=== PATIENT | male | born 1980 | race Caucasian/White ===

== ENCOUNTER 2020-03-28 17:39 | Inpatient (IN) | payer OTHER, SELFPAY ==
[2020-03-28] VITALS (8 sets, daily range): BP systolic 128–154; BP diastolic 77–95; PULSE 95–109; RESP 17–18; TEMP 36.4–37.3; O2SAT 96–99; BMI 37.7; BMI 38.2; BMI 38.3
--- NOTE | 2020-03-28 16:45 | RAD_ITS ---
STUDY: X-RAY - LEFT FOOT CLINICAL: Male, 40 years old. LEFT FIFTH TOE INFECTION TECHNIQUE: 3 view(s) of the foot. COMPARISON: None. FINDINGS: Normal talus, calcaneus, and tarsal bones. Normal visualized subtalar, talonavicular, calcaneocuboid, tarsal and tarsometatarsal articulations. Normal metatarsi. Normal metatarsophalangeal joint of the great toe. Normal tibial and fibular sesamoid bones. Normal interphalangeal joint of the great toe. Normal phalanges of the great toe. There is subchondral lucency in the lateral head of the fifth metatarsal which may be consistent with early changes of acute osteomyelitis.. Soft tissue swelling of the dorsal surface of the fifth toe with multiple lucencies in the subcutaneous fat which may be consistent with gangrene. RAD/Foot min 3 Views IMPRESSION: Soft tissue swelling likely gangrenous changes of the fifth toe with findings suspicious for osteomyelitis of the head of the fifth metatarsal. This may be further assessed with MRI or three-phase bone scan if indicated Electronically Signed: Rai Hassan MD at 20:13 EDT , Service support ,
--- NOTE | 2020-03-28 19:10 | ED.VIS.GEN ---
History of Present Illness Chief Complaint: Wound Check Detail of Chief Complaint: Left foot infection Informant: Patient, Family Onset: Weeks - 1 week Context: Gradual Onset Current Severity: Moderate Maximum Severity: Moderate Narrative: Patient present secondary left fifth toe infection. He is a diabetic and takes natural medicine for this. He reports getting a blister to his left fifth toe approximately week ago. They have been trying to care for this at home but wound is been worsening. He does report malodor and drainage. He denies fever or chills. He states his blood sugars have been under good control. - Past Medical History (1) Diabetes Status: Chronic Past Medical History - Allergies and Home Meds Allergies/Adverse Reactions: Allergies No Known Allergies Allergy (Verified 03/28/20 17:42) Primary Care Physician: Care Physician,No Primary [Primary Care Provider] - Lives: With Family Smoking Status: Never smoker Review of Systems General: Denies: Chills, Fever Eyes: Denies: Visual changes - bilaterally ENT: Denies: Bilateral ear pain Cardiovascular: Denies: Chest pain Respiratory: Denies: Dyspnea, Cough Gastrointestinal: Denies: Abdominal pain, Nausea, Vomiting, Diarrhea Musculoskeletal: Reports: Extremity Pain Skin: Reports: Wounds Neurological: Denies: Headache Hematologic: Denies: Easy bruising, Easy bleeding Allergy: Denies: Uticaria Physical Exam Vital Signs/Narrative: Vital Signs Temp Pulse Resp BP Pulse Ox 03/28/20 19:00 98.1 F 102 H 18 135/86 H 97 03/28/20 18:42 98.1 F 102 H 18 135/86 H 97 03/28/20 17:40 97.6 F L 109 H 18 154/95 H 98 Inital Vital Signs reviewed: Yes General: Well nourished, Well developed Head: Normocephalic ENT: Moist mucous membranes Neck: Supple Cardiovascular: Regular rate, Regular rhythm Respiratory: No distress, CTA bilaterally Abdomen: Soft, Nontender Extremities: - - Patient's left fifth toe is black in color. He has sloughed off skin with drainage. He has edema and erythema to the midfoot. Neurological: Alert, Oriented x3 Psychological: Normal affect Diagnostic/Tx/Re-eval Impressions Foot X-Ray 03/28/20 16:45 IMPRESSION: Soft tissue swelling likely gangrenous changes of the fifth toe with findings suspicious for osteomyelitis of the head of the fifth metatarsal. This may be further assessed with MRI or three-phase bone scan if indicated Electronically Signed: Rai Hassan MD at 20:13 EDT , Service support , 03/28/20 16:45 Foot min 3 Views [RAD] Stat Laboratory Results 03/28/20 03/28/20 03/28/20 19:23 19:23 19:23 WBC 13.4 H RBC 4.35 L Hgb 12.8 L Hct 38.9 L MCV 89.4 MCH 29.4 MCHC 32.9 RDW Std Deviation 42.0 RDW Coeff of Erica 12.9 Plt Count 607 H MPV 9.0 Immature Gran % (Auto) 2.500 H Neut % (Auto) 64.8 Lymph % (Auto) 19.7 Schuyler % (Auto) 10.4 H Eos % (Auto) 1.9 Baso % (Auto) 0.7 Absolute Neuts (auto) 8.7 H Absolute Lymphs (auto) 2.64 Nucleated RBC % 0 Sodium 131 L Potassium 3.9 Chloride 97 L Carbon Dioxide 30.0 Anion Gap 4 L BUN 13 Creatinine 0.79 Estim Creat Clear Calc 107.04 Est GFR (MDRD) Af Amer 139 Est GFR (MDRD) Non-Af 114 BUN/Creatinine Ratio 16.4 Glucose 170 H Lactic Acid 1.2 Calcium 8.9 - Medical Decision Making I spoke with Dr. hilliard on shortly to see the patient. She presented to the emergency room and was able to do an I&D of his foot. She did get cultures and plan will be OR. She did asked that I speak with the hospitalist to have him admit the patient secondary to his underlying diabetes. ED Disposition - Plan for ED Patient: Disposition: Home or Assisted Living Diagnosis: Diabetic foot infection Referrals: Care Physician,No Primary [Primary Care Provider] -
[2020-03-28 19:40] LABS: Absolute Lymphocyte Count 2.64 X10^3/uL (0.83-4.51); Absolute Neutrophil Count 8.7 X10^3/uL (2.0-7.7); Basophil# 0.09 X10^3/uL; Basophil% 0.7 % (0-1); Eosinophil# 0.25 X10^3/uL; Eosinophils% 1.9 % (0-5); Hematocrit 38.9 % (40-54); Hemoglobin 12.8 g/dL (13.0-16.5); Lymphocyte # 2.64 X10^3/ul (4.0); Lymphocyte % 19.7 % (19-41); Mean Corp Hgb Conc 32.9 g/dL (32-36); Mean Corpuscular Hgb 29.4 pg (27.0-32.0); Mean Corpuscular Volume 89.4 fL (80-94); Monocyte# 1.39 X10^3/uL; Monocyte% 10.4 % (0-10); NRBC Flagged by Analyzer 0 % (0-5); Neutrophil # 8.67 X10^3/uL (2.7-7.7); Neutrophil % 64.8 % (47-70); Platelet Count 607 K/mm3 (150-450); RBC Distribution Width CV 12.9 % (11.6-14.6); Red Blood Count 4.35 M/mm3 (4.6-6.2); White Blood Count 13.4 K/mm3 (4.4-11.0)
[2020-03-28 20:06] LABS: Anion Gap 4 (5-15); BUN 13 mg/dL (7-18); BUN/Creat Ratio 16.4 RATIO (10-20); Calcium,Total 8.9 mg/dL (8.5-10.1); Chloride 97 mmol/L (98-107); Creatinine, Serum 0.79 mg/dL (0.70-1.30); EST Glomerular Filtration Rate 114 mL/min (>60); Est Glom Filt Rate - Afr Amer 139 mL/min (>60); Estimated Creatinine Clearance 107.04 ml/min; Glucose 170 mg/dL (74-106); Potassium 3.9 mmol/L (3.5-5.1); Sodium Level 131 mmol/L (136-145)
[2020-03-28 20:10] LABS: Lactic Acid 1.2 mmol/L (0.4-1.9)
--- NOTE | 2020-03-28 21:10 | CON.PCM_ITS ---
Problem List (1) Cellulitis of left lower limb Status: Acute (2) Diabetic wet gangrene of the foot Status: Acute (3) Osteomyelitis of left foot Status: Acute (4) Type 2 diabetes mellitus with diabetic polyneuropathy Status: Chronic Reason for Consult Date of Consultation: 03/28/20 Reason for Consultation: Left foot infection History of Present Illness: This 40-year-old male with uncontrolled diabetes with neuropathy and other unknown medical history complains of a left foot infection which he presented to the emergency room this evening. He relates the onset was approximately 9 days ago with recent purple and black discoloration and redness extension onto the rest of the foot over the past 3 days. His sister noticed an odor. He denies trauma or foreign body injury. He is been treating himself at home with homeopathic supplements. He denies fever, chill, nausea, vomiting. He denies history of prior foot ulcer. He denies claudication or rest foot pain. He has loss of sensation and some paresthesias to the foot. Past Medical History Past Medical History (Chronic Problems): Chronic Problems Diabetes (Chronic) Type 2 diabetes mellitus with diabetic polyneuropathy (Chronic) Allergies No Known Allergies Allergy (Verified 03/28/20 17:42) Home Medications: Ambulatory Orders Medication Instructions Recorded NK 03/28/20 Surgical History: no surgical history - Parents and sisters Lives: With Family Smoking Status: Never smoker Tobacco Use: Non-smoker Alcohol: Occasional - Social Drugs: None - *Family History Maternal History Items: Cancer, Diabetes, - - History of ulcers and lower extremity amputations Review of Systems Constitutional: Reports: Fatigue. Denies: Chills, Fever Eyes: Reports: Blurred vision HEENT: Reports: Visual Changes. Denies: Hearing Changes, Sore Throat Cardiovascular: Denies: Chest Pain, Claudication, Orthopnea Respiratory: Denies: Cough, Shortness of Breath Gastrointestinal: Denies: Abdominal Pain, Diarrhea, Nausea, Vomiting Genitourinary: Denies: Frequency Musculoskeletal: Denies: Foot Pain, Joint Pain, Leg Pain Skin: Reports: Skin Changes, Wounds Neurological: Reports: Blurred vision, Numbness. Denies: Balance problems, Double vision Endocrine: Reports: Change in Body Habitus Hematologic/ Lymphatic: Denies: Easy Bruising, Easy Bleeding, Hx of blood clot Patient Problems: Active and Suspected Problems Diabetic foot infection (Acute) Cellulitis of left lower limb (Acute) Diabetic wet gangrene of the foot (Acute) Osteomyelitis of left foot (Acute) - Physical Exam Vitals/I&O's: Vital Signs Temp Pulse Resp BP Pulse Ox 97.9 F 96 17 132/83 H 99 03/28/20 20:00 03/28/20 20:00 03/28/20 20:00 03/28/20 20:00 03/28/20 20:00 Oxygen Delivery Method Room Air Weight: 102.8 kg Body Mass Index (BMI) 37.7 Intake and Output for Last 24 Hours 03/26/20 03/27/20 03/28/20 23:59 23:59 23:59 Intake Total 50 / 50 Balance 50 / 50 General: Alert, Oriented x3, Cooperative HEENT: Atraumatic Extremities: Capillary Refill Less than 3 Seconds - Right digits 1, 2, 3, 4, 5 and left digits 1, 2, 3, 4. Gangrene and absent capillary fill time to the fi fth toe, No Calf Tenderness - Negative Cas and Albert sign bilateral, Cyanosis - Fifth toe extending onto the forefoot lateral aspect, Peripheral Pulses Normal - 2 out of 4 DP pulses bilateral 1 out of 4 PT pulse bilateral, - - Compartments are soft to palpate to the hindfoot, ankle, and leg. There is fluctuance and bogginess to the fifth toe into the dorsal lateral foot extending onto the foref oot and this is a near approximation to the fifth metatarsal phalangeal joint and proximal to the site. Skin: Ulcer/ Wound - There is a plantar skin discontinuity with a granular fibrous base that does probe to the fifth metatarsal head and communicates with the gangrenous area. There is a significant odor noted with debridement. The erythema is intense and extends to the dorsal hindfoot and also into the fourth intermetatarsal space area. The fourth toe does not have any cellulitis on the site. This is consistent with wet gangrene and it corresponds with the x-ray also. The adjacent skin is atrophic but there is hair present on the toes the foot and the leg Musculoskeletal: No Tenderness to Palpation of Joints or Extremities, No Muscle Wasting, - - Subtle dorsal contraction of the fifth toe with varus rotation and prominent fifth metatarsal head Neurological: - - Lack of epicritic sensation is consistent with neuropathy Psych/Mental Status: Normal Affect, Appropriate Laboratory Results 03/28/20 19:23: WBC 13.4 H, RBC 4.35 L, Hgb 12.8 L, Hct 38.9 L, MCV 89.4, MCH 29.4, MCHC 32.9, RDW Std Deviation 42.0, RDW Coeff of Erica 12.9, Plt Count 607 H, MPV 9.0, Immature Gran % (Auto) 2.500 H, Neut % (Auto) 64.8, Lymph % (Auto) 19.7, [place] % (Auto) 10.4 H, Eos % (Auto) 1.9, Baso % (Auto) 0.7, Absolute Neuts (auto) 8.7 H, Absolute Lymphs (auto) 2.64, Nucleated RBC % 0 03/28/20 19:23: Sodium 131 L, Potassium 3.9, Chloride 97 L, Carbon Dioxide 30.0, Anion Gap 4 L, BUN 13, Creatinine 0.79, Estim Creat Clear Calc 107.04, Est GFR (MDRD) Af Amer 139, Est GFR (MDRD) Non-Af 114, BUN/Creatinine Ratio 16.4, Glucose 170 H, Calcium 8.9 03/28/20 19:23: Lactic Acid 1.2 Current Medications Vancomycin HCl 1,500 mg/ (Sodium Chloride) 530 mls @ 250 mls/hr IV X1 ONE Stop: 03/28/20 21:37 Last Admin: 03/28/20 19:38 Dose: 250 mls/hr Documented by: Assessment/Plan All Active Problems Diabetic foot infection (Acute) Cellulitis of left lower limb (Acute) Diabetic wet gangrene of the foot (Acute) Osteomyelitis of left foot (Acute) Left foot infection cellulitis with wet gangrene of the fifth toe and forefoot Left plantar foot ulcer Diabetes with neuropathy I reviewed and discussed his case. He is afebrile and his vital signs are stable. He is hypertensive. He has leukocytosis of 13.5. ESR and C-reactive protein are pending. I reviewed the foot x-rays of the left limb including AP, lateral, oblique. These were reviewed without any acute fracture or dislocation. There is soft tissue emphysema consistent with his clinical gangrenous presentation at the fifth toe and dorsal fifth metatarsal phalangeal joint level. No foreign body is identified. Blood cultures were obtained in the emergency room and the results are pending. I recommended an immediate debridement and drainage of this bedside in the emergency room and verbal consent was obtained to decompress this infection site. Betadine preparation was performed a 15 blade scalpel and forceps was used to to provide devitalized necrotic moist fibrous tissue. Seropurulent odorous drainage was expressed coming from the dorsal lateral foot and fifth digit. This devitalized tissue did extend down to the joint and bone which is necrotic. This was copiously irrigated with normal saline and packed with Betadine wicked gauze. He understands operating room debridement is recommended and his fifth toe and part of his forefoot are already nonsalvageable. I recommend removing this devitalized necrotic tissue and allowing the foot to drain out. Prior to dressing application, deep wound aerobic, anaerobic, and MRSA PCR cultures were obtained and the results are pending. He was started on vancomycin and Zosyn. This will be updated pending his culture results. He will be admitted for infection stabilization and diabetes management. It is noted he does have diabetes with complications such as wounds and infections currently. He is not aware of any past medical history but admits he did not go to the doctor. He appears to have hypertension at this time. He was admitted on the hospitalist service and management is greatly appreciated. From a podiatry standpoint, I recommend going to the operating room in a timely manner within the next day for soft tissue and bone debridement of the left foot including up to a fourth and fifth ray resection with additional incision and drainage. Likely this will need to be left open to further decompress the infection site. This may be a staged procedure. The preoperative indications, planned procedure, possible benefits, risk, complications, anticipated healing time and management were reviewed. He understands risks and complications may include but are not limited to the following: pain, swelling, scarring, nonhealing, delayed healing, continued infection, need for further surgery, blood clot, allergic reaction, transfer lesions or ulcers, chronic pain syndrome, loss of limb, function, life. No guarantees were made. This is a lot of information for this patient at this time and I would like to review this again prior to surgery. Surgery will be tomorrow pending operating room time availability. He will be made n.p.o. in preparation for this. IV fluids were started and he was also started on insulin sliding scale. Preoperative optimi zation per hospitalist service is greatly appreciated. The surgical consent and surgical limb will need to be signed. I recommend holding anticoagulation medication until after surgery. I also recommend noninvasive vascular studies given his gangrenous state. I do not recommend doing this prior to surgery if this would potentially delay going to the operating room. It is noted he does have palpable pulse including a 2 out of 4 DP pulse and he does have here to the foot ankle and leg of the infected limb. Please do not hesitate to call if you have any questions. I reviewed this case and plan with Dr. Delgado. Ashlee Angulo, CHANDU, [facility] [place] [phone] Procedure Criteria COVID Risk Discussion: This patient was informed that he is having a nonelective surgery and treatment for an acute limb threatening infection during the COVID-19 pandemic. Although all of the CDC recommended safety precautions are being taken at our hospital facility, there is still an inherent risk of COVID-19 in the community. He understands and elects to proceed forward with a hospital admission and surgery as I recommend the benefits outweigh the risks.
--- NOTE | 2020-03-28 21:10 | HP.PCM_ITS ---
Problem List (1) Diabetes Status: Chronic (2) Diabetic foot infection Status: Acute History of Present Illness Date of Admission: 03/28/20 Chief Complaint: Left foot infection The patient is a 40 year old male patient who presents the emergency room with an infection in his left foot. The patient does not regularly see a doctor but recently checked his own blood sugars at home and was found to be high. Onset of this infection in the left foot on his little toe began 1 week ago and has progressed and become more painful since that time. He denies fevers or chills, no chest pain shortness of breath, no nausea vomiting or diarrhea. Laboratory studies reveal an elevated white blood cell count of 13.4, hemoglobin 12.8, hematocrit 38.9, platelets elevated at 607, sodium 131, potassium 3.9, chloride 97, bicarb 30, BUN 13, creatinine 0.7, blood glucose 170, lactate 1.2, x-ray left foot shows soft tissue swelling with gangrene of the left fifth toe along with osteomyelitis of the head of the fifth metatarsal. The patient was seen and examined by tag machine operator Dr. Angulo who plans to take the patient to the OR for amputation of the left fifth digit in the a.m. Past Medical History Past Medical History (Chronic Problems): Chronic Problems Diabetes (Chronic) Allergies No Known Allergies Allergy (Verified 03/28/20 17:42) Home Medications: Ambulatory Orders Medication Instructions Recorded NK 03/28/20 Lives: With Family Smoking Status: Never smoker - *Family History Maternal History Items: Diabetes Review of Systems Constitutional: Denies: Chills, Fever, Weight Change HEENT: Denies: Head Aches, Sinus Congestion, Sinus Drainage Cardiovascular: Denies: Chest Pain, Palpitations Respiratory: Denies: Cough, Shortness of breath at rest, Sputum production Gastrointestinal: Denies: Abdominal Pain, Nausea, Vomiting Genitourinary: Denies: Dysuria Musculoskeletal: Reports: Foot Pain, Joint Pain Skin: Denies: Rash, Wounds Neurological: Denies: Numbness, Tingling, Focal weakness Psychiatric: Denies: Anxiety, Depression, Homicidal Ideations, Suicidal Ideations Hematologic/ Lymphatic: Denies: Easy Bruising, Easy Bleeding VTE Information - Inpt Only VTE Present on Admission: No VTE Mechan Device Prophylaxis: None VTE Pharm Prophylaxis ordered?: Yes Patient Problems: Active and Suspected Problems Diabetic foot infection (Acute) - Physical Exam Vitals/I&O's: Vital Signs Temp Pulse Resp BP Pulse Ox 97.9 F 96 17 132/83 H 99 03/28/20 20:00 03/28/20 20:00 03/28/20 20:00 03/28/20 20:00 03/28/20 20:00 Oxygen Delivery Method Room Air Weight: 226 lb 10.163 oz Body Mass Index (BMI) 37.7 Intake and Output for Last 24 Hours 03/26/20 03/27/20 03/28/20 23:59 23:59 23:59 Intake Total 50 / 50 Balance 50 / 50 General: Alert, Oriented x3, Cooperative HEENT: Atraumatic, Normocephalic Neck: Supple Lungs: Clear to auscultation, Normal air movement Cardiovascular: Regular rate, Normal S1, Normal S2, No murmurs Abdomen: Bowel Sounds Present, Soft, Non Tender Extremities: Edema - trace Skin: Ulcer/ Wound - left 5th toe erythema Musculoskeletal: No Tenderness to Palpation of Joints or Extremities Neurological: Neuro grossly intact Psych/Mental Status: Normal Affect, Appropriate Laboratory Results 03/28/20 19:23: WBC 13.4 H, RBC 4.35 L, Hgb 12.8 L, Hct 38.9 L, MCV 89.4, MCH 29.4, MCHC 32.9, RDW Std Deviation 42.0, RDW Coeff of Erica 12.9, Plt Count 607 H, MPV 9.0, Immature Gran % (Auto) 2.500 H, Neut % (Auto) 64.8, Lymph % (Auto) 19.7, Starr % (Auto) 10.4 H, Eos % (Auto) 1.9, Baso % (Auto) 0.7, Absolute Neuts (auto) 8.7 H, Absolute Lymphs (auto) 2.64, Nucleated RBC % 0 03/28/20 19:23: Sodium 131 L, Potassium 3.9, Chloride 97 L, Carbon Dioxide 30.0, Anion Gap 4 L, BUN 13, Creatinine 0.79, Estim Creat Clear Calc 107.04, Est GFR (MDRD) Af Amer 139, Est GFR (MDRD) Non-Af 114, BUN/Creatinine Ratio 16.4, Glucose 170 H, Calcium 8.9 03/28/20 19:23: Lactic Acid 1.2 Current Medications Vancomycin HCl 1,500 mg/ (Sodium Chloride) 530 mls @ 250 mls/hr IV X1 ONE Stop: 03/28/20 21:37 Last Admin: 03/28/20 19:38 Dose: 250 mls/hr Documented by: Assessment/Plan All Active Problems Diabetic foot infection (Acute) Plan 1. Diabetic foot infection/osteomyelitis/gangrene of fifth digit left foot?admit patient to medical surgical floor. Make patient n.p.o. at midnight pending surgery tomorrow, will initiate IV fluids of normal saline at 125 cc/h. We will cover the patient with every 6 hours sliding scale insulin on a low dose since the patient is na?ve to insulin. We will order CBC, BMP, A1c, FLP and urine microalbumin to be done in the morning, this should assist outpatient follow-up care as he is a new diabetic who has not been treated previously. 2. DVT prophylaxis?low molecular weight heparin At discharge patient will need follow-up care with a primary care physician to manage his diabetes going forward. Inpatient E&M: 41165 Init Hosp L3
[2020-03-28] MEDS: 0.9% Normal Saline 1,000 ML 125 ML IV (23:02)
[2020-03-28 23:04] LABS: M R Staph aureus DNA By PCR Negative (Negative); Probe Check PASS; Specimen Processing Control PASS; Staph aureus DNA By PCR NEGATIVE (Negative)
[2020-03-28 23:06] LABS: Bedside Glucose 120 mg/dL (70-110)
[2020-03-28 23:07] LABS: Erythrocyte Sedimentation Rate 79 mm/hr (0-15)
--- NOTE | 2020-03-28 23:10 | PCM.RX.CS ---
Consult Pharmacy has been consulted to manage selected antiobiotic: Vancomycin Type of Consult: New start Suspected Infection: Skin/Soft tissue Prior Doses of Antibiotics Received/Current Regimen: Medications Vancomycin HCl 1,250 mg/ (Sodium Chloride) 275 mls @ 167 mls/hr IV Q8H NELSON Discontinued Medications Vancomycin HCl 1,500 mg/ (Sodium Chloride) 530 mls @ 250 mls/hr IV X1 ONE Stop: 03/28/20 21:37 Last Admin: 03/28/20 21:59 Dose: Infused Labs: Sodium 131 mmol/L (136-145) L 03/28/20 19:23 Potassium 3.9 mmol/L (3.5-5.1) 03/28/20 19:23 Chloride 97 mmol/L (98-107) L 03/28/20 19:23 Carbon Dioxide 30.0 mmol/L (21.0-32.0) 03/28/20 19:23 Anion Gap 4 (5-15) L 03/28/20 19:23 BUN 13 mg/dL (7-18) 03/28/20 19:23 Creatinine 0.79 mg/dL (0.70-1.30) 03/28/20 19:23 Est GFR (MDRD) Af Amer 139 mL/min (>60) 03/28/20 19:23 Est GFR (MDRD) Non-Af 114 mL/min (>60) 03/28/20 19:23 BUN/Creatinine Ratio 16.4 RATIO (10-20) 03/28/20 19:23 Glucose 170 mg/dL (74-106) H 03/28/20 19:23 Weight used for dosin kg Estimated Creatinine Clearance: 107 Goal Trough: 15-20 mcg/mL Pharmacy Plan for Drug Dosing: Pharmacy Service will continue to monitor and adjust dosing as required. Follow-Up Labs: Trough Vancomycin Labs to be done on [date and time ordered]: 03/29/20 @1900
[2020-03-28 23:29] LABS: Hemoglobin A1c 8.9 % (3.8-5.6)
[2020-03-29] VITALS (9 sets, daily range): BP systolic 100–145; BP diastolic 41–88; PULSE 78–102; RESP 16–18; TEMP 36.4–37.2; O2SAT 94–98
--- NOTE | 2020-03-29 | BON_PTH ---
PATIENT: DARRYL CARLISLE LOC: [facility] U#:[id number] AGE/SX: 40/M ROOM: [place] RE03/28/[address]: Dr. Prem Jackson MD : 1980 BED: 1 DIS: 03/31/2020 SPEC #: [id number] RECD: 03/29/20 15:14 STATUS: SHAHEEN REQ #: [id number] [place]: 03/29/20 00:[address]: Ashlee Angulo DEPT: SURGICAL PATHOLOGY RECD BY: Eddy Salomon ENTERED: 03/30/20 09:46 SP TYPE: Bone OTHR DR: MD Dr. Ashlee Chambers, DPM MD Dr. Nasim Lepe MD No Primary Care Phys Tissues: A - Foot, NOS B - Bone of foot, NOS Procedures: Decalcification bone/plaque Surgery Specimen Level IV Comments: @ Ordering doctor for DEC edited from to DR.JFASCI Rodrigues by BRANNON at 03/30/20 1033 @ Ordering doctor for SUIII edited from to DR.JFASCI Rodrigues by BRANNON at 03/30/20 1033 @ Ordering doctor for SUIV edited from to DR.JFASCI Rodrigues by BRANNON at 03/30/20 1033 @ Submitting doctor edited from to DR.JFASCI Rodrigues by BRANNON at 03/30/20 1033 HEADER OPERATION: Fifth ray resection PRE-OP DIAGNOSIS: Left fifth toe infection TISSUE SUBMITTED: A - Left foot soft tissue and bone, B - Clearance fragment left foot MICROSCOPIC DIAGNOSIS A. Bone and soft tissue of left foot, amputation: Soft tissue with ulceration and acute and chronic inflammation. Bone with acute osteomyelitis. B. Left foot clearance fragment bone, excision: Reactive change. No evidence of acute osteomyelitis. AM:sandi 04/06/20 MICROSCOPIC DESCRIPTION Slides are reviewed. GROSS DESCRIPTION A - Received in fixative is one container labeled with the patient's name and designated left foot soft tissue and bone. The specimen consists of two fragments. One fragment consists of bone and soft tissue measuring 3 x 1.2 x 1.6 cm. The other fragment consists of a mummified toe containing nail, skin and soft tissue measuring 4.5 x 2.5 x 1.5 cm. Survey Interviewer longitudinal sections of the toe are submitted in one cassette after decalcification. B - Received in fixative is one container labeled with the patient's name and designated clearance fragment left foot. The specimen consists of a single irregular fragment of song bone measuring 1 x 1 x 0.2 cm. The specimen is totally submitted in one cassette after decalcification. / AM:sandi 03/30/20 TC:2 CPT: 20449 x2, 31870 x2
[2020-03-29 05:51] LABS: Bedside Glucose 211 mg/dL (70-110)
[2020-03-29] MEDS: Insulin Lispro 100 UNIT/ML INSULN.PEN SC (05:53)
[2020-03-29 06:01] LABS: Absolute Lymphocyte Count 2.02 X10^3/uL (0.83-4.51); Absolute Neutrophil Count 6.3 X10^3/uL (2.0-7.7); Basophil# 0.07 X10^3/uL; Basophil% 0.7 % (0-1); Eosinophil# 0.25 X10^3/uL; Eosinophils% 2.5 % (0-5); Hematocrit 37.1 % (40-54); Lymphocyte # 2.02 X10^3/ul (4.0); Lymphocyte % 20.3 % (19-41); Mean Corp Hgb Conc 32.3 g/dL (32-36); Mean Corpuscular Hgb 29.3 pg (27.0-32.0); Mean Corpuscular Volume 90.5 fL (80-94); Monocyte# 0.97 X10^3/uL; Monocyte% 9.8 % (0-10); NRBC Flagged by Analyzer 0 % (0-5); Neutrophil # 6.31 X10^3/uL (2.7-7.7); Neutrophil % 63.5 % (47-70); Platelet Count 554 K/mm3 (150-450); RBC Distribution Width CV 12.9 % (11.6-14.6); RBC Distribution Width SD 42.7 fl (35.1-43.9); White Blood Count 9.9 K/mm3 (4.4-11.0)
[2020-03-29 06:50] LABS: Anion Gap 6 (5-15); BUN 11 mg/dL (7-18); BUN/Creat Ratio 15.9 RATIO (10-20); Calcium,Total 8.2 mg/dL (8.5-10.1); Chloride 101 mmol/L (98-107); Creatinine, Serum 0.69 mg/dL (0.70-1.30); EST Glomerular Filtration Rate 134 mL/min (>60); Est Glom Filt Rate - Afr Amer 162 mL/min (>60); Estimated Creatinine Clearance 122.55 ml/min; Glucose 219 mg/dL (74-106); Potassium 3.9 mmol/L (3.5-5.1); Sodium Level 133 mmol/L (136-145)
--- NOTE | 2020-03-29 07:51 | PN_ITS ---
Patient Problems: Active and Suspected Problems Diabetic foot infection (Acute) Cellulitis of left lower limb (Acute) Diabetic wet gangrene of the foot (Acute) Osteomyelitis of left foot (Acute) Reason for Visit: Left foot infection Subjective: Patient is a 40-year-old gentleman who presented with fifth toe infection Objective: GENERAL: cooperative HEENT: Atraumatic; EYES; Anicteric, Normal Conjunctiva NECK; supple, normal thyroid, RESPIRATORY: Diminished to auscultation CARDIOVASCULAR: Regular S1 S2, GI: soft, normoactive bowel sounds, : No Renal angle tenderness; EXTREMITIES: Left foot in dressing MUSCULOSKELETAL: no muscle waisting NEURO: Awake; no lateralizing signs. SKIN: No Rash PSYCH; Flat affect Vitals/I&O's: Vital Signs Temp Pulse Resp BP Pulse Ox 98.6 F 91 16 114/73 96 03/29/20 03:15 03/29/20 03:15 03/29/20 03:15 03/29/20 03:15 03/29/20 03:15 Oxygen Delivery Method Room Air Weight: 104.326 kg Body Mass Index (BMI) 38.2 Intake and Output for Last 24 Hours 03/27/20 03/28/20 03/29/20 23:59 23:59 23:59 Intake Total 580 / 580 801.25 / 801.25 Balance 580 / 580 801.25 / 801.25 Laboratory Results 03/28/20 19:23: WBC 13.4 H, RBC 4.35 L, Hgb 12.8 L, Hct 38.9 L, MCV 89.4, MCH 29.4, MCHC 32.9, RDW Std Deviation 42.0, RDW Coeff of Erica 12.9, Plt Count 607 H, MPV 9.0, Immature Gran % (Auto) 2.500 H, Neut % (Auto) 64.8, Lymph % (Auto) 19.7, [place] % (Auto) 10.4 H, Eos % (Auto) 1.9, Baso % (Auto) 0.7, Absolute Neuts (auto) 8.7 H, Absolute Lymphs (auto) 2.64, Nucleated RBC % 0 03/28/20 19:23: Sodium 131 L, Potassium 3.9, Chloride 97 L, Carbon Dioxide 30.0, Anion Gap 4 L, BUN 13, Creatinine 0.79, Estim Creat Clear Calc 107.04, Est GFR (MDRD) Af Amer 139, Est GFR (MDRD) Non-Af 114, BUN/Creatinine Ratio 16.4, Glucose 170 H, Calcium 8.9 03/28/20 19:23: Lactic Acid 1.2 03/28/20 19:23: ESR 79 H 03/28/20 19:23: C-React Prot Ext Range 186.00 H 03/28/20 19:23: Hemoglobin A1c 8.9 H 03/28/20 21:20: S.aureus Protein A PCR NEGATIVE, MRSA (PCR) Negative 03/28/20 22:58: POC Glucose 120 H 03/29/20 05:36: WBC 9.9, RBC 4.10 L, Hgb 12.0 L, Hct 37.1 L, MCV 90.5, MCH 29.3, MCHC 32.3, RDW Std Deviation 42.7, RDW Coeff of Erica 12.9, Plt Count 554 H, MPV 9.0, Immature Gran % (Auto) 3.200 H, Neut % (Auto) 63.5, Lymph % (Auto) 20.3, [place] % (Auto) 9.8, Eos % (Auto) 2.5, Baso % (Auto) 0.7, Absolute Neuts (auto) 6.3, Absolute Lymphs (auto) 2.02, Nucleated RBC % 0 03/29/20 05:36: Sodium 133 L, Potassium 3.9, Chloride 101, Carbon Dioxide 26.0, Anion Gap 6, BUN 11, Creatinine 0.69 L, Estim Creat Clear Calc 122.55, Est GFR (MDRD) Af Amer 162, Est GFR (MDRD) Non-Af 134, BUN/Creatinine Ratio 15.9, Glucose 219 H, Calcium 8.2 L 03/29/20 05:45: POC Glucose 211 H Current Medications Dextrose (D50w Syringe) 0 gm IV X1 PRN; Protocol PRN Reason: Hypoglycemia Enoxaparin Sodium (Lovenox) 40 mg SC DAILY [facility] Last Admin: 03/29/20 07:39 Dose: Not Given Documented by: Glucagon () 1 mg IM .X1 PRN PRN Reason: Hypoglycemia Sodium Chloride () 250 mls @ 15 mls/hr IV .[id number] PRN PRN Reason: Saline Flush Last Infusion: 03/29/20 05:58 Dose: 0 mls/hr Documented by: Sodium Chloride () 250 mls @ 15 mls/hr IV .[id number] PRN PRN Reason: Additional IVPB Infusion Sodium Chloride () 1,000 mls @ 125 mls/hr IV .Q8H [facility] Last Infusion: 03/29/20 04:51 Dose: 125 mls/hr Documented by: Piperacillin Sod/Tazobactam (Sod 3.375 gm/ Sodium Chloride) 50 mls @ 12.5 mls/h r IV Q8 [facility] Last Admin: 03/29/20 05:53 Dose: 12.5 mls/hr Documented by: Vancomycin IV Pharmacy to Dose (1 ea/ Sodium Chloride) 500 mls @ 250 mls/hr IV PRN PRN; Protocol PRN Reason: Rx to Dose Vancomycin HCl 1,250 mg/ (Sodium Chloride) 275 mls @ 167 mls/hr IV Q8H [facility] Last Infusion: 03/29/20 04:51 Dose: Infused Documented by: Insulin Human Lispro (Humalog Kwikpen (Bkc)) 0 unit SC Q6 [facility]; Protocol Last Admin: 03/29/20 05:53 Dose: 1 u Documented by: Morphine Sulfate () 2 mg IV Q3H PRN PRN PRN Reason: Pain Score 6-10/10 Ondansetron HCl (Zofran) 4 mg IV Q8H PRN PRN PRN Reason: NAUSEA/VOMITING Sodium Chloride () 10 - 40 ml IV UD PRN PRN Reason: SALINE FLUSH Medical Necessity - Tobacco Use Smoking Status: Never smoker Tobacco Use: Non-smoker Assessment/Plan All Active Problems Diabetic foot infection (Acute) Cellulitis of left lower limb (Acute) Diabetic wet gangrene of the foot (Acute) Osteomyelitis of left foot (Acute) Patient is a 40-year-old gentleman who presented with fifth toe infection Left fifth toe infection ?Imaging studies demonstrated osteomyelitis of the head of the fifth metatarsal. Patient started on broad-spectrum antibiotic therapy with Zosyn and vancomycin with consultation placed to podiatry the patient to undergo surgical intervention on 03/29/2020 2. Diabetes mellitus type 2 ?Diagnosed almost a month ago patient has however manage his diabetes with some herbal medication. His hemoglobin A1c on admission was 8.9. Do plan to initiate metformin on discharge. Patient in the meantime was placed on Accu- Cheks before meals and at bedtime with sliding scale coverage and diabetic diet 3. Morbid obesity ?With BMI of 30.3 weight loss advised 4. DVT prophylaxis - On enoxaparin Diabetic foot infection/osteomyelitis/gangrene of fifth digit left foot Active Medications Dextrose (D50w Syringe) 0 gm IV X1 PRN; Protocol PRN Reason: Hypoglycemia Enoxaparin Sodium (Lovenox) 40 mg SC DAILY [facility] Last Admin: 03/29/20 07:39 Dose: Not Given Documented by: Glucagon () 1 mg IM .X1 PRN PRN Reason: Hypoglycemia Sodium Chloride () 250 mls @ 15 mls/hr IV .[id number] PRN PRN Reason: Saline Flush Last Infusion: 03/29/20 05:58 Dose: 0 mls/hr Documented by: Sodium Chloride () 250 mls @ 15 mls/hr IV .[id number] PRN PRN Reason: Additional IVPB Infusion Sodium Chloride () 1,000 mls @ 125 mls/hr IV .Q8H [facility] Last Infusion: 03/29/20 04:51 Dose: 125 mls/hr Documented by: Piperacillin Sod/Tazobactam (Sod 3.375 gm/ Sodium Chloride) 50 mls @ 12.5 mls/hr IV Q8 [facility] Last Admin: 03/29/20 05:53 Dose: 12.5 mls/hr Documented by: Vancomycin IV Pharmacy to Dose (1 ea/ Sodium Chloride) 500 mls @ 250 mls/hr IV PRN PRN; Protocol PRN Reason: Rx to Dose Vancomycin HCl 1,250 mg/ (Sodium Chloride) 275 mls @ 167 mls/hr IV Q8H [facility] Last Infusion: 03/29/20 04:51 Dose: Infused Documented by: Insulin Human Lispro (Humalog Kwikpen (Bkc)) 0 unit SC Q6 [facility]; Protocol Last Admin: 03/29/20 05:53 Dose: 1 u Documented by: Morphine Sulfate () 2 mg IV Q3H PRN PRN PRN Reason: Pain Score 6-10/10 Ondansetron HCl (Zofran) 4 mg IV Q8H PRN PRN PRN Reason: NAUSEA/VOMITING Sodium Chloride () 10 - 40 ml IV UD PRN PRN Reason: SALINE FLUSH Clinical Impression(s) from Imaging Studies Foot X-Ray 03/28/20 16:45 IMPRESSION: Soft tissue swelling likely gangrenous changes of the fifth toe with findings suspicious for osteomyelitis of the head of the fifth metatarsal. This may be further assessed with MRI or three-phase bone scan if indicated Electronically Signed: Rai Hassan MD at 20:13 EDT , Service support , Inpatient E&M: 79811 Subs Hosp L2
[2020-03-29] MEDS: 0.9% Normal Saline 1,000 ML 125 ML IV ×2 (08:30→15:24)
--- NOTE | 2020-03-29 08:42 | NURSING ---
Dr Angulo called with updated surgery time of 1414, verified consent order with her over phone and updated primary RN Caryn
--- NOTE | 2020-03-29 10:55 | CASEMGMT ---
Addendum entered by Lucas Busby 03/31/20 12:33: HARIKA BAIG discussed w/pt importance of getting established w/a PCP for f/u with diabetes. Pt states he plans to get an appt w/Dr Semaj Johnson, who his mom sees. He states he does have a functioning glucometer at home and occasionally checks his BS levels. HARIKA BAIG recommended he keeps record of these and take to PCP at his appts. Pt states he has been given Diabetic teaching information and is aware of what to watch for hyper/hypoglycemia and denies having any questions at this time. Original Note: HARIKA BAIG Face to Face with patient for initial transition planning/care coordination assessment. HARIKA BAIG introduced self and role at [facility]. Patient lying in bed, alert and oriented. Patient willing to participate in assessment and is able to answer all questions appropriately. Care providers, pharmacy, and demographics verified. Patient wishes to discharge home, needs to be determined by course of treatment, discussed possible HHC and/or IV ATBs. Patient states he has no further needs or concerns at this time. CM to follow for discharge planning needs that may arise. PCP: None, list provided to patient Specialists: none Preferred Pharmacy: [facility] Insurance: none Prescription Benefit: none Living Will/HPOA: none LNOK: sister, family Living Arrangements: Patient lives with family in 2 story house with bed and bath on second floor with possible first floor setup. Patient independent at home. Transportation: [employer] DME/HHC: Patient denies any DME at home. Information regarding [facility] provided. Disposition Plan: Patient to discharge home with family support and follow-up plans in place. Will monitor for need for HHC at discharge. Sintia QUESADA, RN, CM
[2020-03-29 12:20] LABS: Bedside Glucose 156 mg/dL (70-110)
--- NOTE | 2020-03-29 14:07 | RAD_ITS ---
STUDY: X-RAY - LEFT FOOT CLINICAL: Male, 40 years old. 5TH RAY RESECTION TECHNIQUE: 3 fluoroscopic guided view(s) of the foot. COMPARISON: None. FINDINGS: 3 fluoroscopic guided views of the foot were obtained demonstrating postsurgical changes status post resection of the fifth toe through the midshaft of the metatarsal. RAD/Foot 2 Views IMPRESSION: Postoperative changes status post resection of the fifth toe through the mid fifth metatarsal Electronically Signed: Rai Hassan MD at 16:06 EDT , Service support ,
[2020-03-29] MEDS: Bupivacaine Mpf 0.5% 30 ML VIAL (14:27)
--- NOTE | 2020-03-29 14:56 | PCM.OPRPT ---
Problem List (1) Cellulitis of left lower limb Status: Acute (2) Diabetic wet gangrene of the foot Status: Acute (3) Osteomyelitis of left foot Status: Acute (4) Type 2 diabetes mellitus with diabetic polyneuropathy Status: Chronic Report of Operation Date of Procedure: 03/29/20 Pre-Operative Diagnosis: Left foot infection with ulcer and gangrene Post-Operative Diagnosis: Left foot infection with ulcer and gangrene Surgery/Procedure Performed:: Open fifth ray resection left foot Description of Surgical Findings:: Hemostasis: Well-padded pneumatic left mid leg tourniquet, 17 minutes, 250 mmHg Materials: 2-0 Prolene Specimens sent to microbiology and pathology Complications: None The patient tolerated the procedure and anesthesia well. He was transferred to the PACU with vital signs stable and vascular status intact to the left lower extremity. He will be transferred back to the medical surgical floor upon continued stability. We will continue on IV antibiotics. Postoperative orders were entered electronically. Prior to leaving the operating room, x-rays including 3 views of the foot (AP, lateral, oblique) were reviewed with adequate fifth ray resection noted. There were no acute injuries, fracture, dislocation, foreign body or residual soft tissue emphysema. shipping and receiving specialist: none - Surgeon: Ashlee Angulo DPM Type of Anesthesia:: General - LMA, Local - Preoperative: One-to-one mixture of 1% lidocaine plain and 0.5% Marcaine plain administered in typical left ankle block fashion, 18 cc Specimen's removed: 1. Soft tissue and bone sent to pathology. 2. Clearance fragment fifth metatarsal bone sent to pathology. 3. Clearance fragment fifth metatarsal bone sent to microbiology for aerobic, anaerobic, acid-fast, fungal Estimated Blood Loss (mL): <100 mL Description of Procedure: Indications: The patient is a 40 year old gentleman who has necrotic ulceration sub 5th metatarsal head right foot with soft tissue emphysema consistent with gas gangrene to distal lateral forefoot. There is significant necrosis, infection, drainage and maloder. This patient has diabetes and his hemoglobin A1c was 8.9%. Clinically has neuropathy. He does have palpable dorsalis pedis pulse, her to the foot, and brisk capillary refill time to the 1, 2, 3, fourth digit on the left foot. The fifth digit is gangrenous with no refill time and is cool to touch. Preoperative x-ray demonstrates soft tissue emphysema of the fifth digit and around the fifth metatarsophalangeal joint. This was drained and debrided, and dressed with Betadine with dry dressing yesterday late evening in the emergency room and deep cultures were obtained. Multi-organism growth is noted so far. Blood cultures are pending. His leukocytosis was 13.4, sedimentation rate 79, and C-reactive protein 186. We discussed the options with the patient, and patient elected to proceed with surgical debridement and amputation of the left 5th ray and additional resection or incision and drainage if needed. This was discussed in great detail, and ultimately patient elected to proceed with this procedure. Discussed and reviewed the possible benefits vs risks. He was advised the risks include, but are not limited to pain, further infections, need for further surgery, nonhealing, delay healing, scarring, poor cosmetic result, numbness, weakness, loss of function, complex regional pain syndrome, blood clots, loss of limb, loss of life. Patient expressed understanding and agreement, and able to repeat back, all questions were answered. The consent form was reviewed and it was freely signed by the patient. No guaranties were given nor implied. Preoperative optimization is appreciated with hospitalist service. He is admitted in house and is on vancomycin and Zosyn at this time. He is also being managed by infectious disease. He understands this may be a staged procedure. This patient was informed that he is having a nonelective surgery and treatment for an acute limb threatening infection during the COVID-19 pandemic. Although all of the CDC recommended safety precautions are being taken at our hospital facility, there is still an inherent risk of COVID-19 in the community. He understands and elects to proceed forward with a hospital admission and surgery as I recommend the benefits outweigh the risks. Procedure in detail: The patient was brought into the operating room, and was place on the operating room table in the supine position. He was carefully secured to the operating room table with a safely belt around his waist. A time out was performed, the patient was properly identified and the surgical plan was confirmed. Patient was already on IV antibiotics. A well padded pneumatic tourniquet was placed around the left mid leg. The patient received a total of 18mL of 0.5% Marcaine plain and 1% lidocaine plane was given as a left ankle block after the skin was cleansed with 70% isopropyl alcohol. The left foot was scrubbed, prepped and draped in the usual aseptic fashion. The left foot was exsanguinated using gravity, and the left ankle pneumatic tourniquet was inflated to 250mmHg. There was noted to be an ulceration to sub 5th metatarsal head as noted above. The predebridement measurement was 1.3 x 0.8 x 2.5 cm. Using a 15 scalpel blade all necrotic, infected, nonviable soft tissue was debrided from the site and a partial 5th ray amputation was completed with a bone cutting forceps, the 5th toe was disarticulated at the 5th metatarsal phalangeal joint and the 5th metatarsal head was resected. The 5th metatarsal head and base of 5th toe proximal phalanx was necrotic, soft, and nonviable consistent with infection. The tissue was sent to pathology. An additional incision was made to the dorsal lateral foot to allow decompression of all purulence. There is also devitalized tissue dorsally over the distal area of the fourth ray and this was cleaned with a curette and a rongeur adequately. Deeper capsule did not seem to be affected and I did not determine an additional fourth ray resection was indicated at this time. Copious saline irrigation was performed. The shaft of the 5th metatarsal was healthy appearing, it was hard, white and did not appear to be infected. A clearance fragment was obtained from the shaft of the 5th metatarsal and was sent to microbiology and pathology for further evaluation after copious saline irrigation, new gloves, new adjacent drapes and application of clean instruments. A clean sagittal saw was used for this resection. All remaining tissues appeared to be healthy and viable, free of any infection. The site was again flushed out with copious amounts of normal saline solution. The dorsal incision site was reapproximated using 2-0 Prolene to cover the exposed fifth metatarsal resection bone. The remainder of the site had to be left open as there was not enough tissue for closure and infection decompression will continue. This post debridement measurement was 5 cm x 5 cm x 0.5 cm. The pneumatic tourniquet was deflated, and there was immediate return of good vascular flow to the left foot, with normal temperature gradient and CFT < 2 seconds to the amputation site and to all remaining toes. There was no pulsatile bleeding noted and electrocauterization and pressure was applied to maintain hemostasis. The site was packed with betadine soaked gauze. A dressing was applied which consisted of 4x4 gauze, kerlix, webril, and and clarissa dressing. Postoperative x-rays were obtained with intraoperative fluoroscopy and were reviewed as noted. After procedure: The patient tolerated the above procedure and anesthesia well with no complications. He was transported from the operating room to the recovery room in good condition. Post operative orders placed. Post operating instructions were reviewed with patient. He was advised to keep left foot elevated, keep dressing left foot clean, dry and intact, and no weightbearing left foot. Continue with IV antibiotics and we will continue to follow cultures. Infectious disease and on consultation. Patient will be followed as inpatient. Postoperative orders were entered electronically. Ashlee Angulo DPM, [facility] [place] Grafts/Implants Used: none - Complications none - Admit VTE Documentation VTE Present on Admission: No VTE Mechan Device Prophylaxis: SCD's VTE Pharm Prophylaxis ordered?: Yes
[2020-03-29] MEDS: Lactated Ringers 1,000 ML 100 ML IV (15:20)
[2020-03-29 16:46] LABS: Bedside Glucose 126 mg/dL (70-110)
[2020-03-29 19:36] LABS: Vancomycin, Trough Level 13.6 ug/mL (5.0-15.0)
--- NOTE | 2020-03-29 22:52 | PCM.RX.CS ---
Consult Pharmacy has been consulted to manage selected antiobiotic: Vancomycin Type of Consult: Follow-up Suspected Infection: Skin/Soft tissue Prior Doses of Antibiotics Received/Current Regimen: Medications Vancomycin HCl 1,500 mg/ (Sodium Chloride) 530 mls @ 250 mls/hr IV Q8H [facility] Discontinued Medications Vancomycin HCl 1,250 mg/ (Sodium Chloride) 275 mls @ 167 mls/hr IV Q8H [facility] Last Admin: 03/29/20 22:30 Dose: Infused Labs: Sodium 133 mmol/L (136-145) L 03/29/20 05:36 Potassium 3.9 mmol/L (3.5-5.1) 03/29/20 05:36 Chloride 101 mmol/L (98-107) 03/29/20 05:36 Carbon Dioxide 26.0 mmol/L (21.0-32.0) 03/29/20 05:36 Anion Gap 6 (5-15) 03/29/20 05:36 BUN 11 mg/dL (7-18) 03/29/20 05:36 Creatinine 0.69 mg/dL (0.70-1.30) L 03/29/20 05:36 Est GFR (MDRD) Af Amer 162 mL/min (>60) 03/29/20 05:36 Est GFR (MDRD) Non-Af 134 mL/min (>60) 03/29/20 05:36 BUN/Creatinine Ratio 15.9 RATIO (10-20) 03/29/20 05:36 Glucose 219 mg/dL (74-106) H 03/29/20 05:36 Vancomycin Trough 13.6 ug/mL (5.0-15.0) 03/29/20 18:58 Microbiology: Microbiology 03/28/20 21:20 Wound Abcess - Aerobic & Anaerobic Swabs Gram Stain - Final 03/28/20 21:20 Wound Abcess - Aerobic & Anaerobic Swabs Wound Culture - Preliminary Gram negative mauri Alpha hemolytic organism Weight used for dosin kg Estimated Creatinine Clearance: 122 Goal Trough: 15-20 mcg/mL Pharmacy Plan for Drug Dosing: Trough level of 13.6 was below target range of 15-20. Will increase dose to 1500mg q8h and re-draw trough prior to 4th dose of new regimen. Pharmacy Service will continue to monitor and adjust dosing as required. Follow-Up Labs: Trough Vancomycin Labs to be done on [date and time ordered]: 03/31/20 @0336
[2020-03-30 00:20] VITALS: BP 127/77; PULSE 96; RESP 16; TEMP 36.9; O2SAT 96
[2020-03-30] MEDS: Insulin Lispro 100 UNIT/ML INSULN.PEN SC ×3 (00:24→12:05)
[2020-03-30 00:51] LABS: Bedside Glucose 241 mg/dL (70-110)
[2020-03-30] MEDS: 0.9% Normal Saline 1,000 ML 125 ML IV (04:58)
[2020-03-30 06:45] LABS: Bedside Glucose 238 mg/dL (70-110)
[2020-03-30] MEDS: 0.9% Saline Lock 10 ML Syringe IV (06:45)
[2020-03-30 06:56] LABS: Absolute Lymphocyte Count 2.12 X10^3/uL (0.83-4.51); Absolute Neutrophil Count 8.4 X10^3/uL (2.0-7.7); Basophil# 0.07 X10^3/uL; Basophil% 0.6 % (0-1); Eosinophil# 0.25 X10^3/uL; Eosinophils% 2.1 % (0-5); Hematocrit 35.7 % (40-54); Hemoglobin 11.4 g/dL (13.0-16.5); Lymphocyte # 2.12 X10^3/ul (4.0); Lymphocyte % 17.6 % (19-41); Mean Corp Hgb Conc 31.9 g/dL (32-36); Mean Corpuscular Hgb 29.1 pg (27.0-32.0); Mean Corpuscular Volume 91.1 fL (80-94); Monocyte# 0.96 X10^3/uL; NRBC Flagged by Analyzer 0 % (0-5); Neutrophil # 8.42 X10^3/uL (2.7-7.7); Neutrophil % 69.7 % (47-70); Platelet Count 580 K/mm3 (150-450); RBC Distribution Width CV 12.9 % (11.6-14.6); RBC Distribution Width SD 42.6 fl (35.1-43.9); Red Blood Count 3.92 M/mm3 (4.6-6.2); White Blood Count 12.1 K/mm3 (4.4-11.0)
[2020-03-30 07:10] LABS: Anion Gap 7 (5-15); BUN 12 mg/dL (7-18); BUN/Creat Ratio 16.1 RATIO (10-20); Chloride 103 mmol/L (98-107); Creatinine, Serum 0.75 mg/dL (0.70-1.30); EST Glomerular Filtration Rate 122 mL/min (>60); Est Glom Filt Rate - Afr Amer 148 mL/min (>60); Estimated Creatinine Clearance 112.75 ml/min; Glucose 251 mg/dL (74-106); Magnesium 2.1 mg/dL (1.6-2.6); Potassium 4.3 mmol/L (3.5-5.1); Sodium Level 135 mmol/L (136-145)
--- NOTE | 2020-03-30 07:21 | PCM.PROGNOTE ---
Patient Problems: Active and Suspected Problems Diabetic foot infection (Acute) Cellulitis of left lower limb (Acute) Diabetic wet gangrene of the foot (Acute) Osteomyelitis of left foot (Acute) Subjective: This 40 year old male was seen bedside post operative day #1 left foot open fifth ray resection with incision and drainage. He denies fever, chills, nausea, vomiting, shortness of breath, chest pain, calf pain, constipation, or urinary retention. He denies pain. - Physical Exam Vitals/I&O's: Vital Signs Temp Pulse Resp BP Pulse Ox 98.4 F 96 16 127/77 H 96 03/30/20 00:20 03/30/20 00:20 03/30/20 00:20 03/30/20 00:20 03/30/20 00:20 Oxygen Delivery Method Room Air Weight: 104.3 kg Body Mass Index (BMI) 38.2 Intake and Output for Last 24 Hours 03/28/20 03/29/20 03/30/20 23:59 23:59 23:59 Intake Total 580 / 580 3417.92 / 3417.92 1713.33 / 1713.33 Output Total 2500 / 3600 1950 / 1950 Balance 580 / 580 917.92 / -182.08 -236.67 / -236.67 General: Alert, Oriented x3, Cooperative HEENT: Atraumatic Extremities: No cyanosis, Capillary Refill Less than 3 Seconds - adjacent to amputation site and to left digits 1,2,3,4, No Calf Tenderness - Negative Cas and Albert sign bilateral lower extremity, Diminished Peripheral Pulses - 2/4 dp left , 1/4 pt left Skin: Ulcer/ Wound - measures about 5x5cm with depth of 0.5 cm fibrous, granular base. no purulence or frida necrosis. The erythema intensity and location has nearly receded. There is some ecchymosis proximal to be infection surgical site that remains. There is no odor. The skin adjacent is hairless and atrophic. Musculoskeletal: No Tenderness to Palpation of Joints or Extremities, No Muscle Wasting, - - Compartments the foot remain soft. Neurological: - - Lack of epicritic sensation light touch is consistent with neuropathy status Psych/Mental Status: Normal Affect, Appropriate Microbiology Past 72 Hours 03/28/20 21:20 Wound Abcess - Aerobic & Anaerobic Swabs Gram Stain - Final 03/28/20 21:20 Wound Abcess - Aerobic & Anaerobic Swabs Wound Culture - Preliminary Gram negative mauri Alpha hemolytic organism Laboratory Results 03/29/20 11:59: POC Glucose 156 H 03/29/20 16:35: POC Glucose 126 H 03/29/20 18:58: Vancomycin Trough 13.6 03/30/20 00:22: POC Glucose 241 H 03/30/20 06:10: WBC 12.1 H, RBC 3.92 L, Hgb 11.4 L, Hct 35.7 L, MCV 91.1, MCH 29.1, MCHC 31.9 L, RDW Std Deviation 42.6, RDW Coeff of Erica 12.9, Plt Count 580 H, MPV 9.0, Immature Gran % (Auto) 2.000 H, Neut % (Auto) 69.7, Lymph % (Auto) 17.6 L, [place] % (Auto) 8.0, Eos % (Auto) 2.1, Baso % (Auto) 0.6, Absolute Neuts (auto) 8.4 H, Absolute Lymphs (auto) 2.12, Nucleated RBC % 0 03/30/20 06:10: Sodium 135 L, Potassium 4.3, Chloride 103, Carbon Dioxide 25.0, Anion Gap 7, BUN 12, Creatinine 0.75, Estim Creat Clear Calc 112.75, Est GFR (MDRD) Af Amer 148, Est GFR (MDRD) Non-Af 122, BUN/Creatinine Ratio 16.1, Glucose 251 H, Calcium 8.0 L, Magnesium 2.1 03/30/20 06:36: POC Glucose 238 H Current Medications Dextrose (D50w Syringe) 0 gm IV X1 PRN; Protocol PRN Reason: Hypoglycemia Enoxaparin Sodium (Lovenox) 40 mg SC DAILY [facility] Last Admin: 03/29/20 07:39 Dose: Not Given Documented by: Glucagon () 1 mg IM .X1 PRN PRN Reason: Hypoglycemia Sodium Chloride () 250 mls @ 15 mls/hr IV .[id number] PRN PRN Reason: Saline Flush Last Infusion: 03/30/20 03:35 Dose: 15 mls/hr Documented by: Sodium Chloride () 250 mls @ 15 mls/hr IV .[id number] PRN PRN Reason: Additional IVPB Infusion Sodium Chloride () 1,000 mls @ 125 mls/hr IV .Q8H [facility] Last Infusion: 03/30/20 06:55 Dose: 125 mls/hr Documented by: Piperacillin Sod/Tazobactam (Sod 3.375 gm/ Sodium Chloride) 50 mls @ 12.5 mls/hr IV Q8 [facility] Last Admin: 03/30/20 06:45 Dose: 12.5 mls/hr Documented by: Vancomycin IV Pharmacy to Dose (1 ea/ Sodium Chloride) 500 mls @ 250 mls/hr IV PRN PRN; Protocol PRN Reason: Rx to Dose Vancomycin HCl 1,500 mg/ (Sodium Chloride) 530 mls @ 250 mls/hr IV Q8H [facility] Last Infusion: 03/30/20 07:01 Dose: Infused Documented by: Insulin Human Lispro (Humalog Kwikpen (Bkc)) 0 unit SC Q6 [facility]; Protocol Last Admin: 03/30/20 06:37 Dose: 2 u Documented by: Morphine Sulfate () 2 mg IV Q3H PRN PRN PRN Reason: Pain Score 6-10/10 Nutritional Formula (Avlaro - [place] Flavor) 1 packet PO BIDCM [facility] Last Admin: 03/29/20 16:48 Dose: 1 packet Documented by: Ondansetron HCl (Zofran) 4 mg IV Q8H PRN PRN PRN Reason: NAUSEA/VOMITING Sodium Chloride () 10 - 40 ml IV UD PRN PRN Reason: SALINE FLUSH Last Admin: 03/30/20 06:45 Dose: 10 ml Documented by: Medical Necessity - Tobacco Use Smoking Status: Never smoker Tobacco Use: Non-smoker Assessment/Plan All Active Problems Diabetic foot infection (Acute) Cellulitis of left lower limb (Acute) Diabetic wet gangrene of the foot (Acute) Osteomyelitis of left foot (Acute) Open fifth ray resection performed on 03-29-2020 secondary to left foot infection cellulitis with wet gangrene of the fifth toe and forefoot Diabetes with neuropathy (hemoglobin A1c 8.9%) I reviewed and discussed his case. He is afebrile and his vital signs are stable. He has leukocytosis of 12.1. His postoperative x-ray demonstrates adequate resection of the fifth ray that was infected without residual soft tissue emphysema, foreign body, or acute injury. He continues on vancomycin and Zosyn. His blood cultures are negative so far. His initial wound cultures at the time of his admission are demonstrating alpha hemolytic organism and gram-negative mauri. The clearance fragment results from the fifth metatarsal bone biopsy obtained in surgery that were sent to microbiology and pathology are still pending. Clinically the signs of infection and purulence are resolving nicely. The dressing was reapplied with Betadine and saline wet-to-dry gauze and it was irrigated with normal saline this morning. I recommend continued antibiotics as a cultures develop and he continues to improve clinically. His slight elevation white blood cell count is noted and this will also be monitored. Infectious disease recommendations will be greatly appreciated. I recommend obtaining a noninvasive vascular study now that the urgent infection surgery has been completed. This order will be placed and will help guide his postoperative healing and management. To maintain a strict nonweightbearing status on the left lower extremity. A surgical shoe will be ordered. He will work with physical therapy. Medical management per primary team is greatly appreciated. We will continue to follow him close while in house. Please do not hesitate to call if you have any questions. Ashlee Angulo DPM, [facility] [phone]
--- NOTE | 2020-03-30 07:40 | PCM.PN.HOSP ---
Patient Problems: Active and Suspected Problems Diabetic foot infection (Acute) Cellulitis of left lower limb (Acute) Diabetic wet gangrene of the foot (Acute) Osteomyelitis of left foot (Acute) Reason for Visit: Follow-up left diabetic foot gangrene and hyperglycemia Subjective: Patient underwent Open fifth ray resection left foot on account of Left foot infection with ulcer and gangrene 03/29/[address] Angulo wound cultures so far positive for Gram negative mauri, Alpha hemolytic organism -patient was also started on long-acting insulin in view of rising blood glucose level in addition to Accu-Cheks before meals and at bedtime with sliding scale coverage Objective: GENERAL: cooperative HEENT: Atraumatic; EYES; Anicteric, Normal Conjunctiva NECK; supple, normal thyroid, RESPIRATORY: Diminished to auscultation CARDIOVASCULAR: Regular S1 S2, GI: soft, normoactive bowel sounds, : No Renal angle tenderness; EXTREMITIES: Left foot in dressing MUSCULOSKELETAL: no muscle waisting NEURO: Awake; no lateralizing signs. SKIN: No Rash PSYCH; Flat affect Vitals/I&O's: Vital Signs Temp Pulse Resp BP Pulse Ox 98.4 F 96 16 127/77 H 96 03/30/20 00:20 03/30/20 00:20 03/30/20 00:20 03/30/20 00:20 03/30/20 00:20 Oxygen Delivery Method Room Air Weight: 104.3 kg Body Mass Index (BMI) 38.2 Intake and Output for Last 24 Hours 03/28/20 03/29/20 03/30/20 23:59 23:59 23:59 Intake Total 580 / 580 3417.92 / 3417.92 1713.33 / 1713.33 Output Total 2500 / 3600 1950 / 1950 Balance 580 / 580 917.92 / -182.08 -236.67 / -236.67 Microbiology Past 72 Hours 03/28/20 21:20 Wound Abcess - Aerobic & Anaerobic Swabs Gram Stain - Final 03/28/20 21:20 Wound Abcess - Aerobic & Anaerobic Swabs Wound Culture - Preliminary Gram negative mauri Alpha hemolytic organism Laboratory Results 03/29/20 11:59: POC Glucose 156 H 03/29/20 16:35: POC Glucose 126 H 03/29/20 18:58: Vancomycin Trough 13.6 03/30/20 00:22: POC Glucose 241 H 03/30/20 06:10: WBC 12.1 H, RBC 3.92 L, Hgb 11.4 L, Hct 35.7 L, MCV 91.1, MCH 29.1, MCHC 31.9 L, RDW Std Deviation 42.6, RDW Coeff of Erica 12.9, Plt Count 580 H, MPV 9.0, Immature Gran % (Auto) 2.000 H, Neut % (Auto) 69.7, Lymph % (Auto) 17.6 L, [place] % (Auto) 8.0, Eos % (Auto) 2.1, Baso % (Auto) 0.6, Absolute Neuts (auto) 8.4 H, Absolute Lymphs (auto) 2.12, Nucleated RBC % 0 03/30/20 06:10: Sodium 135 L, Potassium 4.3, Chloride 103, Carbon Dioxide 25.0, Anion Gap 7, BUN 12, Creatinine 0.75, Estim Creat Clear Calc 112.75, Est GFR (MDRD) Af Amer 148, Est GFR (MDRD) Non-Af 122, BUN/Creatinine Ratio 16.1, Glucose 251 H, Calcium 8.0 L, Magnesium 2.1 03/30/20 06:36: POC Glucose 238 H Current Medications Dextrose (D50w Syringe) 0 gm IV X1 PRN; Protocol PRN Reason: Hypoglycemia Enoxaparin Sodium (Lovenox) 40 mg SC DAILY [facility] Last Admin: 03/29/20 07:39 Dose: Not Given Documented by: Glucagon () 1 mg IM .X1 PRN PRN Reason: Hypoglycemia Sodium Chloride () 250 mls @ 15 mls/hr IV .[id number] PRN PRN Reason: Saline Flush Last Infusion: 03/30/20 03:35 Dose: 15 mls/hr Documented by: Sodium Chloride () 250 mls @ 15 mls/hr IV .[id number] PRN PRN Reason: Additional IVPB Infusion Sodium Chloride () 1,000 mls @ 125 mls/hr IV .Q8H [facility] Last Infusion: 03/30/20 06:55 Dose: 125 mls/hr Documented by: Piperacillin Sod/Tazobactam (Sod 3.375 gm/ Sodium Chloride) 50 mls @ 12.5 mls/hr IV Q8 [facility] Last Admin: 03/30/20 06:45 Dose: 12.5 mls/hr Documented by: Vancomycin IV Pharmacy to Dose (1 ea/ Sodium Chloride) 500 mls @ 250 mls/hr IV PRN PRN; Protocol PRN Reason: Rx to Dose Vancomycin HCl 1,500 mg/ (Sodium Chloride) 530 mls @ 250 mls/hr IV Q8H [facility] Last Infusion: 03/30/20 07:01 Dose: Infused Documented by: Insulin Human Lispro (Humalog Kwikpen (Bkc)) 0 unit SC Q6 [facility]; Protocol Last Admin: 03/30/20 06:37 Dose: 2 u Documented by: Morphine Sulfate () 2 mg IV Q3H PRN PRN PRN Reason: Pain Score 6-10/10 Nutritional Formula ([place]varo - [place] Flavor) 1 packet PO BIDCM [facility] Last Admin: 03/29/20 16:48 Dose: 1 packet Documented by: Ondansetron HCl (Zofran) 4 mg IV Q8H PRN PRN PRN Reason: NAUSEA/VOMITING Sodium Chloride () 10 - 40 ml IV UD PRN PRN Reason: SALINE FLUSH Last Admin: 03/30/20 06:45 Dose: 10 ml Documented by: Medical Necessity - Tobacco Use Smoking Status: Never smoker Tobacco Use: Non-smoker Assessment/Plan All Active Problems Diabetic foot infection (Acute) Cellulitis of left lower limb (Acute) Diabetic wet gangrene of the foot (Acute) Osteomyelitis of left foot (Acute) Patient is a 40-year-old gentleman who presented with fifth toe infection Left fifth toe infection ?Imaging studies demonstrated osteomyelitis of the head of the fifth metatarsal. Patient started on broad-spectrum antibiotic therapy with Zosyn and vancomycin with consultation placed to podiatry the patient to undergo surgical intervention on 03/29/2020 ?03/30/2020 Patient underwent Open fifth ray resection left foot on account of Left foot infection with ulcer and gangrene 03/29/[address] Angulo wound cultures so far positive for Gram negative mauri, Alpha hemolytic organism patient was also started on long-acting insulin in view of rising blood glucose level in addition to Accu-Cheks before meals and at bedtime with sliding scale coverage. Consult was also placed to infectious disease 2. Diabetes mellitus type 2 ?Diagnosed almost a month ago patient has however manage his diabetes with some herbal medication. His hemoglobin A1c on admission was 8.9. Do plan to initiate metformin on discharge. Patient in the meantime was placed on Accu-Cheks before meals and at bedtime with sliding scale coverage and diabetic diet - 03/30/2020 started on long-acting insulin in view of rising blood glucose level in addition to Accu-Cheks before meals and at bedtime with sliding scale coverage 3. Morbid obesity ?With BMI of 30.3 weight loss advised 4. DVT prophylaxis - On enoxaparin Inpatient E&M: [id number] [facility] L[facility]
--- NOTE | 2020-03-30 07:57 | ART_ITS ---
Reason For Study: Ulcer Procedure A bilateral lower extremity continuous wave Doppler with analog waveform analysis,segmental pressures,and ankle brachial indexes without exercise. Left Segmental Pressures Left brachial= 126mmHg. Left posterior tibial artery = >254mmHg. Left dorsalis pedis artery = 182mmHg. Left digit = 85 mmHg. The left dorsalis pedis waveforms are triphasic. The left posterior tibial artery waveforms are triphasic. Right Segmental Pressures Right brachial= 126mmHg. Right posterior tibial artery = >254mmHg. Right dorsalis pedis artery = 180mmHg. Right digit = 92 mmHg. The right dorsalis pedis waveforms are triphasic. The right posterior tibial artery waveforms are triphasic. Indices The right ankle brachial index by the dorsalis pedis is 1.43. The right ankle brachial index by the posterior tibial artery is NC. The right digital-brachial index is 0.73. The left ankle brachial index by the dorsalis pedis is 1.44. The left ankle brachial index by the posterior tibial artery is NC. The left digital-brachial index is 0.67. Interpretation Summary Triphasic Doppler waveforms are noted at ankle level bilaterally. Pulse-volume recordings appear satisfactory at low-thigh, calf, ankle, and digital levels bilaterally. Resting ankle-brachial indices are supra-normal bilaterally. The right digital-brachial index is normal. The left digital- brachial index is mildly diminished. There is evidence of arterial calcification at ankle level bilaterally. Arterial flow appears to be normal at ankle level bilaterally. Arterial flow appears normal at digital level on the right. There appears to be mild impairment of arterial flow at digital level on the left. Ordering Physician: Ashlee Angulo Performed By: Sintia Landa RVT and Student
[2020-03-30 08:55] VITALS: BP 127/79; PULSE 94; RESP 18; TEMP 36.8; O2SAT 96
[2020-03-30] MEDS: Enoxaparin 40 MG/0.4 ML Syringe SC (08:55)
[2020-03-30 11:35] LABS: Bedside Glucose 237 mg/dL (70-110)
[2020-03-30 14:15] VITALS: BP 132/83; PULSE 95; RESP 16; TEMP 36.7; O2SAT 97
[2020-03-30 16:20] LABS: Bedside Glucose 143 mg/dL (70-110)
--- NOTE | 2020-03-30 16:54 | PCM.HP.ID ---
Problem List (1) Osteomyelitis of left foot Status: Acute Reason for Consult: osteo Consulted by: Dr. Jackson History of Present Illness: The patient is a 40 year old M with DM neuropathy, presented with about 9 days of progressive L foot swelling, redness, bloody drainage. No pain in foot. No known inciting event. No fever, no n/v/d. Admitted on vanc/zosyn, taken to OR 03/[address] Angulo, feeling better today. Full ROS performed and neg except as noted above. - Medical History Past Medical History (Chronic Problems): Chronic Problems Diabetes (Chronic) Type 2 diabetes mellitus with diabetic polyneuropathy (Chronic) Allergies/Adverse Reactions: Allergies No Known Allergies Allergy (Verified 03/28/20 17:42) Home Medications: Ambulatory Orders Medication Instructions Recorded NK 03/28/20 - Social History Tobacco Use: non-smoker Vital Signs Temp Pulse Resp BP Pulse Ox 98.0 F 95 16 132/83 H 97 03/30/20 14:15 03/30/20 14:15 03/30/20 14:15 03/30/20 14:15 03/30/20 14:15 Oxygen Delivery Method Room Air Weight: 104.3 kg Body Mass Index (BMI) 38.2 Microbiology Past 72 Hours 03/28/20 21:20 Gram Stain - Final Wound Abcess - Aerobic & Anaerobic Swabs Wound Culture - Preliminary Gram negative mauri Gram negative mauri#2 Alpha hemolytic organism Anaerobic Culture - Preliminary Checking for anaerobes, further studies to follow. 03/29/20 14:51 Gram Stain - Final Other - Other Wound Culture - Preliminary No growth-Final to follow Laboratory Tests Past 24 Hrs 03/29/20 03/30/20 03/30/20 18:58 06:10 06:10 WBC 12.1 H RBC 3.92 L Hgb 11.4 L Hct 35.7 L MCV 91.1 MCH 29.1 MCHC 31.9 L RDW Std Deviation 42.6 RDW Coeff of Erica 12.9 Plt Count 580 H MPV 9.0 Immature Gran % (Auto) 2.000 H Neut % (Auto) 69.7 Lymph % (Auto) 17.6 L [place] % (Auto) 8.0 Eos % (Auto) 2.1 Baso % (Auto) 0.6 Absolute Neuts (auto) 8.4 H Absolute Lymphs (auto) 2.12 Nucleated RBC % 0 Sodium 135 L Potassium 4.3 Chloride 103 Carbon Dioxide 25.0 Anion Gap 7 BUN 12 Creatinine 0.75 Estim Creat Clear Calc 112.75 Est GFR (MDRD) Af Amer 148 Est GFR (MDRD) Non-Af 122 BUN/Creatinine Ratio 16.1 Glucose 251 H Calcium 8.0 L Magnesium 2.1 Vancomycin Trough 13.6 - Other Studies Radiology: [] reviewed Other Studies: [] Route of nutrition/ use of supplements: [] Nutritional Intake: [] IV Site: [] Ibarra Catheter: [] - Physical Exam General: Alert, Oriented x3, Cooperative, No apparent distress HEENT: Atraumatic, PERRLA, EOMI Neck: Supple, No Nodes Lungs: Clear to auscultation, Normal air movement Cardiovascular: Regular rate, Regular Rhythm, No murmurs Abdomen: Soft, Non Tender, Non-Distended Extremities: No edema Skin: Ulcer/ Wound - foot wrapped IV Site: Peripheral, without redness Musculoskeletal: No Tenderness to Palpation of Joints or Extremities Neurological: Cranial nerves II-XII grossly intact - Assessment/Plan Antibiotics: [] Assessment/Plan: [] Active and Suspected Problems Diabetic foot infection (Acute) Cellulitis of left lower limb (Acute) Diabetic wet gangrene of the foot (Acute) Osteomyelitis of left foot (Acute) L foot osteo with gangrene and DM neuropathy - cxs showing GNR x2 and strep-like so far; cont vanc/zosyn. Now s/p I&D and partial 5th ray resection by Dr. Angulo on 03/29/20. Will follow, thank you.
[2020-03-30 20:22] VITALS: BP 135/81; PULSE 101; RESP 16; TEMP 36.6; O2SAT 98
[2020-03-30 22:16] LABS: Bedside Glucose 118 mg/dL (70-110)
[2020-03-31 02:27] VITALS: BP 137/79; PULSE 96; RESP 16; TEMP 36.4; O2SAT 97
[2020-03-31 04:02] LABS: Absolute Lymphocyte Count 2.73 X10^3/uL (0.83-4.51); Basophil# 0.07 X10^3/uL; Basophil% 0.6 % (0-1); Eosinophil# 0.35 X10^3/uL; Eosinophils% 3.2 % (0-5); Hemoglobin 12.2 g/dL (13.0-16.5); Lymphocyte # 2.73 X10^3/ul (4.0); Lymphocyte % 24.7 % (19-41); Mean Corp Hgb Conc 32.1 g/dL (32-36); Mean Corpuscular Hgb 29.6 pg (27.0-32.0); Mean Corpuscular Volume 92.2 fL (80-94); Mean Platelet Vol. 9.2 fl (6.2-12.0); Monocyte# 0.72 X10^3/uL; Monocyte% 6.5 % (0-10); NRBC Flagged by Analyzer 0 % (0-5); Neutrophil # 6.98 X10^3/uL (2.7-7.7); Neutrophil % 63.3 % (47-70); Platelet Count 588 K/mm3 (150-450); RBC Distribution Width CV 12.9 % (11.6-14.6); RBC Distribution Width SD 42.3 fl (35.1-43.9); Red Blood Count 4.12 M/mm3 (4.6-6.2)
[2020-03-31 04:17] LABS: Anion Gap 7 (5-15); BUN 15 mg/dL (7-18); BUN/Creat Ratio 20.6 RATIO (10-20); Calcium,Total 8.1 mg/dL (8.5-10.1); Chloride 104 mmol/L (98-107); Creatinine, Serum 0.73 mg/dL (0.70-1.30); EST Glomerular Filtration Rate 126 mL/min (>60); Est Glom Filt Rate - Afr Amer 153 mL/min (>60); Estimated Creatinine Clearance 115.84 ml/min; Glucose 145 mg/dL (74-106); Sodium Level 136 mmol/L (136-145)
[2020-03-31 04:18] LABS: Vancomycin, Trough Level 19.9 ug/mL (5.0-15.0)
--- NOTE | 2020-03-31 05:37 | PCM.RX.CS ---
Consult Pharmacy has been consulted to manage selected antiobiotic: Vancomycin Type of Consult: Follow-up Labs: Sodium 136 mmol/L (136-145) 03/31/20 03:40 Potassium 4.0 mmol/L (3.5-5.1) 03/31/20 03:40 Chloride 104 mmol/L (98-107) 03/31/20 03:40 Carbon Dioxide 25.0 mmol/L (21.0-32.0) 03/31/20 03:40 Anion Gap 7 (5-15) 03/31/20 03:40 BUN 15 mg/dL (7-18) 03/31/20 03:40 Creatinine 0.73 mg/dL (0.70-1.30) 03/31/20 03:40 Est GFR (MDRD) Af Amer 153 mL/min (>60) 03/31/20 03:40 Est GFR (MDRD) Non-Af 126 mL/min (>60) 03/31/20 03:40 BUN/Creatinine Ratio 20.6 RATIO (10-20) H 03/31/20 03:40 Glucose 145 mg/dL (74-106) H 03/31/20 03:40 Vancomycin Trough 19.9 ug/mL (5.0-15.0) H 03/31/20 03:40 Microbiology: Microbiology 03/28/20 21:20 Wound Abcess - Aerobic & Anaerobic Swabs Gram Stain - Final 03/28/20 21:20 Wound Abcess - Aerobic & Anaerobic Swabs Wound Culture - Preliminary Gram negative mauri Gram negative mauri#2 Alpha hemolytic organism 03/28/20 21:20 Wound Abcess - Aerobic & Anaerobic Swabs Anaerobic Culture - Preliminary Checking for anaerobes, further studies to follow. 03/29/20 14:51 Other - Other Gram Stain - Final 03/29/20 14:51 Other - Other Wound Culture - Preliminary No growth-Final to follow Goal Trough: 15-20 mcg/mL Pharmacy Plan for Drug Dosing: Pharmacy Service will continue to monitor and adjust dosing as required. TROUGH 19.9 NO CHANGES Follow-Up Labs: Trough Vancomycin Labs to be done on [date and time ordered]: 04/04 @ 0605
[2020-03-31 06:41] LABS: Bedside Glucose 132 mg/dL (70-110)
--- NOTE | 2020-03-31 07:29 | PCM.PN.HOSP ---
Patient Problems: Active and Suspected Problems Diabetic foot infection (Acute) Cellulitis of left lower limb (Acute) Diabetic wet gangrene of the foot (Acute) Osteomyelitis of left foot (Acute) Reason for Visit: diabetic foot ulcer Subjective: Seen had a relatively uneventful night blood glucose control improved Objective: GENERAL: cooperative HEENT: Atraumatic; EYES; Anicteric, Normal Conjunctiva NECK; supple, normal thyroid, RESPIRATORY: Diminished to auscultation CARDIOVASCULAR: Regular S1 S2, GI: soft, normoactive bowel sounds, : No Renal angle tenderness; EXTREMITIES: Left foot in dressing MUSCULOSKELETAL: no muscle waisting NEURO: Awake; no lateralizing signs. SKIN: No Rash PSYCH; Flat affect Vitals/I&O's: Vital Signs Temp Pulse Resp BP Pulse Ox 97.6 F L 96 16 137/79 H 97 03/31/20 02:27 03/31/20 02:27 03/31/20 02:27 03/31/20 02:27 03/31/20 02:27 Oxygen Delivery Method Room Air Weight: 104.3 kg Body Mass Index (BMI) 38.2 Intake and Output for Last 24 Hours 03/29/20 03/30/20 03/31/20 23:59 23:59 23:59 Intake Total 3417.92 / 3417.92 5638.50 / 5638.50 1414.5 / 1414.5 Output Total 2500 / 3600 2825 / 2825 1775 / 1775 Balance 917.92 / -182.08 2813.50 / 2813.50 -360.5 / -360.5 Microbiology Past 72 Hours 03/28/20 21:20 Wound Abcess - Aerobic & Anaerobic Swabs Gram Stain - Final 03/28/20 21:20 Wound Abcess - Aerobic & Anaerobic Swabs Wound Culture - Preliminary Gram negative mauri Gram negative mauri#2 Alpha hemolytic organism 03/28/20 21:20 Wound Abcess - Aerobic & Anaerobic Swabs Anaerobic Culture - Preliminary Checking for anaerobes, further studies to follow. 03/29/20 14:51 Other - Other Gram Stain - Final 03/29/20 14:51 Other - Other Wound Culture - Preliminary No growth-Final to follow Laboratory Results 03/30/20 11:26: POC Glucose 237 H 03/30/20 16:06: POC Glucose 143 H 03/30/20 22:10: POC Glucose 118 H 03/31/20 03:40: WBC 11.0, RBC 4.12 L, Hgb 12.2 L, Hct 38.0 L, MCV 92.2, MCH 29.6, MCHC 32.1, RDW Std Deviation 42.3, RDW Coeff of Erica 12.9, Plt Count 588 H, MPV 9.2, Immature Gran % (Auto) 1.700 H, Neut % (Auto) 63.3, Lymph % (Auto) 24.7, [place] % (Auto) 6.5, Eos % (Auto) 3.2, Baso % (Auto) 0.6, Absolute Neuts (auto) 7.0, Absolute Lymphs (auto) 2.73, Nucleated RBC % 0 03/31/20 03:40: Sodium 136, Potassium 4.0, Chloride 104, Carbon Dioxide 25.0, Anion Gap 7, BUN 15, Creatinine 0.73, Estim Creat Clear Calc 115.84, Est GFR (MDRD) Af Amer 153, Est GFR (MDRD) Non-Af 126, BUN/Creatinine Ratio 20.6 H, Glucose 145 H, Calcium 8.1 L 03/31/20 03:40: Vancomycin Trough 19.9 H 03/31/20 06:34: POC Glucose 132 H Current Medications Dextrose (D50w Syringe) 0 gm IV X1 PRN; Protocol PRN Reason: Hypoglycemia Enoxaparin Sodium (Lovenox) 40 mg SC DAILY [facility] Last Admin: 03/30/20 08:55 Dose: 40 mg Documented by: Glucagon () 1 mg IM .X1 PRN PRN Reason: Hypoglycemia Sodium Chloride () 250 mls @ 15 mls/hr IV .[id number] PRN PRN Reason: Saline Flush Last Infusion: 03/31/20 05:29 Dose: 0 mls/hr Documented by: Sodium Chloride () 250 mls @ 15 mls/hr IV .[id number] PRN PRN Reason: Additional IVPB Infusion Piperacillin Sod/Tazobactam (Sod 3.375 gm/ Sodium Chloride) 50 mls @ 12.5 mls/hr IV Q8 [facility] Last Admin: 03/31/20 06:57 Dose: 12.5 mls/hr Documented by: Vancomycin IV Pharmacy to Dose (1 ea/ Sodium Chloride) 500 mls @ 250 mls/hr IV PRN PRN; Protocol PRN Reason: Rx to Dose Vancomycin HCl 1,500 mg/ (Sodium Chloride) 530 mls @ 250 mls/hr IV Q8H [facility] Last Infusion: 03/31/20 06:58 Dose: Infused Documented by: Insulin Glargine (Lantus (Bk)) 10 units SC DAILY [facility] Last Admin: 03/30/20 10:16 Dose: 10 units Documented by: Insulin Human Lispro (Humalog Kwikpen ([facility])) 0 unit SC ACHS [facility]; Protocol Last Admin: 03/31/20 06:35 Dose: Not Given Documented by: Morphine Sulfate () 2 mg IV Q3H PRN PRN PRN Reason: Pain Score 6-10/10 Nutritional Formula (Alvaro - [place] Flavor) 1 packet PO BIDCM [facility] Last Admin: 03/30/20 16:08 Dose: 1 packet Documented by: Ondansetron HCl (Zofran) 4 mg IV Q8H PRN PRN PRN Reason: NAUSEA/VOMITING Sodium Chloride () 10 - 40 ml IV UD PRN PRN Reason: SALINE FLUSH Last Admin: 03/30/20 06:45 Dose: 10 ml Documented by: Medical Necessity - Tobacco Use Smoking Status: Never smoker Tobacco Use: Non-smoker Assessment/Plan All Active Problems Diabetic foot infection (Acute) Cellulitis of left lower limb (Acute) Diabetic wet gangrene of the foot (Acute) Osteomyelitis of left foot (Acute) Patient is a 40-year-old gentleman who presented with fifth toe infection Left fifth toe infection ?Imaging studies demonstrated osteomyelitis of the head of the fifth metatarsal. Patient started on broad-spectrum antibiotic therapy with Zosyn and vancomycin with consultation placed to podiatry the patient to undergo surgical intervention on 03/29/2020 ?03/30/2020 Patient underwent Open fifth ray resection left foot on account of Left foot infection with ulcer and gangrene 03/29/[address] Angulo wound cultures so far positive for Gram negative mauri, Alpha hemolytic organism patient was also started on long-acting insulin in view of rising blood glucose level in addition to Accu-Cheks before meals and at bedtime with sliding scale coverage. Consult was also placed to infectious disease 2. Diabetes mellitus type 2 ?Diagnosed almost a month ago patient has however manage his diabetes with some herbal medication. His hemoglobin A1c on admission was 8.9. Do plan to initiate metformin on discharge. Patient in the meantime was placed on Accu-Cheks before meals and at bedtime with sliding scale coverage and diabetic diet - 03/30/2020 started on long-acting insulin in view of rising blood glucose level in addition to Accu-Cheks before meals and at bedtime with sliding scale coverage 3. Morbid obesity ?With BMI of 30.3 weight loss advised 4. DVT prophylaxis - On enoxaparin Inpatient E&M: 76874 Subs Hosp L2
[2020-03-31] MEDS: Enoxaparin 40 MG/0.4 ML Syringe SC (09:12)
[2020-03-31 09:15] VITALS: BP 132/88; PULSE 93; RESP 16; TEMP 36.8; O2SAT 98
--- NOTE | 2020-03-31 10:09 | CASEMGMT ---
Addendum entered by Lucas Busby 03/31/20 12:20: Per Dr Angulo, pt to maintain NWB status and no therapy needed at this time. She states pt/sister have dressing supplies for wound care/dsg changes except for Betadine and she has instructed them on where to get this. Dressing change instructions are written on the discharge instructions and pt/sister have been instructed by Dr Angulo on how to do them. HARIKA BAIG to room to talk w/pt and sister @ bedside. They deny having any questions about the dressing changes or supplies and they have no further needs/concerns re: discharge planning. Pt inquiring about being able to take a shower before he goes home. HARIKA Mariscal, aware. Original Note: HARIKA BAIG NOTE: Per Dr Albert, plan is for pt to discharge home on PO atb's. HARIKA BAIG to room to discuss discharge planning with pt. Pt resting in bed, awake/alert. Pt states his family is picking up a walker today and he denies having any other DME needs. Pt states his sister is coming in this morning so she is here to observe Dr Angulo do dressing change to his foot. Pt states his sister lives with him and is willing to do any dressing changes/wound care as needed. Pt is currently NWB. Vanessa QUESADA RN, CM
--- NOTE | 2020-03-31 10:25 | PN.ID_ITS ---
Patient Problems: Active and Suspected Problems Diabetic foot infection (Acute) Cellulitis of left lower limb (Acute) Diabetic wet gangrene of the foot (Acute) Osteomyelitis of left foot (Acute) Subjective: Feeling better, no fever, no n/v/d. - Physical Exam Vitals/I&O's: Vital Signs Temp Pulse Resp BP Pulse Ox 98.2 F 93 16 132/88 H 98 03/31/20 09:15 03/31/20 09:15 03/31/20 09:15 03/31/20 09:15 03/31/20 09:15 Oxygen Delivery Method Room Air Weight: 104.3 kg Body Mass Index (BMI) 38.2 Intake and Output for Last 24 Hours 03/29/20 03/30/20 03/31/20 23:59 23:59 23:59 Intake Total 3417.92 / 3417.92 5638.50 / 5638.50 1414.5 / 1414.5 Output Total 2500 / 3600 2825 / 2825 1775 / 1775 Balance 917.92 / -182.08 2813.50 / 2813.50 -360.5 / -360.5 General: Alert, Cooperative, No apparent distress Lungs: Clear to auscultation, Normal air movement Cardiovascular: Regular rate, Regular Rhythm Abdomen: Soft, Non Tender, Non-Distended Skin: Ulcer/ Wound - Foot wrapped Microbiology Past 72 Hours 03/28/20 21:20 Wound Abcess - Aerobic & Anaerobic Swabs Gram Stain - Final 03/28/20 21:20 Wound Abcess - Aerobic & Anaerobic Swabs Wound Culture - Final Enterobacter cloacae complex Proteus mirabilis Atopobium vaginae 03/28/20 21:20 Wound Abcess - Aerobic & Anaerobic Swabs Anaerobic Culture - Preliminary Checking for anaerobes, further studies to follow. 03/29/20 14:51 Other - Other Gram Stain - Final 03/29/20 14:51 Other - Other Wound Culture - Preliminary No growth-Final to follow 03/29/20 14:51 Other - Other Anaerobic Culture - Preliminary Laboratory Results 03/30/20 11:26: POC Glucose 237 H 03/30/20 16:06: POC Glucose 143 H 03/30/20 22:10: POC Glucose 118 H 03/31/20 03:40: WBC 11.0, RBC 4.12 L, Hgb 12.2 L, Hct 38.0 L, MCV 92.2, MCH 29.6, MCHC 32.1, RDW Std Deviation 42.3, RDW Coeff of Erica 12.9, Plt Count 588 H, MPV 9.2, Immature Gran % (Auto) 1.700 H, Neut % (Auto) 63.3, Lymph % (Auto) 24.7, [place] % (Auto) 6.5, Eos % (Auto) 3.2, Baso % (Auto) 0.6, Absolute Neuts (auto) 7.0, Absolute Lymphs (auto) 2.73, Nucleated RBC % 0 03/31/20 03:40: Sodium 136, Potassium 4.0, Chloride 104, Carbon Dioxide 25.0, Anion Gap 7, BUN 15, Creatinine 0.73, Estim Creat Clear Calc 115.84, Est GFR (MDRD) Af Amer 153, Est GFR (MDRD) Non-Af 126, BUN/Creatinine Ratio 20.6 H, Glucose 145 H, Calcium 8.1 L 03/31/20 03:40: Vancomycin Trough 19.9 H 03/31/20 06:34: POC Glucose 132 H Current Medications Dextrose (D50w Syringe) 0 gm IV X1 PRN; Protocol PRN Reason: Hypoglycemia Enoxaparin Sodium (Lovenox) 40 mg SC DAILY [facility] Last Admin: 03/31/20 09:12 Dose: 40 mg Documented by: Glucagon () 1 mg IM .X1 PRN PRN Reason: Hypoglycemia Sodium Chloride () 250 mls @ 15 mls/hr IV .[id number] PRN PRN Reason: Saline Flush Last Infusion: 03/31/20 05:29 Dose: 0 mls/hr Documented by: Sodium Chloride () 250 mls @ 15 mls/hr IV .[id number] PRN PRN Reason: Additional IVPB Infusion Piperacillin Sod/Tazobactam (Sod 3.375 gm/ Sodium Chloride) 50 mls @ 12.5 mls/hr IV Q8 [facility] Last Admin: 03/31/20 06:57 Dose: 12.5 mls/hr Documented by: Insulin Glargine (Lantus (Bkc)) 10 units SC DAILY [facility] Last Admin: 03/31/20 09:12 Dose: 10 units Documented by: Insulin Human Lispro (Humalog Kwikpen (c)) 0 unit SC ACHS [facility]; Protocol Last Admin: 03/31/20 06:35 Dose: Not Given Documented by: Morphine Sulfate () 2 mg IV Q3H PRN PRN PRN Reason: Pain Score 6-10/10 Nutritional Formula (Alvaro - [place] Flavor) 1 packet PO BIDCM [facility] Last Admin: 03/31/20 09:12 Dose: 1 packet Documented by: Ondansetron HCl (Zofran) 4 mg IV Q8H PRN PRN PRN Reason: NAUSEA/VOMITING Sodium Chloride () 10 - 40 ml IV UD PRN PRN Reason: SALINE FLUSH Last Admin: 03/30/20 06:45 Dose: 10 ml Documented by: Medical Necessity - Tobacco Use Smoking Status: Never smoker Tobacco Use: Non-smoker Route of nutrition/ use of supplements: [] Nutritional Intake: [] IV Site: [] Ibarra Catheter: [] - Assessment/Plan Antibiotics: [] Assessment/Plan: [] Active and Suspected Problems Diabetic foot infection (Acute) Cellulitis of left lower limb (Acute) Diabetic wet gangrene of the foot (Acute) Osteomyelitis of left foot (Acute) L foot osteo with gangrene and DM neuropathy - cxs showing enterobacter, proteus, and atopobium so far; will stop vanc. Cont zosyn. Now s/p I&D and partial 5th ray resection by Dr. Angulo on 03/29/20. Discharge plan is for 6 weeks total abx with po levaquin and flagyl. Counseled re: potential side effects. Will need bmp, cbc, LFT, and ESR in 2 weeks. Will check EKG now for baseline qtc monitoring. Will follow, d/w lead case manager. ID followup in 2 weeks at wound center.
--- NOTE | 2020-03-31 10:25 | EKG12_ITS ---
Test Reason : PRE OP Blood Pressure : / mmHG Vent. Rate : 097 BPM Atrial Rate : 097 BPM P-R Int : 152 ms QRS Dur : 072 ms QT Int : 370 ms P-R-T Axes : 063 034 042 degrees QTc Int : 469 ms Normal sinus rhythm Normal ECG Confirmed by GILBERTO LUCERO, WELLINGTON ([id number]), editor greeting card KENY MOSCOSO ([id number]) on 04/06/2020 10:26:25 AM Referred By: WILLOW Confirmed By:WELLINGTON MACIAS MD
[2020-03-31] MEDS: Insulin Lispro 100 UNIT/ML INSULN.PEN SC (11:23)
--- NOTE | 2020-03-31 11:26 | DCINST_ITS ---
- Discharge Diagnoses Current Active Problems: Current Active and Chronic Problems Diabetic foot infection (Acute) Cellulitis of left lower limb (Acute) Diabetic wet gangrene of the foot (Acute) Osteomyelitis of left foot (Acute) Type 2 diabetes mellitus with diabetic polyneuropathy (Chronic) You will use the following diet at home:: Calorie/Carbohydrate Controlled (specify 1200, 1400, etc) - 1800 Your food should be the consistency of: Regular Allergies/Adverse Reactions: Allergies No Known Allergies Allergy (Verified 03/28/20 17:42) Medications to take at Discharge Metronidazole [Flagyl] 500 mg PO TID #120 tab 03/31/20 levoFLOXacin tablet [Levaquin tablet] 500 mg PO DAILY #40 tab 03/31/20 metFORMIN HCl [Glucophage] 1,000 mg PO BIDCM #120 tab 03/31/20 The following prescriptions were given: Metronidazole [Flagyl] 500 mg PO TID #120 tab Transmission Status: Received by [facility]/pharmacy #[id number] metFORMIN HCl [Glucophage] 1,000 mg PO BIDCM #120 tab Transmission Status: Received by [facility]/pharmacy #[id number] levoFLOXacin tablet [Levaquin tablet] 500 mg PO DAILY #40 tab Transmission Status: Received by [facility]/pharmacy #[id number] Primary Care Physician: Care Physician,No Primary [Primary Care Provider] - Test Results: Test results from this visit will be discussed in further detail at your follow- up appointment, if applicable. Please Follow Up With: Ashlee Angulo DPM When: as instructed Please Follow Up With: Nasim Albert MD When: as instructed Proposed Discharge Date: 03/31/20
[2020-03-31 11:35] LABS: Bedside Glucose 234 mg/dL (70-110)
--- NOTE | 2020-03-31 11:58 | DS.PCM_ITS ---
Discharge Date and Diagnosis - Problem List Patient Problems: Active and Suspected Problems Diabetic foot infection (Acute) Cellulitis of left lower limb (Acute) Diabetic wet gangrene of the foot (Acute) Osteomyelitis of left foot (Acute) Date of Admission: 03/28/20 Date of Discharge: 03/31/20 - Primary Discharge Diagnosis Acute Problems: Active Problems Diabetic foot infection (Acute) Cellulitis of left lower limb (Acute) Diabetic wet gangrene of the foot (Acute) Osteomyelitis of left foot (Acute) - Secondary Discharge Diagnosis Chronic Problems: Chronic Problems Diabetes (Chronic) Type 2 diabetes mellitus with diabetic polyneuropathy (Chronic) Hospital Course and Treatment Imaging Results: Clinical Impression(s) from Imaging Studies Foot X-Ray 03/28/20 16:45 IMPRESSION: Soft tissue swelling likely gangrenous changes of the fifth toe with findings suspicious for osteomyelitis of the head of the fifth metatarsal. This may be further assessed with MRI or three-phase bone scan if indicated Electronically Signed: Rai Hassan MD at 20:13 EDT , Service support , Foot X-Ray 03/29/20 14:07 IMPRESSION: Postoperative changes status post resection of the fifth toe through the mid fifth metatarsal Electronically Signed: Rai Hassan MD at 16:06 EDT , Service support , Microbiology 03/28/20 19:35 Blood Culture - Preliminary Blood Culture (Wb) - Anticubital Right No growth in 48 hours. 03/28/20 19:23 Blood Culture - Preliminary Blood Culture (Wb) - Anticubital Left No growth in 48 hours. 03/29/20 14:51 Gram Stain - Final Other - Other Wound Culture - Preliminary Gram negative mauri 03/28/20 21:20 Gram Stain - Final Wound Abcess - Aerobic & Anaerobic Swabs Wound Culture - Final Enterobacter cloacae complex Proteus mirabilis Atopobium vaginae Anaerobic Culture - Preliminary Checking for anaerobes, further studies to follow. Summary of Care Provided: Patient is a 40-year-old gentleman who presented with fifth toe infection 1. Left fifth toe infection due to polymicrobial infection with (Enterobacter cloacae complex; Proteus mirabilis; Atopobium vaginae) ?Imaging studies demonstrated osteomyelitis of the head of the fifth metatarsal. Patient started on broad-spectrum antibiotic therapy with Zosyn and vancomycin with consultation placed to podiatry the patient to undergo surgical intervention on 03/29/2020 ?03/30/2020 Patient underwent Open fifth ray resection left foot on account of Left foot infection with ulcer and gangrene 03/29/[address] Angulo wound cultures so far positive for Gram negative mauri, Alpha hemolytic organism patient was also started on long-acting insulin in view of rising blood glucose level in addition to Accu-Cheks before meals and at bedtime with sliding scale coverage. Consult was also placed to infectious disease -Patient was seen in consultation by Dr. Albert who Jude on discharge. 2. Diabetes mellitus type 2 ?Diagnosed almost a month ago patient has however manage his diabetes with some herbal medication. His hemoglobin A1c on admission was 8.9. Do plan to initiate metformin on discharge. Patient in the meantime was placed on Accu- Cheks before meals and at bedtime with sliding scale coverage and diabetic diet - 03/30/2020 started on long-acting insulin in view of rising blood glucose level in addition to Accu-Cheks before meals and at bedtime with sliding scale coverage ?03/31/2020; prescription for Metformin thousand milligrams p.o. twice daily was written on discharge 3. Morbid obesity ?With BMI of 30.3 weight loss advised 4. DVT prophylaxis - On enoxaparin Microbiology 03/28/20 19:35 Blood Culture (Wb) - Anticubital Right Blood Culture - Preliminary No growth in 48 hours. 03/28/20 19:23 Blood Culture (Wb) - Anticubital Left Blood Culture - Preliminary No growth in 48 hours. 03/29/20 14:51 Other - Other Gram Stain - Final 03/29/20 14:51 Other - Other Wound Culture - Preliminary Gram negative mauri 03/28/20 21:20 Wound Abcess - Aerobic & Anaerobic Swabs Gram Stain - Final 03/28/20 21:20 Wound Abcess - Aerobic & Anaerobic Swabs Wound Culture - Final Enterobacter cloacae complex Proteus mirabilis Atopobium vaginae 03/28/20 21:20 Wound Abcess - Aerobic & Anaerobic Swabs Anaerobic Culture - Preliminary Checking for anaerobes, further studies to follow. Patient Problems: Active and Suspected Problems Diabetic foot infection (Acute) Cellulitis of left lower limb (Acute) Diabetic wet gangrene of the foot (Acute) Osteomyelitis of left foot (Acute) - Physical Exam Vitals/I&O's: Vital Signs Temp Pulse Resp BP Pulse Ox 98.2 F 93 16 132/88 H 98 03/31/20 09:15 03/31/20 09:15 03/31/20 09:15 03/31/20 09:15 03/31/20 09:15 Oxygen Delivery Method Room Air Weight: 104.3 kg Body Mass Index (BMI) 38.2 Intake and Output for Last 24 Hours 03/29/20 03/30/20 03/31/20 23:59 23:59 23:59 Intake Total 3417.92 / 3417.92 5638.50 / 5638.50 2064.5 / 2064.5 Output Total 2500 / 3600 2825 / 2825 2800 / 2800 Balance 917.92 / -182.08 2813.50 / 2813.50 -735.5 / -735.5 General: Alert HEENT: Atraumatic Oral: Moist Mucosa Cardiovascular: Regular rate, Regular Rhythm Psych/Mental Status: Flat Affect Microbiology Past 72 Hours 03/28/20 19:35 Blood Culture (Wb) - Anticubital Right Blood Culture - Preliminary No growth in 48 hours. 03/28/20 19:23 Blood Culture (Wb) - Anticubital Left Blood Culture - Preliminary No growth in 48 hours. 03/29/20 14:51 Other - Other Gram Stain - Final 03/29/20 14:51 Other - Other Wound Culture - Preliminary Gram negative mauri 03/28/20 21:20 Wound Abcess - Aerobic & Anaerobic Swabs Gram Stain - Final 03/28/20 21:20 Wound Abcess - Aerobic & Anaerobic Swabs Wound Culture - Final Enterobacter cloacae complex Proteus mirabilis Atopobium vaginae 03/28/20 21:20 Wound Abcess - Aerobic & Anaerobic Swabs Anaerobic Culture - Preliminary Checking for anaerobes, further studies to follow. Laboratory Results 03/30/20 16:06: POC Glucose 143 H 03/30/20 22:10: POC Glucose 118 H 03/31/20 03:40: WBC 11.0, RBC 4.12 L, Hgb 12.2 L, Hct 38.0 L, MCV 92.2, MCH 29.6, MCHC 32.1, RDW Std Deviation 42.3, RDW Coeff of Erica 12.9, Plt Count 588 H, MPV 9.2, Immature Gran % (Auto) 1.700 H, Neut % (Auto) 63.3, Lymph % (Auto) 24.7, [place] % (Auto) 6.5, Eos % (Auto) 3.2, Baso % (Auto) 0.6, Absolute Neuts (auto) 7.0, Absolute Lymphs (auto) 2.73, Nucleated RBC % 0 03/31/20 03:40: Sodium 136, Potassium 4.0, Chloride 104, Carbon Dioxide 25.0, Anion Gap 7, BUN 15, Creatinine 0.73, Estim Creat Clear Calc 115.84, Est GFR (MDRD) Af Amer 153, Est GFR (MDRD) Non-Af 126, BUN/Creatinine Ratio 20.6 H, Glucose 145 H, Calcium 8.1 L 03/31/20 03:40: Vancomycin Trough 19.9 H 03/31/20 06:34: POC Glucose 132 H 03/31/20 11:22: POC Glucose 234 H Current Medications Dextrose (D50w Syringe) 0 gm IV X1 PRN; Protocol PRN Reason: Hypoglycemia Enoxaparin Sodium (Lovenox) 40 mg SC DAILY [facility] Last Admin: 03/31/20 09:12 Dose: 40 mg Documented by: Glucagon () 1 mg IM .X1 PRN PRN Reason: Hypoglycemia Sodium Chloride () 250 mls @ 15 mls/hr IV .[id number] PRN PRN Reason: Saline Flush Last Infusion: 03/31/20 10:57 Dose: 15 mls/hr Documented by: Sodium Chloride () 250 mls @ 15 mls/hr IV .[id number] PRN PRN Reason: Additional IVPB Infusion Piperacillin Sod/Tazobactam (Sod 3.375 gm/ Sodium Chloride) 50 mls @ 12.5 mls/hr IV Q8 [facility] Last Infusion: 03/31/20 10:57 Dose: Infused Documented by: Insulin Glargine (Lantus (Bkc)) 10 units SC DAILY [facility] Last Admin: 03/31/20 09:12 Dose: 10 units Documented by: Insulin Human Lispro (Humalog Kwikpen ([facility])) 0 unit SC ACHS [facility]; Protocol Last Admin: 03/31/20 11:23 Dose: 2 units Documented by: Morphine Sulfate () 2 mg IV Q3H PRN PRN PRN Reason: Pain Score 6-10/10 Nutritional Formula ([facility] - [place] [facility] Last Admin: 03/31/20 09:12 Dose: 1 packet Documented by: Ondansetron HCl (Zofran) 4 mg IV Q8H PRN PRN PRN Reason: NAUSEA/VOMITING Sodium Chloride () 10 - 40 ml IV UD PRN PRN Reason: SALINE FLUSH Last Admin: 03/30/20 06:45 Dose: 10 ml Documented by: Discharge Diet: 1800 Calorie Control Diet Discharge Activity: Return to Normal Activity Home Medications: Medications to take at Discharge Metronidazole [Flagyl] 500 mg PO TID #120 tab 03/31/20 levoFLOXacin tablet [Levaquin tablet] 500 mg PO DAILY #40 tab 03/31/20 metFORMIN HCl [Glucophage] 1,000 mg PO BIDCM #120 tab 03/31/20 Following Prescrptions Were Given to Patient: Metronidazole [Flagyl] 500 mg PO TID #120 tab Transmission Status: Received by [facility]/pharmacy #[id number] metFORMIN HCl [Glucophage] 1,000 mg PO BIDCM #120 tab Transmission Status: Received by [facility]/pharmacy #[id number] levoFLOXacin tablet [Levaquin tablet] 500 mg PO DAILY #40 tab Transmission Status: Received by [facility]/pharmacy #[id number] Primary Care Physician: Care Physician,No Primary [Primary Care Provider] - Please Follow Up With: Ashlee Angulo DPM When: as instructed Please Follow Up With: Nasim Albert MD When: as instructed Disposition: Home Minutes spent on discharge:: 35 Patient Condition:: Stable Medical Necessity - Tobacco Use Smoking Status: Never smoker Tobacco Use: Non-smoker Meaningful Use Info Meaningful Use Diagnoses (Choose all that apply): None applicable Inpatient E&M: 59188 Disch Hosp
--- NOTE | 2020-03-31 12:11 | PN_ITS ---
Patient Problems: Active and Suspected Problems Diabetic foot infection (Acute) Cellulitis of left lower limb (Acute) Diabetic wet gangrene of the foot (Acute) Osteomyelitis of left foot (Acute) Subjective: This 40 year old male was seen bedside post operative day #2 left foot open fifth ray resection with incision and drainage. He denies fever, chills, nausea, vomiting, shortness of breath, chest pain, calf pain. He is ready to go home. His sister will help with dressing changes. He has many supplies at home for dressing care because his family member had a previous amputation and wound. - Physical Exam Vitals/I&O's: Vital Signs Temp Pulse Resp BP Pulse Ox 98.2 F 93 16 132/88 H 98 03/31/20 09:15 03/31/20 09:15 03/31/20 09:15 03/31/20 09:15 03/31/20 09:15 Oxygen Delivery Method Room Air Weight: 104.3 kg Body Mass Index (BMI) 38.2 Intake and Output for Last 24 Hours 03/29/20 03/30/20 03/31/20 23:59 23:59 23:59 Intake Total 3417.92 / 3417.92 5638.50 / 5638.50 2064.5 / 2064.5 Output Total 2500 / 3600 2825 / 2825 2800 / 2800 Balance 917.92 / -182.08 2813.50 / 2813.50 -735.5 / -735.5 General: Alert, Oriented x3, Cooperative HEENT: Atraumatic Extremities: No cyanosis, Capillary Refill Less than 3 Seconds - all digits left 1,2,3,4., No Calf Tenderness, Edema - decreased left foot, Peripheral Pulses Normal Skin: Ulcer/ Wound - no purulence or odor on expression. erythema and streaking have resolved. wound bed is fibrous and granular with serosangenous drainage only. no eschar or necrosis. the resected 5th metatarsal bone is covered with sutured skin flap. adjacent skin is atrophic. no bogginess or fluctuance on palpation Musculoskeletal: No Tenderness to Palpation of Joints or Extremities, - - compartments soft left lower extremity Neurological: - - lack of epicritic sensation via light touch consistent with neuropathy Psych/Mental Status: Normal Affect, Appropriate Microbiology Past 72 Hours 03/28/20 19:35 Blood Culture (Wb) - Anticubital Right Blood Culture - Preliminary No growth in 48 hours. 03/28/20 19:23 Blood Culture (Wb) - Anticubital Left Blood Culture - Preliminary No growth in 48 hours. 03/29/20 14:51 Other - Other Gram Stain - Final 03/29/20 14:51 Other - Other Wound Culture - Preliminary Gram negative mauri 03/28/20 21:20 Wound Abcess - Aerobic & Anaerobic Swabs Gram Stain - Final 03/28/20 21:20 Wound Abcess - Aerobic & Anaerobic Swabs Wound Culture - Final Enterobacter cloacae complex Proteus mirabilis Atopobium vaginae 03/28/20 21:20 Wound Abcess - Aerobic & Anaerobic Swabs Anaerobic Culture - Preliminary Checking for anaerobes, further studies to follow. Laboratory Results 03/30/20 16:06: POC Glucose 143 H 03/30/20 22:10: POC Glucose 118 H 03/31/20 03:40: WBC 11.0, RBC 4.12 L, Hgb 12.2 L, Hct 38.0 L, MCV 92.2, MCH 29.6, MCHC 32.1, RDW Std Deviation 42.3, RDW Coeff of Erica 12.9, Plt Count 588 H, MPV 9.2, Immature Gran % (Auto) 1.700 H, Neut % (Auto) 63.3, Lymph % (Auto) 24.7, [place] % (Auto) 6.5, Eos % (Auto) 3.2, Baso % (Auto) 0.6, Absolute Neuts (auto) 7.0, Absolute Lymphs (auto) 2.73, Nucleated RBC % 0 03/31/20 03:40: Sodium 136, Potassium 4.0, Chloride 104, Carbon Dioxide 25.0, Anion Gap 7, BUN 15, Creatinine 0.73, Estim Creat Clear Calc 115.84, Est GFR (MDRD) Af Amer 153, Est GFR (MDRD) Non-Af 126, BUN/Creatinine Ratio 20.6 H, Glucose 145 H, Calcium 8.1 L 03/31/20 03:40: Vancomycin Trough 19.9 H 03/31/20 06:34: POC Glucose 132 H 03/31/20 11:22: POC Glucose 234 H Current Medications Dextrose (D50w Syringe) 0 gm IV X1 PRN; Protocol PRN Reason: Hypoglycemia Enoxaparin Sodium (Lovenox) 40 mg SC DAILY [facility] Last Admin: 03/31/20 09:12 Dose: 40 mg Documented by: Glucagon () 1 mg IM .X1 PRN PRN Reason: Hypoglycemia Sodium Chloride () 250 mls @ 15 mls/hr IV .[id number] PRN PRN Reason: Saline Flush Last Infusion: 03/31/20 10:57 Dose: 15 mls/hr Documented by: Sodium Chloride () 250 mls @ 15 mls/hr IV .[id number] PRN PRN Reason: Additional IVPB Infusion Piperacillin Sod/Tazobactam (Sod 3.375 gm/ Sodium Chloride) 50 mls @ 12.5 mls/hr IV Q8 NELSON Last Infusion: 03/31/20 10:57 Dose: Infused Documented by: Insulin Glargine (Lantus ([facility])) 10 units SC DAILY [facility] Last Admin: 03/31/20 09:12 Dose: 10 units Documented by: Insulin Human Lispro (Humalog Kwikpen ([facility])) 0 unit SC ACHS [facility]; Protocol Last Admin: 03/31/20 11:23 Dose: 2 units Documented by: Morphine Sulfate () 2 mg IV Q3H PRN PRN PRN Reason: Pain Score 6-10/10 Nutritional Formula (Alvaro - Trigg Flavor) 1 packet PO BIDCM [facility] Last Admin: 03/31/20 09:12 Dose: 1 packet Documented by: Ondansetron HCl (Zofran) 4 mg IV Q8H PRN PRN PRN Reason: NAUSEA/VOMITING Sodium Chloride () 10 - 40 ml IV UD PRN PRN Reason: SALINE FLUSH Last Admin: 03/30/20 06:45 Dose: 10 ml Documented by: Medical Necessity - Tobacco Use Smoking Status: Never smoker Tobacco Use: Non-smoker Assessment/Plan All Active Problems Diabetic foot infection (Acute) Cellulitis of left lower limb (Acute) Diabetic wet gangrene of the foot (Acute) Osteomyelitis of left foot (Acute) Open fifth ray resection performed on 03-29-2020 secondary to left foot infection cellulitis with wet gangrene of the fifth toe and forefoot Diabetes with neuropathy (hemoglobin A1c 8.9%) I reviewed and discussed his case. He is afebrile and his vital signs are stable. He has leukocytosis has resolved; wbc downtrending to 11. His initial wound cultures at the time of his admission are demonstrating alpha hemolytic organism and gram-negative mauri. The clearance fragment results from the fifth metatarsal bone biopsy obtained in surgery that were sent to pathology are still pending. Micro clearance fragment has gram negative mauri growth and final is pending. Clinically the signs of infection and purulence are resolving nicely. His dressing was changed. To change daily with betadine wet to dry gauze. His sister will help with this and this was demonstrated. To follow up at wound care center in one week with Dr. Angulo. He will also complete a six week course of oral Levaquin and flagyl. He will also follow up with infectious disease in two weeks at the wound care center. To maintain a strict nonweightbearing status on the left lower extremity with surgical shoe. Medical management per primary team is greatly appreciated. Follow up w/ PCP for improved glucose management. Ashlee Angulo DPM, [facility] [phone]
--- NOTE | 2020-03-31 12:11 | PCM.DC.POD ---
Discharge Diet: Carb Control Diet Discharge Activity: May Shower - with shower bag, - - Use assistive device to remain non weightbearing right foot. It is ok to trev weight bear for transfers with surgical shoe. Weight Bearing Status: No weight bearing Call your doctor if your incision/area has: Continuous Slow Oozing, Sudden Increased Bleeding, Increased Pain/ Swelling, Increased Redness, Foul Smelling Discharge, Swelling at the incision site Call your doctor if you observe: Fever of 101 or Higher, Calf discomfort, Uncontrolled pain Change Dressing in (Days):: 1 Cleanse incision/area with: Soap & Water, - - Apply a betadine moistened gauze to the wound, cover with dry gauze and gauze roll, and secure with clarissa wrap. Additional Instructions: If you have an urgent concern or question prior to your wound center follow up, please call the [facility] at [phone]. Allergies/Adverse Reactions: Allergies No Known Allergies Allergy (Verified 03/28/20 17:42) Medications to take at Discharge Metronidazole [Flagyl] 500 mg PO TID #120 tab 03/31/20 levoFLOXacin tablet [Levaquin tablet] 500 mg PO DAILY #40 tab 03/31/20 metFORMIN HCl [Glucophage] 1,000 mg PO BIDCM #120 tab 03/31/20 The following prescriptions were given: Metronidazole [Flagyl] 500 mg PO TID #120 tab Transmission Status: Received by [facility]/pharmacy #[id number] metFORMIN HCl [Glucophage] 1,000 mg PO BIDCM #120 tab Transmission Status: Received by [facility]/pharmacy #[id number] levoFLOXacin tablet [Levaquin tablet] 500 mg PO DAILY #40 tab Transmission Status: Received by [facility]/pharmacy #[id number] Primary Care Physician: Care Physician,No Primary [Primary Care Provider] - Test Results: Test results from this visit will be discussed in further detail at your follow-up appointment, if applicable. Please Follow Up With: Ashlee Angulo DPM When: next Sat at Wound Center. Call [phone] to schedule. Please Follow Up With: Nasim Albert MD When: as instructed Proposed Discharge Date: 03/31/20
--- NOTE | 2020-03-31 13:57 | PHA.DC.MC ---
Pharmacy Service has performed discharge medication reconciliation and counseling for this patient. 1. LEVOFLOXCAIN 500MG PO DAILY 2. METRONIDAZOLE 500MG PO TID 3. METFORMIN 1000MG PO TIDCM The patient's discharge medication list was reviewed for discrepancies and discrepancies were resolved. Home Medications Metronidazole [Flagyl] 500 mg PO TID #120 tab 03/31/20 levoFLOXacin tablet [Levaquin tablet] 500 mg PO DAILY #40 tab 03/31/20 metFORMIN HCl [Glucophage] 1,000 mg PO BIDCM #120 tab 03/31/20 The patient was counseled on the following discharge medications and changes in medications for homegoing were reviewed. The Reason for Use, instructions for use, and potential side effects were reviewed for all new medications. The patient's questions regarding all of their medications were answered. The patient was able to verbally demonstrate an understanding of their discharge medications.
== END 2020-03-31 14:30 | disposition home or self-care (01) | DRG 239 ==
LOC: ED 21:00 → MS3 21:20
PROVIDERS: Hospitalist; Podiatrist; Admitting Provider Family Medicine; Emergency Provider Emergency Medicine; Visit Provider Internal Medicine
PROC: 0Y6N0ZF Detachment at Left Foot, Partial 5th Ray, Open Approach (ICD-10-PCS; principal; 2020-03-29 14:00)
DX: E11.52 Type 2 diabetes mellitus with diabetic peripheral angiopathy with gangrene (principal); A48.0 Gas gangrene; M86.172 Other acute osteomyelitis, left ankle and foot; L03.116 Cellulitis of left lower limb; B96.4 Proteus (mirabilis) (morganii) as the cause of diseases classified elsewhere; B96.89 Other specified bacterial agents as the cause of diseases classified elsewhere; E11.69 Type 2 diabetes mellitus with other specified complication; E11.621 Type 2 diabetes mellitus with foot ulcer; L97.524 Non-pressure chronic ulcer of other part of left foot with necrosis of bone; E11.42 Type 2 diabetes mellitus with diabetic polyneuropathy; E11.65 Type 2 diabetes mellitus with hyperglycemia; I10 Essential (primary) hypertension; E66.01 Morbid (severe) obesity due to excess calories; Z68.38 Body mass index [BMI] 38.0-38.9, adult; Z79.899 Other long term (current) drug therapy
CPT/HCPCS: 36415; 73620; 73630; 76000; 80048; 80202; 82962; 83036; 83605; 83735; 85025; 85652; 86140; 87015; 87040; 87070; 87075; 87077; 87102; 87116; 87186; 87205; 87206; 87640; 88304; 88305; 88311; 93005; 93923; 97116; 97161; 97530; 97802; 97803; 99284; J7030; J7040; J7050; J7120; A4216; J2405

== ENCOUNTER 2020-04-20 14:00 | Outpatient (RCR) | payer SELFPAY ==
[2020-03-28 22:11] VITALS: BMI 38.2
[2020-04-06 11:34] VITALS: BP 130/78; PULSE 119; RESP 18; TEMP 36.5; BMI 37.4
--- NOTE | 2020-04-06 12:21 | PCM.WC.PN ---
(1) Ulcer of left foot with fat layer exposed Status: Acute Code(s): L97.522 - Non-pressure chronic ulcer of other part of left foot with fat layer exposed (2) Cellulitis of left lower limb Status: Acute Code(s): L03.116 - Cellulitis of left lower limb (3) Diabetic wet gangrene of the foot Status: Resolved Code(s): E11.52 - Type 2 diabetes mellitus with diabetic peripheral angiopathy with gangrene (4) Osteomyelitis of left foot Status: Acute Code(s): M86.9 - Osteomyelitis, unspecified (5) Type 2 diabetes mellitus with diabetic polyneuropathy Status: Chronic Code(s): E11.42 - Type 2 diabetes mellitus with diabetic polyneuropathy Type of Wound Date of Service: 04/06/20 Chief Complaint: Left foot open amputation History of Wound: 40-year-old male with significant past medical history of uncontrolled diabetes (hemoglobin A1c of 8.9%). For his left foot. He had an open fifth ray resection performed on 03-29-2020 at [facility] with Dr. Angulo for treatment of gangrene, osteomyelitis, and infection. He stabilized with IV antibiotics. He had clearance fragments obtained. He continues on antibiotics at this time. He denies current fever, chill, nausea, vomiting, loss of appetite, foot pain. He is with his sister today. Progress of Wound: Stabilizing - Physical Exam Vital Signs Temp Pulse Resp BP 97.7 F L 119 H 18 130/78 H 04/06/20 11:34 04/06/20 11:34 04/06/20 11:34 04/06/20 11:34 General: Alert, Oriented x3, Cooperative, No apparent distress HEENT: Atraumatic Extremities: No cyanosis, Capillary Refill Less than 3 Seconds, No Calf Tenderness, Diminished Peripheral Pulses, Edema Skin: Ulcer/ Wound - No purulence, erythema, streaking, odor, infection. The ulcer bed is granular with decreased fibrous tissue. The resected fifth metatarsal bone is not exposed because there is a skin flap that is sutured down the suture remains intact. Compartments of the foot remained soft and there is no frida necrosis or eschar. The adjacent skin is atrophic Wound Measurements and Assessment WC - Nurse 1 - General Ulcer Measurement Start: 04/06/20 11:34 Freq: Status: Active Protocol: Activity Type Activity Date Activity User E-Sign Co-Sign Detail Recorded Client Recorded Date Recorded By Document 04/06/20 11:34 BS [id number] 04/06/20 11:53 BS 04/06/20 11:34 Wound Center Nurse 1 [Ulcer Assessment] #1 Post Surgical Amp: L 5th toe -Combined with other wound No -Current Size (cm) - Length 4.5 -Current Size (cm) - Width 5.0 -Total Square Cm 22.50 -Date of Last Picture (Recall this 04/06/20 field) -Photo Taken Yes -Tunneling Yes -Tunneling Position (O'clock) 8 -Tunneling Distance (cm) 0.8 -Undermining/Tunneling Yes -Undermining/Tunneling Starts (O' 1 clock) -Undermining/Tunneling Ends (O'clock) 1 -Granulation Quality Hyper- granulation, [place],Red -Necrotic Tissue Type Adherent Slough -Texture (Brianne-wound Skin Appearance) Assessed, Scarring -Color (Brianne-wound Skin Appearance) Assessed, Hemosiderin Staining -Temperature (Brianne-wound Skin No Abnormality Appearance) (Pt Warm) -Tenderness on Palpation (Brianne-wound Yes Skin Appearance) -Ulcer Cleansing Soap and water -Foul Odor after Cleansing No -Anesthetic Used 4% Lidocaine Solution [Edema Assessment] -Lower Limb Edema Present Yes -Right Calf (cm) 40.0 -Point of measurement (cm from the 30.0 medial instep) -Right Ankle (cm) 26.0 -Point of Measurement (cm from the 4.0 medial instep) -Left Calf (cm) 40.0 -Point of measurement (cm from the 31.0 medial instep) -Left Ankle (cm) 26.0 -Point of Measurement (cm from the 4.0 medial instep) WC - Nurse 2 - General Ulcer CM Notes Start: 04/06/20 11:34 Freq: Status: Active Protocol: Activity Type Activity Date Activity User E-Sign Co-Sign Detail Recorded Client Recorded Date Recorded By Document 04/06/20 12:07 PL [id number] 04/06/20 12:12 PL 04/06/20 12:07 Wound Center Nurse 2 [Procedure/Treatment] #1 Post Surgical Amp: L 5th toe -Time 12:06 -Correct Patient Yes -Correct Side, Site, Position Yes -Correct Procedure Yes -Procedure Performed Yes -Type of Procedure Debridement -Clinical Debridement Subcutaneous -Post Debridement Size (cm) - Length 4.6 -Post Debridement Size (cm) - Width 5.1 -Post Debridement Size (cm) - Depth 0.6 -Total Square Cm 23.46 -Wound/Ulcer Outcome Not Healed -Ulcer Cleansing Rinsed/ Irrigated with Saline -Foul Odor after Cleansing No -Bleeding Controlled with Pressure -Type of Offloading Surgical Shoe -Treatment Response Procedure Tolerated Well [See Physician Procedure note for Specifics] Pain Scale: 0-10 Numeric [Pain] -Is Patient Pain Free? Yes Musculoskeletal: No Tenderness to Palpation of Joints or Extremities, - - Fifth ray resection left Neurological: - - Lack of epicritic sensation to light touch is still with neuropathy status Psych/Mental Status: Normal Affect, Appropriate Debridement Note Post-Debridement Measurements/Treatment WC - Nurse 2 - General Ulcer CM Notes Start: 04/06/20 11:34 Freq: Status: Active Protocol: Activity Type Activity Date Activity User E-Sign Co-Sign Detail Recorded Client Recorded Date Recorded By Document 04/06/20 12:07 PL [id number] 04/06/20 12:12 PL 04/06/20 12:07 Wound Center Nurse 2 #1 Post Surgical Amp: L 5th toe -Time 12:06 -Correct Patient Yes -Correct Side, Site, Position Yes -Correct Procedure Yes -Procedure Performed Yes -Type of Procedure Debridement -Clinical Debridement Subcutaneous -Post Debridement Size (cm) - Length 4.6 -Post Debridement Size (cm) - Width 5.1 -Post Debridement Size (cm) - Depth 0.6 -Total Square Cm 23.46 -Wound/Ulcer Outcome Not Healed -Ulcer Cleansing Rinsed/ Irrigated with Saline -Foul Odor after Cleansing No -Bleeding Controlled with Pressure -Type of Offloading Surgical Shoe -Treatment Response Procedure Tolerated Well Pain Scale: 0-10 Numeric Is Patient Pain Free? Yes Wound debrided: lateral distal foot Laterality: Left Wound Grade/Stage: surgical site (grade 2 now) Type of Debridement: Excisional debridement Anesthesia Used: 5% Lidocaine Gel Depth: in the subcutaneous layer Percentage of wound debrided: 100 Instrument Used: #15 blade Tissue Removed: fibrous, devitalized subcutaneous, biofilm, slough Severity: Fat Layer Exposed Amount of bleeding with debridement: Mild Bleeding Controlled with: Pressure Patient tolerated procedure well Assessment/Plan Assessment: Left foot wound/Ulcer with exposed subcutaneous and muscle tissue. Status post fifth ray resection left foot treatment of osteomyelitis which was successfully removed surgically. Diabetes with neuropathy, uncontrolled. Malnutrition Plan: I reviewed and discussed his case. Subcutaneous excisional debridement was performed as noted in the clinical panel. He was advised to change his dressing daily with Dakin wet-to-dry dressing. His sister is present and this was demonstrated. She will continue to perform this. A prescription was provided. He had a fifth ray resection performed on 03-29-2020 at [facility] he continues to complete his course of oral antibiotics. This regimen was selected and recommended by infectious disease. Reports that he has some loose stools and I recommended that he monitors for diarrhea in which he needs to let me know right away. He was advised to take probiotics and eat naturally cultured foods such as fermented foods and yogurt to prevent disruption of his gut bacteria. His pathology report from surgery confirmed acute osteomyelitis of the fifth metatarsal head and toe. The clearance fragment was negative for acute osteomyelitis. The clearance fragment that was sent to microbiology however did grow out Proteus mirabilis and strep mitis/oralis, and that is why he is on an oral course of antibiotics. His last set of x-rays of the hospital confirm adequate resection of the fifth metatarsal head and toe without soft tissue emphysema, other osseous destruction, or foreign body. His lab trends will be followed in the outpatient setting. He had noninvasive vascular studies performed with triphasic bilateral waveforms. It is noted that he had an ELOINA of 1.44 with noncompressible vessels. This is concerning and a vascular referral will be considered pending his ongoing healing progress. He understands he is at risk for continued limb loss. I would like to consider an advanced wound care product in combination with a wound VAC to optimize a faster healing. This will be started with an insurance prior authorization after I confirm the infection is cleared out and we feel comfortable leaving these other devices in place for whole week at a time. He understands elects to proceed forward. He was advised to proceed with an appropriate nutritious whole food diet that eliminates excessive fats or glucose. This is necessary to optimize healing and also to prevent further disease anteriorization. To follow-up with the wound healing center in 1 week or call sooner if he has any deterioration in status, infection, or any questions or concerns. I answered all of his questions today.
[2020-04-13 14:32] VITALS: BP 113/82; PULSE 125; RESP 18; TEMP 36.8; BMI 37.4
--- NOTE | 2020-04-13 14:47 | PN.ID_ITS ---
Subjective: Feeling well, minimal diarrhea, improving. No fever. No pain in foot. - Physical Exam Vitals/I&O's: Vital Signs Temp Pulse Resp BP 98.3 F 125 H 18 113/82 H 04/13/20 14:32 04/13/20 14:32 04/13/20 14:32 04/13/20 14:32 Weight: 102.058 kg Body Mass Index (BMI) 37.4 General: Alert, Cooperative, No apparent distress Lungs: Clear to auscultation, Normal air movement Cardiovascular: Regular rate, Regular Rhythm Abdomen: Soft, Non Tender, Non-Distended Skin: Ulcer/ Wound - L foot wound no redness, no purulence Medical Necessity - Tobacco Use Smoking Status: Never smoker Route of nutrition/ use of supplements: [] Nutritional Intake: [] IV Site: [] Ibarra Catheter: [] - Assessment/Plan Antibiotics: [] Assessment/Plan: [] L foot osteo with gangrene and DM neuropathy - cxs showing enterobacter, proteus, and atopobium. Now s/p I&D and partial 5th ray resection by Dr. Angulo on 03/29/20. Discharged from [facility] on 6 weeks total abx with po levaquin and flagyl. Doing well since discharge, will order bmp, cbc, LFT, and ESR for now. Will follow as needed
[2020-04-13 16:00] LABS: Hemoglobin 15.2 g/dL (13.0-16.5); Mean Corpuscular Hgb 28.9 pg (27.0-32.0); Mean Corpuscular Volume 87.5 fL (80-94); Mean Platelet Vol. 10.8 fl (6.2-12.0); Platelet Count 456 K/mm3 (150-450); RBC Distribution Width CV 13.4 % (11.6-14.6); RBC Distribution Width SD 43.4 fl (35.1-43.9); Red Blood Count 5.26 M/mm3 (4.6-6.2); White Blood Count 10.7 K/mm3 (4.4-11.0)
[2020-04-13 16:39] LABS: AST(SGOT) 22 U/L (15-37); Alanine Aminotransfer ALT/SGPT 28 U/L (16-61); Albumin, Serum 3.2 g/dL (3.2-5.0); Alkaline Phosphatase 53 U/L (45-117); Anion Gap 7 (5-15); BUN 20 mg/dL (7-18); BUN/Creat Ratio 18.9 RATIO (10-20); Bilirubin, Direct 0.14 mg/dL (0.00-0.30); Calcium,Total 9.4 mg/dL (8.5-10.1); Chloride 105 mmol/L (98-107); Creatinine, Serum 1.06 mg/dL (0.70-1.30); EST Glomerular Filtration Rate 82 mL/min (>60); Est Glom Filt Rate - Afr Amer 99 mL/min (>60); Estimated Creatinine Clearance 79.78 ml/min; Globulin 4.3 g/dL (2.2-4.2); Glucose 251 mg/dL (74-106); Potassium 4.2 mmol/L (3.5-5.1); Protein, Total 7.5 g/dL (6.4-8.2); Sodium Level 136 mmol/L (136-145)
[2020-04-13 16:58] LABS: Erythrocyte Sedimentation Rate 42 mm/hr (0-15)
--- NOTE | 2020-04-13 17:33 | PN.PCM_ITS ---
(1) Ulcer of left foot with fat layer exposed Status: Acute Code(s): L97.522 - Non-pressure chronic ulcer of other part of left foot with fat layer exposed (2) Cellulitis of left lower limb Status: Resolved Code(s): L03.116 - Cellulitis of left lower limb (3) Diabetic wet gangrene of the foot Status: Resolved Code(s): E11.52 - Type 2 diabetes mellitus with diabetic peripheral angiopathy with gangrene (4) Osteomyelitis of left foot Status: Acute Code(s): M86.9 - Osteomyelitis, unspecified (5) Type 2 diabetes mellitus with diabetic polyneuropathy Status: Chronic Code(s): E11.42 - Type 2 diabetes mellitus with diabetic polyneuropathy Type of Wound Date of Service: 04/13/20 Chief Complaint: Left foot open amputation History of Wound: 40-year-old male with significant past medical history of uncontrolled diabetes (hemoglobin A1c of 8.9%) was seen today for his left foot ulcer. He had an open fifth ray resection performed on 03-29-2020 at [facility] with Dr. Angulo for treatment of gangrene, osteomyelitis, and infection. He stabilized with IV antibiotics. He had clearance fragments obtained. He continues on antibiotics at this time. He denies current fever, chill, nausea, vomiting, loss of appetite, foot pain. He is with his sister today. He was also seen by infectious disease today. He does not have current health insurance and is unable to proceed forward with any advanced wound care products or wound VAC therapy unless there is a financial assistance program available. Progress of Wound: Stabilizing - Physical Exam Vital Signs Temp Pulse Resp BP 98.3 F 125 H 18 113/82 H 04/13/20 14:32 04/13/20 14:32 04/13/20 14:32 04/13/20 14:32 General: Alert, Oriented x3, Cooperative, No apparent distress HEENT: Atraumatic Extremities: No cyanosis, Capillary Refill Less than 3 Seconds, No Calf Tenderness, Diminished Peripheral Pulses, Edema - Decreased Skin: Ulcer/ Wound - Resolved purulence, erythema, odor, infection. No necrosis or maceration. The ulcer bed has progressive healthy granulation tissue and there is no visualized bone. There is a flap of skin that was sutured over the resected fifth metatarsal and this remains intact. Decreased drainage noted Wound Measurements and Assessment WC - Nurse 1 - General Ulcer Measurement Start: 04/06/20 11:34 Freq: Status: Active Protocol: Activity Type Activity Date Activity User E-Sign Co-Sign Detail Recorded Client Recorded Date Recorded By Document 04/13/20 14:32 IRMA [id number] 04/13/20 14:34 04/13/20 14:32 Wound Center Nurse 1 [Ulcer Assessment] #1 Post Surgical Amp: L 5th toe -Combined with other wound No -Current Size (cm) - Length 4.4 -Current Size (cm) - Width 4.8 -Current Size (cm) - Depth 0.5 -Total Square Cm 21.12 -Photo Taken No -Epithelialization Small 1-33% -Tunneling No -Undermining/Tunneling No -Circular Undermining No -Exudate Amt Large -Exudate Type Serosanguineous -Wound Margin Flat & Intact -Granulation Amt Large (67-100%) -Granulation Quality Red -Slough/Fibrin Yes -Necrosis Amt Small (1-33%) -Necrotic Tissue Type Adherent Slough -Structure Exposed N/A -Texture (Brianne-wound Skin Appearance) Assessed, Localized Edema -Moisture (Brianne-wound Skin Appearance Assessed,Dry/ ) Scaly -Color (Brianne-wound Skin Appearance) Assessed -Temperature (Brianne-wound Skin No Abnormality Appearance) (Pt Warm) -Tenderness on Palpation (Brianne-wound No Skin Appearance) -Ulcer Cleansing Rinsed/ Irrigated with Saline -Foul Odor after Cleansing No [Edema Assessment] -Lower Limb Edema Present Yes -Left Calf (cm) 40.0 -Left Ankle (cm) 23.3 - Nurse 2 - General Ulcer CM Notes Start: 04/06/20 11:34 Freq: Status: Active Protocol: Activity Type Activity Date Activity User E-Sign Co-Sign Detail Recorded Client Recorded Date Recorded By Document 04/13/20 14:36 IRMA [id number] 04/13/20 14:41 04/13/20 14:36 Wound Center Nurse 2 [Procedure/Treatment] #1 Post Surgical Amp: L 5th toe -Time 14:39 -Correct Patient Yes -Correct Side, Site, Position Yes -Correct Procedure Yes -Procedure Performed Yes -Type of Procedure Debridement -Clinical Debridement Subcutaneous -Post Debridement Size (cm) - Length 4.5 -Post Debridement Size (cm) - Width 4.8 -Post Debridement Size (cm) - Depth 0.5 -Total Square Cm 21.60 -Wound/Ulcer Outcome Not Healed -Ulcer Cleansing Rinsed/ Irrigated with Saline -Foul Odor after Cleansing No -Bioengineered Tissue No -Bleeding Controlled with Pressure -Offloading Yes -Type of Offloading Knee Walker -Treatment Response Procedure Tolerated Well [See Physician Procedure note for Specifics] Pain Scale: 0-10 Numeric [Pain] -Is Patient Pain Free? Yes Musculoskeletal: No Tenderness to Palpation of Joints or Extremities, Muscle Wasting, - - Fifth ray resection Neurological: - - Lack of epicritic sensation Psych/Mental Status: Normal Affect, Appropriate Debridement Note Post-Debridement Measurements/Treatment WC - Nurse 2 - General Ulcer CM Notes Start: 04/06/20 11:34 Freq: Status: Active Protocol: Activity Type Activity Date Activity User E-Sign Co-Sign Detail Recorded Client Recorded Date Recorded By Document 04/06/20 12:07 PL [id number] 04/06/20 12:12 PL Document 04/13/20 14:36 [id number] 04/13/20 14:41 04/06/20 04/13/20 12:07 14:36 Wound Center Nurse 2 #1 Post Surgical Amp: L 5th toe -Time 12:06 14:39 -Correct Patient Yes Yes -Correct Side, Site, Position Yes Yes -Correct Procedure Yes Yes -Procedure Performed Yes Yes -Type of Procedure Debridement Debridement -Clinical Debridement Subcutaneous Subcutaneous -Post Debridement Size (cm) - Length 4.6 4.5 -Post Debridement Size (cm) - Width 5.1 4.8 -Post Debridement Size (cm) - Depth 0.6 0.5 -Total Square Cm 23.46 21.60 -Wound/Ulcer Outcome Not Healed Not Healed -Ulcer Cleansing Rinsed/ Rinsed/ Irrigated with Irrigated with Saline Saline -Foul Odor after Cleansing No No -Bioengineered Tissue No -Bleeding Controlled with Pressure Pressure -Offloading Yes -Type of Offloading Surgical Shoe Knee Walker -Treatment Response Procedure Procedure Tolerated Well Tolerated Well Pain Scale: 0-10 Numeric Is Patient Pain Free? Yes Yes Wound debrided: distal lateral foot Laterality: Left Wound Grade/Stage: grade 1 Type of Debridement: Excisional debridement Anesthesia Used: 5% Lidocaine Gel Depth: in the subcutaneous layer Percentage of wound debrided: 100 Instrument Used: #15 blade Tissue Removed: fibrous, devitalized subcutaneous, biofilm, slough Severity: Fat Layer Exposed Amount of bleeding with debridement: Mild Bleeding Controlled with: Pressure Patient tolerated procedure well Assessment/Plan Assessment: Left foot wound/Ulcer with exposed subcutaneous and muscle tissue. Status post fifth ray resection left foot treatment of osteomyelitis which was successfully removed surgically. Diabetes with neuropathy, uncontrolled. Malnutrition Plan: I reviewed and discussed his case. Subcutaneous excisional debridement was performed as noted in the clinical panel. He was advised to change his dressing daily with Dakin wet-to-dry dressing. His sister is present and this was demonstrated. She will continue to perform this. He had a fifth ray resection performed on 03-29-2020 at [facility] he continues to complete his course of oral antibiotics. This regimen was selected and recommended by infectious disease. His loose stools have resolved. He was advised to take probiotics and eat naturally cultured foods such as fermented foods and yogurt to prevent disruption of his gut bacteria. His pathology r eport from surgery confirmed acute osteomyelitis of the fifth metatarsal head and toe. The clearance fragment was negative for acute osteomyelitis. The clearance fragment that was sent to microbiology however did grow out Proteus mirabilis and strep mitis/oralis, and that is why he is on an oral course of antibiotics. He is on Levaquin and Flagyl for 6 weeks. His last set of x-rays of the hospital confirm adequate resection of the fifth metatarsal head and toe without soft tissue emphysema, other osseous destruction, or foreign body. His lab trends will be followed in the outpatient setting. He had noninvasive vascular studies performed with triphasic bilateral waveforms. It is noted that he had an ELOINA of 1.44 with noncompressible vessels. This is concerning and a vascular referral will be considered pending his ongoing healing progress. He understands he is at risk for continued limb loss. I would like to consider an advanced wound care product in combination with a wound VAC to optimize a faster healing. He does not have insurance and I will confirm if there is any manager financial reporting programs available. Otherwise he will not be able to proceed. He understands elects to proceed forward. He was advised to proceed with an appropriate nutritious whole food diet that eliminates excessive fats or glucose. This is necessary to optimize healing and also to prevent further disease anteriorization. To follow-up with the wound healing center in 1 week or call sooner if he has any deterioration in status, infection, or any questions or concerns. I answered all of his questions today.
[2020-04-20 14:20] VITALS: BP 122/86; PULSE 116; RESP 18; TEMP 36.6; BMI 37.4
--- NOTE | 2020-04-20 15:22 | PCM.WC.PN ---
(1) Ulcer of left foot with fat layer exposed Status: Acute Current Visit: Yes Code(s): L97.522 - Non-pressure chronic ulcer of other part of left foot with fat layer exposed (2) Cellulitis of left lower limb Status: Resolved Current Visit: Yes Code(s): L03.116 - Cellulitis of left lower limb (3) Diabetic wet gangrene of the foot Status: Resolved Current Visit: Yes Code(s): E11.52 - Type 2 diabetes mellitus with diabetic peripheral angiopathy with gangrene (4) Osteomyelitis of left foot Status: Acute Current Visit: Yes Code(s): M86.9 - Osteomyelitis, unspecified (5) Type 2 diabetes mellitus with diabetic polyneuropathy Status: Chronic Current Visit: Yes Code(s): E11.42 - Type 2 diabetes mellitus with diabetic polyneuropathy Type of Wound Date of Service: 04/20/20 Chief Complaint: Left foot open amputation History of Wound: 40-year-old male with significant past medical history of uncontrolled diabetes (hemoglobin A1c of 8.9%) was seen today for his left foot ulcer. He had an open fifth ray resection performed on 03-29-2020 at [facility] with Dr. Angulo for treatment of gangrene, osteomyelitis, and infection. He stabilized with IV antibiotics. He had clearance fragments obtained. He continues on antibiotics at this time. He denies current fever, chill, nausea, vomiting, loss of appetite, foot pain. He is with his sister today. He was also seen by infectious disease today. He does not have current health insurance and is unable to proceed forward with any advanced wound care products or wound VAC therapy unless there is a financial assistance program available. Progress of Wound: Improving - Physical Exam Vital Signs Temp Pulse Resp BP 98 F 116 H 18 122/86 H 04/20/20 14:20 04/20/20 14:20 04/20/20 14:20 04/20/20 14:20 General: Alert, Oriented x3, Cooperative, No apparent distress HEENT: Atraumatic Extremities: No cyanosis, Capillary Refill Less than 3 Seconds, No Calf Tenderness, Edema - Decreased, Peripheral Pulses Normal, - - Fifth ray resection left stable and no longer any bone exposed Skin: Ulcer/ Wound - No purulence, erythema, string, odor, infection. The ulcer bed is very healthy beefy red and granular. There is no longer any undermining or tunneling or eschar. He does have hair on his foot and his skin is slightly atrophic Wound Measurements and Assessment - Nurse 1 - General Ulcer Measurement Start: 04/06/20 11:34 Freq: Status: Active Protocol: Activity Type Activity Date Activity User E-Sign Co-Sign Detail Recorded Client Recorded Date Recorded By Document 04/20/20 14:20 RB [id number] 04/20/20 14:23 RB 04/20/20 14:20 Wound Center Nurse 1 [Ulcer Assessment] #1 Post Surgical Amp: L 5th toe -Combined with other wound No -Current Size (cm) - Length 2.5 -Current Size (cm) - Width 1.3 -Current Size (cm) - Depth 0.1 -Total Square Cm 3.25 -Tunneling No -Undermining/Tunneling No -Circular Undermining No -Exudate Amt Medium -Exudate Type Serosanguineous -Wound Margin Flat & Intact -Granulation Amt Medium (34-66%) -Granulation Quality [place] -Slough/Fibrin Yes -Necrosis Amt Small (1-33%) -Necrotic Tissue Type Adherent Slough -Structure Exposed N/A -Texture (Brianne-wound Skin Appearance) Assessed -Moisture (Brianne-wound Skin Appearance Assessed ) -Color (Brianne-wound Skin Appearance) Assessed -Temperature (Brianne-wound Skin No Abnormality Appearance) (Pt Warm) -Tenderness on Palpation (Brianne-wound No Skin Appearance) -Ulcer Cleansing Wound Cleanser -Foul Odor after Cleansing No -Anesthetic Used 4% Lidocaine Solution - Nurse 2 - General Ulcer CM Notes Start: 04/06/20 11:34 Freq: Status: Active Protocol: Activity Type Activity Date Activity User E-Sign Co-Sign Detail Recorded Client Recorded Date Recorded By Document 04/20/20 14:57 IRMA [id number] 04/20/20 15:00 IRMA 04/20/20 14:57 Wound Center Nurse 2 [Procedure/Treatment] -Time 14:57 -Correct Patient Yes -Correct Side, Site, Position Yes -Correct Procedure Yes -Procedure Performed Yes -Type of Procedure Debridement -Clinical Debridement Subcutaneous -Post Debridement Size (cm) - Length 2.8 -Post Debridement Size (cm) - Width 4.0 -Post Debridement Size (cm) - Depth 0.2 -Total Square (cm) 11.20 -Wound/Ulcer Outcome Not Healed -Ulcer Cleansing Rinsed/ Irrigated with Saline -Foul Odor after Cleansing No -Bioengineered Tissue No -Bleeding Controlled with Pressure -Offloading Yes -Type of Offloading Surgical Shoe -Treatment Response Procedure Tolerated Well [See Physician Procedure note for Specifics] Pain Scale: 0-10 Numeric [Pain] -Is Patient Pain Free? Yes Musculoskeletal: No Tenderness to Palpation of Joints or Extremities, Muscle Wasting Neurological: - - Lack of normal epicritic sensation light touch is consistent with neuropathy status Psych/Mental Status: Normal Affect, Appropriate Debridement Note Post-Debridement Measurements/Treatment WC - Nurse 2 - General Ulcer CM Notes Start: 04/06/20 11:34 Freq: Status: Active Protocol: Activity Type Activity Date Activity User E-Sign Co-Sign Detail Recorded Client Recorded Date Recorded By Document 04/06/20 12:07 PL [id number] 04/06/20 12:12 PL Document 04/13/20 14:36 [id number] 04/13/20 14:41 Document 04/20/20 14:57 [id number] 04/20/20 15:00 04/06/20 04/13/20 04/20/20 12:07 14:36 14:57 Wound Center Nurse 2 #1 Post Surgical Amp: L 5th toe -Time 12:06 14:39 14:57 -Correct Patient Yes Yes Yes -Correct Side, Site, Position Yes Yes Yes -Correct Procedure Yes Yes Yes -Procedure Performed Yes Yes Yes -Type of Procedure Debridement Debridement Debridement -Clinical Debridement Subcutaneous Subcutaneous Subcutaneous -Post Debridement Size (cm) - Length 4.6 4.5 2.8 -Post Debridement Size (cm) - Width 5.1 4.8 4.0 -Post Debridement Size (cm) - Depth 0.6 0.5 0.2 -Total Square (cm) 23.46 21.60 11.20 -Wound/Ulcer Outcome Not Healed Not Healed Not Healed -Ulcer Cleansing Rinsed/ Rinsed/ Rinsed/ Irrigated with Irrigated with Irrigated with Saline Saline Saline -Foul Odor after Cleansing No No No -Bioengineered Tissue No No -Bleeding Controlled with Pressure Pressure Pressure -Offloading Yes Yes -Type of Offloading Surgical Shoe Knee Walker Surgical Shoe -Treatment Response Procedure Procedure Procedure Tolerated Well Tolerated Well Tolerated Well Pain Scale: 0-10 Numeric Is Patient Pain Free? Yes Yes Yes Wound debrided: lateral forefoot Laterality: Left Type of Debridement: Excisional debridement Anesthesia Used: 5% Lidocaine Gel Depth: in the subcutaneous layer Percentage of wound debrided: 100 Instrument Used: #15 blade Tissue Removed: fibrous, devitalized subcutaneous , biofilm, slough Severity: Fat Layer Exposed Amount of bleeding with debridement: Mild Bleeding Controlled with: Pressure Patient tolerated procedure well Assessment/Plan Active Problems Osteomyelitis of left foot (Acute) Type 2 diabetes mellitus with diabetic polyneuropathy (Chronic) Ulcer of left foot with fat layer exposed (Acute) Assessment: Left foot wound/Ulcer with exposed subcutaneous and muscle tissue. Status post fifth ray resection left foot treatment of osteomyelitis which was successfully removed surgically. Diabetes with neuropathy, uncontrolled. Malnutrition Plan: I reviewed and discussed his case. Subcutaneous excisional debridement was performed as noted in the clinical panel. He was advised to change his dressing daily with a silver product such as Aquacel Ag. It is okay to discontinue Dakin's. His sister is present and this was demonstrated. She will continue to perform this. He had a fifth ray resection performed on 03-29-2020 at [facility] he continues to complete his course of oral antibiotics. This regimen was selected and recommended by infectious disease. His loose stools have resolved. He was advised to take probiotics and eat naturally cultured foods such as fermented foods and yogurt to prevent disruption of his gut bacteria. His pathology report from surgery confirmed acute osteomyelitis of the fifth metatarsal head and toe. The clearance fragment was negative for acute osteomyelitis. The clearance fragment that was sent to microbiology however did grow out Proteus mirabilis and strep mitis/oralis, and that is why he is on an oral course of antibiotics. He is on Levaquin and Flagyl for 6 weeks. His last set of x-rays of the hospital confirm adequate resection of the fifth metatarsal head and toe without soft tissue emphysema, other osseous destruction, or foreign body. His lab trends will be followed in the outpatient setting. He had noninvasive vascular studies performed with triphasic bilateral waveforms. It is noted that he had an ELOINA of 1.44 with noncompressible vessels. This is concerning and a vascular referral will be considered pending his ongoing healing progress. He understands he is at risk for continued limb loss. I would like to consider an advanced wound care product in combination with a wound VAC to optimize a faster healing. He does not have insurance and I will confirm if there is any financial foundations representative programs available. Otherwise he will not be able to proceed. He understands elects to proceed forward. It was confirmed today that he is unable to proceed forward and he is not interested in asking his hoahaoism for additional funding at this time. Therefore, continue traditional wound care versus even considering a split-thickness skin graft with the harvest off of the leg can be considered. He will think about this option. He was advised to proceed with an appropriate nutritious whole food diet that eliminates excessive fats or glucose. This is necessary to optimize healing and also to prevent further disease anteriorization. To follow-up with the wound healing center in 1 week at the foot and ankle center or call sooner if he has any deterioration in status, infection, or any questions or concerns. He does not plan to proceed forward with any of the additional advanced opportunities at the wound healing center and will therefore follow-up at the foot and ankle center. I answered all of his questions today.
== END 2020-04-29 23:59 ==
LOC: WC 14:00
PROVIDERS: Referring Provider Podiatrist; Visit Provider Podiatrist
DX: E11.621 Type 2 diabetes mellitus with foot ulcer (principal); L97.522 Non-pressure chronic ulcer of other part of left foot with fat layer exposed; E11.69 Type 2 diabetes mellitus with other specified complication; M86.172 Other acute osteomyelitis, left ankle and foot; L03.116 Cellulitis of left lower limb; B96.4 Proteus (mirabilis) (morganii) as the cause of diseases classified elsewhere; B95.5 Unspecified streptococcus as the cause of diseases classified elsewhere; E11.42 Type 2 diabetes mellitus with diabetic polyneuropathy; E11.65 Type 2 diabetes mellitus with hyperglycemia; R19.7 Diarrhea, unspecified
CPT/HCPCS: 11042; 11045; 36415; 80048; 80076; 85027; 85652; 99212; G0463

== ENCOUNTER 2020-08-30 12:36 | Outpatient (RCR) | payer SELFPAY ==
[2020-08-10 10:35] VITALS: BMI 36.6
== END 2020-08-30 23:59 | disposition home or self-care (01) ==
LOC: DC 12:36
PROVIDERS: PCP Family Medicine; Visit Provider Family Medicine
DX: Z71.3 Dietary counseling and surveillance (principal); E11.42 Type 2 diabetes mellitus with diabetic polyneuropathy; E66.9 Obesity, unspecified; Z68.36 Body mass index [BMI] 36.0-36.9, adult
CPT/HCPCS: 97802

== ENCOUNTER → 2021-05-17 11:23 | Outpatient (CLI) | payer SELFPAY ==
[2021-05-17 12:50] LABS: ALB/GLOB Ratio 0.9 RATIO (0.9-2.4); AST(SGOT) 16 U/L (15-37); Alanine Aminotransfer ALT/SGPT 31 U/L (16-61); Albumin, Serum 3.7 g/dL (3.2-5.0); Alkaline Phosphatase 70 U/L (45-117); Anion Gap 5 (5-15); BUN 17 mg/dL (7-18); BUN/Creat Ratio 16.7 RATIO (10-20); Calcium,Total 9.3 mg/dL (8.5-10.1); Chloride 103 mmol/L (98-107); Cholesterol 171 mg/dL (200); Creatinine, Serum 1.02 mg/dL (0.70-1.30); EST Glomerular Filtration Rate 85 mL/min (>60); Est Glom Filt Rate - Afr Amer 103 mL/min (>60); Globulin 3.9 g/dL (2.2-4.2); Glucose 190 mg/dL (74-106); High Density Lipoprotein 45 mg/dL; Potassium 4.3 mmol/L (3.5-5.1); Protein, Total 7.6 g/dL (6.4-8.2); Sodium Level 137 mmol/L (136-145); Triglycerides 119 mg/dL; Very Low Density Lipoprotein 24 mg/dL (5-40)
== END ==
PROVIDERS: PCP Family Medicine; Visit Provider Family Medicine
DX: E11.9 Type 2 diabetes mellitus without complications (principal)
CPT/HCPCS: 36415; 80053; 80061

== ENCOUNTER → 2022-05-22 | Outpatient (CLI) | payer SELFPAY | END | disposition home or self-care (01) | LOC: LABSPEC 05-23 06:35 → LAB.FUTURE 05-23 06:36 → LABSPEC 05-23 06:36 | PROVIDERS: PCP Family Medicine; Visit Provider Podiatrist | DX: L03.031 Cellulitis of right toe (principal) | CPT/HCPCS: 87070; 87077; 87186; 87205 ==

== ENCOUNTER → 2022-05-29 | Outpatient (CLI) | payer OTHER, SELFPAY ==
[2022-05-29 15:30] LABS: Absolute Neutrophil Count 5.4 X10^3/uL (2.0-7.7); Basophil# 0.06 X10^3/uL; Basophil% 0.7 % (0-1); Eosinophil# 0.21 X10^3/uL; Eosinophils% 2.4 % (0-5); Hematocrit 40.8 % (40-54); Hemoglobin 13.6 g/dL (13.0-16.5); Lymphocyte % 28.5 % (19-41); Mean Corp Hgb Conc 33.3 g/dL (32-36); Mean Corpuscular Hgb 29.5 pg (27.0-32.0); Mean Corpuscular Volume 88.5 fL (80-94); Mean Platelet Vol. 11.3 fl (6.2-12.0); Monocyte# 0.61 X10^3/uL; NRBC Flagged by Analyzer 0 % (0-5); Neutrophil # 5.35 X10^3/uL (2.7-7.7); Neutrophil % 61.1 % (47-70); Platelet Count 385 K/mm3 (150-450); RBC Distribution Width CV 12.8 % (11.6-14.6); RBC Distribution Width SD 41.5 fl (35.1-43.9); Red Blood Count 4.61 M/mm3 (4.6-6.2); White Blood Count 8.8 K/mm3 (4.4-11.0)
[2022-05-29 15:50] LABS: ALB/GLOB Ratio 0.6 RATIO (0.9-2.4); AST(SGOT) 18 U/L (15-37); Alanine Aminotransfer ALT/SGPT 33 U/L (16-61); Alkaline Phosphatase 67 U/L (45-117); Anion Gap 7 (5-15); BUN 21 mg/dL (7-18); BUN/Creat Ratio 16.3 RATIO (10-20); Calcium,Total 8.7 mg/dL (8.5-10.1); Chloride 106 mmol/L (98-107); Creatinine, Serum 1.29 mg/dL (0.70-1.30); EST Glomerular Filtration Rate 65 mL/min (>60); Est Glom Filt Rate - Afr Amer 78 mL/min (>60); Globulin 4.7 g/dL (2.2-4.2); Glucose 232 mg/dL (74-106); Potassium 4.3 mmol/L (3.5-5.1); Protein, Total 7.7 g/dL (6.4-8.2); Sodium Level 138 mmol/L (136-145)
[2022-05-29 16:52] LABS: Erythrocyte Sedimentation Rate 51 mm/hr (0-20)
== END | disposition home or self-care (01) ==
PROVIDERS: PCP Family Medicine; Referring Provider Podiatrist; Visit Provider Podiatrist
DX: L03.031 Cellulitis of right toe (principal)
CPT/HCPCS: 36415; 80053; 85025; 85652; 86140

== ENCOUNTER 2023-02-14 12:50 | Inpatient (IN) | payer SELFPAY ==
[2023-02-14] VITALS (9 sets, daily range): BP systolic 103–171; BP diastolic 66–92; PULSE 89–110; RESP 18; TEMP 36.7–37.2; O2SAT 95–99; BMI 41.9; BMI 41.8
--- NOTE | 2023-02-14 12:12 | HP.PCM_ITS ---
HPI - General General Date of Admission: 02/14/23 HPI Narrative DARRYL CARLISLE, is a 43 M who presents with an acute right foot diabetic foot wound. Patient notes increased drainage from right foot over the past week. Patient noted fever chills nausea on Saturday of this week. Patient denies any constitutional's at current. Patient has history of left foot infection with requirement of partial fifth ray resection. Patient uncertain of current blood glucose control. Patient has not eaten yet today. Patient denies any cardiac history or any other issues at this time. Patient is a type II diabetic and does not follow his blood sugar closely. Patient does not currently take any medications. Patient has not been following up with primary care physician. Patient presented to our office today with worsening right foot infection and had a history of a left foot infection requiring fifth toe amputation. Patient was sent to the hospital for admission and surgical debridement today. [facility] Medical History (Updated 02/14/23 @ 12:[address] Channing Hogue DPM) Diabetes Home Medications NK 08/10/20 [History Last Taken Unknown] Allergy/AdvReac Type Severity Reaction Status Date / Time No Known Allergies Allergy Verified 02/14/23 11:55 Family History Mother Diabetes Father CVA (cerebral vascular accident) Surgical History Amputation toe Social History Smoking Status: Never smoker alcohol intake: never substance use type: does not use what type of physical activity do you participate in: none ROS Constitutional Constitutional: Reports chills and fatigue; Denies anorexia or change in weight Eyes Eyes: Denies blurry vision, change in vision or irritation ENT HEENT: Denies abnormal hearing, dysphagia or nasal congestion Cardiovascular Cardiovascular: Reports edema; Denies chest pain or claudication Respiratory/Chest Respiratory/Chest: Denies cough, hemoptysis or wheezing Gastrointestinal Gastrointestinal: Denies abdominal pain, constipation or nausea Genitourinary Genitourinary: Denies dysuria, hematuria or urinary hesitancy Musculoskeletal Musculoskeletal: Denies back pain, extremity pain or limited range of motion Integumentary Integumentary: Reports wounds; Denies pruritus or rash Neurologic Neurologic: Reports abnormal gait; Denies abnormal speech or lack of coordination Physical Exam Narrative Vascular: DP PT pulses palpable 2 out of 4 to bilateral feet. Capillary fill time brisk to lesser digits. Increased edema to right lateral forefoot with in creased warmth. Neurologic: Light touch protective sensation absent to bilateral feet. Dermatologic: Full-thickness wound noted to the plantar fifth metatarsal head on the right foot. This probes down to level of bone. Underlying fluctuance crepitus periwound erythema edema malodor noted. Musculoskeletal: No gross deformity, absent left fifth toe. Const alert and oriented x3 Assessment & Plan Assessment/Plan (1) Gas gangrene: PLAN: Exam performed. Patient seen in the office radiographs taken demonstrate gas infection right foot. This correlates with wound. Plan for emergent surgical debridement via partial fifth ray amputation due to acute gas infection. This will be of the right foot. Planning for surgical debridement today 02/14/2023. IV vancomycin and Zosyn ordered. CBC, CMP, ESR, CRP, EKG, chest x-ray ordered. Hospitalist and infectious disease consulted. Patient will be nonweightbearing to right lower extremity. (2) Type 2 diabetes mellitus with diabetic polyneuropathy: (3) Diabetic foot infection: (4) Diabetic wet gangrene of the foot: (5) Osteomyelitis of foot, right, acute:
--- NOTE | 2023-02-14 12:30 | RAD_ITS ---
INDICATION: DIABETIC WOUND EXAMINATION/TECHNIQUE: X-RAY - RIGHT XR Foot 2 Views 7 VIEWS COMPARISON: FINDINGS: Status post amputation distal two thirds of fifth metatarsal and associated phalanges. RAD/Foot 2 Views IMPRESSION: Amputation juncture proximal middle thirds of fifth metatarsal. Electronically Signed: Roland Hayes MD, DAYDAY at 16:52 EDT ,
[2023-02-14] MEDS: 0.9% Normal Saline 1,000 ML 30 ML IV (12:59)
[2023-02-14 13:01] LABS: Bedside Glucose 347 mg/dL (74-106)
--- NOTE | 2023-02-14 13:10 | AMP_PTH ---
PATIENT: DARRYL CARLISLE LOC: MS3 U#:[id number] AGE/SX: 43/M ROOM: [facility] RE02/14/[address]: Dr. Channing Hogue DPM : 1980 BED: 1 DIS: 02/18/2023 SPEC #: [id number] RECD: 02/14/23 15:57 STATUS: SHAHEEN RE #: [id number] [place]: 02/14/23 13:[address]: Channing Hogue DEPT: SURGICAL PATHOLOGY RECD BY: Jae Abernathy ENTERED: 02/15/23 07:16 SP TYPE: Amputation OTHR DR: MD Dr. Semaj Bonilla Dr., DO Dr. Efewongbe Oleghe, MD Dr. Loren Kirchner, MD Dr. Nicholas F Kotsonis, MD Dr. Robert Leininger, MD Barbara Tickton, LEWIS-C Roland Alejandro, LEWIS-C RIGO Christine PA Tissues: A - Toe, NOS B - Bone of foot, NOS Procedures: Decalcification bone/plaque Surgery Specimen Level IV HEADER OPERATION: Foot partial fifth ray amputation PRE-OP DIAGNOSIS: Gas gangrene right foot; osteomyelitis right foot; diabetic neuropathy TISSUE SUBMITTED: A ? Right foot fifth metatarsal head clean margin, B ? Right fifth toe bone and tissue for pathology MICROSCOPIC DIAGNOSIS A. Right fifth metatarsal, amputation: Bone with reparative and reactive change. B. Right fifth toe bone and tissue, excision: Acute osteomyelitis. Soft tissue with acute inflammation consistent with microabscess formation. AM:sandi 02/20/2023 MICROSCOPIC DESCRIPTION Slides are reviewed. GROSS DESCRIPTION A - Received in fixative is one container labeled with the patient's name and designated right foot fifth metatarsal head clean margin. The specimen consists of two irregular fragments of light to dark song bone ranging in size from 2.2 to 2.6 cm. Medical Appliance Maker sections from both fragments are submitted in one cassette after decalcification. B - Received in fixative is one container labeled with the patient's name and designated right fifth toe bone and tissue. The specimen consists of an amputated toe with attached skin, bone, soft tissue and nail measuring 3.5 cm in length and 2.0 cm in diameter. The nail is deformed. No mass lesions are identified. A longitudinal section of the toe is submitted in one cassette after decalcification. / AM:sandi 02/15/2023 TC:2 CPT: 06505 x2, 25126 x2
[2023-02-14 13:30] LABS: Absolute Lymphocyte Count 1.31 X10^3/uL (0.83-4.51); Absolute Neutrophil Count 12.2 X10^3/uL (2.0-7.7); Basophil# 0.04 X10^3/uL; Basophil% 0.3 % (0-1); Eosinophil# 0.08 X10^3/uL; Eosinophils% 0.5 % (0-5); Erythrocyte Sedimentation Rate 51 mm/hr (0-20); Hematocrit 36.7 % (40-54); Hemoglobin 12.3 g/dL (13.0-16.5); Lymphocyte # 1.31 X10^3/ul (0.83-4.51); Lymphocyte % 8.9 % (19-41); Mean Corp Hgb Conc 33.5 g/dL (32-36); Mean Corpuscular Hgb 28.9 pg (27.0-32.0); Mean Corpuscular Volume 86.4 fL (80-94); Mean Platelet Vol. 10.6 fl (6.2-12.0); Monocyte# 0.98 X10^3/uL; Monocyte% 6.7 % (0-10); NRBC Flagged by Analyzer 0 % (0-5); Neutrophil # 12.23 X10^3/uL (2.7-7.7); Platelet Count 358 K/mm3 (150-450); RBC Distribution Width CV 12.5 % (11.6-14.6); RBC Distribution Width SD 39.6 fl (35.1-43.9); Red Blood Count 4.25 M/mm3 (4.6-6.2); White Blood Count 14.7 K/mm3 (4.4-11.0)
[2023-02-14 13:50] LABS: ALB/GLOB Ratio 0.5 RATIO (0.9-2.4); AST(SGOT) 13 U/L (15-37); Alanine Aminotransfer ALT/SGPT 19 U/L (16-61); Albumin, Serum 2.5 g/dL (3.2-5.0); Alkaline Phosphatase 106 U/L (45-117); Anion Gap 7 (5-15); BUN 32 mg/dL (7-18); BUN/Creat Ratio 18.3 RATIO (10-20); Calcium,Total 8.9 mg/dL (8.5-10.1); Chloride 101 mmol/L (98-107); Creatinine, Serum 1.75 mg/dL (0.70-1.30); EST Glomerular Filtration Rate 45 mL/min (>60); Est Glom Filt Rate - Afr Amer 55 mL/min (>60); Estimated Creatinine Clearance 48.61 ml/min; Globulin 5.2 g/dL (2.2-4.2); Glucose 361 mg/dL (74-106); Potassium 4.1 mmol/L (3.5-5.1); Protein, Total 7.7 g/dL (6.4-8.2); Sodium Level 131 mmol/L (136-145)
[2023-02-14] MEDS: Bupivacaine Mpf 0.5% 30 ML VIAL (14:00)
--- NOTE | 2023-02-14 14:11 | OP.PCM_ITS ---
Problems Associated Problem List Diagnoses (1) Osteomyelitis of foot, right, acute: (2) Type 2 diabetes mellitus with diabetic polyneuropathy: (3) Gas gangrene: Report of Operation Date of Procedure: 02/14/23 Pre-Operative Diagnosis: 1) Gas Gangrene, right 5th ray 2) diabetic foot infection, right foot 3) osteomyelitis, right foot Post-Operative Diagnosis: same Surgery/Procedure Performed:: Open partial 5th ray resection, right foot Description of Surgical Findings:: Patient abscess gas infection on the right forefoot confirmed clinically and through radiographic imaging. Upon debridement there is noted to be healthy clean wound base. Surgeon: Channing Hogue vp cardiovascular service line: None (1) DWAINE QuiñonesII) Type of Anesthesia: Local MAC Special Medications: 20 cc 0.5% Marcaine plain Specimen's removed: Right fifth toe for bone and tissue pathology Right fifth toe for bone culture Right fifth toe for tissue culture Right fifth metatarsal head and shaft for clean margin for pathology Post lavage swab cultures Drains: None Estimated Blood Loss (mL): 50 cc Description of Procedure: Patient brought back the operating placed comfortably in supine position on the operating room table. Patient induced under MAC anesthesia. Well-padded padded ankle tourniquet applied to right lower extremity this was not used throughout the case. Preoperatively 10 cc of half percent Marcaine plain were performed using a reverse Brunson block technique. Was performed aseptically. The lower extremity was prepped scrubbed prepped and draped using typical aseptic fashion. Once cleared by anesthesia. The full-thickness necrotic wound to the plantar lateral fifth metatarsal head was excised down to the level of bone and the fifth digit was disarticulated at the level of the metatarsal phalangeal joint. This was passed to the back table and into bone and tissue for pathology as well as bone culture as well as the wound and tissue that was excised was sent for right foot fifth toe tissue culture. At this time the fifth metatarsal head was exposed and and two thirds wound was resected using a sagittal saw. This was sent and passed to the back table for clean margin. The residual wound base was debrided using combination of 15 blade and pickups as well as bone rongeurs of all nonviable tissue until healthy bleeding granular edges were noted. Once this was noted and there is no residual none necrotic purulent or nonviable tissue the wound was flushed with copious amounts of normal sterile saline using low-pressure pulse lavage. Post lavage swab cultures were taken of the wound at this time. Wound deemed to be healthy and devoid of any residual acute signs of infection or nonviable tissue with adequate bleeding. This was dressed with Betadine soaked gauze for a Betadine wet-to-dry 4 x 4's ABD pads to Kerlix and a 4 inch Damon bandage. Patient was transferred to PACU vital signs stable vascular status intact all digits for further monitoring prior to transfer to the floor. Patient tolerated procedure and anesthesia well apparent satisfactory condition. Patient will receive IV vancomycin and Zosyn on the floor. ID and hospitalist on consult. We will follow patient closely.
[2023-02-14 14:52] LABS: Hemoglobin A1c 11.2 % (3.8-5.6)
--- NOTE | 2023-02-14 15:23 | PCM.PN.HOSP ---
Subjective Subjective 43-year-old male presents with a diabetic foot wound status post ray resection on the right doing well denies any significant pain. States that he has been a diabetic for the last couple years but has been doing a natural remedy which she says initially was working. A1c today is 11.2 Objective Data Objective Data Vital Signs: Vital Signs Temp Pulse Resp BP Pulse Ox O2 Del Method O2 Flow Rate 98.1 F 95 18 118/74 97 Room Air 4.5 02/14/23 14:30 02/14/23 14:30 02/14/23 14:30 02/14/23 14:30 02/14/23 14:30 02/14/23 14:30 02/14/23 14:20 Oxygen Flow Rate (L/min) 4.5 Oxygen Delivery Method Room Air Weight: 260 lb Body Mass Index (BMI) 41.9 Intake & Output: Intake and Output for Last 24 Hours 02/13/23 02/14/23 02/15/23 03:59 03:59 03:59 Intake Total 50 / 50 Balance 50 / 50 Lab / Micro Data Result Diagrams: 02/14/23 13:04 02/14/23 13:04 Labs: Laboratory Results - last 24 hr 02/14/23 12:42: POC Glucose 347 H 02/14/23 13:04: Hemoglobin A1c 11.2 H 02/14/23 13:04: WBC 14.7 H, RBC 4.25 L, Hgb 12.3 L, Hct 36.7 L, MCV 86.4, MCH 28.9, MCHC 33.5, RDW Std Deviation 39.6, RDW Coeff of Erica 12.5, Plt Count 358, MPV 10.6, Immature Gran % (Auto) 0.600, Neut % (Auto) 83.0 H, Lymph % (Auto) 8.9 L, [place] % (Auto) 6.7, Eos % (Auto) 0.5, Baso % (Auto) 0.3, Absolute Neuts (auto) 12.2 H, Absolute Lymphs (auto) 1.31, Nucleated RBC % 0, ESR 51 H 02/14/23 13:04: Sodium 131 L, Potassium 4.1, Chloride 101, Carbon Dioxide 23.0, Anion Gap 7, BUN 32 H, Creatinine 1.75 H, Estim Creat Clear Calc 48.61, Est GFR (MDRD) Af Amer 55 L, Est GFR (MDRD) Non-Af 45 L, BUN/Creatinine Ratio 18.3, Glucose 361 H, Calcium 8.9, Total Bilirubin 0.60, AST 13 L, ALT 19, Alkaline Phosphatase 106, C-React Prot Ext Range 277.00 H, Total Protein 7.7, Albumin 2.5 L, Globulin 5.2 H, Albumin/Globulin Ratio 0.5 L Physical Exam Narrative General: Alert, Oriented x3, Cooperative, No apparent distress HEENT: Atraumatic, PERRLA, EOMI, Normocephalic Oral: Moist Mucosa Neck: Supple, No JVD Lungs: Clear to auscultation, Normal air movement, No rhonchi, No wheeze, No rales Cardiovascular: Regular rate, Regular Rhythm, Normal S1, Normal S2, No murmurs Abdomen: Soft, Non Tender, Non-Distended, No Hepato-splenomegaly Extremities: No edema, Capillary Refill Less than 3 Seconds Skin: No rashes, No breakdown Musculoskeletal: Right lower extremity bandaged dressing intact Neurological: Cranial nerves II-XII grossly intact, Motor Exam 5/5 strength throughout, Sensory exam intact to light touch and pain Psych/Mental Status: Normal Affect, Appropriate Assessment & Plan Assessment/Plan (1) Osteomyelitis of foot, right, acute: (2) Type 2 diabetes mellitus with diabetic polyneuropathy: (3) Gas gangrene: (4) 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 Osteomyelitis of the right foot with gas gangrene secondary to type 2 diabetes uncontrolled status post partial ray amputation of his fifth toe on the right foot/SLIME ? Pain management per primary ? Continue with broad-spectrum antibiotics while cultures are pending ? Awaiting evaluation by ID ? Discussed with him that he will need to start on insulin as well as an other oral medication on discharge ? We will place him on a carb controlled diet ? We will continue with sliding scale insulin Accu-Cheks ACHS we will make adjustments as necessary ? Continue with long-acting insulin ? We will give him a liter of fluid and recheck his creatinine in the morning prior to this his renal function was normal ? Had an excessive discussion on lifestyle management modification given his diabetes with an A1c of 11.2 ? He had a left toe amputated 3 years ago for similar issue DVT: Per primary 50 minutes was spent on direct patient care as well as chart review and collaboration with colleagues Charges/Coding Visit Charges Inpatient E&M: 24189 Subs Hosp L3
[2023-02-14] MEDS: 0.9% Normal Saline 1,000 ML 100 ML IV (15:27)
--- NOTE | 2023-02-14 15:27 | PCM.RX.CS ---
Consult Pharmacy has been consulted to manage selected antiobiotic: Vancomycin Type of Consult: New start Suspected Infection: Skin/Soft tissue Prior Doses of Antibiotics Received/Current Regimen: 02/14/23 @ 1325 Vancomycin 2 gram loading dose. Labs: Sodium 131 mmol/L (136-145) L 02/14/23 13:04 Potassium 4.1 mmol/L (3.5-5.1) 02/14/23 13:04 Chloride 101 mmol/L (98-107) 02/14/23 13:04 Carbon Dioxide 23.0 mmol/L (21.0-32.0) 02/14/23 13:04 Anion Gap 7 (5-15) 02/14/23 13:04 BUN 32 mg/dL (7-18) H 02/14/23 13:04 Creatinine 1.75 mg/dL (0.70-1.30) H 02/14/23 13:04 Est GFR (MDRD) Af Amer 55 mL/min (>60) L 02/14/23 13:04 Est GFR (MDRD) Non-Af 45 mL/min (>60) L 02/14/23 13:04 BUN/Creatinine Ratio 18.3 RATIO (10-20) 02/14/23 13:04 Glucose 361 mg/dL (74-106) H 02/14/23 13:04 Weight used for dosin.9 kg Estimated Creatinine Clearance: 48.6 Goal Trough: 15-20 mcg/mL Pharmacy Plan for Drug Dosing: Vancomycin 1000mg every 12 hours start at 0130 Pharmacy Service will continue to monitor and adjust dosing as required. Follow-Up Labs: Trough Vancomycin Labs to be done on [date and time ordered]: 02/16/23 @ 0100
[2023-02-14] MEDS: Juven (unflavored) Packet 1 PACKET PO (15:57)
[2023-02-14] MEDS: Insulin Lispro 100 UNIT/ML INSULN.PEN SC ×2 (15:57→21:27)
[2023-02-14 16:20] LABS: Bedside Glucose 315 mg/dL (74-106)
[2023-02-14] MEDS: Insulin Glargine-YFGN 100 UNIT/ML Pen 10 UNIT SC (21:30)
[2023-02-14 21:56] LABS: Bedside Glucose 346 mg/dL (74-106)
[2023-02-15 00:15] VITALS: BP 117/74; PULSE 91; RESP 16; TEMP 36.8; O2SAT 98
[2023-02-15] MEDS: Vancomycin IV 1,000 MG/200 ML BAG 200 MG IV ×2 (01:55→13:22)
[2023-02-15 05:17] VITALS: BP 139/81; PULSE 91; RESP 18; TEMP 36.8; O2SAT 93
[2023-02-15 05:18] VITALS: BP 139/87; PULSE 91; RESP 18; TEMP 36.8; O2SAT 93
[2023-02-15] MEDS: Insulin Lispro 100 UNIT/ML INSULN.PEN SC ×6 (06:38→21:21)
[2023-02-15 07:10] LABS: Bedside Glucose 296 mg/dL (74-106)
[2023-02-15] MEDS: DAKIN'S SOL HALF STRENGTH (=0.25%) 1 APPLIC TOPICAL (08:15)
[2023-02-15] MEDS: Juven (unflavored) Packet 1 PACKET PO ×2 (08:20→16:52)
[2023-02-15 08:23] VITALS: BP 136/82; PULSE 94; RESP 18; TEMP 36.6; O2SAT 97
--- NOTE | 2023-02-15 08:39 | PCM.PN.HOSP ---
Subjective Subjective Doing well, no issues overnight Objective Data Objective Data Vital Signs: Vital Signs Temp Pulse Resp BP Pulse Ox O2 Del Method O2 Flow Rate 97.9 F 94 18 136/82 H 97 Room Air 4.5 02/15/23 08:23 02/15/23 08:23 02/15/23 08:23 02/15/23 08:23 02/15/23 08:23 02/15/23 08:23 02/14/23 14:20 Oxygen Flow Rate (L/min) 4.5 Oxygen Delivery Method Room Air Weight: 260 lb Body Mass Index (BMI) 41.8 Intake & Output: Intake and Output for Last 24 Hours 02/14/23 02/15/23 02/16/23 03:59 03:59 03:59 Intake Total 2140.17 / 2140.17 173.33 / 173.33 Output Total 1200 / 1200 300 / 300 Balance 940.17 / 940.17 -126.67 / -126.67 Lab / Micro Data Result Diagrams: 02/14/23 13:04 02/14/23 13:04 Labs: Laboratory Results - last 24 hr 02/14/23 12:42: POC Glucose 347 H 02/14/23 13:04: Hemoglobin A1c 11.2 H 02/14/23 13:04: WBC 14.7 H, RBC 4.25 L, Hgb 12.3 L, Hct 36.7 L, MCV 86.4, MCH 28.9, MCHC 33.5, RDW Std Deviation 39.6, RDW Coeff of Erica 12.5, Plt Count 358, MPV 10.6, Immature Gran % (Auto) 0.600, Neut % (Auto) 83.0 H, Lymph % (Auto) 8.9 L, [place] % (Auto) 6.7, Eos % (Auto) 0.5, Baso % (Auto) 0.3, Absolute Neuts (auto) 12.2 H, Absolute Lymphs (auto) 1.31, Nucleated RBC % 0, ESR 51 H 02/14/23 13:04: Sodium 131 L, Potassium 4.1, Chloride 101, Carbon Dioxide 23.0, Anion Gap 7, BUN 32 H, Creatinine 1.75 H, Estim Creat Clear Calc 48.61, Est GFR (MDRD) Af Amer 55 L, Est GFR (MDRD) Non-Af 45 L, BUN/Creatinine Ratio 18.3, Glucose 361 H, Calcium 8.9, Total Bilirubin 0.60, AST 13 L, ALT 19, Alkaline Phosphatase 106, C-React Prot Ext Range 277.00 H, Total Protein 7.7, Albumin 2.5 L, Globulin 5.2 H, Albumin/Globulin Ratio 0.5 L 02/14/23 15:50: POC Glucose 315 H 02/14/23 21:26: POC Glucose 346 H 02/15/23 06:37: POC Glucose 296 H Radiography Diagnostic Testing: Radiology Impression Foot X-Ray 02/14/23 12:30 IMPRESSION: Amputation juncture proximal middle thirds of fifth metatarsal. Electronically Signed: Roland Hayes MD, DAYDAY at 16:52 EDT , Physical Exam Narrative General: Alert, Oriented x3, Cooperative, No apparent distress HEENT: Atraumatic, PERRLA, EOMI, Normocephalic Oral: Moist Mucosa Neck: Supple, No JVD Lungs: Clear to auscultation, Normal air movement, No rhonchi, No wheeze, No rales Cardiovascular: Regular rate, Regular Rhythm, Normal S1, Normal S2, No murmurs Abdomen: Soft, Non Tender, Non-Distended, No Hepato-splenomegaly Extremities: No edema, Capillary Refill Less than 3 Seconds Skin: No rashes, No breakdown Musculoskeletal: Right lower extremity bandaged dressing intact Neurological: Cranial nerves II-XII grossly intact, Motor Exam 5/5 strength throughout, Sensory exam intact to light touch and pain Psych/Mental Status: Normal Affect, Appropriate Assessment & Plan Assessment/Plan (1) Osteomyelitis of foot, right, acute: (2) Type 2 diabetes mellitus with diabetic polyneuropathy: (3) Gas gangrene: (4) 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 Osteomyelitis of the right foot with gas gangrene secondary to type 2 diabetes uncontrolled status post partial ray amputation of his fifth toe on the right foot/SLIME ? Pain management per primary ? Continue with broad-spectrum antibiotics while cultures are pending ? Awaiting evaluation by ID ? Discussed with him that he will need to start on insulin as well as an other oral medication on discharge ? We will place him on a carb controlled diet ? We will continue with sliding scale insulin Accu-Cheks ACHS we will make adjustments as necessary ? Continue with long-acting insulin ? We will give him a liter of fluid and recheck his creatinine in the morning prior to this his renal function was normal ? Had an excessive discussion on lifestyle management modification given his diabetes with an A1c of 11.2 ? He had a left toe amputated 3 years ago for similar issue DVT: Per primary Charges/Coding Visit Charges Inpatient E&M: 95857 Subs Hosp L2
--- NOTE | 2023-02-15 08:43 | WOUNDNOTE ---
wound photo: right foot
--- NOTE | 2023-02-15 08:44 | WOUNDNOTE ---
wound photo: right foot
--- NOTE | 2023-02-15 08:45 | WOUNDNOTE ---
wound photo: left lower leg
[2023-02-15 09:45] LABS: Absolute Lymphocyte Count 1.65 X10^3/uL (0.83-4.51); Absolute Neutrophil Count 8.3 X10^3/uL (2.0-7.7); Basophil# 0.03 X10^3/uL; Basophil% 0.3 % (0-1); Eosinophil# 0.16 X10^3/uL; Eosinophils% 1.5 % (0-5); Hematocrit 33.9 % (40-54); Hemoglobin 11.2 g/dL (13.0-16.5); Lymphocyte # 1.65 X10^3/ul (0.83-4.51); Lymphocyte % 15.1 % (19-41); Mean Corpuscular Hgb 28.7 pg (27.0-32.0); Mean Corpuscular Volume 86.9 fL (80-94); Monocyte# 0.74 X10^3/uL; Monocyte% 6.8 % (0-10); NRBC Flagged by Analyzer 0 % (0-5); Neutrophil # 8.26 X10^3/uL (2.7-7.7); Neutrophil % 75.7 % (47-70); Platelet Count 350 K/mm3 (150-450); RBC Distribution Width CV 12.8 % (11.6-14.6); RBC Distribution Width SD 40.6 fl (35.1-43.9); White Blood Count 10.9 K/mm3 (4.4-11.0)
[2023-02-15 10:15] LABS: Anion Gap 6 (5-15); BUN 39 mg/dL (7-18); BUN/Creat Ratio 23.2 RATIO (10-20); Calcium,Total 8.6 mg/dL (8.5-10.1); Chloride 103 mmol/L (98-107); Creatinine, Serum 1.68 mg/dL (0.70-1.30); EST Glomerular Filtration Rate 47 mL/min (>60); Est Glom Filt Rate - Afr Amer 57 mL/min (>60); Estimated Creatinine Clearance 50.63 ml/min; Glucose 334 mg/dL (74-106); Potassium 4.2 mmol/L (3.5-5.1); Sodium Level 134 mmol/L (136-145)
--- NOTE | 2023-02-15 10:15 | CASEMGMT ---
Addendum entered by Lucas Busby 02/15/23 11:02: [employer] was listed in [employer] for insurance. Pt states he no longer has [employer]. He states he has [employer]. Call to Olga in registration to inform her of above and copy of [employer] card and tubed to registration at this time. Original Note: RN?CM?COMBINER?CM?to room to meet with patient for initial transition planning/care coordination?assessment.?RN?CM?introduced self and role at [facility] Pt voices understanding and consents to?assessment?at this time.? Pt resting in bed in no distress at this time.? Pt is A/O at this time and answers all questions appropriately.?? Care providers, pharmacy, and demographics verified/updated at this time. PCP: Dr Semaj Johnson. Pt states has not been in to see him for about a year. He plans to f/u with him @ discharge. Specialists: none Preferred Pharmacy: [facility] Insurance: [employer]. Pt states he is self-pay and then turns events into his insurance company for some reimbursement. Prescription Benefit:?Pt states he is not sure if [employer] reimburses anything for Rx's. Pt states he is currently not on any medications, as he was doing a natural remedy. Living Will/HPOA:?Pt does not currently have LW/HCPOA LNOK: Parents and siblings. One sister's name is Maggie Living Arrangements: Patient lives with his parents and 2 sisters in 2 plain dealing house w/2 steps to enter. [facility]. Patient independent at home and works full-time. Transportation:?Pt states drives self his vehicle [facility] currently [facility]. Pt is currently [facility] to [facility]. He states a friend can come get his vehicle if he is unable to drive it home and a friend can take him home @ d/c. DME: ? Pt has a functioning glucometer w/supplies. He states does not check his BS's frequently, stating usually only about once a month. Discussed importance of checking/monitoring his BS's more frequently, Pt voices understanding. Pt has a walker available. Pt states no need for further DME at this time.? HHC/SNF: No hx of either. PLAN:??TBD by course of treatment. ID c/s pending. Follow for possible IV atb's @ d/c. Sister is teachable and able to do dressing changes and IV atb admin, if needed. Will need DM and insulin teaching. Vanessa BSN?RN?CM
[2023-02-15 11:41] LABS: Bedside Glucose 409 mg/dL (74-106)
--- NOTE | 2023-02-15 12:05 | CON.PCM.ID_ITS ---
Assessment & Plan Assessment/Plan (1) Osteomyelitis of foot, right, acute: PLAN: Now s/p OR 02/14/[address] Hogue for partial 5th ray resection. Surg cx pending. Cont empiric vanc/zosyn. Will follow, thank you (2) Type 2 diabetes mellitus with diabetic polyneuropathy: HPI Consult Data Date of Consult: 02/15/23 HPI Narrative Reason for Consultation: osteo/gangrene HPI Narrative: DARRYL CARLISLE, is a 43 M with DM neuropathy, had wound on R 5th toe for 3-4 weeks after boot rubbed. No fever or chills. Over past few days, R foot with rapidly progressive pain, swelling, redness, drainage. Some chills. No recent abx. Came to ED, taken to OR for partial 5th ray resection. No pain this AM. On vanc/zosyn, no n/v/d. Full ROS performed and neg except as noted above. PFSH Home Medications NK 08/10/20 [History Last Taken Unknown] Allergy/AdvReac Type Severity Reaction Status Date / Time No Known Allergies Allergy Verified 02/14/23 12:30 Family History Mother Diabetes Father CVA (cerebral vascular accident) Surgical History (Updated 02/14/23 @ 15:[address] Alex Matos MD) Amputation toe History of partial ray amputation of fifth toe of right foot Social History Smoking Status: Never smoker alcohol intake: never substance use type: does not use what type of physical activity do you participate in: none Physical Exam Const alert, oriented x3 and no apparent distress General Appearance: cooperative HEENT normocephalic and head/scalp atraumatic Eyes PERRL and EOMs intact bilaterally Neck supple and No nodes Resp normal air movement and clear to auscultation bilaterally Cardio regular rate and regular rhythm GI soft to palpation, non-tender and non-distended Extremity General Extremity: Negative for edema Skin Skin Narrative: R foot wrapped. Reviewed photos. Shallow wounds on L turner Neuro CN's II-XII intact bilaterally Lab / Micro Data Attestation: I reviewed the patient's lab results. Result Diagrams: 02/15/23 09:40 02/15/23 09:40 Labs: Laboratory Results - last 24 hr 02/14/23 12:42: POC Glucose 347 H 02/14/23 13:04: Hemoglobin A1c 11.2 H 02/14/23 13:04: WBC 14.7 H, RBC 4.25 L, Hgb 12.3 L, Hct 36.7 L, MCV 86.4, MCH 28.9, MCHC 33.5, RDW Std Deviation 39.6, RDW Coeff of Erica 12.5, Plt Count 358, MPV 10.6, Immature Gran % (Auto) 0.600, Neut % (Auto) 83.0 H, Lymph % (Auto) 8.9 L, [place] % (Auto) 6.7, Eos % (Auto) 0.5, Baso % (Auto) 0.3, Absolute Neuts (auto) 12.2 H, Absolute Lymphs (auto) 1.31, Nucleated RBC % 0, ESR 51 H 02/14/23 13:04: Sodium 131 L, Potassium 4.1, Chloride 101, Carbon Dioxide 23.0, Anion Gap 7, BUN 32 H, Creatinine 1.75 H, Estim Creat Clear Calc 48.61, Est GFR (MDRD) Af Amer 55 L, Est GFR (MDRD) Non-Af 45 L, BUN/Creatinine Ratio 18.3, Glucose 361 H, Calcium 8.9, Total Bilirubin 0.60, AST 13 L, ALT 19, Alkaline Phosphatase 106, C-React Prot Ext Range 277.00 H, Total Protein 7.7, Albumin 2.5 L, Globulin 5.2 H, Albumin/Globulin Ratio 0.5 L 02/14/23 15:50: POC Glucose 315 H 02/14/23 21:26: POC Glucose 346 H 02/15/23 06:37: POC Glucose 296 H 02/15/23 09:40: WBC 10.9, RBC 3.90 L, Hgb 11.2 L, Hct 33.9 L, MCV 86.9, MCH 28.7, MCHC 33.0, RDW Std Deviation 40.6, RDW Coeff of Erica 12.8, Plt Count 350, MPV 10.0, Immature Gran % (Auto) 0.600, Neut % (Auto) 75.7 H, Lymph % (Auto) 15.1 L, [place] % (Auto) 6.8, Eos % (Auto) 1.5, Baso % (Auto) 0.3, Absolute Neuts (auto) 8.3 H, Absolute Lymphs (auto) 1.65, Nucleated RBC % 0 02/15/23 09:40: Sodium 134 L, Potassium 4.2, Chloride 103, Carbon Dioxide 25.0, Anion Gap 6, BUN 39 H, Creatinine 1.68 H, Estim Creat Clear Calc 50.63, Est GFR (MDRD) Af Amer 57 L, Est GFR (MDRD) Non-Af 47 L, BUN/Creatinine Ratio 23.2 H, Glucose 334 H, Calcium 8.6 02/15/23 11:14: POC Glucose 409 H Micro: Microbiology 02/14/23 15:03 Bone - 5th Toe Gram Stain - Final 02/14/23 15:03 Bone - 5th Toe Wound Culture - Preliminary Streptococcus group C 02/14/23 15:03 Incision/Surgical Site Gram Stain - Final 02/14/23 15:03 Tissue - 5th Toe Gram Stain - Final Radiology Impression Foot X-Ray 02/14/23 12:30 IMPRESSION: Amputation juncture proximal middle thirds of fifth metatarsal. Electronically Signed: Roland Hayes MD, DAYDAY at 16:52 EDT ,
--- NOTE | 2023-02-15 12:24 | PN_ITS ---
Subjective Subjective 43-year-old male 1 day postop patient denies constitutionals or pain. patient denies chest pain or shortness of breath. Patient voiding urine/passing gas. No new complaints. Objective Data Objective Data Vital Signs: Vital Signs Temp Pulse Resp BP Pulse Ox O2 Del Method O2 Flow Rate 97.9 F 94 18 136/82 H 97 Room Air 4.5 02/15/23 08:23 02/15/23 08:23 02/15/23 08:23 02/15/23 08:23 02/15/23 08:23 02/15/23 08:23 02/14/23 14:20 Oxygen Flow Rate (L/min) 4.5 Oxygen Delivery Method Room Air Weight: 117.934 kg Body Mass Index (BMI) 41.8 Intake & Output: Intake and Output for Last 24 Hours 02/13/23 02/14/23 02/15/23 23:59 23:59 23:59 Intake Total 1290.17 / 1290.17 1493.33 / 1493.33 Output Total 300 / 300 1550 / 1550 Balance 990.17 / 990.17 -56.67 / -56.67 Lab / Micro Data Result Diagrams: 02/15/23 09:40 02/15/23 09:40 Labs: Laboratory Results - last 24 hr 02/14/23 12:42: POC Glucose 347 H 02/14/23 13:04: Hemoglobin A1c 11.2 H 02/14/23 13:04: WBC 14.7 H, RBC 4.25 L, Hgb 12.3 L, Hct 36.7 L, MCV 86.4, MCH 28.9, MCHC 33.5, RDW Std Deviation 39.6, RDW Coeff of Erica 12.5, Plt Count 358, MPV 10.6, Immature Gran % (Auto) 0.600, Neut % (Auto) 83.0 H, Lymph % (Auto) 8.9 L, [place] % (Auto) 6.7, Eos % (Auto) 0.5, Baso % (Auto) 0.3, Absolute Neuts (auto) 12.2 H, Absolute Lymphs (auto) 1.31, Nucleated RBC % 0, ESR 51 H 02/14/23 13:04: Sodium 131 L, Potassium 4.1, Chloride 101, Carbon Dioxide 23.0, Anion Gap 7, BUN 32 H, Creatinine 1.75 H, Estim Creat Clear Calc 48.61, Est GFR (MDRD) Af Amer 55 L, Est GFR (MDRD) Non-Af 45 L, BUN/Creatinine Ratio 18.3, Glucose 361 H, Calcium 8.9, Total Bilirubin 0.60, AST 13 L, ALT 19, Alkaline Phosphatase 106, C-React Prot Ext Range 277.00 H, Total Protein 7.7, Albumin 2.5 L, Globulin 5.2 H, Albumin/Globulin Ratio 0.5 L 02/14/23 15:50: POC Glucose 315 H 02/14/23 21:26: POC Glucose 346 H 02/15/23 06:37: POC Glucose 296 H 02/15/23 09:40: WBC 10.9, RBC 3.90 L, Hgb 11.2 L, Hct 33.9 L, MCV 86.9, MCH 28.7, MCHC 33.0, RDW Std Deviation 40.6, RDW Coeff of Erica 12.8, Plt Count 350, MPV 10.0, Immature Gran % (Auto) 0.600, Neut % (Auto) 75.7 H, Lymph % (Auto) 15.1 L, [place] % (Auto) 6.8, Eos % (Auto) 1.5, Baso % (Auto) 0.3, Absolute Neuts (auto) 8.3 H, Absolute Lymphs (auto) 1.65, Nucleated RBC % 0 02/15/23 09:40: Sodium 134 L, Potassium 4.2, Chloride 103, Carbon Dioxide 25.0, Anion Gap 6, BUN 39 H, Creatinine 1.68 H, Estim Creat Clear Calc 50.63, Est GFR (MDRD) Af Amer 57 L, Est GFR (MDRD) Non-Af 47 L, BUN/Creatinine Ratio 23.2 H, Glucose 334 H, Calcium 8.6 02/15/23 11:14: POC Glucose 409 H Micro: Microbiology 02/14/23 15:03 Bone - 5th Toe Gram Stain - Final 02/14/23 15:03 Bone - 5th Toe Wound Culture - Preliminary Streptococcus group C 02/14/23 15:03 Incision/Surgical Site Gram Stain - Final 02/14/23 15:03 Tissue - 5th Toe Gram Stain - Final Radiography Diagnostic Testing: Radiology Impression Foot X-Ray 02/14/23 12:30 IMPRESSION: Amputation juncture proximal middle thirds of fifth metatarsal. Electronically Signed: Roland Hayes MD, DAYDAY at 16:52 EDT , Physical Exam Narrative Vascular: DP PT pulses palpable 2 out of 4 to bilateral feet. Capillary fill time brisk to lesser digits. Increased edema to right lateral forefoot with increased warmth. Neurologic: Light touch protective sensation absent to bilateral feet. Dermatologic: Full thickness wound with exposed 4th ray to base and surrounding granular base. No residual acute signs of infection. Musculoskeletal: No gross deformity, absent left fifth toe. and right fifth ray, partial. Const alert and oriented x3 Assessment & Plan Assessment/Plan (1) Osteomyelitis of foot, right, acute: PLAN: Exam performed vital signs stable, leukocytosis resolved. wound appears stable, will await final cultures and ID recommendations. Patient to remain NWB on right. Patient on IV vanc/zosyn ID on board; managing abx hospitalist on board; managing dm II will plan for daily dressing changes with dakin's, DSD and clarissa bandage for compression will follow daily (2) Type 2 diabetes mellitus with diabetic polyneuropathy: (3) Gas gangrene:
--- NOTE | 2023-02-15 13:05 | CASEMGMT ---
HARIKA CM into pt room, discussed with pt HHC if he does not need IV atb, pt states he prefers not to have it. Pt states his sister will perform wound care and he obtains his supplies from [facility]. Provided him with a local list of [facility] agencies should he change his mind. Pt states he feels he will do ok with the insulin but the teaching has not started yet. Pt is agreeable to [facility]. Made pt aware after it is confirmed that he will dc on po atb, Pt Link order will be entered. Pt denies further needs.
[2023-02-15] MEDS: 0.9% Normal Saline 1,000 ML 125 ML IV ×2 (13:22→21:24)
[2023-02-15 13:46] VITALS: BP 158/87; PULSE 97; RESP 17; TEMP 36.8; O2SAT 99
--- NOTE | 2023-02-15 14:23 | CASEMGMT ---
This social sciences lecturer (sw) and [facility] Misa Thompson met with patient at bedside to discuss prescription medication and ability to pay. Patient has [employer] insurance which may not provide prescription assistance. Patient states that he does have concerns regarding ability to cover prescription medication costs. Resources provided that would be able to assist patient with paying for any prescriptions he may have once discharged.
[2023-02-15] MEDS: Acetaminophen 500 MG Tablet PO (16:57)
[2023-02-15 17:00] LABS: Bedside Glucose 321 mg/dL (74-106)
[2023-02-15 20:15] VITALS: BP 160/91; PULSE 92; RESP 16; TEMP 36.8; O2SAT 96
[2023-02-15] MEDS: Insulin Glargine-YFGN 100 UNIT/ML Pen 20 UNIT SC (21:21)
[2023-02-15 22:00] LABS: Bedside Glucose 276 mg/dL (74-106)
[2023-02-16] VITALS (8 sets, daily range): BP systolic 122–184; BP diastolic 75–106; PULSE 88–95; RESP 16–18; TEMP 36.4–37.2; O2SAT 96–99
[2023-02-16 01:49] LABS: Vancomycin, Trough Level 18.4 ug/mL (5.0-15.0)
--- NOTE | 2023-02-16 01:58 | PCM.RX.CS ---
Consult Pharmacy has been consulted to manage selected antiobiotic: Vancomycin Type of Consult: Follow-up Labs: Sodium 134 mmol/L (136-145) L 02/15/23 09:40 Potassium 4.2 mmol/L (3.5-5.1) 02/15/23 09:40 Chloride 103 mmol/L (98-107) 02/15/23 09:40 Carbon Dioxide 25.0 mmol/L (21.0-32.0) 02/15/23 09:40 Anion Gap 6 (5-15) 02/15/23 09:40 BUN 39 mg/dL (7-18) H 02/15/23 09:40 Creatinine 1.68 mg/dL (0.70-1.30) H 02/15/23 09:40 Est GFR (MDRD) Af Amer 57 mL/min (>60) L 02/15/23 09:40 Est GFR (MDRD) Non-Af 47 mL/min (>60) L 02/15/23 09:40 BUN/Creatinine Ratio 23.2 RATIO (10-20) H 02/15/23 09:40 Glucose 334 mg/dL (74-106) H 02/15/23 09:40 Vancomycin Trough 18.4 ug/mL (5.0-15.0) H 02/16/23 01:05 Microbiology: Microbiology 02/14/23 15:03 Tissue - 5th Toe Gram Stain - Final 02/14/23 15:03 Tissue - 5th Toe Wound Culture - Preliminary Streptococcus group C Streptococcus agalactiae (B) 02/14/23 15:03 Bone - 5th Toe Gram Stain - Final 02/14/23 15:03 Bone - 5th Toe Wound Culture - Preliminary Streptococcus group C 02/14/23 15:03 Incision/Surgical Site Gram Stain - Final Goal Trough: 15-20 mcg/mL Pharmacy Plan for Drug Dosing: Pharmacy Service will continue to monitor and adjust dosing as required. TROUGH 18.4 @ 11.5 HRS. NO CHANGES, FOLLOW UP TROUGH IN 2 DAYS Follow-Up Labs: Trough Vancomycin Labs to be done on [date and time ordered]: 02/18 @ 0100
[2023-02-16] MEDS: Vancomycin IV 1,000 MG/200 ML BAG 200 MG IV ×2 (02:06→13:04)
[2023-02-16 05:31] LABS: Absolute Lymphocyte Count 2.38 X10^3/uL (0.83-4.51); Absolute Neutrophil Count 4.4 X10^3/uL (2.0-7.7); Basophil# 0.05 X10^3/uL; Basophil% 0.6 % (0-1); Eosinophil# 0.31 X10^3/uL; Hematocrit 32.1 % (40-54); Hemoglobin 10.5 g/dL (13.0-16.5); Lymphocyte # 2.38 X10^3/ul (0.83-4.51); Lymphocyte % 30.6 % (19-41); Mean Corp Hgb Conc 32.7 g/dL (32-36); Mean Corpuscular Hgb 28.7 pg (27.0-32.0); Mean Corpuscular Volume 87.7 fL (80-94); Mean Platelet Vol. 10.4 fl (6.2-12.0); Monocyte% 7.7 % (0-10); NRBC Flagged by Analyzer 0 % (0-5); Neutrophil # 4.37 X10^3/uL (2.7-7.7); Neutrophil % 56.3 % (47-70); Platelet Count 365 K/mm3 (150-450); RBC Distribution Width CV 12.8 % (11.6-14.6); RBC Distribution Width SD 41.6 fl (35.1-43.9); Red Blood Count 3.66 M/mm3 (4.6-6.2); White Blood Count 7.8 K/mm3 (4.4-11.0)
[2023-02-16 06:39] LABS: Anion Gap 6 (5-15); BUN 32 mg/dL (7-18); BUN/Creat Ratio 23.2 RATIO (10-20); Calcium,Total 8.2 mg/dL (8.5-10.1); Chloride 110 mmol/L (98-107); Creatinine, Serum 1.38 mg/dL (0.70-1.30); EST Glomerular Filtration Rate 60 mL/min (>60); Est Glom Filt Rate - Afr Amer 72 mL/min (>60); Estimated Creatinine Clearance 61.64 ml/min; Glucose 247 mg/dL (74-106); Potassium 3.9 mmol/L (3.5-5.1); Sodium Level 138 mmol/L (136-145)
[2023-02-16] MEDS: Insulin Lispro 100 UNIT/ML INSULN.PEN SC ×4 (07:46→21:24)
[2023-02-16] MEDS: Insulin Lispro 100 UNIT/ML INSULN.PEN 10 UNIT SC ×3 (07:47→16:19)
[2023-02-16] MEDS: Juven (unflavored) Packet 1 PACKET PO ×2 (07:47→16:19)
[2023-02-16 08:16] LABS: Bedside Glucose 220 mg/dL (74-106)
--- NOTE | 2023-02-16 08:17 | PCM.PN.HOSP ---
Subjective Subjective Doing well, no issues overnight Objective Data Objective Data Vital Signs: Vital Signs Temp Pulse Resp BP Pulse Ox O2 Del Method O2 Flow Rate 98.9 F 88 16 146/83 H 99 Room Air 4.5 02/16/23 02:10 02/16/23 02:10 02/16/23 02:10 02/16/23 02:10 02/16/23 02:10 02/16/23 02:10 02/14/23 14:20 Oxygen Flow Rate (L/min) 4.5 Oxygen Delivery Method Room Air Weight: 260 lb Body Mass Index (BMI) 41.8 Intake & Output: Intake and Output for Last 24 Hours 02/15/23 02/16/23 02/17/23 03:59 03:59 03:59 Intake Total 2140.17 / 2140.17 2580.83 / 2580.83 1000 / 1000 Output Total 1200 / 1200 1350 / 1350 1000 / 1000 Balance 940.17 / 940.17 1230.83 / 1230.83 0 / 0 Lab / Micro Data Result Diagrams: 02/16/23 04:25 02/16/23 04:25 Labs: Laboratory Results - last 24 hr 02/15/23 09:40: WBC 10.9, RBC 3.90 L, Hgb 11.2 L, Hct 33.9 L, MCV 86.9, MCH 28.7, MCHC 33.0, RDW Std Deviation 40.6, RDW Coeff of Erica 12.8, Plt Count 350, MPV 10.0, Immature Gran % (Auto) 0.600, Neut % (Auto) 75.7 H, Lymph % (Auto) 15.1 L, [place] % (Auto) 6.8, Eos % (Auto) 1.5, Baso % (Auto) 0.3, Absolute Neuts (auto) 8.3 H, Absolute Lymphs (auto) 1.65, Nucleated RBC % 0 02/15/23 09:40: Sodium 134 L, Potassium 4.2, Chloride 103, Carbon Dioxide 25.0, Anion Gap 6, BUN 39 H, Creatinine 1.68 H, Estim Creat Clear Calc 50.63, Est GFR (MDRD) Af Amer 57 L, Est GFR (MDRD) Non-Af 47 L, BUN/Creatinine Ratio 23.2 H, Glucose 334 H, Calcium 8.6 02/15/23 11:14: POC Glucose 409 H 02/15/23 16:40: POC Glucose 321 H 02/15/23 21:20: POC Glucose 276 H 02/16/23 01:05: Vancomycin Trough 18.4 H 02/16/23 04:25: WBC 7.8, RBC 3.66 L, Hgb 10.5 L, Hct 32.1 L, MCV 87.7, MCH 28.7, MCHC 32.7, RDW Std Deviation 41.6, RDW Coeff of Erica 12.8, Plt Count 365, MPV 10.4, Immature Gran % (Auto) 0.800, Neut % (Auto) 56.3, Lymph % (Auto) 30.6, [place] % (Auto) 7.7, Eos % (Auto) 4.0, Baso % (Auto) 0.6, Absolute Neuts (auto) 4.4, Absolute Lymphs (auto) 2.38, Nucleated RBC % 0 02/16/23 04:25: Sodium 138, Potassium 3.9, Chloride 110 H, Carbon Dioxide 22.0, Anion Gap 6, BUN 32 H, Creatinine 1.38 H, Estim Creat Clear Calc 61.64, Est GFR (MDRD) Af Amer 72, Est GFR (MDRD) Non-Af 60, BUN/Creatinine Ratio 23.2 H, Glucose 247 H, Calcium 8.2 L 02/16/23 07:44: POC Glucose 220 H Micro: Microbiology 02/14/23 15:03 Tissue - 5th Toe Gram Stain - Final 02/14/23 15:03 Tissue - 5th Toe Wound Culture - Preliminary Streptococcus group C Streptococcus agalactiae (B) 02/14/23 15:03 Bone - 5th Toe Gram Stain - Final 02/14/23 15:03 Bone - 5th Toe Wound Culture - Preliminary Streptococcus group C 02/14/23 15:03 Incision/Surgical Site Gram Stain - Final Physical Exam Narrative General: Alert, Oriented x3, Cooperative, No apparent distress HEENT: Atraumatic, PERRLA, EOMI, Normocephalic Oral: Moist Mucosa Neck: Supple, No JVD Lungs: Clear to auscultation, Normal air movement, No rhonchi, No wheeze, No rales Cardiovascular: Regular rate, Regular Rhythm, Normal S1, Normal S2, No murmurs Abdomen: Soft, Non Tender, Non-Distended, No Hepato-splenomegaly Extremities: No edema, Capillary Refill Less than 3 Seconds Skin: No rashes, No breakdown Musculoskeletal: Right lower extremity bandaged dressing intact Neurological: Cranial nerves II-XII grossly intact, Motor Exam 5/5 strength throughout, Sensory exam intact to light touch and pain Psych/Mental Status: Normal Affect, Appropriate Assessment & Plan Assessment/Plan (1) Osteomyelitis of foot, right, acute: (2) Type 2 diabetes mellitus with diabetic polyneuropathy: (3) Gas gangrene: (4) 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 Osteomyelitis of the right foot with gas gangrene secondary to type 2 diabetes uncontrolled status post partial ray amputation of his fifth toe on the right foot/SLIME ? Pain management per primary ? Continue with broad-spectrum antibiotics while cultures are pending ? Appreciate ID assistance ? Discussed with him that he will need to start on insulin as well as an other oral medication on discharge ? We will place him on a carb controlled diet ? We will continue with sliding scale insulin Accu-Cheks ACHS we will make adjustments as necessary ? Continue with long-acting insulin ? We will give him a liter of fluid and recheck his creatinine in the morning prior to this his renal function was normal ? Had an excessive discussion on lifestyle management modification given his diabetes with an A1c of 11.2 ? He had a left toe amputated 3 years ago for similar issue DVT: Per primary Charges/Coding Visit Charges Inpatient E&M: 08723 Subs Hosp L2
[2023-02-16] MEDS: DAKIN'S SOL HALF STRENGTH (=0.25%) 1 APPLIC TOPICAL (10:00)
--- NOTE | 2023-02-16 10:01 | PCM.PROGNOTE ---
Subjective Subjective 43-year-old male 2 day postop patient denies constitutionals or pain. patient denies chest pain or shortness of breath. Patient voiding urine/passing gas. No new complaints. Objective Data Objective Data Vital Signs: Vital Signs Temp Pulse Resp BP Pulse Ox O2 Del Method O2 Flow Rate 97.6 F L 92 18 164/93 H 98 Room Air 4.5 02/16/23 08:00 02/16/23 08:00 02/16/23 08:00 02/16/23 08:00 02/16/23 08:00 02/16/23 08:00 02/14/23 14:20 Oxygen Flow Rate (L/min) 4.5 Oxygen Delivery Method Room Air Weight: 117.934 kg Body Mass Index (BMI) 41.8 Intake & Output: Intake and Output for Last 24 Hours 02/14/23 02/15/23 02/16/23 23:59 23:59 23:59 Intake Total 1290.17 / 1290.17 3180.83 / 3180.83 1250 / 1250 Output Total 300 / 300 1950 / 2250 1300 / 1300 Balance 990.17 / 990.17 1230.83 / 930.83 -50 / -50 Lab / Micro Data Result Diagrams: 02/16/23 04:25 02/16/23 04:25 Labs: Laboratory Results - last 24 hr 02/15/23 09:40: Sodium 134 L, Potassium 4.2, Chloride 103, Carbon Dioxide 25.0, Anion Gap 6, BUN 39 H, Creatinine 1.68 H, Estim Creat Clear Calc 50.63, Est GFR (MDRD) Af Amer 57 L, Est GFR (MDRD) Non-Af 47 L, BUN/Creatinine Ratio 23.2 H, Glucose 334 H, Calcium 8.6 02/15/23 11:14: POC Glucose 409 H 02/15/23 16:40: POC Glucose 321 H 02/15/23 21:20: POC Glucose 276 H 02/16/23 01:05: Vancomycin Trough 18.4 H 02/16/23 04:25: WBC 7.8, RBC 3.66 L, Hgb 10.5 L, Hct 32.1 L, MCV 87.7, MCH 28.7, MCHC 32.7, RDW Std Deviation 41.6, RDW Coeff of Erica 12.8, Plt Count 365, MPV 10.4, Immature Gran % (Auto) 0.800, Neut % (Auto) 56.3, Lymph % (Auto) 30.6, [place] % (Auto) 7.7, Eos % (Auto) 4.0, Baso % (Auto) 0.6, Absolute Neuts (auto) 4.4, Absolute Lymphs (auto) 2.38, Nucleated RBC % 0 02/16/23 04:25: Sodium 138, Potassium 3.9, Chloride 110 H, Carbon Dioxide 22.0, Anion Gap 6, BUN 32 H, Creatinine 1.38 H, Estim Creat Clear Calc 61.64, Est GFR (MDRD) Af Amer 72, Est GFR (MDRD) Non-Af 60, BUN/Creatinine Ratio 23.2 H, Glucose 247 H, Calcium 8.2 L 02/16/23 07:44: POC Glucose 220 H Micro: Microbiology 02/14/23 15:03 Incision/Surgical Site Gram Stain - Final 02/14/23 15:03 Incision/Surgical Site Wound Culture - Preliminary Streptococcus group B 02/14/23 15:03 Tissue - 5th Toe Gram Stain - Final 02/14/23 15:03 Tissue - 5th Toe Wound Culture - Preliminary Streptococcus group C Streptococcus agalactiae (B) 02/14/23 15:03 Bone - 5th Toe Gram Stain - Final 02/14/23 15:03 Bone - 5th Toe Wound Culture - Preliminary Streptococcus group C Physical Exam Narrative Vascular: DP PT pulses palpable 2 out of 4 to bilateral feet. Capillary fill time brisk to lesser digits. Increased edema to right lateral forefoot with increased warmth. Neurologic: Light touch protective sensation absent to bilateral feet. Dermatologic: Full thickness wound with exposed 4th ray to base and surrounding granular base. No residual acute signs of infection. some new dorsal skin necrosis forming. Musculoskeletal: No gross deformity, absent left fifth toe and right fifth ray, partial. Const alert and oriented x3 Assessment & Plan Assessment/Plan (1) Osteomyelitis of foot, right, acute: PLAN: Exam performed vital signs stable, leukocytosis resolved. some new dorsal skin necrosis noted, demarcating, will order new arterial studies wound appears stable, will await final cultures and ID recommendations. Cultures growing group B streptococcus currently, will consider d/c vanc to limit renal injury tomorrow Patient to remain NWB on right. Patient on IV vanc/zosyn ID on board; managing abx hospitalist on board; managing dm II will plan for daily dressing changes with dakin's, DSD and clarissa bandage for compression will follow daily (2) Type 2 diabetes mellitus with diabetic polyneuropathy: (3) Gas gangrene:
[2023-02-16] MEDS: Insulin Glargine-YFGN 100 UNIT/ML Pen 15 UNIT SC ×2 (10:03→21:24)
[2023-02-16] MEDS: Acetaminophen 500 MG Tablet PO (10:06)
[2023-02-16 11:55] LABS: Bedside Glucose 303 mg/dL (74-106)
[2023-02-16 16:51] LABS: Bedside Glucose 321 mg/dL (74-106)
[2023-02-16 22:20] LABS: Bedside Glucose 253 mg/dL (74-106)
[2023-02-17] MEDS: Vancomycin IV 1,000 MG/200 ML BAG 200 MG IV (01:40)
[2023-02-17 02:45] VITALS: BP 154/96; PULSE 90; RESP 16; TEMP 36.6; O2SAT 100
[2023-02-17 06:17] LABS: Absolute Lymphocyte Count 2.24 X10^3/uL (0.83-4.51); Absolute Neutrophil Count 5.4 X10^3/uL (2.0-7.7); Basophil# 0.06 X10^3/uL; Basophil% 0.7 % (0-1); Eosinophil# 0.38 X10^3/uL; Eosinophils% 4.3 % (0-5); Hematocrit 31.5 % (40-54); Hemoglobin 10.7 g/dL (13.0-16.5); Lymphocyte # 2.24 X10^3/ul (0.83-4.51); Lymphocyte % 25.3 % (19-41); Mean Corpuscular Hgb 29.3 pg (27.0-32.0); Mean Corpuscular Volume 86.3 fL (80-94); Mean Platelet Vol. 9.7 fl (6.2-12.0); Monocyte# 0.69 X10^3/uL; Monocyte% 7.8 % (0-10); NRBC Flagged by Analyzer 0 % (0-5); Neutrophil # 5.41 X10^3/uL (2.7-7.7); Neutrophil % 61.1 % (47-70); Platelet Count 382 K/mm3 (150-450); RBC Distribution Width CV 12.8 % (11.6-14.6); RBC Distribution Width SD 40.6 fl (35.1-43.9); Red Blood Count 3.65 M/mm3 (4.6-6.2); White Blood Count 8.9 K/mm3 (4.4-11.0)
[2023-02-17 06:47] LABS: Anion Gap 6 (5-15); BUN 25 mg/dL (7-18); BUN/Creat Ratio 19.2 RATIO (10-20); Calcium,Total 8.6 mg/dL (8.5-10.1); Chloride 108 mmol/L (98-107); EST Glomerular Filtration Rate 64 mL/min (>60); Est Glom Filt Rate - Afr Amer 77 mL/min (>60); Estimated Creatinine Clearance 65.44 ml/min; Glucose 189 mg/dL (74-106); Sodium Level 138 mmol/L (136-145)
[2023-02-17] MEDS: Acetaminophen 500 MG Tablet PO ×2 (06:58→22:09)
[2023-02-17] MEDS: Juven (unflavored) Packet 1 PACKET PO ×2 (06:59→17:58)
[2023-02-17 07:43] VITALS: BP 160/89; PULSE 96; RESP 16; TEMP 36.7; O2SAT 98
[2023-02-17 08:15] LABS: Bedside Glucose 208 mg/dL (74-106)
[2023-02-17] MEDS: Insulin Lispro 100 UNIT/ML INSULN.PEN 10 UNIT SC (08:22)
[2023-02-17] MEDS: Insulin Lispro 100 UNIT/ML INSULN.PEN SC ×3 (08:23→17:59)
--- NOTE | 2023-02-17 09:18 | ART_ITS ---
Reason For Study: Ulcer Procedure A bilateral lower extremity continuous wave Doppler with analog waveform analysis,segmental pressures,and ankle brachial indexes without exercise. Left Segmental Pressures Left brachial= 162mmHg. Left posterior tibial artery = 208mmHg. Left dorsalis pedis artery = >254mmHg. Left digit = 142 mmHg. The left dorsalis pedis waveforms are triphasic. The left posterior tibial artery waveforms are triphasic. Right Segmental Pressures Right brachial= 163mmHg. Right posterior tibial artery = 201mmHg. Right dorsalis pedis artery = >254mmHg. Right digit = 106 mmHg. The right dorsalis pedis waveforms are triphasic. The right posterior tibial artery waveforms are triphasic. Indices The right ankle brachial index by the dorsalis pedis is NC. The right ankle brachial index by the posterior tibial artery is 1.23. The right digital-brachial index is 0.65. The left ankle brachial index by the dorsalis pedis is NC. The left ankle brachial index by the posterior tibial artery is 1.28. The left digital-brachial index is 0.87. VL/Lower Ext Art Exam w/o Exercis Interpretation Summary Right ELOINA 1.23, normal. Doppler/PVR waveforms of the right leg normal at rest. TBI and digit waveforms diminished, pedal/digit disease. Left ELOINA 1.28, normal. TBI and Doppler/PVR waveforms of the left leg normal at rest. Ordering Physician: Channing Hogue Referring Physician: Usman Johnson M.D. Performed By: Sintia Landa RVT
[2023-02-17] MEDS: DAKIN'S SOL HALF STRENGTH (=0.25%) 1 APPLIC TOPICAL (09:38)
[2023-02-17] MEDS: Insulin Glargine-YFGN 100 UNIT/ML Pen 15 UNIT SC ×2 (09:40→22:03)
--- NOTE | 2023-02-17 09:41 | PCM.PROGNOTE ---
Subjective Subjective Patient day 3 postop right partial fifth ray resection. Denies constitutional symptoms. Denies pain. No changes overnight. Patient voiding urine positive bowel movement. Objective Data Objective Data Vital Signs: Vital Signs Temp Pulse Resp BP Pulse Ox O2 Del Method O2 Flow Rate 98.1 F 96 16 160/89 H 98 Room Air 4.5 02/17/23 07:43 02/17/23 07:43 02/17/23 07:43 02/17/23 07:43 02/17/23 07:43 02/17/23 07:43 02/14/23 14:20 Oxygen Flow Rate (L/min) 4.5 Oxygen Delivery Method Room Air Weight: 117.934 kg Body Mass Index (BMI) 41.8 Intake & Output: Intake and Output for Last 24 Hours 02/15/23 02/16/23 02/17/23 23:59 23:59 23:59 Intake Total 3180.83 / 3180.83 3400 / 3800 850 / 850 Output Total 1950 / 2250 3350 / 3650 675 / 675 Balance 1230.83 / 930.83 50 / 150 175 / 175 Lab / Micro Data Result Diagrams: 02/17/23 05:25 02/17/23 05:25 Labs: Laboratory Results - last 24 hr 02/16/23 11:33: POC Glucose 303 H 02/16/23 16:17: POC Glucose 321 H 02/16/23 21:23: POC Glucose 253 H 02/17/23 05:25: WBC 8.9, RBC 3.65 L, Hgb 10.7 L, Hct 31.5 L, MCV 86.3, MCH 29.3, MCHC 34.0, RDW Std Deviation 40.6, RDW Coeff of Erica 12.8, Plt Count 382, MPV 9.7, Immature Gran % (Auto) 0.800, Neut % (Auto) 61.1, Lymph % (Auto) 25.3, [place] % (Auto) 7.8, Eos % (Auto) 4.3, Baso % (Auto) 0.7, Absolute Neuts (auto) 5.4, Absolute Lymphs (auto) 2.24, Nucleated RBC % 0 02/17/23 05:25: Sodium 138, Potassium 4.0, Chloride 108 H, Carbon Dioxide 24.0, Anion Gap 6, BUN 25 H, Creatinine 1.30, Estim Creat Clear Calc 65.44, Est GFR (MDRD) Af Amer 77, Est GFR (MDRD) Non-Af 64, BUN/Creatinine Ratio 19.2, Glucose 189 H, Calcium 8.6 02/17/23 07:40: POC Glucose 208 H Micro: Microbiology 02/14/23 15:03 Tissue - 5th Toe Gram Stain - Final 02/14/23 15:03 Tissue - 5th Toe Wound Culture - Final Streptococcus group C Streptococcus agalactiae (B) Staphylococcus simulans 02/14/23 15:03 Incision/Surgical Site Gram Stain - Final 02/14/23 15:03 Incision/Surgical Site Wound Culture - Final Streptococcus agalactiae (B) 02/14/23 15:03 Bone - 5th Toe Gram Stain - Final 02/14/23 15:03 Bone - 5th Toe Wound Culture - Final Streptococcus group C Physical Exam Narrative Vascular: DP PT pulses palpable 2 out of 4 to bilateral feet. Capillary fill time brisk to lesser digits. Increased edema to right lateral forefoot with increased warmth. Neurologic: Light touch protective sensation absent to bilateral feet. Dermatologic: Full thickness wound with exposed 4th ray to base and surrounding granular base. No residual acute signs of infection. some new dorsal skin necrosis, this appears to be demarcating and stable. Musculoskeletal: No gross deformity, absent left fifth toe and right fifth ray, partial. Const alert and oriented x3 Assessment & Plan Assessment/Plan (1) Osteomyelitis of foot, right, acute: PLAN: Exam performed vital signs stable, leukocytosis resolved. some new dorsal skin necrosis noted, demarcating, will order new arterial studies wound appears stable, will await final cultures and ID recommendations. Tissue cultures growing strep agalactiae, group C strep, staph stimulants. Bone cultures growing strep agalactiae. Patient to remain NWB on right. Patient on IV vanc/zosyn ID on board; awaiting final antibiotic recommendations. hospitalist on board; managing dm II will plan for daily dressing changes with dakin's, DSD and clarissa bandage for compression will follow daily (2) Type 2 diabetes mellitus with diabetic polyneuropathy: (3) Gas gangrene:
--- NOTE | 2023-02-17 11:19 | PN.HOSP_ITS ---
Reason for Visit Reason for Visit: Diagnoses Gas gangrene (02/14/23) Type 2 diabetes mellitus with diabetic polyneuropathy (02/14/23) Type 2 diabetes mellitus with diabetic peripheral angiopathy with gangrene (02/14/23) Type 2 diabetes mellitus with other skin complications (02/14/23) Local infection of the skin and subcutaneous tissue, unspecified (02/14/23) Other acute osteomyelitis, right ankle and foot (02/14/23) Acquired absence of other right toe(s) (02/14/23) Subjective Subjective Patient was seen and examined today, he is on no home medications and he is not sure how he will pay for his medications when he is discharged from the [facility], I made the decision to have nursing teach the patient how to give himself insulin from a vial, we will use saline as a substitute while he is in the hospital, I have elected to change up the patient's insulin to Humulin and subcu with breakfast and dinner along with 15 units of Humalog with breakfast and dinner. At the time of discharge, he will be given his insulin pens dispensed here in the hospital, when he finishes those, he will transition over to giving himself insulin by vial. I talked briefly with podiatry about his care today, it appears that the patient is growing a strep organism from his bone culture, podiatry explained that we are still waiting for pathology read out on the margin of the bone for ID to make a decision about his antibiotic coverage when he is discharged home. Objective Data Objective Data Vital Signs: Vital Signs Temp Pulse Resp BP Pulse Ox O2 Del Method O2 Flow Rate 98.1 F 96 16 160/89 H 98 Room Air 4.5 02/17/23 07:43 02/17/23 07:43 02/17/23 07:43 02/17/23 07:43 02/17/23 07:43 02/17/23 07:43 02/14/23 14:20 Oxygen Flow Rate (L/min) 4.5 Oxygen Delivery Method Room Air Weight: 117.934 kg Body Mass Index (BMI) 41.8 Intake & Output: Intake and Output for Last 24 Hours 02/15/23 02/16/23 02/17/23 23:59 23:59 23:59 Intake Total 3180.83 / 3180.83 3400 / 3800 850 / 850 Output Total 1950 / 2250 3350 / 3650 675 / 675 Balance 1230.83 / 930.83 50 / 150 175 / 175 Lab / Micro Data Result Diagrams: 02/17/23 05:25 02/17/23 05:25 Labs: Laboratory Results - last 24 hr 02/16/23 11:33: POC Glucose 303 H 02/16/23 16:17: POC Glucose 321 H 02/16/23 21:23: POC Glucose 253 H 02/17/23 05:25: WBC 8.9, RBC 3.65 L, Hgb 10.7 L, Hct 31.5 L, MCV 86.3, MCH 29.3, MCHC 34.0, RDW Std Deviation 40.6, RDW Coeff of Erica 12.8, Plt Count 382, MPV 9.7, Immature Gran % (Auto) 0.800, Neut % (Auto) 61.1, Lymph % (Auto) 25.3, Maury % (Auto) 7.8, Eos % (Auto) 4.3, Baso % (Auto) 0.7, Absolute Neuts (auto) 5.4, Absolute Lymphs (auto) 2.24, Nucleated RBC % 0 02/17/23 05:25: Sodium 138, Potassium 4.0, Chloride 108 H, Carbon Dioxide 24.0, Anion Gap 6, BUN 25 H, Creatinine 1.30, Estim Creat Clear Calc 65.44, Est GFR (MDRD) Af Amer 77, Est GFR (MDRD) Non-Af 64, BUN/Creatinine Ratio 19.2, Glucose 189 H, Calcium 8.6 02/17/23 07:40: POC Glucose 208 H Micro: Microbiology 02/14/23 15:03 Incision/Surgical Site Gram Stain - Final 02/14/23 15:03 Incision/Surgical Site Wound Culture - Final Streptococcus agalactiae (B) 02/14/23 15:03 Incision/Surgical Site Anaerobic Culture - Preliminary 02/14/23 15:03 Tissue - 5th Toe Gram Stain - Final 02/14/23 15:03 Tissue - 5th Toe Wound Culture - Final Streptococcus group C Streptococcus agalactiae (B) Staphylococcus simulans 02/14/23 15:03 Tissue - 5th Toe Anaerobic Culture - Preliminary 02/14/23 15:03 Bone - 5th Toe Gram Stain - Final 02/14/23 15:03 Bone - 5th Toe Wound Culture - Final Streptococcus group C 02/14/23 15:03 Bone - 5th Toe Anaerobic Culture - Preliminary Physical Exam Const alert, oriented x3, no apparent distress and healthy appearing Constitutional Narrative: Patient is morbidly obese General Appearance: cooperative, well kempt and well developed Orientation / Consciousness: awake, oriented to person, oriented to place and oriented to time HEENT normocephalic, head/scalp atraumatic and moist oral mucous membranes Eyes PERRL, EOMs intact bilaterally and conjunctivae normal Neck supple, no JVD, thyroid normal and no carotid bruits General: trachea midline Resp normal respiratory effort, no retractions, no use of accessory muscles and clear to auscultation bilaterally Auscultation: Negative for rales, rhonchi or wheezes Cardio regular rate, regular rhythm, S1 normal heart sound, S2 normal heart sound, no murmurs, no rub and no gallops GI normal to inspection, nondistended, normoactive bowel sounds, soft to palpation, non-tender and non-distended Extremity Extremity Narrative: Patient's right foot is wrapped with surgical dressing, this was not removed for examination Neuro oriented x3, CN's II-XII intact bilaterally, moves all extremities, no focal motor deficits and no sensory deficits noted Sensorium / Orientation: awake, alert, oriented to person, oriented to place and oriented to time Speech: speech normal Psych affect normal Assessment & Plan Assessment/Plan (1) Osteomyelitis of foot, right, acute: PLAN: Plan 1. Osteomyelitis of the right fifth ray from Streptococcus agalactiae-I have decided to drop the patient's vancomycin off at this time, his other culture on 02/14/2023 grew out strep group C, strep agalactiae, and staph simulans-all of these are sensitive to penicillin. Patient remains on Zosyn at this time #2 type 2 diabetes-initial diagnosis-again I will have nursing trained the patient on the administration of insulin with a syringe and vial so that when he goes home he will be able to afford this insulin because it is less expensive. #3 morbid obesity-complicates care, medical course, recovery, and prognosis Total clinical time spent by myself addressing the patient's medical issues, reviewing all of his data, and collaborating with patient's care team: 35 minutes Charges/Coding Visit Charges Inpatient E&M: 11391 Subs Hosp L2
[2023-02-17 11:51] LABS: Bedside Glucose 270 mg/dL (74-106)
[2023-02-17] MEDS: metFORMIN HCl 500 MG Tablet PO ×2 (12:34→18:02)
[2023-02-17 15:27] VITALS: BP 167/92; PULSE 90; RESP 18; TEMP 36.6; O2SAT 97
[2023-02-17 15:59] VITALS: BP 156/88; PULSE 84
[2023-02-17 16:21] LABS: Bedside Glucose 258 mg/dL (74-106)
[2023-02-17] MEDS: Insulin Lispro 100 UNIT/ML INSULN.PEN 15 UNIT SC (17:58)
[2023-02-17 19:45] VITALS: BP 157/87; PULSE 100; RESP 16; TEMP 36.6; O2SAT 95
[2023-02-17 22:30] LABS: Bedside Glucose 138 mg/dL (74-106)
[2023-02-18 03:00] VITALS: BP 145/85; PULSE 90; RESP 16; TEMP 36.3; O2SAT 97
[2023-02-18] MEDS: DAKIN'S SOL HALF STRENGTH (=0.25%) 1 APPLIC TOPICAL (07:51)
--- NOTE | 2023-02-18 08:15 | WOUNDNOTE ---
wound photo: right foot
--- NOTE | 2023-02-18 08:15 | WOUNDNOTE ---
wound photo: right foot
--- NOTE | 2023-02-18 08:16 | WOUNDNOTE ---
wound photo: left lower leg
[2023-02-18 08:56] VITALS: BP 151/92; PULSE 97; RESP 18; TEMP 36.6; O2SAT 96
[2023-02-18 09:31] LABS: Bedside Glucose 124 mg/dL (74-106)
[2023-02-18] MEDS: Juven (unflavored) Packet 1 PACKET PO (09:51)
[2023-02-18] MEDS: Insulin Lispro 100 UNIT/ML INSULN.PEN 15 UNIT SC (09:57)
[2023-02-18] MEDS: metFORMIN HCl 500 MG Tablet PO (09:57)
[2023-02-18] MEDS: Insulin Glargine-YFGN 100 UNIT/ML Pen 15 UNIT SC (10:00)
[2023-02-18] MEDS: Insulin Lispro 100 UNIT/ML INSULN.PEN SC (11:40)
[2023-02-18 12:05] LABS: Bedside Glucose 226 mg/dL (74-106)
--- NOTE | 2023-02-18 12:24 | PCM.PROGNOTE ---
Objective Data Objective Data Vital Signs: Vital Signs Temp Pulse Resp BP Pulse Ox O2 Del Method O2 Flow Rate 97.8 F 97 18 151/92 H 96 Room Air 4.5 02/18/23 08:56 02/18/23 08:56 02/18/23 08:56 02/18/23 08:56 02/18/23 08:56 02/18/23 08:56 02/14/23 14:20 Oxygen Flow Rate (L/min) 4.5 Oxygen Delivery Method Room Air Weight: 117.934 kg Body Mass Index (BMI) 41.8 Intake & Output: Intake and Output for Last 24 Hours 02/16/23 02/17/23 02/18/23 23:59 23:59 23:59 Intake Total 3400 / 3800 2100 / 2100 110 / 110 Output Total 3350 / 3650 1615 / 2090 475 / 475 Balance 50 / 150 485 / 10 -365 / -365 Lab / Micro Data Result Diagrams: 02/17/23 05:25 02/17/23 05:25 Labs: Laboratory Results - last 24 hr 02/17/23 15:55: POC Glucose 258 H 02/17/23 21:59: POC Glucose 138 H 02/18/23 00:50: C-React Prot Ext Range 68.90 H 02/18/23 08:54: POC Glucose 124 H 02/18/23 11:38: POC Glucose 226 H Micro: Microbiology 02/14/23 15:03 Incision/Surgical Site Gram Stain - Final 02/14/23 15:03 Incision/Surgical Site Wound Culture - Final Streptococcus agalactiae (B) 02/14/23 15:03 Incision/Surgical Site Anaerobic Culture - Preliminary 02/14/23 15:03 Tissue - 5th Toe Gram Stain - Final 02/14/23 15:03 Tissue - 5th Toe Wound Culture - Final Streptococcus group C Streptococcus agalactiae (B) Staphylococcus simulans 02/14/23 15:03 Tissue - 5th Toe Anaerobic Culture - Preliminary 02/14/23 15:03 Bone - 5th Toe Gram Stain - Final 02/14/23 15:03 Bone - 5th Toe Wound Culture - Final Streptococcus group C 02/14/23 15:03 Bone - 5th Toe Anaerobic Culture - Preliminary Physical Exam Narrative Vascular: DP PT pulses palpable 2 out of 4 to bilateral feet. Capillary fill time brisk to lesser digits. Increased edema to right lateral forefoot with increased warmth. Neurologic: Light touch protective sensation absent to bilateral feet. Dermatologic: Full thickness wound with exposed 4th ray to base and surrounding granular base. No residual acute signs of infection. some new dorsal skin necrosis, this appears to be demarcating and stable. Musculoskeletal: No gross deformity, absent left fifth toe and right fifth ray, partial. Const alert and oriented x3 Assessment & Plan Assessment/Plan (1) Osteomyelitis of foot, right, acute: PLAN: Exam performed vital signs stable, leukocytosis resolved. CRP improved. some new dorsal skin necrosis noted. - dry and stable wound appears stable, will await final cultures and ID recommendations. Arterial studies show non-compressible, TBI 0.61. arterial status appears intact. Tissue cultures growing strep agalactiae, group C strep, staph stimulans. Bone cultures growing strep agalactiae. Patient to remain NWB on right. Patient on IV zosyn ID on board; awaiting final antibiotic recommendations. hospitalist on board; managing dm II will plan for daily dressing changes with dakin's, DSD and clarissa bandage for compression will follow daily (2) Type 2 diabetes mellitus with diabetic polyneuropathy: (3) Gas gangrene:
--- NOTE | 2023-02-18 13:41 | PCM.PN.ID ---
Physical Exam Narrative Feeling better, no pain in foot, no fever, no n/v/d Const alert and no apparent distress General Appearance: cooperative Resp normal air movement and clear to auscultation bilaterally Cardio regular rate and regular rhythm GI soft to palpation, non-tender and non-distended Extremity General Extremity: edema Skin Skin Narrative: reviewed photo ID ID: Route of nutrition/ use of supplements: [] Nutritional Intake: [] IV Site: [] Ibarra Catheter: [] Assessment & Plan Assessment/Plan (1) Osteomyelitis of foot, right, acute: PLAN: Now s/p OR 02/14/[address] Hogue for partial 5th ray resection. Surg cx with strep x2 and MS-CoNS. Clearance cx with strep. Ok for home with 6 weeks po keflex, ID followup in 2-3 weeks. Will follow, d/w case assistant (2) Type 2 diabetes mellitus with diabetic polyneuropathy:
--- NOTE | 2023-02-18 13:45 | CASEMGMT ---
Addendum entered by Trisha Chavez 02/18/23 15:54: 1530-Spoke with hospitalist, pt to be sent home with insulin pens from the hospital to use up first. Pt to obtain insulin from [facility] as it is over the counter and for cost. HARIKA BAIG into pt room to make aware of this. He is aware that his antibiotic was sent to [facility] also. Pt denies further needs. Addendum entered by Trisha Chavez 02/18/23 14:00: HARIKA BAIG into pt room, pt lying in bed. Pt states he feels comfortable giving insulin to himself as he has been receiving education. Pt sister is still going to do the wound care as prior. Pt aware he will be dc'd on po atb. Pt would like his rx sent to [facility] in [place]. Pt denies need for HHC at this time. Pt denies further needs. Original Note: HARIKA BAIG spoke with ID, pt to dc on oral antibiotics.
--- NOTE | 2023-02-18 14:03 | PCM.DC ---
Discharge Instructions Diet Discharge Diet: 1800 Calorie Control Diet Activity Discharge Activity: Return to Normal Activity Dressing / Incision Call your doctor if your incision/area has: Sudden Increased Bleeding, Increased Pain/ Swelling, Increased Redness and Foul Smelling Discharge Change Dressing in: 1 day (Change bandage daily, wash area with soap and water, apply Dakin solution and apply clean dressing) Follow Up Care Test Results: Test results from this visit will be discussed in further detail at your follow-up appointment, if applicable. Discharge Plan Admission Admit Date/Time: 02/14/23 12:50 Primary Reason for Your Visit: Gas gangrene right fifth ray Attending Provider: Channing Hogue Primary Care Provider: Semaj Johnson Consulting Providers: Mary Anne Small ; Adeola Mccoy ; Semaj Johnson ; Solomon Carrington ; Yolanda Oliver ; Gemini Salinas NP ; Roland Alejandro NP ; Guillermina Nunes ; Guillermina Pérez ; Nasim Albert ; Roland Bailey Instructions Additional Instructions / Restrictions: Clean right foot wound daily with soap and water washing, dress with dakin's soaked gauze, 4x4s, kerlix and clarissa wrap - daily. Maintain non-weightbearing on right follow up with Dr. Hogue in 1 week Obtain ReliOn insulin N and R-use in place of Humulin N and and Humulin R-you will need to order picker/assembler to 10 mL vials, 1 of each type insulin, do not mix N and R insulin in 1 syringe. You will need to order picker/assembler alcohol prep pads also. Discharge Orders/Prescriptions Prescriptions: New cephalexin 500 mg capsule 500 mg PO Q8H Qty: 114 0RF metformin 500 mg Tablet 500 mg PO BIDCM Qty: 60 0RF insulin lispro [Humalog KwikPen Insulin] 100 unit/mL Insulin Pen 15 unit subcut BIDCM Qty: 1 0RF insulin glargine-yfgn 100 unit/mL (3 mL) Insulin Pen 15 unit subcut BID Qty: 1 0RF Humulin N NPH U-100 Insulin 100 unit/mL suspension 15 unit subcut BID Qty: 10 0RF Rx Instructions: take with breakfast and dinner daily Humulin R Regular U-100 Insuln 100 unit/mL solution 15 unit subcut BID Qty: 10 0RF Rx Instructions: take with breakfast and dinner (DME) insulin syringe-needle U-100 [Insulin Syringe] 1 mL 29 gauge x 1/2 syringe See Rx Instructions .Route Qty: 100 0RF Rx Instructions: As directed Referrals / Follow Up: Semaj Johnson, [Primary Care Provider] - Within 2 Weeks Channing Hogue DPM [Med Staff - Active Staff] - In 1 Week Disposition Disposition (needs filled in before D/C Order can be placed): Home, Self Care
[2023-02-18 14:23] LABS: Vancomycin, Trough Level 14.6 ug/mL (5.0-15.0)
[2023-02-18 18:00] LABS: Bedside Glucose 196 mg/dL (74-106)
--- NOTE | 2023-02-19 07:16 | PCM.PN.HOSP ---
Reason for Visit Reason for Visit: Diagnoses Gas gangrene (02/14/23) Type 2 diabetes mellitus with diabetic polyneuropathy (02/14/23) Type 2 diabetes mellitus with diabetic peripheral angiopathy with gangrene (02/14/23) Type 2 diabetes mellitus with other skin complications (02/14/23) Local infection of the skin and subcutaneous tissue, unspecified (02/14/23) Other acute osteomyelitis, right ankle and foot (02/14/23) Acquired absence of other right toe(s) (02/14/23) Subjective Subjective The date of entry is 02/18/2023: Patient was seen and examined today, he states he feels comfortable giving himself insulin from a vial, infectious diseases saw the patient today and phoned in a prescription for ongoing antibiotics. I talked briefly with podiatry and informed them that I would fill out discharge paperwork on the patient today. Objective Data Objective Data Vital Signs: Vital Signs Temp Pulse Resp BP Pulse Ox O2 Del Method O2 Flow Rate 97.8 F 97 18 151/92 H 96 Room Air 4.5 02/18/23 08:56 02/18/23 08:56 02/18/23 08:56 02/18/23 08:56 02/18/23 08:56 02/18/23 08:56 02/14/23 14:20 Oxygen Flow Rate (L/min) 4.5 Oxygen Delivery Method Room Air Weight: 117.934 kg Body Mass Index (BMI) 41.8 Intake & Output: Intake and Output for Last 24 Hours 02/17/23 02/18/23 02/19/23 23:59 23:59 23:59 Intake Total 2099 / 2100 707.75 / 707.75 Output Total 1615 / 2090 1125 / 1125 Balance 485 / 10 -417.25 / -417.25 Lab / Micro Data Result Diagrams: 02/17/23 05:25 02/17/23 05:25 Labs: Laboratory Results - last 24 hr 02/18/23 00:50: Vancomycin Trough 14.6 02/18/23 08:54: POC Glucose 124 H 02/18/23 11:38: POC Glucose 226 H 02/18/23 16:30: POC Glucose 196 H Micro: Microbiology 02/14/23 15:03 Incision/Surgical Site Gram Stain - Final 02/14/23 15:03 Incision/Surgical Site Wound Culture - Final Streptococcus agalactiae (B) 02/14/23 15:03 Incision/Surgical Site Anaerobic Culture - Preliminary 02/14/23 15:03 Tissue - 5th Toe Gram Stain - Final 02/14/23 15:03 Tissue - 5th Toe Wound Culture - Final Streptococcus group C Streptococcus agalactiae (B) Staphylococcus simulans 02/14/23 15:03 Tissue - 5th Toe Anaerobic Culture - Preliminary 02/14/23 15:03 Bone - 5th Toe Gram Stain - Final 02/14/23 15:03 Bone - 5th Toe Wound Culture - Final Streptococcus group C 02/14/23 15:03 Bone - 5th Toe Anaerobic Culture - Preliminary Radiography Diagnostic Testing: Radiology Impression Extremity Arterial Study 02/17/23 09:18 Interpretation Summary Right ELOINA 1.23, normal. Doppler/PVR waveforms of the right leg normal at rest. TBI and digit waveforms diminished, pedal/digit disease. Left ELOINA 1.28, normal. TBI and Doppler/PVR waveforms of the left leg normal at rest. Ordering Physician: Channing Hogue Referring Physician: Usman Johnson M.D. Performed By: Sintia Landa RVT Physical Exam Narrative alert, oriented x3, no apparent distress and healthy appearing Constitutional Narrative: Patient is morbidly obese General Appearance: cooperative, well kempt and well developed Orientation / Consciousness: awake, oriented to person, oriented to place and oriented to time HEENT normocephalic, head/scalp atraumatic and moist oral mucous membranes Eyes PERRL, EOMs intact bilaterally and conjunctivae normal Neck supple, no JVD, thyroid normal and no carotid bruits General: trachea midline Resp normal respiratory effort, no retractions, no use of accessory muscles and clear to auscultation bilaterally Auscultation: Negative for rales, rhonchi or wheezes Cardio regular rate, regular rhythm, S1 normal heart sound, S2 normal heart sound, no murmurs, no rub and no gallops GI normal to inspection, nondistended, normoactive bowel sounds, soft to palpation, non-tender and non-distended Extremity Extremity Narrative: Patient's right foot is wrapped with surgical dressing, this was not removed for examination Neuro oriented x3, CN's II-XII intact bilaterally, moves all extremities, no focal motor deficits and no sensory deficits noted Sensorium / Orientation: awake, alert, oriented to person, oriented to place and oriented to time Speech: speech normal Psych affect normal Assessment & Plan Assessment/Plan (1) 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 Osteomyelitis of the right fifth ray from Streptococcus agalactiae-patient appears medically stable for discharge at this time #2 type 2 diabetes-initial diagnosis-patient was instructed to obtain ReliOn N and R insulin at [facility] to use after he finishes his pens which she will go home with. #3 morbid obesity-complicates care, medical course, recovery, and prognosis Total clinical time spent by myself addressing the patient's medical issues, reviewing all of his data, and collaborating with patient's care team: 35 minutes Charges/Coding Visit Charges Inpatient E&M: 37935 Subs Hosp L2
--- NOTE | 2023-02-19 09:08 | PCM.DC.SUM ---
Providers Date of Admission: 02/14/23 Primary Care Physician: Dr. Semaj Johnson, Consultations 02/14/23 12:07 Consult: Hospitalist Routine Consulting Provider: [facility] Reason for Consult: medical management EMERGENT Consult: No MD Notified: Yes Date Notified: 02/14/23 Time Notified: 15:00 Method of Notification: phone 02/14/23 12:08 Consult: Infectious Disease Routine Consulting Provider: Nasim Albert Reason for Consult: right foot gas infection EMERGENT Consult: No Notified: Yes Date Notified: 02/14/23 Time Notified: 20:43 Method of Notification: Answering Service 02/14/23 12:29 Consult: Podiatry Routine Consulting Provider: Channing Hogue Reason for Consult: surgery EMERGENT Consult: No Notified: Yes Date Notified: 02/14/23 Time Notified: 12:29 Method of Notification: i am him 02/14/23 14:09 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 CRP improved. some new dorsal skin necrosis noted. - dry and stable wound appears stable, will await final cultures and ID recommendations. Arterial studies show non-compressible, TBI 0.61. arterial status appears intact. Tissue cultures growing strep agalactiae, group C strep, staph stimulans. Bone cultures growing strep agalactiae. Patient to remain NWB on right. Patient on IV zosyn ID on board; awaiting final antibiotic recommendations. hospitalist on board; managing dm II will plan for daily dressing changes with dakin's, DSD and clarissa bandage for compression will follow daily Medications at Discharge Home Medications cephalexin 500 mg capsule 500 mg PO Q8H #114 caps 02/18/23 insulin NPH isoph U-100 human 100 unit/mL subcutaneous suspension (Humulin N NPH U-100 Insulin (isophane susp)) 15 unit (0.15 mL) subcut BID #10 mL 02/18/23 insulin glargine-yfgn 100 unit/mL (3 mL) subcutaneous pen 15 unit (0.15 mL) subcut BID #1 mL 02/18/23 insulin lispro 100 unit/mL subcutaneous pen (Humalog KwikPen (U-100) Insulin) 15 unit (0.15 mL) subcut BIDCM #1 mL 02/18/23 insulin regular human 100 unit/mL injection solution (Humulin R Regular U-100 Insulin) 15 unit (0.15 mL) subcut BID #10 mL 02/18/23 insulin syringe-needle U-100 1 mL 29 gauge x 1/2 (Insulin Syringe) #100 ea 02/18/23 metformin 500 mg tablet 500 mg PO BIDCM #60 tabs 02/18/23 Hospital Course Summary of Care Provided Hospital Course: patient developed right foot dm infection with gas gangrene to right 5th toe due to uncontrolled DM II his right partial 5th ray was resected surgically cultures grew group C strep, strep agalactiae and staph simulans patient ultimately was discharged with DM management per IM, keflex per ID patient will perform daily dressing changes with dakin's, DSD patient will maintain non weightbearing on right patient will follow up in 1 week Physical Exam Narrative Vascular: DP PT pulses palpable 2 out of 4 to bilateral feet. Capillary fill time brisk to lesser digits. Increased edema to right lateral forefoot with increased warmth. Neurologic: Light touch protective sensation absent to bilateral feet. Dermatologic: Full thickness wound with exposed 4th ray to base and surrounding granular base. No residual acute signs of infection. some new dorsal skin necrosis, this appears to be demarcating and stable. Musculoskeletal: No gross deformity, absent left fifth toe and right fifth ray, partial. Const alert and oriented x3 Weight / BMI Weight Weight: 117.934 kg Body Mass Index (BMI) 41.8 ABG / Lab / Microbiology Data Result Diagrams: 02/17/23 05:25 02/17/23 05:25 Laboratory: Laboratory Results - last 24 hr 02/18/23 00:50: Vancomycin Trough 14.6 02/18/23 08:54: POC Glucose 124 H 02/18/23 11:38: POC Glucose 226 H 02/18/23 16:30: POC Glucose 196 H Microbiology: Microbiology 02/14/23 15:03 Incision/Surgical Site Gram Stain - Final 02/14/23 15:03 Incision/Surgical Site Wound Culture - Final Streptococcus agalactiae (B) 02/14/23 15:03 Incision/Surgical Site Anaerobic Culture - Preliminary 02/14/23 15:03 Tissue - 5th Toe Gram Stain - Final 02/14/23 15:03 Tissue - 5th Toe Wound Culture - Final Streptococcus group C Streptococcus agalactiae (B) Staphylococcus simulans 02/14/23 15:03 Tissue - 5th Toe Anaerobic Culture - Preliminary 02/14/23 15:03 Bone - 5th Toe Gram Stain - Final 02/14/23 15:03 Bone - 5th Toe Wound Culture - Final Streptococcus group C 02/14/23 15:03 Bone - 5th Toe Anaerobic Culture - Preliminary Radiography Diagnostic Testing: Radiology Impression Extremity Arterial Study 02/17/23 09:18 Interpretation Summary Right ELOINA 1.23, normal. Doppler/PVR waveforms of the right leg normal at rest. TBI and digit waveforms diminished, pedal/digit disease. Left ELOINA 1.28, normal. TBI and Doppler/PVR waveforms of the left leg normal at rest. Ordering Physician: Channing Hogue Referring Physician: Usman Johnson M.D. Performed By: Sintia Landa RVT D/C Instructions Discharge Diet: 1800 Calorie Control Diet Call your doctor if your incision/area has: Sudden Increased Bleeding, Increased Pain/ Swelling, Increased Redness and Foul Smelling Discharge Meaningful Use Info Meaningful Use Diagnoses (Choose all that apply): None applicable Discharge Plan Admission Admit Date/Time: 02/14/23 12:50 Primary Reason for Your Visit: Gas gangrene right fifth ray Attending Provider: Channing Hogue Primary Care Provider: Semaj Johnson Consulting Providers: Mary Anne Small ; Adeola Mccoy ; Semaj Johnson ; Solomon Carrington ; Yolanda Oliver ; Gemini Salinas NP ; Roland Alejandro TECHNOLOGY PROGRAM MANAGER ; Guillermina Nunes ; Guillermina Pérez ; Nasim Albert ; Roland Bailey Instructions Additional Instructions / Restrictions: Clean right foot wound daily with soap and water washing, dress with dakin's soaked gauze, 4x4s, kerlix and clarissa wrap - daily. Maintain non-weightbearing on right follow up with Dr. Hogue in 1 week Obtain ReliOn insulin N and R-use in place of Humulin N and and Humulin R-you will need to fruit picker to 10 mL vials, 1 of each type insulin, do not mix N and R insulin in 1 syringe. You will need to fruit picker alcohol prep pads also. Discharge Orders/Prescriptions Prescriptions: New cephalexin 500 mg capsule 500 mg PO Q8H Qty: 114 0RF metformin 500 mg Tablet 500 mg PO BIDCM Qty: 60 0RF insulin lispro [Humalog KwikPen Insulin] 100 unit/mL Insulin Pen 15 unit subcut BIDCM Qty: 1 0RF insulin glargine-yfgn 100 unit/mL (3 mL) Insulin Pen 15 unit subcut BID Qty: 1 0RF Humulin N NPH U-100 Insulin 100 unit/mL suspension 15 unit subcut BID Qty: 10 0RF Rx Instructions: take with breakfast and dinner daily Humulin R Regular U-100 Insuln 100 unit/mL solution 15 unit subcut BID Qty: 10 0RF Rx Instructions: take with breakfast and dinner (DME) insulin syringe-needle U-100 [Insulin Syringe] 1 mL 29 gauge x 1/2 syringe See Rx Instructions .Route Qty: 100 0RF Rx Instructions: As directed Referrals / Follow Up: Semaj Johnson DO [Primary Care Provider] - Within 2 Weeks Channing Hogue DPM [Med Staff - Active Staff] - In 1 Week Disposition Disposition (needs filled in before D/C Order can be placed): Home, Self Care
== END 2023-02-18 17:23 | disposition home or self-care (01) | DRG 239 ==
LOC: SDC 12:50 → AC 13:00 → MS3 14:23
PROVIDERS: Family Medicine; Internal Medicine Infectious Disease; Admitting Provider Podiatrist; PCP Family Medicine; Referring Provider Podiatrist; Visit Provider Podiatrist
PROC: 0Y6M0ZF Detachment at Right Foot, Partial 5th Ray, Open Approach (ICD-10-PCS; principal; 2023-02-14 12:55)
DX: E11.52 Type 2 diabetes mellitus with diabetic peripheral angiopathy with gangrene (principal); A48.0 Gas gangrene; M86.171 Other acute osteomyelitis, right ankle and foot; Z68.41 Body mass index [BMI] 40.0-44.9, adult; S91.301A Unspecified open wound, right foot, initial encounter; E11.42 Type 2 diabetes mellitus with diabetic polyneuropathy; B95.1 Streptococcus, group B, as the cause of diseases classified elsewhere; E11.69 Type 2 diabetes mellitus with other specified complication; E66.01 Morbid (severe) obesity due to excess calories; Z89.422 Acquired absence of other left toe(s); X58.XXXA Exposure to other specified factors, initial encounter
CPT/HCPCS: 36415; 73620; 76000; 80048; 80053; 80202; 82962; 83036; 85025; 85652; 86140; 87015; 87070; 87075; 87077; 87102; 87116; 87176; 87186; 87205; 87206; 88304; 88305; 88311; 93923; 97161; 97802; J7030; J7040; J7050; J2405

== ENCOUNTER → 2023-04-30 | Outpatient (CLI) | payer SELFPAY | END | disposition home or self-care (01) | PROVIDERS: PCP Family Medicine; Visit Provider Podiatrist | DX: L97.512 Non-pressure chronic ulcer of other part of right foot with fat layer exposed (principal) | CPT/HCPCS: 87070; 87077; 87186; 87205 ==

== ENCOUNTER 2023-06-04 09:35 | Inpatient (IN) | payer SELFPAY ==
[2023-06-04] VITALS (9 sets, daily range): BP systolic 114–178; BP diastolic 66–88; PULSE 85–110; RESP 18–25; TEMP 36.6–37.7; O2SAT 94–99; BMI 43.7
--- NOTE | 2023-06-04 10:12 | RAD_ITS ---
INDICATION: infection EXAMINATION/TECHNIQUE: X-RAY - RIGHT XR Foot Min 3 Views 3 VIEWS COMPARISON: [Prior examinations are not available for comparison. FINDINGS: SOFT TISSUES: Soft tissue swelling of the lateral aspect of the proximal foot. No radiopaque foreign body. BONES/JOINTS: Status post amputation of the fifth toe on the distal aspect of the fifth metatarsal. Lucency and erosive changes of the proximal aspect of the fifth metatarsal. Destructive process and soft tissue swelling of the head of the fourth metacarpal head and the proximal aspect of the proximal phalanx. Diffuse sclerosis of the fourth metatarsal early changes of the third and fourth metatarsals cannot be excluded. No evidence of acute fracture. Hammertoes deformity. Plantar and posterior calcaneal spurs. RAD/Foot min 3 Views IMPRESSION: 1. Destructive process consistent with osteomyelitis of the fifth metatarsal remnant, fourth metatarsal and proximal phalanx of the fourth toe. 2. Early sclerosis of the second and third metatarsals cannot be excluded. Electronically Signed: Daniel Peguero MD at 11:20 EDT ,
--- NOTE | 2023-06-04 10:16 | EDS_ITS ---
HPI History of Present Illness Chief Complaint: Wound Informant: patient and spouse/S.O. Narrative Narrative: Patient reports sent in from podiatry Dr. Hogue for admission. History of diabetes on insulin and this past May had partial amputation toe and distal ray fifth side. Feeling fine up to a week ago increasing swelling increasing drainage since yesterday. Diabetic neuropathy. No fevers or chills. Was seen in the office states had debridement, he was sent here for admission for plan OR tomorrow. States sugars typically controlled however elevated today. Prior similar symptoms: Yes PFSH PFS Medical History (Updated 06/04/23 @ 15:[address] Raul Ware DO) Diabetes Gas gangrene Osteomyelitis of foot, right, acute Home Medications insulin glargine-yfgn 100 unit/mL (3 mL) subcutaneous pen 15 unit (0.15 mL) subcut BID DIABETES #1 mL 02/18/23 [Rx Last Taken 06/03/23] insulin lispro 100 unit/mL subcutaneous pen (Humalog KwikPen (U-100) Insulin) 15 unit (0.15 mL) subcut BIDCM DIABETES #1 mL 02/18/23 [Rx Last Taken 06/03/23] insulin syringe-needle U-100 1 mL 29 gauge x 1/2 (Insulin Syringe) #100 ea 02/18/23 [Rx Last Taken Unknown] Allergy/AdvReac Type Severity Reaction Status Date / Time No Known Allergies Allergy Verified 06/04/23 09:36 Family History Mother Diabetes Father CVA (cerebral vascular accident) Surgical History Amputation toe History of partial ray amputation of fifth toe of right foot Social History Smoking Status: Never smoker alcohol intake: never substance use type: does not use what type of physical activity do you participate in: none ROS ROS ED Constitutional Constitutional ED: Denies chills, fever(s) or sweats Eyes Eyes: Denies change in vision ENT ENT ED: Denies dysphagia or sore throat Cardiovascular Cardiovascular: Denies chest pain, leg edema, palpitations or racing heartbeat Respiratory/Chest Respiratory/Chest: Denies cough, dyspnea or dyspnea on exertion Gastrointestinal Gastrointestinal: Denies abdominal pain, diarrhea, nausea or vomiting Genitourinary Genitourinary ED: Denies dysuria, hematuria or urinary frequency Musculoskeletal Musculoskeletal: Denies back pain, extremity pain or neck pain Integumentary Reports wounds; Denies rash Neurologic Neurologic: Denies headache(s), paresthesias or weakness EXAM Physical Exam Const Vital Signs: 06/04/23 09:36 06/04/23 10:41 06/04/23 11:18 Temperature 97.8 F 99.1 F 99.1 F Temperature Source Temporal Oral Oral Pulse Rate 110 H 110 H Respiratory Rate 18 22 H Blood Pressure 161/88 H 172/68 H Blood Pressure Mean 112 102 Pulse Ox 99 99 Oxygen Delivery Method Room Air Room Air 06/04/23 12:07 06/04/23 12:08 Temperature 99.8 F H Temperature Source Oral Pulse Rate 107 H Respiratory Rate 25 H Blood Pressure 162/82 H Blood Pressure Mean 108 Pulse Ox 98 97 Oxygen Delivery Method Room Air Positive well nourished and well developed General Appearance ED: well developed and NAD HEENT Reports moist mucous membranes normocephalic and atraumatic Eyes PERRL, EOMs intact bilaterally and conjunctivae normal General Eye ED: Yes normal appearance of both eyes Neck no lymphadenopathy and supple General: Negative for tenderness Chest Wall Chest: Negative for tenderness Resp normal respiratory effort and normal air movement Effort and Inspection: symmetric chest movement; Negative for respiratory distress Cardio regular rate, regular rhythm and no murmurs Peripheral Pulses: pulses 2+ throughout GI normal to inspection, nondistended, normoactive bowel sounds and non-tender Palpation: Negative for guarding or rebound tenderness present Back/Spine no CVA tenderness and no thoracic nor lumbar tenderness Extremity normal to inspection General Extremety ED: Negative for edema or tenderness General Extremity: Negative for edema Neuro oriented x3 and no sensory deficits noted Sensorium / Orientation: awake and alert Skin Skin Narrative: Right foot: Dressing taken down, Betadine around the dressing, upon removal, this wound distal lateral foot, there is erythema to dorsal foot wrapping around lateral side. No streaking up the leg. MDM MDM MDM Narrative Medical decision making narrative: Interventions / MDM: Differential diagnosis: Diabetic foot wound, osteomyelitis Diagnosis considered but do not suspect: N/A My EKG interpretation: N/A Imaging independently reviewed and interpreted by myself: Three-view right foot: Bony deterioration distal fifth ray along with metatarsals 3 through 5. External documents reviewed: N/A Test considered but not ordered:N/A ED course: Patient here for worsening diabetic wound. Sepsis labs were ordered. Wound culture. X-ray. Cover with Zosyn and vancomycin. Blood pressure remained stable, white count returned at 6 significant elevated ESR and CRP. Creatinine 2.88. Glucose 451 with a normal gap. Lactic acid 1.3. X-ray concerning for osteomyelitis. I did speak with assistant pastry chef, Dr. Hogue who plans on operating tomorrow. I spoke with hospitalist Dr. Raymond for admission. Patient was given 10 units of insulin. Re-evaluation: stable Disposition discussed with patient/family/significant other: Case discussed with consulting clinician: Podiatry, hospitalist This note was generated with [employer] dictation software. It may contain incorrect words, spelling, and punctuation that were not noted in checking the note before signing. Lab Data Attestation: I reviewed the patient's lab results. Labs: Laboratory Results - last 24 hr 06/04/23 10:40 WBC 16.8 H RBC 3.08 L Hgb 8.7 L Hct 25.8 L MCV 83.8 MCH 28.2 MCHC 33.7 RDW Std Deviation 45.2 H RDW Coeff of Erica 14.8 H Plt Count 646 H MPV 9.8 Immature Gran % (Auto) 2.700 H Neut % (Auto) 80.9 H Lymph % (Auto) 8.7 L [place] % (Auto) 7.1 Eos % (Auto) 0.2 Baso % (Auto) 0.4 Absolute Neuts (auto) 13.6 H Absolute Lymphs (auto) 1.45 Nucleated RBC % 0 ESR 36 H PT 16.8 H INR 1.4 APTT 49.3 H Sodium 125 L Potassium 4.4 Chloride 93 L Carbon Dioxide 22.0 Anion Gap 10 BUN 55 H Creatinine 2.88 H Estim Creat Clear Calc 30.60 Est GFR (MDRD) Af Amer 31 L Est GFR (MDRD) Non-Af 25 L BUN/Creatinine Ratio 19.1 Glucose 451 H* Lactic Acid 1.3 Calcium 9.2 Total Bilirubin 1.10 H AST 40 H ALT 52 Alkaline Phosphatase 211 H C-React Prot Ext Range 338.00 H Total Protein 7.6 Albumin 1.6 L Globulin 6.0 H Albumin/Globulin Ratio 0.3 L Blood Type A POSITIVE Antibody Screen NEGATIVE Radiography Diagnostic Testing: Clinical Impression(s) from Imaging Studies Foot X-Ray 06/04/23 10:12 IMPRESSION: 1. Destructive process consistent with osteomyelitis of the fifth metatarsal remnant, fourth metatarsal and proximal phalanx of the fourth toe. 2. Early sclerosis of the second and third metatarsals cannot be excluded. Electronically Signed: Daniel Peguero MD at 11:20 EDT , Discharge Plan Dx/Rx/DC Orders Clinical Impression: Diabetic foot ulcer, Hyperglycemia, Foot osteomyelitis, right, SLIME (acute kidney injury) Disposition Disposition: Acute Care Hospital [facility] Discharge Date/Time: 06/04/23 12:45
[2023-06-04] MEDS: 0.9% Normal Saline 1,000 ML 150 ML IV (10:42)
[2023-06-04 10:58] LABS: Erythrocyte Sedimentation Rate 36 mm/hr (0-20)
[2023-06-04 11:00] LABS: Absolute Lymphocyte Count 1.45 X10^3/uL (0.83-4.51); Absolute Neutrophil Count 13.6 X10^3/uL (2.0-7.7); Basophil# 0.06 X10^3/uL; Basophil% 0.4 % (0-1); Eosinophil# 0.03 X10^3/uL; Eosinophils% 0.2 % (0-5); Hematocrit 25.8 % (40-54); Hemoglobin 8.7 g/dL (13.0-16.5); Lymphocyte # 1.45 X10^3/ul (0.83-4.51); Lymphocyte % 8.7 % (19-41); Mean Corp Hgb Conc 33.7 g/dL (32-36); Mean Corpuscular Hgb 28.2 pg (27.0-32.0); Mean Corpuscular Volume 83.8 fL (80-94); Mean Platelet Vol. 9.8 fl (6.2-12.0); Monocyte# 1.19 X10^3/uL; Monocyte% 7.1 % (0-10); NRBC Flagged by Analyzer 0 % (0-5); Neutrophil # 13.57 X10^3/uL (2.7-7.7); Neutrophil % 80.9 % (47-70); Platelet Count 646 K/mm3 (150-450); RBC Distribution Width CV 14.8 % (11.6-14.6); RBC Distribution Width SD 45.2 fl (35.1-43.9); Red Blood Count 3.08 M/mm3 (4.6-6.2); White Blood Count 16.8 K/mm3 (4.4-11.0)
[2023-06-04 11:05] LABS: International Normalized Ratio 1.4; Prothrombin Time (Protime)PT. 16.8 SECONDS (11.7-14.9)
[2023-06-04 11:06] LABS: Partial Thromboplast Time 49.3 Seconds (24.1-36.2)
[2023-06-04 11:26] LABS: Lactic Acid 1.3 mmol/L (0.4-1.9)
[2023-06-04 11:27] LABS: ALB/GLOB Ratio 0.3 RATIO (0.9-2.4); AST(SGOT) 40 U/L (15-37); Alanine Aminotransfer ALT/SGPT 52 U/L (16-61); Albumin, Serum 1.6 g/dL (3.2-5.0); Alkaline Phosphatase 211 U/L (45-117); Anion Gap 10 (5-15); BUN 55 mg/dL (7-18); BUN/Creat Ratio 19.1 RATIO (10-20); Calcium,Total 9.2 mg/dL (8.5-10.1); Chloride 93 mmol/L (98-107); Creatinine, Serum 2.88 mg/dL (0.70-1.30); EST Glomerular Filtration Rate 25 mL/min (>60); Est Glom Filt Rate - Afr Amer 31 mL/min (>60); Glucose 451 mg/dL (74-106); Potassium 4.4 mmol/L (3.5-5.1); Protein, Total 7.6 g/dL (6.4-8.2); Sodium Level 125 mmol/L (136-145)
--- NOTE | 2023-06-04 12:02 | PCM.HP.STD ---
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 Patient seen at bedside in the ED, family members present. Patient sitting comfortably in bed, conversing normally, in no acute distress. States that he has very little pain in his right foot at this time. Denies any fevers or chills. Does state that he generally does not feel very well. Has not been eating or drinking much over the last few days. Has not been able to do much for himself around the house for a few days. He denies any nausea or vomiting. Denies any diarrhea. No other acute concerns currently. Patient notably follows with Dr. Hogue with podiatry. Has history of partial ray amputation of fifth toe of right foot back in January of this year. Was sent to the ED from Dr. Hogue's office today due to concern for recurrent osteomyelitis. Vitals in the ED were notable for tachycardia to heart rate around 110, mild tachypnea with respirations in the low 20s, low-grade fever to high of 99.8 F, hypertension to 150s to 160s systolic. Labs notable for WBC count of 16, hemoglobin 8.7, creatinine 2.88, BUN 55. X-ray of right foot showed a discharge process consistent with osteomyelitis of the fifth metatarsal remnant, fourth metatarsal and proximal phalanx of the fourth toe, with concern for early sclerosis of the second and third metatarsals. FOR[facility]LY [facility] Medical History (Updated 06/04/23 @ 12:[address] Raul Ware DO) Diabetes Gas gangrene Osteomyelitis of foot, right, acute Home Medications insulin glargine-yfgn 100 unit/mL (3 mL) subcutaneous pen 15 unit (0.15 mL) subcut BID DIABETES #1 mL 02/18/23 [Rx Last Taken 06/03/23] insulin lispro 100 unit/mL subcutaneous pen (Humalog KwikPen (U-100) Insulin) 15 unit (0.15 mL) subcut BIDCM DIABETES #1 mL 02/18/23 [Rx Last Taken 06/03/23] insulin syringe-needle U-100 1 mL 29 gauge x 1/2 (Insulin Syringe) #100 ea 02/18/23 [Rx Last Taken Unknown] Allergy/AdvReac Type Severity Reaction Status Date / Time No Known Allergies Allergy Verified 06/04/23 09:36 Family History Mother Diabetes Father CVA (cerebral vascular accident) Surgical History Amputation toe History of partial ray amputation of fifth toe of right foot Social History Smoking Status: Never smoker alcohol intake: never substance use type: does not use what type of physical activity do you participate in: none ROS Constitutional Constitutional: Reports fatigue; Denies chills or fever(s) Eyes Eyes: Denies change in vision Cardiovascular Cardiovascular: Denies chest pain or edema Respiratory/Chest Respiratory/Chest: Denies cough Gastrointestinal Gastrointestinal: Denies abdominal pain, diarrhea, nausea or vomiting Genitourinary Genitourinary: Denies dysuria Vital Signs Vital Signs Vital Signs: 06/04/23 09:36 06/04/23 10:41 06/04/23 11:18 Temperature 97.8 F 99.1 F 99.1 F Temperature Source Temporal Oral Oral Pulse Rate 110 H 110 H Respiratory Rate 18 22 H Blood Pressure 161/88 H 172/68 H Blood Pressure Mean 112 102 Pulse Ox 99 99 Oxygen Delivery Method Room Air Room Air Weight Weight: 126.7 kg Body Mass Index (BMI) 43.7 Physical Exam Const alert and oriented x3 Constitutional Narrative: Pleasant male, morbidly obese, sitting comfortably in bed, conversing normally, no acute distress. General Appearance: cooperative and comfortable HEENT normocephalic, head/scalp atraumatic, hearing grossly normal bilaterally, nasal mucous membranes and turbinates normal and moist oral mucous membranes Eyes PERRL, EOMs intact bilaterally and conjunctivae normal Neck full ROM, no lymphadenopathy and supple Lymph Lymphatic: no lymphadenopathy noted Chest inspection of chest normal Resp normal respiratory effort, normal air movement, no use of accessory muscles and clear to auscultation bilaterally Cardio regular rate, regular rhythm, no murmurs and peripheral pulses 2+ throughout GI normal to inspection, nondistended, normoactive bowel sounds, soft to palpation, non-tender and non-distended Back/Spine normal ROM Extremity no pedal edema Extremity Narrative: Right foot with wound noted. Skin no rashes or lesions noted Psych mental status grossly normal Results Lab / Micro Data 06/04/23 10:40 06/04/23 10:40 Labs: Laboratory Results - last 24 hr 06/04/23 10:40: WBC 16.8 H, RBC 3.08 L, Hgb 8.7 L, Hct 25.8 L, MCV 83.8, MCH 28.2, MCHC 33.7, RDW Std Deviation 45.2 H, RDW Coeff of Erica 14.8 H, Plt Count 646 H, MPV 9.8, Immature Gran % (Auto) 2.700 H, Neut % (Auto) 80.9 H, Lymph % (Auto) 8.7 L, [place] % (Auto) 7.1, Eos % (Auto) 0.2, Baso % (Auto) 0.4, Absolute Neuts (auto) 13.6 H, Absolute Lymphs (auto) 1.45, Nucleated RBC % 0, ESR 36 H, PT 16.8 H, INR 1.4, APTT 49.3 H, Sodium 125 L, Potassium 4.4, Chloride 93 L, Carbon Dioxide 22.0, Anion Gap 10, BUN 55 H, Creatinine 2.88 H, Estim Creat Clear Calc 30.60, Est GFR (MDRD) Af Amer 31 L, Est GFR (MDRD) Non-Af 25 L, BUN/Creatinine Ratio 19.1, Glucose 451 H*, Lactic Acid 1.3, Calcium 9.2, Total Bilirubin 1.10 H, AST 40 H, ALT 52, Alkaline Phosphatase 211 H, C-React Prot Ext Range 338.00 H, Total Protein 7.6, Albumin 1.6 L, Globulin 6.0 H, Albumin/Globulin Ratio 0.3 L Radiology Impression Foot X-Ray 06/04/23 10:12 IMPRESSION: 1. Destructive process consistent with osteomyelitis of the fifth metatarsal remnant, fourth metatarsal and proximal phalanx of the fourth toe. 2. Early sclerosis of the second and third metatarsals cannot be excluded. 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 1. Sepsis without shock, diabetic foot wound with osteomyelitis X-ray right foot on admit showed osteomyelitis of the fifth metatarsal remnant with possible involvement of other metatarsals as noted in HPI above. CRP 338. Tachycardic, mildly tachypneic, low-grade fever, WBC count of 16 on admission. Previously had partial amputation of toe and distal ray of fifth metatarsal on right foot with Dr. Hogue in 01/2023. ?Admit with inpatient status to [facility]. Podiatry consulted. Planning for OR tomorrow. N.p.o. at midnight. Preoperative assessment as noted below. Continue vancomycin, Zosyn and clindamycin, follow-up wound cultures postoperatively. Check coags tomorrow morning. Given 1 L normal saline in the ED, continue maintenance IV fluids for now. Tylenol as needed for pain control. 2. Preoperative assessment ?Planned procedure with podiatry is debridement of likely osteomyelitis diabetic foot wound plus or minus partial foot amputation. NSQIP calculator shows that patient has a below average of serious complications or any complications. No medications to hold prior to procedure. Check coags tomorrow morning. No concern for cardiac disease, no need for EKG or TTE prior to procedure. No previous complications with anesthesia. Patient is morbidly obese, Mallampati II on my quick view, may be somewhat challenging intubation. Can achieve greater than 4 METS. Patient is medically optimized for procedure. 3. Acute on chronic normocytic anemia Hemoglobin 8.7 on admit, MCV 83. Appears at baseline hemoglobin was around 10-12 back in January of this year. No acute signs of blood loss. Suspect this is likely due to anemia of chronic disease, with possible component of iron deficiency. Very low concern for hemolysis. ?Repeat hemoglobin tomorrow morning. Iron studies ordered. Patient with no acute symptoms of anemia. Monitor closely. 4. SLIME on suspected CKD Creatinine 2.88 on admit, BUN 55. Patient's baseline creatinine appears to be around 1.3-1.4 on labs from January of this year. Suspect he has some degree of CKD in setting of poorly controlled insulin-dependent diabetes as noted below. Suspect SLIME is prerenal in setting of sepsis as above and fluid losses from hyperglycemia as noted below. ? IV fluid resuscitation as noted above for sepsis. Monitor BMP tomorrow morning. We will hold on further work-up for now, can consider if SLIME does not significantly improve with IV fluids. 5. Elevated blood pressure readings ? BPs have been in the 150s to 170s systolic since arrival. Has no previous history of hypertension per patient. On my exam, did not appear to be in acute pain or distress. Suspect patient may have underlying essential hypertension. We will treat with IV labetalol for systolic BP greater than 180 for now, can consider adding oral antihypertensive agent on discharge as needed. 6. Insulin-dependent type 2 diabetes with hyperglycemia Reported home regimen of Lantus 15 units twice daily and Humalog 15 units twice daily. Unclear if patient has been taking this as prescribed. Previous A1c of 11.2% in January 2023. Hyperglycemia with glucose of 451 in the ED, suspect this is due to acute infection plus or minus poor adherence to home insulin regimen. Given 10 units of Humalog in the ED, with recheck pending. ? We will start Lantus 15 units twice daily, along with Humalog 10 units 3 times daily AC with high dosing sliding scale for now. Monitor sugars closely, adjust regimen as needed. Repeat A1c pending. 7. Morbid obesity ? BMI 43. Encourage lifestyle modifications. DVT prophylaxis: Heparin subcu CODE STATUS: Full code, verified Expected disposition: TBD Total clinical time spent by myself addressing the patient's medical issues, reviewing all the data, and collaborating with patient's care team: 55 minutes. Charges/Coding Visit Charges Inpatient E&M: 85015 Init Hosp L2
[2023-06-04] MEDS: Insulin Lispro 100 UNIT/ML INSULN.PEN 10 UNIT SC ×2 (12:08→18:15)
--- NOTE | 2023-06-04 13:00 | WOUNDNOTE ---
wound photo: right foot
--- NOTE | 2023-06-04 13:00 | WOUNDNOTE ---
wound photo: right foot
--- NOTE | 2023-06-04 13:00 | WOUNDNOTE ---
wound photo: right foot
--- NOTE | 2023-06-04 13:00 | WOUNDNOTE ---
wound photo: right foot
--- NOTE | 2023-06-04 14:13 | MRI_ITS ---
EXAM: MR RIGHT LOWER EXTREMITY WITHOUT INTRAVENOUS CONTRAST, FOOT CLINICAL INDICATION: right foot infection non healing wound prior fifth digit amputation. TECHNIQUE: Multiplanar and multisequence MR images of the right foot without intravenous contrast. COMPARISON: X-ray from 06/04/2023. FINDINGS: EXTENSOR: Flexor and extensor tendons are intact. BONES/JOINTS: Quality: Extremely limited due to motion on multiple pulse sequences. Evaluation for osteomyelitis is limited without contrast. Prior amputation of the fifth digit. Marrow edema in the cuboid bone, fourth metatarsal and fourth proximal phalanx. There is destruction of the fourth metatarsal head and cortical destruction of the base of the fourth proximal phalanx. Marrow signal is otherwise unremarkable. Normal alignment. No fracture. No joint effusion. OTHER SOFT TISSUES: Marked dorsal soft tissue edema. No demonstrated collection. MRI/Lower Ext/No Jt/w/o IMPRESSION: 1. Findings consistent with osteomyelitis of the fourth metatarsal and fourth proximal phalanx. 2. Marrow edema in the cuboid bone is likely reactive. Osteomyelitis is less likely but cannot be excluded without contrast. Electronically Signed: Liliane Whitaker MD at 18:45 EDT Reading Location ID and State: [id number] / Tel , Service support ,
--- NOTE | 2023-06-04 15:49 | PCM.RX.CS ---
Consult Antibiotic Management Pharmacy has been consulted to manage selected antiobiotic: Vancomycin Type of Intervention Type of Consult: New start Suspected Infection Suspected Infection: Osteomyelitis Prior Doses of Antibiotics Prior Doses of Antibiotics Received/Current Regimen: Patient received vancomycin 2000 mg IV x 1 on 06/04/23 @ 1118, patient received zosyn 4.5 grams this morning and is currently on zosyn 3.375 grams Q8H as well as clindamycin 600 mg Q8H Labs Labs: Sodium 125 mmol/L (136-145) L 06/04/23 10:40 Potassium 4.4 mmol/L (3.5-5.1) 06/04/23 10:40 Chloride 93 mmol/L (98-107) L 06/04/23 10:40 Carbon Dioxide 22.0 mmol/L (21.0-32.0) 06/04/23 10:40 Anion Gap 10 (5-15) 06/04/23 10:40 BUN 55 mg/dL (7-18) H 06/04/23 10:40 Creatinine 2.88 mg/dL (0.70-1.30) H 06/04/23 10:40 Est GFR (MDRD) Af Amer 31 mL/min (>60) L 06/04/23 10:40 Est GFR (MDRD) Non-Af 25 mL/min (>60) L 06/04/23 10:40 BUN/Creatinine Ratio 19.1 RATIO (10-20) 06/04/23 10:40 Glucose 451 mg/dL (74-106) H* 06/04/23 10:40 Dosing Weight Weight used for dosin.7 kg Estimated Creatinine Clearance Estimated Creatinine Clearance: 42 (adjbw) Goal Trough Goal Trough: 15-20 mcg/mL Pharmacy Plan for Drug Dosing Pharmacy Plan for Drug Dosing: Vancomycin 2000 mg IV x 1 given 06/04/23 @ 1118, followed by 1000 mg IV Q12H based on weight and renal function with a trough prior to the 4th dose. Pharmacy Service will continue to monitor and adjust dosing as required. Follow-Up Labs Follow-Up Labs: Trough: Vancomycin Date/Time Labs Ordered Labs to be done on [date and time ordered]: 06/05/23 @ 2237
[2023-06-04] MEDS: 0.9% Saline Lock 10 ML Syringe IV (16:00)
[2023-06-04 17:01] LABS: Ferritin 2254 ng/mL (26-388); Iron 31 ug/dL (65-175); Iron Binding Capacity,Total 101 ug/dL (250-450); PERCENT IRON SATURATION 30.7 % (15.0-55.0)
[2023-06-04 17:16] LABS: Hemoglobin A1c 9.4 % (3.8-5.6)
[2023-06-04] MEDS: Clindamycin 600 MG/50 ML BAG 100 MG IV ×2 (18:14→23:49)
[2023-06-04] MEDS: Insulin Lispro 100 UNIT/ML INSULN.PEN SC ×2 (18:15→21:24)
[2023-06-04] MEDS: Juven (unflavored) Packet 1 PACKET PO (18:21)
[2023-06-04 18:39] LABS: Bedside Glucose 420 mg/dL (74-106)
[2023-06-04] MEDS: 0.9% Normal Saline 1,000 ML 100 ML IV (21:11)
[2023-06-04] MEDS: Heparin Injection (Vial) 5,000 UNIT/ML VIAL 5000 UNIT SC (21:21)
[2023-06-04] MEDS: Insulin Glargine-YFGN 100 UNIT/ML Pen 15 UNIT SC (21:27)
[2023-06-04 21:42] LABS: Bedside Glucose 393 mg/dL (74-106)
[2023-06-04] MEDS: Vancomycin IV 1,000 MG/200 ML BAG 200 MG IV (22:32)
[2023-06-05] VITALS (10 sets, daily range): BP systolic 112–129; BP diastolic 66–79; PULSE 77–95; RESP 16–18; TEMP 36.4–37.3; O2SAT 92–98; BMI 43.7
[2023-06-05] MEDS: Insulin Lispro 100 UNIT/ML INSULN.PEN SC ×5 (02:38→22:44)
[2023-06-05 03:00] LABS: Bedside Glucose 405 mg/dL (74-106)
--- NOTE | 2023-06-05 05:00 | EKG12_ITS ---
Test Reason : a.m. ekg Blood Pressure : / mmHG Vent. Rate : 097 BPM Atrial Rate : 097 BPM P-R Int : 166 ms QRS Dur : 080 ms QT Int : 360 ms P-R-T Axes : 062 032 049 degrees QTc Int : 457 ms Normal sinus rhythm Normal ECG When compared with ECG of 31-MAR-2020 11:41, No significant change was found Confirmed by RINA LUCERO, KIM ([id number]), editorial project manager PATRIZIA RG ([id number]) on 07/09/2023 1:23:32 PM Referred By: Roberto Confirmed By:KIM FLYNN MD
[2023-06-05] MEDS: Clindamycin 600 MG/50 ML BAG 100 MG IV ×3 (05:55→22:33)
[2023-06-05] MEDS: 0.9% Normal Saline 1,000 ML 100 ML IV (05:58)
[2023-06-05 06:21] LABS: Hematocrit 23.1 % (40-54); Hemoglobin 7.4 g/dL (13.0-16.5); Mean Corpuscular Volume 84.3 fL (80-94); Mean Platelet Vol. 9.8 fl (6.2-12.0); Platelet Count 620 K/mm3 (150-450); RBC Distribution Width CV 15.2 % (11.6-14.6); RBC Distribution Width SD 46.2 fl (35.1-43.9); Red Blood Count 2.74 M/mm3 (4.6-6.2); White Blood Count 13.9 K/mm3 (4.4-11.0)
[2023-06-05 06:28] LABS: International Normalized Ratio 1.2; Prothrombin Time (Protime)PT. 15.6 SECONDS (11.7-14.9)
[2023-06-05 06:30] LABS: Partial Thromboplast Time 48.9 Seconds (24.1-36.2)
[2023-06-05 06:47] LABS: Anion Gap 8 (5-15); BUN 61 mg/dL (7-18); BUN/Creat Ratio 24.2 RATIO (10-20); Calcium,Total 8.4 mg/dL (8.5-10.1); Chloride 104 mmol/L (98-107); Creatinine, Serum 2.52 mg/dL (0.70-1.30); EST Glomerular Filtration Rate 30 mL/min (>60); Est Glom Filt Rate - Afr Amer 36 mL/min (>60); Estimated Creatinine Clearance 34.97 ml/min; Glucose 384 mg/dL (74-106); Potassium 4.2 mmol/L (3.5-5.1); Sodium Level 132 mmol/L (136-145)
--- NOTE | 2023-06-05 07:08 | PCM.CONS.GEN ---
Assessment & Plan Assessment/Plan (1) Other acute osteomyelitis, right ankle and foot: PLAN: Exam performed Vital signs stable leukocytosis 13.8 today (down from 16 on admission) MRI demonstrates osteomyelitis to 4th/5th metatarsal with dorsal forefoot abscess - marrow edema noted to cuboid, 3rd and 2nd metatarsal plan for Open vs Closed midfoot amputation today at 2:30pm - patient NPO longterm I would recommend ID consultation and likely PICC line with possible SNF placement for prolonged non-weightbearing and IV abx management Patient receiving IV vanc/zosyn/clindamycin - updated wound cultures pending, blood culture + MRSA will follow closely (2) Non-pressure chronic ulcer of other part of right foot with necrosis of bone: HPI Consult Data Date of Consult: 06/05/23 HPI Narrative HPI Narrative: DARRYL CARLISLE, is a 43 M who presents with a right DM foot infection in setting of poorly controlled DM II with neuropathy +/- possible charcot changes. Patient seen bedside, resting comfortably, no distress. Denies pain or constitutional symptoms today, understanding of surgery later today; otherwise, no acute changes overnight. [facility]LY [facility] Medical History (Updated 06/05/23 @ 07:[address] Channing Hogue, [facility]) Diabetes Gas gangrene Osteomyelitis of foot, right, acute Type 2 diabetes mellitus with diabetic polyneuropathy Home Medications insulin glargine-yfgn 100 unit/mL (3 mL) subcutaneous pen 15 unit (0.15 mL) subcut BID DIABETES #1 mL 02/18/23 [Rx Last Taken 06/03/23] insulin lispro 100 unit/mL subcutaneous pen (Humalog KwikPen (U-100) Insulin) 15 unit (0.15 mL) subcut BIDCM DIABETES #1 mL 02/18/23 [Rx Last Taken 06/03/23] insulin syringe-needle U-100 1 mL 29 gauge x 1/2 (Insulin Syringe) #100 ea 02/18/23 [Rx Last Taken Unknown] Allergy/AdvReac Type Severity Reaction Status Date / Time No Known Allergies Allergy Verified 06/04/23 09:36 Family History Mother Diabetes Father CVA (cerebral vascular accident) Surgical History Amputation toe History of partial ray amputation of fifth toe of right foot Social History Smoking Status: Never smoker alcohol intake: never substance use type: does not use what type of physical activity do you participate in: none ROS Constitutional Constitutional: Reports malaise; Denies daytime sleepiness or difficulty sleeping Eyes Eyes: Denies blind spots, bloody eye or discharge from eye(s) ENT HEENT: Denies change in voice, dental pain or foreign body in nose Cardiovascular Cardiovascular: Reports leg edema and leg ulcers; Denies abdominal pain Respiratory/Chest Respiratory/Chest: Denies change in phlegm color, chest congestion or dyspnea on exertion Gastrointestinal Gastrointestinal: Denies change in bowel habits, dry heaves or dyspepsia Genitourinary Genitourinary: Denies burning urination, change in libido or dysuria Physical Exam Narrative Vascular: Dorsalis pedis and posterior tibial pulses palpable 2/4 bilaterally. Diffuse right lower extremity edema 2/2 to acute infection. Neurologic: absent light touch and protective sensation to bilateral feet. Dermatologic: Full thickness wound down to level of bone x2 to right lateral foot. Diffuse periwound edema, malodor, purulence, fluctuance, erythema and warmth, but this is limited to the foot. Musculoskeletal: Partial fifth ray amputation noted to bilateral feet, no sign of DVT today. Const alert and oriented x3 Lab / Micro Data 06/05/23 05:45 06/05/23 05:45 Labs: Laboratory Results - last 24 hr 06/04/23 10:40: WBC 16.8 H, RBC 3.08 L, Hgb 8.7 L, Hct 25.8 L, MCV 83.8, MCH 28.2, MCHC 33.7, RDW Std Deviation 45.2 H, RDW Coeff of Erica 14.8 H, Plt Count 646 H, MPV 9.8, Immature Gran % (Auto) 2.700 H, Neut % (Auto) 80.9 H, Lymph % (Auto) 8.7 L, [place] % (Auto) 7.1, Eos % (Auto) 0.2, Baso % (Auto) 0.4, Absolute Neuts (auto) 13.6 H, Absolute Lymphs (auto) 1.45, Nucleated RBC % 0, ESR 36 H, PT 16.8 H, INR 1.4, APTT 49.3 H, Sodium 125 L, Potassium 4.4, Chloride 93 L, Carbon Dioxide 22.0, Anion Gap 10, BUN 55 H, Creatinine 2.88 H, Estim Creat Clear Calc 30.60, Est GFR (MDRD) Af Amer 31 L, Est GFR (MDRD) Non-Af 25 L, BUN/Creatinine Ratio 19.1, Glucose 451 H*, Hemoglobin A1c 9.4 H, Lactic Acid 1.3, Calcium 9.2, Iron 31 L, TIBC 101 L, Iron Saturation 30.7, Ferritin 2254 H, Total Bilirubin 1.10 H, AST 40 H, ALT 52, Alkaline Phosphatase 211 H, C-React Prot Ext Range 338.00 H, Total Protein 7.6, Albumin 1.6 L, Globulin 6.0 H, Albumin/Globulin Ratio 0.3 L, Blood Type A POSITIVE, Antibody Screen NEGATIVE 06/04/23 18:13: POC Glucose 420 H 06/04/23 21:24: POC Glucose 393 H 06/05/23 02:30: POC Glucose 405 H 06/05/23 05:45: WBC 13.9 H, RBC 2.74 L, Hgb 7.4 L, Hct 23.1 L, MCV 84.3, MCH 27.0, MCHC 32.0 D, RDW Std Deviation 46.2 H, RDW Coeff of Erica 15.2 H, Plt Count 620 H, MPV 9.8, PT 15.6 H, INR 1.2, APTT 48.9 H, Sodium 132 L, Potassium 4.2, Chloride 104, Carbon Dioxide 20.0 L, Anion Gap 8, BUN 61 H, Creatinine 2.52 H, Estim Creat Clear Calc 34.97, Est GFR (MDRD) Af Amer 36 L, Est GFR (MDRD) Non-Af 30 L, BUN/Creatinine Ratio 24.2 H, Glucose 384 H, Calcium 8.4 L Micro: Microbiology 06/04/23 10:40 Blood Culture (Wb) - Venous Bacteria Detection (PCR) - Preliminary Staphylococcus aureus 06/04/23 10:40 Blood Culture (Wb) - Venous Blood Culture - Preliminary 06/04/23 10:40 Blood Culture (Wb) - Venous Blood Culture - Preliminary Radiology Impression Foot X-Ray 06/04/23 10:12 IMPRESSION: 1. Destructive process consistent with osteomyelitis of the fifth metatarsal remnant, fourth metatarsal and proximal phalanx of the fourth toe. 2. Early sclerosis of the second and third metatarsals cannot be excluded. Electronically Signed: Daniel Peguero MD at 11:20 EDT , Lower Extremity MRI 06/04/23 14:13 IMPRESSION: 1. Findings consistent with osteomyelitis of the fourth metatarsal and fourth proximal phalanx. 2. Marrow edema in the cuboid bone is likely reactive. Osteomyelitis is less likely but cannot be excluded without contrast. Electronically Signed: Liliane Whitaker MD at 18:45 EDT Reading Location ID and State: [id number] / Tel , Service support ,
[2023-06-05] MEDS: Vancomycin IV 1,000 MG/200 ML BAG 200 MG IV (10:37)
[2023-06-05] MEDS: Insulin Glargine-YFGN 100 UNIT/ML Pen 15 UNIT SC ×2 (10:57→22:49)
[2023-06-05 11:18] LABS: Bedside Glucose 384 mg/dL (74-106)
[2023-06-05] MEDS: Insulin Lispro 100 UNIT/ML INSULN.PEN 10 UNIT SC ×2 (11:38→17:23)
[2023-06-05 11:58] LABS: Bedside Glucose 300 mg/dL (74-106)
--- NOTE | 2023-06-05 12:24 | PN.HOSP_ITS ---
Reason for Visit Reason for Visit: Diagnoses Non-pressure chronic ulcer of other part of right foot with necrosis of bone (0 06/04/23) Other acute osteomyelitis, right ankle and foot (06/04/23) Osteomyelitis, unspecified (06/04/23) Subjective Subjective No acute events overnight. Patient seen at bedside this morning. Laying comfortably in bed, conversing normally, no acute distress. States he was able to get some sleep overnight. Denies any pain in his right foot at this time. Denies any fevers or chills. Denies any other pain or discomfort. No other acute concerns. Objective Data Objective Data Vital Signs: Vital Signs Temp Pulse Resp BP Pulse Ox O2 Del Method 99.2 F H 93 18 129/79 H 96 Room Air 06/05/23 02:00 06/05/23 08:15 06/05/23 02:00 06/05/23 02:00 06/05/23 02:00 06/05/23 08:15 Oxygen Delivery Method Room Air Weight: 126.7 kg Body Mass Index (BMI) 43.7 Intake & Output: Intake and Output for Last 24 Hours 06/03/23 06/04/23 06/05/23 23:59 23:59 23:59 Intake Total 3029.00 / 3029.00 831.25 / 831.25 Output Total 600 / 600 500 / 500 Balance 2429.00 / 2429.00 331.25 / 331.25 Lab / Micro Data 06/05/23 05:45 06/05/23 05:45 Labs: Laboratory Results - last 24 hr 06/04/23 10:40: Hemoglobin A1c 9.4 H, Iron 31 L, TIBC 101 L, Iron Saturation 30.7, Ferritin 2254 H 06/04/23 18:13: POC Glucose 420 H 06/04/23 21:24: POC Glucose 393 H 06/05/23 02:30: POC Glucose 405 H 06/05/23 05:45: WBC 13.9 H, RBC 2.74 L, Hgb 7.4 L, Hct 23.1 L, MCV 84.3, MCH 27.0, MCHC 32.0 D, RDW Std Deviation 46.2 H, RDW Coeff of Erica 15.2 H, Plt Count 620 H, MPV 9.8, PT 15.6 H, INR 1.2, APTT 48.9 H, Sodium 132 L, Potassium 4.2, Chloride 104, Carbon Dioxide 20.0 L, Anion Gap 8, BUN 61 H, Creatinine 2.52 H, Estim Creat Clear Calc 34.97, Est GFR (MDRD) Af Amer 36 L, Est GFR (MDRD) Non-Af 30 L, BUN/Creatinine Ratio 24.2 H, Glucose 384 H, Calcium 8.4 L 06/05/23 06:00: POC Glucose 384 H 06/05/23 11:37: POC Glucose 300 H Micro: Microbiology 06/04/23 10:53 Wound - Right Foot Gram Stain - Final 06/04/23 10:53 Wound - Right Foot Wound Culture - Preliminary Staphylococcus species Beta streptococcus 06/04/23 10:40 Blood Culture (Wb) - Venous Bacteria Detection (PCR) - Final Meth. resistant Staph. aureus 06/04/23 10:40 Blood Culture (Wb) - Venous Blood Culture - Preliminary 06/04/23 10:40 Blood Culture (Wb) - Venous Blood Culture - Preliminary Radiography Diagnostic Testing: Radiology Impression Lower Extremity MRI 06/04/23 14:13 IMPRESSION: 1. Findings consistent with osteomyelitis of the fourth metatarsal and fourth proximal phalanx. 2. Marrow edema in the cuboid bone is likely reactive. Osteomyelitis is less likely but cannot be excluded without contrast. Electronically Signed: Liliane Whitaker MD at 18:45 EDT Reading Location ID and State: [id number] / Tel , Service support , Physical Exam Const alert and oriented x3 Constitutional Narrative: Pleasant male, morbidly obese, laying comfortably in bed, conversing normally, no acute distress. General Appearance: cooperative and comfortable HEENT normocephalic, head/scalp atraumatic, hearing grossly normal bilaterally, nasal mucous membranes and turbinates normal and moist oral mucous membranes Eyes PERRL, EOMs intact bilaterally and conjunctivae normal Neck full ROM, no lymphadenopathy and supple Lymph Lymphatic: no lymphadenopathy noted Chest inspection of chest normal Resp normal respiratory effort, normal air movement, no use of accessory muscles and clear to auscultation bilaterally Cardio regular rate, regular rhythm, no murmurs and peripheral pulses 2+ throughout GI normal to inspection, nondistended, normoactive bowel sounds, soft to palpation, non-tender and non-distended Back/Spine normal ROM Extremity no pedal edema Extremity Narrative: Right foot with Damon wrap in place. 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 1. Sepsis without shock, diabetic foot wound with osteomyelitis X-ray right foot on admit showed osteomyelitis of the fifth metatarsal remnant with possible involvement of other metatarsals as noted in HPI above. CRP 338. Tachycardic, mildly tachypneic, low-grade fever, WBC count of 16 on admission. Previously had partial amputation of toe and distal ray of fifth metatarsal on right foot with Dr. Hgoue in 01/2023. ?Podiatry following. Planning for OR today for open versus closed midfoot amputation. Per podiatry recommendations, will plan for ID consultation with likely PICC line placement for prolonged IV antibiotic management. Suspect patient will also need SNF placement on discharge for prolonged nonweightbearing status. Continue vancomycin, Zosyn and clindamycin for now, follow-up wound cultures postoperatively. Tylenol as needed for pain control. 2. Acute on chronic normocytic anemia Secondary to anemia of chronic disease. Hemoglobin 8.7 on admit, MCV 83. Appears at baseline hemoglobin was around 10-12 back in January of this year. No acute signs of blood loss. Repeat hemoglobin 7.4 on 06/05 after IV fluid resuscitation. Iron studies show ferritin 2254, normal iron saturation consistent with anemia of chronic disease. ?We will monitor CBC daily. Suspect patient may require RBC transfusion dolly orrow after blood loss during procedure today. Patient has not received blood transfusion but did give us consent for blood if needed. Monitor closely. 3. SLIME on suspected CKD Creatinine 2.88 on admit, BUN 55. Patient's baseline creatinine appears to be around 1.3-1.4 on labs from January of this year. Suspect he has some degree of CKD in setting of poorly controlled insulin-dependent diabetes as noted below. Suspect SLIME is prerenal in setting of sepsis as above and fluid losses from hyperglycemia as noted below, along with some degree of ATN now as well. Creatinine only mildly improved to 2.5 on 06/05. ? Monitor BMP daily. Monitor urine output. Low concern for postobstructive etiology but can consider imaging if patient does not show improvement. Avoid nephrotoxins. 4. Elevated blood pressure readings ? BPs have been in the 150s to 170s systolic since arrival. Has no previous hi story of hypertension per patient. On my exam, did not appear to be in acute pain or distress. Suspect patient may have underlying essential hypertension. We will treat with IV labetalol for systolic BP greater than 180 for now, can consider adding oral antihypertensive agent on discharge as needed. 5. Insulin-dependent type 2 diabetes with hyperglycemia Reported home regimen of Lantus 15 units twice daily and Humalog 15 units twice daily. Unclear if patient has been taking this as prescribed. Previous A1c of 11.2% in January 2023. Hyperglycemia with glucose of 451 in the ED, suspect this is due to acute infection plus or minus poor adherence to home insulin regimen. Given 10 units of Humalog in the ED with recheck still in the 300s. A1c on admission 9.2%. ?Continue home Lantus 15 units twice daily, along with Humalog 10 units 3 times daily AC with high dosing sliding scale for now. Monitor sugars closely, adjust regimen as needed. Can consider endocrinology consult if blood sugars remain significantly uncontrolled. 6. Morbid obesity ? BMI 43. Encourage lifestyle modifications. DVT prophylaxis: Heparin subcu CODE STATUS: Full code, verified Expected disposition: TBD Total clinical time spent by myself addressing the patient's medical issues, reviewing all the data, and collaborating with patient's care team: 35 minutes. Charges/Coding Visit Charges Inpatient E&M: 58918 Subs Hosp L2
--- NOTE | 2023-06-05 13:31 | ECHOCS_ITS ---
Reason For Study: Murmur Procedure This was a 2D Doppler, Color Flow transthoracic echocardiogram. The study was technically difficult. Contrast injection was performed. Exam performed portable in patient room. Left Ventricle Normal left ventricle. The estimated ejection fraction is 55-60 %. Right Ventricle Normal right ventricle. Normal systolic function. Atria The left atrium is mildly enlarged. Normal right atrium. Mitral Valve The mitral valve is structurally normal. No prolapse or stenosis seen. Trivial mitral valve insufficiency. Tricuspid Valve Normal tricuspid valve. Mild tricuspid valve insufficiency. Aortic Valve Normal aortic valve. Pulmonic Valve The pulmonic valve is not well visualized. Great Vessels Normal aortic root. Pericardium/Pleural No pericardial effusion. Medication Diluted definity 1.5ml given slow IV push to enhance endocardial definition. MMode/2D Measurements & Calculations LVIDd: 5.3 cm IVSd: 0.81 cm Ao root diam: 3.1 cm LVIDs: 4.3 cm LVPWd: 0.99 cm LA dimension: 4.5 cm FS: 19.4 % LAV(MOD-bp): 56.7 ml LVAd ap4: 41.9 cm2 SV(MOD-sp4): 76.3 ml LAV(MOD-bp) Indexed: 26.5 ml/m2 LVLd ap4: 9.4 cm LAV(MOD-sp2): 70.4 ml EDV(MOD-sp4): 151.5 ml LAV(MOD-sp4): 45.8 ml EDV(sp4-el): 158.7 ml LVAs ap4: 26.6 cm2 LVLs ap4: 8.1 cm ESV(MOD-sp4): 75.1 ml ESV(sp4-el): 74.5 ml EF(MOD-sp4): 50.4 % EF(sp4-el): 53.1 % SV(sp4-el): 84.2 ml LA A4 area: 17.2 cm2 RA A4 area: 18.0 cm2 Time Measurements MV dec time: 0.15 sec Doppler Measurements & Calculations MV E max felipe: 96.9 cm/sec Lat Peak E' Felipe: 16.0 cm/sec Med Peak E' Felipe: 13.4 cm/sec MV A max felipe: 69.2 cm/sec E/E' lat: 6.0 E/E' med: 7.3 MV E/A: 1.4 MV V2 max: 107.1 cm/sec MV P1/2t max felipe: 109.4 cm/sec Ao V2 max: 122.3 cm/sec MV max P.6 mmHg MV P1/2t: 54.4 msec Ao max P.0 mmHg MV V2 mean: 61.9 cm/sec Ao V2 mean: 84.6 cm/sec MV mean P.8 mmHg MV dec slope: 588.9 cm/sec2 Ao mean P.3 mmHg MV V2 VTI: 25.1 cm MVA(P1/2t): 4.0 cm2 Ao V2 VTI: 23.3 cm AV (velocity ratio): 0.79 LV V1 max: 101.2 cm/sec PA V2 max: 99.0 cm/sec LV V1 max P.1 mmHg LV V1 mean P.3 mmHg LV V1 mean: 73.1 cm/sec LV V1 VTI: 18.4 cm ECHO/Echo Complete W/ Contrast Interpretation Summary The estimated ejection fraction is 55-60 %. Normal LV systolic function Mild TR Contrast echo used Definity No prior study to compare. Ordering Physician: Nasim Albert Performed By: Darren Barbosa RCS
[2023-06-05 14:29] LABS: Bedside Glucose 267 mg/dL (74-106)
[2023-06-05] MEDS: Bupivacaine Mpf 0.5% 30 ML VIAL (14:30)
--- NOTE | 2023-06-05 14:30 | BON_PTH ---
PATIENT: DARRYL CARLISLE LOC: MS3 U#:[id number] AGE/SX: 43/M ROOM: [facility] [place] RE06/04/[address]: Dr. Estefani Alicea DO : 1980 BED: 1 DIS: 06/10/2023 SPEC #: [id number] RECD: 06/05/23 16:28 STATUS: SHAHEEN REQ #: [id number] [place]: 06/05/23 14:[address]: Channing Hogue DEPT: SURGICAL PATHOLOGY RECD BY: Jyoti Ferrari ENTERED: 06/06/23 10:10 SP TYPE: Bone OTHR DR: Dr. Gee Raymond, DO Dr. Semaj Johnson, DO Dr. Channing Hogue, DPM Dr. Nasim Albert MD Tissues: Foot, NOS Procedures: Decalcification bone/plaque Surgery Specimen Level IV Comments: @ Ordering doctor for DEC edited from to @ by BRANNON at 06/14/23 1014 @ Ordering doctor for SUIV edited from to @ by BRANNON at 06/14/23 1014 @ Submitting doctor edited from to @ by BRANNON at 06/14/23 1014 HEADER OPERATION: Amputation right midfoot PRE-OP DIAGNOSIS: Osteomyelitis, diabetic foot wound right foot TISSUE SUBMITTED: Right foot bone and tissue MICROSCOPIC DIAGNOSIS Right foot bone and tissue, amputation right mid foot: Ulceration, acute inflammation and abscess formation. Bone with marked acute osteomyelitis. OFELIA:sandi 06/12/2023 MICROSCOPIC DESCRIPTION Slides are reviewed. GROSS DESCRIPTION Received in fixative is one container labeled with the patient's name and designated right foot bone and tissue. The specimen consists of a portion of foot containing great toe and two adjacent toes measuring 10.0 x 8.0 x 4.5 cm. The nail appears atrophic. The soft tissue at the resection margin shows grayish necrotic surfaces. Also present in the container are multiple fragments of skin with underlying tissue measuring in aggregate 12.0 x 13.0 x 4.0 cm. Also present in the container are pieces of bone containing metatarsal measuring in aggregate 11.0 x 8.0 x 4.0 cm. Log Marker sections are submitted in nine cassettes as follows: 1 & 2 - skin with underlying tissue, 3-9 - bone after decalcification. / OFELIA:sandi 06/06/2023 TC:2 CPT: 30106, 52785
[2023-06-05] MEDS: Mupirocin Ointment 22gm Tube 1 APPLIC (14:58)
[2023-06-05] MEDS: 0.9% Normal Saline 1,000 ML 15 ML IV (15:15)
--- NOTE | 2023-06-05 16:16 | OP.PCM_ITS ---
Problems Associated Problem List Diagnoses (1) Non-pressure chronic ulcer of other part of right foot with necrosis of bone: (2) Other acute osteomyelitis, right ankle and foot: (3) Type 2 diabetes mellitus with diabetic polyneuropathy: (4) Foot osteomyelitis, right: Report of Operation Date of Procedure: 06/05/23 Pre-Operative Diagnosis: 1) Diabetic Neuropathy 2) Chronic Right Foot Wound down to Bone 3) Osteomyelitis, Right foot 4) Abscess/gas gangrene right foot Post-Operative Diagnosis: same Surgery/Procedure Performed:: 1) Partial foot disarticulation at chopart's joint - right side 2) adjacent tissue care closure using flap coverage of amputation site - right foot Description of Surgical Findings:: There is diffuse purulence extending along the dorsal and plantar foot into the medial ankle as well as anterior ankle from the dorsal surface of the foot. There is just diffuse soft tissue necrosis extending from the dorsal foot to the medial and anterior ankle. Purulence extended down through the soft tissue structures into the midfoot bones. Medially infection extended along the posterior tibial tendon into the distal one third of the leg. Type of Anesthesia: General Special Medications: 10cc 0.5% marcaine plain Specimen's removed: Right Forefoot bone and tissue culture Right forefoot bone and tissue pathology post lavage swab culture Drains: none Estimated Blood Loss (mL): 40cc Description of Procedure: Patient was brought back to the operating room placed comfortably in supine position on operating room table. Patient induced under general anesthesia. Well-padded right thigh tourniquet was applied. Preoperatively ankle block ring technique was performed using 10 cc half percent Marcaine plain. Right lower extremity scrubbed prepped draped using typical aseptic fashion. Procedure 1 - foot disarticulation at the level of Chopart's joint, right foot: Initially plan was for midfoot disarticulation at the level of the Lisfranc joint. Upon dorsal and plantar flap creation using standard fishmouth technique there is noted to be diffuse soft tissue necrosis and purulent drainage extending along the dorsal foot into the anterior and medial ankle as well as along the plantar foot along the flexor tendons into the medial ankle. Upon further debridement extended down to the level of the midfoot bones involving the medial intermediate and lateral cuneiform as well as the cuboid and navicular. Decision was made for disarticulation to allow for infection clearance. This was performed using 10 blade and pickups. The forefoot was then passed to the back table and sectioned for bone and tissue culture as well as bone and tissue pathology. Additional infection was noted except be expanding along the posterior tibialis tendon on the medial ankle. This tendon sheath was opened up using dissecting scissors with protection of the posterior tibial artery using blunt retraction. Additional purulent drainage was drained from the site. The ankle joint anterior capsule was opened with blunt dissection using pickups and dissecting scissors and purulent drainage was removed from the anterior ankle. At this time there is noted that the tourniquet was let down to visualize any bleeding healthy tissue versus infected necrotic tissue. There is noted to be a viable plantar flap with no residual necrosis or purulent drainage. Any bleeders were cauterized at this time using electrocautery. Tourniquet was then reinflated and site was flushed with copious amounts of normal sterile saline using low-pressure pulse lavage. Post lavage swab cultures were taken tourniquet was then let down again any bleeders were identified and cauterized. All remaining tissue appeared healthy and viable. Decision for partial complex wound closure was made. Total tourniquet time was noted to be 51 minutes. Procedure 2 ?adjacent tissue transfer or rearrangement to allow for flap coverage of partial foot amputation site, right foot: Adequate hemostasis noted. Viable plantar flap noted. Partial/complicated wound closure was performed using a stapler and vessel loop closure. The plantar flap was undermined proximally medially and laterally to allow for adequate transposition over the residual exposed talus and calcaneal bone. There is noted to be freely mobile flap that was trended as opposed from plantar to dorsal. This flap was then mobilized over the greater than 10 cm defect. Total wound size was approximately 14 x 7 cm. This flap closure was partially closed using vessel loop closure using red Vesseloops and rhina. This vessel loop closure was performed by first creating a knot and stabilizing the knot with a staple along the medial aspect of the incision. The vessel loop was then crisscrossed across the wound site and stabilized with additional rhina. A second knot was created and this was stabilized with additional rhina to allow for adequate retention of the tensionless closure. This was performed at that there is gentle tension across the dorsal and plantar flaps. This allowed for a tension-free closure to allow for additional infection or purulent drainage from the incisional site without preventing a retraction of the plantar and dorsal flaps. Additional interpositional simple interrupted stitches were performed x3 to the dorsal lateral flap allowing for adequate apposition of that dorsal and plantar flap. Medially less left partially open with nothing but the vessel loop closure traversing the site allowing for prevention of flap retraction. Wound incisional site was then packed with iodoform gauze half- inch. Incision was dressed with Betadine Adaptic 4 x 4's ABD pads Kerlix and a well padded Fox compression dressing 4 layer. Patient was then transferred to PACU vital signs stable vascular status intact to left lower extremity and right lower extremity. Patient tolerated procedure and anesthesia well apparent satisfactory condition. Patient will be transported back for to back to floor. Patient receiving IV vancomycin clindamycin and Zosyn. Will await final cultures and observe the site and perform any additional debridement that may be required. If there is discharge in all wound deep compensation will consider progression to below-knee amputation per vascular evaluation. At this time I am confident that we cleared a large amount of the infection but do recommend the patient receive the PICC line to allow for adequate IV antibiosis long-term. Complications Diffuse purulent drainage extending into the anterior medial ankle as well as the plantar medial ankle. This required additional bone resection down to the level of the Chopart joint. Admit VTE Documentation VTE Present on Admission: Yes VTE Pharm Prophylaxis ordered?: Yes
[2023-06-05 16:37] LABS: Bedside Glucose 239 mg/dL (74-106)
[2023-06-05 16:57] LABS: Hematocrit 21.1 % (40-54)
[2023-06-05] MEDS: Juven (unflavored) Packet 1 PACKET PO (17:23)
--- NOTE | 2023-06-05 18:19 | RAD_ITS ---
STUDY: X-RAY - RIGHT FOOT CLINICAL: Male, 43 years old. right foot, POST OP AMPUTATION TECHNIQUE: 3 view(s) of the foot. COMPARISON: None. FINDINGS: The patient is status post amputation of the foot from the level of the anterior calcaneus. The visualized talus is normal. The distal tibia and fibula are normal. There is extensive soft tissue swelling with punctate air along the soft tissues at the amputation site consistent with nonspecific postoperative change change. There are numerous skin rhina along the amputation site. Diffuse soft tissue swelling to the distal calf seen. RAD/Foot min 3 Views IMPRESSION: Status post amputation as described with unremarkable bony structures. Clinical correlation recommended and if indicated, follow up recommended. Electronically Signed: Shelby Florez MD at 19:07 EDT ,
--- NOTE | 2023-06-05 19:47 | PCM.PN.ID ---
ID ID: Route of nutrition/ use of supplements: [] Nutritional Intake: [] IV Site: [] Ibarra Catheter: [] Assessment & Plan Assessment/Plan (1) Foot osteomyelitis, right: PLAN: Pt gone to OR, continue broad spectrum abx, will do full consult in AM. (2) Type 2 diabetes mellitus with diabetic polyneuropathy:
[2023-06-05] MEDS: Heparin Injection (Vial) 5,000 UNIT/ML VIAL 5000 UNIT SC (22:41)
[2023-06-05] MEDS: 0.9% Saline Lock 10 ML Syringe IV (22:50)
[2023-06-05 23:03] LABS: Vancomycin, Trough Level 30.1 ug/mL (5.0-15.0)
[2023-06-05 23:14] LABS: Bedside Glucose 295 mg/dL (74-106)
--- NOTE | 2023-06-06 00:14 | PCM.RX.CS ---
Consult Antibiotic Management Pharmacy has been consulted to manage selected antiobiotic: Vancomycin Type of Intervention Type of Consult: Follow-up Labs Labs: Sodium 132 mmol/L (136-145) L 06/05/23 05:45 Potassium 4.2 mmol/L (3.5-5.1) 06/05/23 05:45 Chloride 104 mmol/L (98-107) 06/05/23 05:45 Carbon Dioxide 20.0 mmol/L (21.0-32.0) L 06/05/23 05:45 Anion Gap 8 (5-15) 06/05/23 05:45 BUN 61 mg/dL (7-18) H 06/05/23 05:45 Creatinine 2.52 mg/dL (0.70-1.30) H 06/05/23 05:45 Est GFR (MDRD) Af Amer 36 mL/min (>60) L 06/05/23 05:45 Est GFR (MDRD) Non-Af 30 mL/min (>60) L 06/05/23 05:45 BUN/Creatinine Ratio 24.2 RATIO (10-20) H 06/05/23 05:45 Glucose 384 mg/dL (74-106) H 06/05/23 05:45 Vancomycin Trough 30.1 ug/mL (5.0-15.0) H 06/05/23 22:28 Microbiology Microbiology: Microbiology 06/04/23 10:53 Wound - Right Foot Gram Stain - Final 06/04/23 10:53 Wound - Right Foot Wound Culture - Preliminary Staphylococcus species Beta streptococcus 06/04/23 10:40 Blood Culture (Wb) - Venous Bacteria Detection (PCR) - Final Meth. resistant Staph. aureus 06/04/23 10:40 Blood Culture (Wb) - Venous Blood Culture - Preliminary 06/04/23 10:40 Blood Culture (Wb) - Venous Blood Culture - Preliminary Pharmacy Plan for Drug Dosing Pharmacy Plan for Drug Dosing: Pharmacy Service will continue to monitor and adjust dosing as required. TROUGH 30.1 AT 12 HOURS. HOLD CURRENT DOSE AND DRAW RANDOM LEVEL IN 12 HOURS Follow-Up Labs Follow-Up Labs: Trough: Vancomycin Date/Time Labs Ordered Labs to be done on [date and time ordered]: 06/06 @ 1030 RANDOM
[2023-06-06 01:32] VITALS: BP 120/70; PULSE 95; RESP 16; TEMP 37.4; O2SAT 96
[2023-06-06] MEDS: Insulin Lispro 100 UNIT/ML INSULN.PEN SC ×5 (02:43→21:45)
[2023-06-06 05:10] VITALS: BP 126/76; PULSE 96; RESP 18; TEMP 37.1; O2SAT 96
[2023-06-06] MEDS: Clindamycin 600 MG/50 ML BAG 100 MG IV (05:18)
[2023-06-06 06:19] LABS: Bedside Glucose 233 mg/dL (74-106)
[2023-06-06 08:15] VITALS: BP 129/78; PULSE 87; RESP 18; TEMP 36.9; O2SAT 97
[2023-06-06] MEDS: Heparin Injection (Vial) 5,000 UNIT/ML VIAL 5000 UNIT SC ×2 (08:20→21:48)
[2023-06-06] MEDS: Juven (unflavored) Packet 1 PACKET PO ×2 (08:20→16:56)
--- NOTE | 2023-06-06 08:32 | NURSING ---
PT just ordered breakfast. Wants to wait for his insulin until his breakfast comes.
[2023-06-06] MEDS: Insulin Glargine-YFGN 100 UNIT/ML Pen 15 UNIT SC ×2 (09:21→21:47)
[2023-06-06] MEDS: Insulin Lispro 100 UNIT/ML INSULN.PEN 10 UNIT SC ×3 (09:22→17:01)
--- NOTE | 2023-06-06 09:26 | NURSING ---
Echo in room at this time.
--- NOTE | 2023-06-06 10:44 | PCM.CONS.GEN ---
Assessment & Plan Assessment/Plan (1) MRSA bacteremia: PLAN: MRSA bacteremia due to R foot osteo - now s/p OR 06/05/[address] Hogue. On empiric vanc/zosyn. Wound cx at start of April also with enterobacter, so will change abx to vanc/cefepime/flagyl. Will check echo and repeat bcx. No sign metastatic infection on exam. Will follow, thank you (2) Foot osteomyelitis, right: (3) Type 2 diabetes mellitus with diabetic polyneuropathy: HPI Consult Data Date of Consult: 06/06/23 HPI Narrative Reason for Consultation: bacteremia HPI Narrative: DARRYL CARLISLE, is a 43 M with DM neuropathy, prior osteo, presented 06/04 with 2-3 days of worsening R foot redness, mild pain, some weakness, some chills. Came to ED, admitted on vanc/zosyn, taken to OR 06/05/[address] Hogue. Feeling ok this AM, no fever overnight, no n/v/d. full ROS performed and neg except as noted above. [facility] Medical History Diabetes Gas gangrene Osteomyelitis of foot, right, acute Type 2 diabetes mellitus with diabetic polyneuropathy Home Medications insulin glargine-yfgn 100 unit/mL (3 mL) subcutaneous pen 15 unit (0.15 mL) subcut BID DIABETES #1 mL 02/18/23 [Rx Last Taken 06/03/23] insulin lispro 100 unit/mL subcutaneous pen (Humalog KwikPen (U-100) Insulin) 15 unit (0.15 mL) subcut BIDCM DIABETES #1 mL 02/18/23 [Rx Last Taken 06/03/23] insulin syringe-needle U-100 1 mL 29 gauge x 1/2 (Insulin Syringe) #100 ea 02/18/23 [Rx Last Taken Unknown] Allergy/AdvReac Type Severity Reaction Status Date / Time No Known Allergies Allergy Verified 06/04/23 09:36 Family History Mother Diabetes Father CVA (cerebral vascular accident) Surgical History Amputation toe History of partial ray amputation of fifth toe of right foot Social History Smoking Status: Never smoker alcohol intake: never substance use type: does not use what type of physical activity do you participate in: none Physical Exam Const alert, oriented x3 and no apparent distress General Appearance: cooperative HEENT normocephalic and head/scalp atraumatic Neck supple and No nodes Resp normal air movement and clear to auscultation bilaterally Cardio regular rate and regular rhythm Heart Sounds: Negative for murmur GI soft to palpation, non-tender and non-distended Extremity General Extremity: edema Skin Skin Narrative: reviewed photos of foot. No splinter hemorrhages. No joint/spine pain on palpation Neuro CN's II-XII intact bilaterally Lab / Micro Data Attestation: I reviewed the patient's lab results. 06/05/23 16:41 06/05/23 05:45 Labs: Laboratory Results - last 24 hr 06/05/23 06:00: POC Glucose 384 H 06/05/23 11:37: POC Glucose 300 H 06/05/23 14:08: POC Glucose 267 H 06/05/23 16:19: POC Glucose 239 H 06/05/23 16:41: Hgb 7.0 L, Hct 21.1 L 06/05/23 22:28: Vancomycin Trough 30.1 H 06/05/23 22:43: POC Glucose 295 H 06/05/23 : Acid Fast Stain Cancelled 06/05/23 : Acid Fast Stain Cancelled 06/05/23 : Acid Fast Stain Cancelled 06/05/23 : Acid Fast Stain Cancelled, Miscellaneous Cytology Cancelled 06/05/23 : Miscellaneous Cytology Cancelled 06/05/23 : Miscellaneous Cytology Cancelled 06/05/23 : Miscellaneous Cytology Cancelled 06/06/23 05:16: POC Glucose 233 H Micro: Microbiology 06/05/23 16:19 Tissue - Right Foot Wound Culture - Preliminary Staphylococcus aureus 06/05/23 16:19 Amputation - Other Wound Culture - Preliminary Staphylococcus aureus 06/05/23 16:19 Tissue - Left Foot Wound Culture - Preliminary Staphylococcus aureus 06/04/23 10:53 Wound - Right Foot Gram Stain - Final 06/04/23 10:53 Wound - Right Foot Wound Culture - Preliminary Staphylococcus aureus Streptococcus group C 06/04/23 10:40 Blood Culture (Wb) - Venous Bacteria Detection (PCR) - Final Meth. resistant Staph. aureus 06/04/23 10:40 Blood Culture (Wb) - Venous Blood Culture - Preliminary Radiology Impression Foot X-Ray 06/05/23 18:19 IMPRESSION: Status post amputation as described with unremarkable bony structures. Clinical correlation recommended and if indicated, follow up recommended. Electronically Signed: Shelby Florez MD at 19:07 EDT ,
[2023-06-06 10:52] LABS: Vancomycin, Random Level 21.6 ug/mL (0.0-15.0)
--- NOTE | 2023-06-06 10:58 | CASEMGMT ---
HARIKA BAIG Assessment: Face to Face with pt for initial transition planning/care coordination assessment. HARIKA BAIG introduced self and role at [facility], pt voices understanding and consents to assessment. Pt is A/O x4 and answers all questions appropriately at this time. Pt lying in bed in no distress with two visitors at bedside. Pt agreeable to assessment with visitors present. Care providers, pharmacy, and demographics verified/updated. Admitting Dx: osteomyelitis R foot PCP:Alex Specialists:linda Hogue [facility] Insurance: [employer] Prescription Benefit: no LNOK: Maggie Urena, Living Arrangements: Pt lives with mother, father and two sisters in a two story home. Pt states he only uses the main floor. Pt is I in ADL's. He states his sisters prepare meals, get groceries and do laundry. Pt denies concerns at home. Transportation: Pt drives self and denies concerns with transportation. Pt states he will have friends transport him to medical appts until he can drive again. DME/HHC/SNF: Pt has a BGM with sufficient supply of strips and lancets as well as insulin. Pt has a FWW, knee scooter, crutches and w/c. Pt states no concerns with going home at time of dc if he is on oral antibiotics. Pt states his sister provides wound care and can continue. He would not want HHC if he goes home. Pt states he was spoken to yesterday about possible IV atb. If he should need this, pt would like to go to a SNF prior to returning home for the administration of the IV atb. Pt states he has not rx coverage. Discussed if he would be able to afford a SNF with his insurance benefit, pt states he would be able to come up with the money to do so. Provided other options such as HHC as well. Pt states no further concerns/needs. CM to follow. Advised pt to ask CM if any further question/concerns/needs arise, voices understanding. Pt Goal: Home if on oral atb with sister continuing dressing changes; SNF if need IV atb Plan: Home if on oral atb with sister continuing dressing changes; SNF if need IV atb
[2023-06-06] MEDS: 0.9% Saline Lock 10 ML Syringe IV (11:44)
[2023-06-06 12:15] LABS: Bedside Glucose 261 mg/dL (74-106)
--- NOTE | 2023-06-06 12:29 | PCM.PROGNOTE ---
Subjective Subjective Day 1 postop right Chopart amputation Denies constitutional symptoms Denies pain No acute changes overnight Objective Data Objective Data Vital Signs: Vital Signs Temp Pulse Resp BP Pulse Ox O2 Del Method O2 Flow Rate 98.5 F 87 18 129/78 H 97 Room Air 2 06/06/23 08:15 06/06/23 08:15 06/06/23 08:15 06/06/23 08:15 06/06/23 08:15 06/06/23 08:15 06/05/23 16:56 Oxygen Flow Rate (L/min) 2 Oxygen Delivery Method Room Air Weight: 126.7 kg Body Mass Index (BMI) 43.7 Intake & Output: Intake and Output for Last 24 Hours 06/04/23 06/05/23 06/06/23 23:59 23:59 23:59 Intake Total 3029.00 / 3029.00 2681.25 / 2681.25 848.25 / 848.25 Output Total 600 / 600 1100 / 1100 350 / 350 Balance 2429.00 / 2429.00 1581.25 / 1581.25 498.25 / 498.25 Lab / Micro Data 06/05/23 16:41 06/05/23 05:45 Labs: Laboratory Results - last 24 hr 06/05/23 14:08: POC Glucose 267 H 06/05/23 16:19: POC Glucose 239 H 06/05/23 16:41: Hgb 7.0 L, Hct 21.1 L 06/05/23 22:28: Vancomycin Trough 30.1 H 06/05/23 22:43: POC Glucose 295 H 06/05/23 : Acid Fast Stain Cancelled 06/05/23 : Acid Fast Stain Cancelled 06/05/23 : Acid Fast Stain Cancelled 06/05/23 : Acid Fast Stain Cancelled, Miscellaneous Cytology Cancelled 06/05/23 : Miscellaneous Cytology Cancelled 06/05/23 : Miscellaneous Cytology Cancelled 06/05/23 : Miscellaneous Cytology Cancelled 06/06/23 05:16: POC Glucose 233 H 06/06/23 10:00: Random Vancomycin 21.6 H 06/06/23 11:36: POC Glucose 261 H Micro: Microbiology 06/05/23 16:19 Bone - Right Foot Wound Culture - Preliminary Gram positive organism 06/05/23 16:19 Amputation - Other Wound Culture - Preliminary Staphylococcus aureus 06/05/23 16:19 Tissue - Left Foot Wound Culture - Preliminary Staphylococcus aureus 06/05/23 16:19 Tissue - Right Foot Wound Culture - Preliminary Staphylococcus aureus 06/04/23 10:53 Wound - Right Foot Gram Stain - Final 06/04/23 10:53 Wound - Right Foot Wound Culture - Preliminary Staphylococcus aureus Streptococcus group C 06/04/23 10:40 Blood Culture (Wb) - Venous Bacteria Detection (PCR) - Final Meth. resistant Staph. aureus 06/04/23 10:40 Blood Culture (Wb) - Venous Blood Culture - Preliminary 06/04/23 10:40 Blood Culture (Wb) - Venous Blood Culture - Preliminary Radiography Diagnostic Testing: Radiology Impression Echocardiogram 06/05/23 13:31 Interpretation Summary The estimated ejection fraction is 55-60 %. Normal LV systolic function Mild TR Contrast echo used Definity No prior study to compare. Ordering Physician: Nasim Albert Performed By: Darren Barbosa RCS Foot X-Ray 06/05/23 18:19 IMPRESSION: Status post amputation as described with unremarkable bony structures. Clinical correlation recommended and if indicated, follow up recommended. Electronically Signed: Shelby Florez MD at 19:07 EDT , Physical Exam Narrative Neurovascular status unchanged. Edema improved today. Partially closed right (medial side open, exposed talus) Chopart amputation site noted with vessel loop closure and intermittent simple interrupted sutures. At current infection appears significantly improved. No residual purulence draining from wound site. Minimal periwound erythema. Improved edema and warmth. No sign of DVT. Const alert and oriented x3 Assessment & Plan Assessment/Plan (1) Non-pressure chronic ulcer of other part of right foot with necrosis of bone: (2) Other acute osteomyelitis, right ankle and foot: PLAN: Exam performed Vital signs stable leukocytosis 13.8 (9/6) (down from 16 on admission) - pending CBC/CRP today Infection was more severe than anticipated intraoperatively. Additional bone resection down to level of Chopart joint was performed. Today on examination there is significant improvement with regards to redness swelling and purulent drainage. There is noted to be a moderate amount of sanguinous drainage from the surgical site. Site was cleansed and redressed with iodoform packing, Adaptic, DSD, Fox compression dressing Intraoperative cultures demonstrate positive gram-positive organisms to soft tissue, positive Staph aureus to bone. Awaiting final cultures. ID on board. Patient receiving Vanco Zosyn and clindamycin. Recommend PICC line. Recommend SNF placement. Recommend diabetes education. Patient nonweightbearing on right. We will continue to follow daily for dressing changes. *If there is any additional wound degeneration, recurrence of purulent drainage we will consider repeat debridement of wound site. (3) Type 2 diabetes mellitus with diabetic polyneuropathy: (4) Foot osteomyelitis, right:
--- NOTE | 2023-06-06 12:34 | PCM.RX.CS ---
Consult Antibiotic Management Pharmacy has been consulted to manage selected antiobiotic: Vancomycin Type of Intervention Type of Consult: Follow-up Suspected Infection Suspected Infection: Bacteremia Prior Doses of Antibiotics Prior Doses of Antibiotics Received/Current Regimen: Vancomycin 2000 mg IV x 1 given 06/04/23 @ 1118 Vancomycin 1000 mg IV given 06/04/23 @ 2232, 06/05/23 @ 1037 Patient is also on cefepime 2 grams Q24H and metronidazole 500 mg PO TID Labs Labs: Sodium 132 mmol/L (136-145) L 06/05/23 05:45 Potassium 4.2 mmol/L (3.5-5.1) 06/05/23 05:45 Chloride 104 mmol/L (98-107) 06/05/23 05:45 Carbon Dioxide 20.0 mmol/L (21.0-32.0) L 06/05/23 05:45 Anion Gap 8 (5-15) 06/05/23 05:45 BUN 61 mg/dL (7-18) H 06/05/23 05:45 Creatinine 2.52 mg/dL (0.70-1.30) H 06/05/23 05:45 Est GFR (MDRD) Af Amer 36 mL/min (>60) L 06/05/23 05:45 Est GFR (MDRD) Non-Af 30 mL/min (>60) L 06/05/23 05:45 BUN/Creatinine Ratio 24.2 RATIO (10-20) H 06/05/23 05:45 Glucose 384 mg/dL (74-106) H 06/05/23 05:45 Vancomycin Trough 30.1 ug/mL (5.0-15.0) H 06/05/23 22:28 Random Vancomycin 21.6 ug/mL (0.0-15.0) H 06/06/23 10:00 Microbiology Microbiology: Microbiology 06/05/23 16:19 Bone - Right Foot Wound Culture - Preliminary Gram positive organism 06/05/23 16:19 Amputation - Other Wound Culture - Preliminary Staphylococcus aureus 06/05/23 16:19 Tissue - Left Foot Wound Culture - Preliminary Staphylococcus aureus 06/05/23 16:19 Tissue - Right Foot Wound Culture - Preliminary Staphylococcus aureus 06/04/23 10:53 Wound - Right Foot Gram Stain - Final 06/04/23 10:53 Wound - Right Foot Wound Culture - Preliminary Staphylococcus aureus Streptococcus group C 06/04/23 10:40 Blood Culture (Wb) - Venous Bacteria Detection (PCR) - Final Meth. resistant Staph. aureus 06/04/23 10:40 Blood Culture (Wb) - Venous Blood Culture - Preliminary 06/04/23 10:40 Blood Culture (Wb) - Venous Blood Culture - Preliminary Dosing Weight Weight used for dosin.7 kg Estimated Creatinine Clearance Estimated Creatinine Clearance: ~48 Goal Trough Goal Trough: 15-20 mcg/mL Pharmacy Plan for Drug Dosing Pharmacy Plan for Drug Dosing: Repeat trough was 21.6, patient with MRSA bacteremia, will resume vancomycin tonight with new dose of 1500 mg Q24H based on calculator. Trough prior to 3rd dose. Pharmacy Service will continue to monitor and adjust dosing as required. Follow-Up Labs Follow-Up Labs: Trough: Vancomycin Date/Time Labs Ordered Labs to be done on [date and time ordered]: 06/08/23 @ 3371
[2023-06-06 12:50] LABS: Hematocrit 21.7 % (40-54); Hemoglobin 6.8 g/dL (13.0-16.5); Mean Corp Hgb Conc 31.3 g/dL (32-36); Mean Corpuscular Hgb 26.8 pg (27.0-32.0); Mean Corpuscular Volume 85.4 fL (80-94); Mean Platelet Vol. 9.3 fl (6.2-12.0); POSITIVE COUNT YES; POSITIVE MORPHOLOGY YES; Platelet Count 659 K/mm3 (150-450); RBC Distribution Width CV 15.5 % (11.6-14.6); RBC Distribution Width SD 47.8 fl (35.1-43.9); Red Blood Count 2.54 M/mm3 (4.6-6.2); White Blood Count 14.8 K/mm3 (4.4-11.0)
[2023-06-06 12:51] LABS: Differential Indicated MANUAL DIFF
--- NOTE | 2023-06-06 13:08 | WOUNDNOTE ---
wound photo: right foot
--- NOTE | 2023-06-06 13:08 | WOUNDNOTE ---
wound photo: right foot
[2023-06-06 14:23] LABS: Lymphocyte 25 % (19-41); Metamyelocyte 2 % (0-1); Monocyte 1 % (0-10); Myelocyte 3 % (0-0); Neutrophil-Band 1 % (0-5); Neutrophil-Segmented 68 % (47-70); Platelet Estimate ADEQUATE (ADEQ); Red Cell Morphology NORM C+C NORMAL (NORM C&C); Total Cells Counted 100 (MANUAL DIFF)
[2023-06-06 14:24] LABS: Absolute Neutrophil Count 10.2 X10^3/uL (2.0-7.7)
[2023-06-06] MEDS: metroNIDAZOLE 500 MG Tablet PO ×2 (14:53→21:45)
[2023-06-06 14:55] VITALS: BP 127/74; PULSE 88; RESP 18; TEMP 37.2; O2SAT 98
--- NOTE | 2023-06-06 15:03 | CHAPLAIN ---
Type of Pastoral Visit _x__ Initial Visit ___ Follow-up Visit ___ On-call Visit ___ General Patient Visit ___ Spiritual Assessment ___ Family Conference ___ Bereavement ___ Rapid Response ___ Code Blue ___ Other (describe below) Pastoral Care Referral From _x__ Patient ___ Family ___ Nurse ___ Physician ___ Apiarist ___ Foil Wrapper ___ Other (describe below) Sacrament/Intervention _x__ Active listening ___ Anointing ___ Faith ___ Bereavement ___ Communion _x__ Lizabeth exploration ___ _x__ Life review _x__ Prayer ___ Reconciliation ___ Sacrament of Sick _x__ Supportive presence ___ Wedding ___ Other (describe below) Pastoral Comments patient is welcoming of spiritual care and is open about his lizabeth journey and perspective on his life and illness; pt admits to some disappointment that more was needed for amputation than planned but that I am trying to stay positive and that in some way this can be a blessing to others; pt gives life review and of his change from [employer] to [employer]; pt states that he has great peace now in his life; pt also has family support; 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
--- NOTE | 2023-06-06 17:00 | PN.HOSP_ITS ---
Reason for Visit Reason for Visit: Diagnoses Methicillin resistant Staphylococcus aureus infection as the cause of diseases classified elsewhere (06/04/23) Type 2 diabetes mellitus with diabetic polyneuropathy (06/04/23) Non-pressure chronic ulcer of other part of right foot with necrosis of bone (06/04/23) Other acute osteomyelitis, right ankle and foot (06/04/23) Osteomyelitis, unspecified (06/04/23) Bacteremia (06/04/23) Subjective Subjective No acute events overnight. Patient seen at bedside this morning. Laying comfortably in bed, conversing normally, no acute distress. Right foot appropriately bandaged after operation yesterday. Patient states that he has only mild right leg pain this morning. He denies any fevers or chills. Denies any chest pain or shortness of breath. Has not eaten much yet this morning and does not feel hungry at this point. No other acute concerns. Objective Data Objective Data Vital Signs: Vital Signs Temp Pulse Resp BP Pulse Ox O2 Del Method O2 Flow Rate 99.0 F 88 18 127/74 H 98 Room Air 2 06/06/23 14:55 06/06/23 14:55 06/06/23 14:55 06/06/23 14:55 06/06/23 14:55 06/06/23 14:55 06/05/23 16:56 Oxygen Flow Rate (L/min) 2 Oxygen Delivery Method Room Air Weight: 126.7 kg Body Mass Index (BMI) 43.7 Intake & Output: Intake and Output for Last 24 Hours 06/04/23 06/05/23 06/06/23 23:59 23:59 23:59 Intake Total 3029.00 / 3029.00 2681.25 / 2681.25 948.25 / 948.25 Output Total 600 / 600 1100 / 1100 350 / 350 Balance 2429.00 / 2429.00 1581.25 / 1581.25 598.25 / 598.25 Lab / Micro Data 06/06/23 12:40 06/05/23 05:45 Labs: Laboratory Results - last 24 hr 06/05/23 22:28: Vancomycin Trough 30.1 H 06/05/23 22:43: POC Glucose 295 H 06/05/23 : Acid Fast Stain Cancelled 06/05/23 : Acid Fast Stain Cancelled 06/05/23 : Acid Fast Stain Cancelled 06/05/23 : Acid Fast Stain Cancelled, Miscellaneous Cytology Cancelled 06/05/23 : Miscellaneous Cytology Cancelled 06/05/23 : Miscellaneous Cytology Cancelled 06/05/23 : Miscellaneous Cytology Cancelled 06/06/23 05:16: POC Glucose 233 H 06/06/23 10:00: Random Vancomycin 21.6 H 06/06/23 11:36: POC Glucose 261 H 06/06/23 12:40: WBC 14.8 H, RBC 2.54 L, Hgb 6.8 L, Hct 21.7 L, MCV 85.4, MCH 26.8 L, MCHC 31.3 L, RDW Std Deviation 47.8 H, RDW Coeff of Erica 15.5 H, Plt Count 659 H, MPV 9.3, Neut % (Auto) Not Reportable, Absolute Neuts (auto) 10.2 H , Absolute Lymphs (auto) 3.70, Total Counted 100, Neutrophils % (Manual) 68, Ba nd Neutrophils % 1, Lymphocytes % (Manual) 25, Monocytes % (Manual) 1, Metamyelocytes % 2 H, Myelocytes % 3 H, Diff Path Review May foll, Platelet Estimate ADEQUATE, RBC Morphology NORM C+C, C-React Prot Ext Range 163.00 H Micro: Microbiology 06/05/23 16:19 Bone - Right Foot Gram Stain - Final 06/05/23 16:19 Bone - Right Foot Wound Culture - Preliminary Gram positive organism 06/05/23 16:19 Tissue - Right Foot Gram Stain - Final 06/05/23 16:19 Tissue - Right Foot Wound Culture - Preliminary Staphylococcus aureus 06/05/23 16:19 Amputation - Other Gram Stain - Final 06/05/23 16:19 Amputation - Other Wound Culture - Preliminary Staphylococcus aureus 06/05/23 16:19 Tissue - Left Foot Gram Stain - Final 06/05/23 16:19 Tissue - Left Foot Wound Culture - Preliminary Staphylococcus aureus 06/04/23 10:53 Wound - Right Foot Gram Stain - Final 06/04/23 10:53 Wound - Right Foot Wound Culture - Preliminary Staphylococcus aureus Streptococcus group C 06/04/23 10:40 Blood Culture (Wb) - Venous Bacteria Detection (PCR) - Final Meth. resistant Staph. aureus 06/04/23 10:40 Blood Culture (Wb) - Venous Blood Culture - Preliminary 06/04/23 10:40 Blood Culture (Wb) - Venous Blood Culture - Preliminary Radiography Diagnostic Testing: Radiology Impression Echocardiogram 06/05/23 13:31 Interpretation Summary The estimated ejection fraction is 55-60 %. Normal LV systolic function Mild TR Contrast echo used Definity No prior study to compare. Ordering Physician: Nasim Albert Performed By: Darren Barbosa RCS Foot X-Ray 06/05/23 18:19 IMPRESSION: Status post amputation as described with unremarkable bony structures. Clinical correlation recommended and if indicated, follow up recommended. Electronically Signed: Shelby Florez MD at 19:07 EDT , Physical Exam Const alert and oriented x3 Constitutional Narrative: Pleasant male, morbidly obese, laying comfortably in bed, conversing normally, no acute distress. Does appear fatigued. General Appearance: cooperative and comfortable HEENT normocephalic, head/scalp atraumatic, hearing grossly normal bilaterally, nasal mucous membranes and turbinates normal and moist oral mucous membranes Eyes PERRL, EOMs intact bilaterally and conjunctivae normal Neck full ROM, no lymphadenopathy and supple Lymph Lymphatic: no lymphadenopathy noted Chest inspection of chest normal Resp normal respiratory effort, normal air movement, no use of accessory muscles and clear to auscultation bilaterally Cardio regular rate, regular rhythm, no murmurs and peripheral pulses 2+ throughout GI normal to inspection, nondistended, normoactive bowel sounds, soft to palpation, non-tender and non-distended Back/Spine normal ROM Extremity no pedal edema Extremity Narrative: Right lower leg with wrap in place. 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 1. Diabetic foot wound with osteomyelitis; sepsis without shock, improving X-ray right foot on admit showed osteomyelitis of the fifth metatarsal remnant with possible involvement of other metatarsals as noted in HPI above. CRP 338. Tachycardic, mildly tachypneic, low-grade fever, WBC count of 16 on admission. Previously had partial amputation of toe and distal ray of fifth metatarsal on right foot with Dr. Hogue in 01/2023. 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 Notably with MRSA bacteremia as below; wound cultures pending. Notably had wound cultures at start of April also with Enterobacter. ? Podiatry and ID following, appreciate recs. Vancomycin, cefepime and Flagyl for antibiotic coverage. Follow-up wound cultures. Will likely need PICC line placement for prolonged IV antibiotic management prior to discharge. Suspect patient also needs SNF placement on discharge for prolonged nonweightbearing status. Tylenol as needed for pain control. 2. MRSA bacteremia ? Secondary to right foot osteomyelitis. ID following as above. Treating with vancomycin, cefepime and Flagyl as noted above. TTE and repeat blood cultures ordered. 3. Acute on chronic normocytic anemia Secondary to anemia of chronic disease. Hemoglobin 8.7 on admit, MCV 83. Appears at baseline hemoglobin was around 10-12 back in January of this year. No acute signs of blood loss. Repeat hemoglobin 7.4 on 06/05 after IV fluid resuscitation. Iron studies show ferritin 2254, normal iron saturation consistent with anemia of chronic disease. Postoperative hemoglobin of 6.8 on 06/06. ? We will recheck CBC tomorrow morning. If hemoglobin still less than 7, will plan for transfusion. Will need to obtain consent. 4. SLIME on suspected CKD Creatinine 2.88 on admit, BUN 55. Patient's baseline creatinine appears to be around 1.3-1.4 on labs from January of this year. Suspect he has some degree of CKD in setting of poorly controlled insulin-dependent diabetes as noted below. Suspect SLIME is prerenal in setting of sepsis as above and fluid losses from hyperglycemia as noted below, along with some degree of ATN now as well. Creatinine only mildly improved to 2.5 on 06/05. ? Monitor BMP daily. Monitor urine output. Low concern for postobstructive etiology but can consider imaging if patient does not show improvement. Avoid nephrotoxins. 4. Elevated blood pressure readings ? BPs have been in the 150s to 170s systolic since arrival. Has no previous history of hypertension per patient. On my exam, did not appear to be in acute pain or distress. Suspect patient may have underlying essential hypertension. We will treat with IV labetalol for systolic BP greater than 180 for now, can consider adding oral antihypertensive agent on discharge as needed. 5. Insulin-dependent type 2 diabetes with hyperglycemia Reported home regimen of Lantus 15 units twice daily and Humalog 15 units twice daily. Unclear if patient has been taking this as prescribed. Previous A1c of 11.2% in January 2023. Hyperglycemia with glucose of 451 in the ED, suspect this is due to acute infection plus or minus poor adherence to home insulin regimen. Given 10 units of Humalog in the ED with recheck still in the 300s. A1c on admission 9.2%. ?Continue home Lantus 15 units twice daily, along with Humalog 10 units 3 times daily AC with high dosing sliding scale for now. Monitor sugars closely, adjust regimen as needed. Can consider endocrinology consult if blood sugars remain significantly uncontrolled. 6. Morbid obesity ? BMI 43. Encourage lifestyle modifications. DVT prophylaxis: Heparin subcu CODE STATUS: Full code, verified Expected disposition: TBD Total clinical time spent by myself addressing the patient's medical issues, reviewing all the data, and collaborating with patient's care team: 35 minutes. Charges/Coding Visit Charges Inpatient E&M: 94994 Subs Hosp L2
[2023-06-06 17:01] LABS: Bedside Glucose 258 mg/dL (74-106)
[2023-06-06 17:21] LABS: Bedside Glucose 154 mg/dL (74-106)
[2023-06-06 21:00] VITALS: BP 128/68; PULSE 89; RESP 18; TEMP 37.2; O2SAT 94
[2023-06-06 22:37] LABS: Bedside Glucose 158 mg/dL (74-106)
[2023-06-07 03:00] VITALS: BP 132/67; PULSE 88; RESP 18; TEMP 36.7; O2SAT 93
[2023-06-07 04:08] LABS: Bedside Glucose 146 mg/dL (74-106)
[2023-06-07] MEDS: metroNIDAZOLE 500 MG Tablet PO ×3 (06:43→21:20)
[2023-06-07] MEDS: Insulin Glargine-YFGN 100 UNIT/ML Pen 15 UNIT SC ×2 (08:45→21:21)
[2023-06-07] MEDS: Insulin Lispro 100 UNIT/ML INSULN.PEN 10 UNIT SC ×3 (08:48→17:09)
[2023-06-07] MEDS: Heparin Injection (Vial) 5,000 UNIT/ML VIAL 5000 UNIT SC ×2 (08:50→21:21)
[2023-06-07] MEDS: Juven (unflavored) Packet 1 PACKET PO ×2 (08:54→17:07)
[2023-06-07 09:00] VITALS: BP 143/80; PULSE 87; RESP 18; TEMP 36.8; O2SAT 97
--- NOTE | 2023-06-07 10:10 | CASEMGMT ---
Addendum entered by Kathryn Thompson 06/07/23 10:34: A list of SNF providers including quality and resource use data and consistent with the patient?s preferred geographic region, medical needs, and insurance network were provided from the [employer] Guide for consideration during decision making. ARMIN Shirley Original Note: Social Work SW met with pt to discuss discharge plan. Per physician, pt will likely need IV ATB upon discharge. SW spoke with pt regarding discharge options including SNF, home health RN with home IV ATB and daily visits to [facility] to receive IV infusions. Cost of each option discussed as pt does not have traditional insurance. Pt to contact his insurance provider regarding possible coverage, speak with family and consider discharge options. TIKA/SAFIA to follow up with pt to finalize d/c plan. ARMIN Shirley
--- NOTE | 2023-06-07 10:59 | PN.HOSP_ITS ---
Reason for Visit Reason for Visit: Diagnoses Methicillin resistant Staphylococcus aureus infection as the cause of diseases classified elsewhere (06/04/23) Type 2 diabetes mellitus with diabetic polyneuropathy (06/04/23) Non-pressure chronic ulcer of other part of right foot with necrosis of bone (06/04/23) Other acute osteomyelitis, right ankle and foot (06/04/23) Osteomyelitis, unspecified (06/04/23) Bacteremia (06/04/23) Subjective Subjective No acute events overnight. Patient seen at bedside this morning. Laying comfortably in bed, conversing normally, no acute distress. Appears more awake and alert today than yesterday. States he has minimal pain at right foot amputation site. Has had improved eating and drinking over the last 24 hours. Denies any fevers or chills. Denies any abdominal pain, chest pain or shortness of breath. No other acute concerns morning. Objective Data Objective Data Vital Signs: Vital Signs Temp Pulse Resp BP Pulse Ox O2 Del Method O2 Flow Rate 98.2 F 87 18 143/80 H 97 Room Air 2 06/07/23 09:00 06/07/23 09:00 06/07/23 09:00 06/07/23 09:00 06/07/23 09:00 06/07/23 09:00 06/05/23 16:56 Oxygen Flow Rate (L/min) 2 Oxygen Delivery Method Room Air Weight: 126.7 kg Body Mass Index (BMI) 43.7 Intake & Output: Intake and Output for Last 24 Hours 06/05/23 06/06/23 06/07/23 23:59 23:59 23:59 Intake Total 2681.25 / 2681.25 1878.25 / 1878.25 241 / 241 Output Total 1100 / 1100 1050 / 1050 Balance 1581.25 / 1581.25 828.25 / 828.25 241 / 241 Lab / Micro Data 06/06/23 12:40 06/05/23 05:45 Labs: Laboratory Results - last 24 hr 06/06/23 02:40: POC Glucose 258 H 06/06/23 11:36: POC Glucose 261 H 06/06/23 12:40: WBC 14.8 H, RBC 2.54 L, Hgb 6.8 L, Hct 21.7 L, MCV 85.4, MCH 26.8 L, MCHC 31.3 L, RDW Std Deviation 47.8 H, RDW Coeff of Erica 15.5 H, Plt Count 659 H, MPV 9.3, Neut % (Auto) Not Reportable, Absolute Neuts (auto) 10.2 H , Absolute Lymphs (auto) 3.70, Total Counted 100, Neutrophils % (Manual) 68, Band Neutrophils % 1, Lymphocytes % (Manual) 25, Monocytes % (Manual) 1, Metamyelocytes % 2 H, Myelocytes % 3 H, Diff Path Review May foll, Platelet Estimate ADEQUATE, RBC Morphology NORM C+C, C-React Prot Ext Range 163.00 H 06/06/23 16:53: POC Glucose 154 H 06/06/23 21:41: POC Glucose 158 H 06/07/23 03:11: POC Glucose 146 H Micro: Microbiology 06/05/23 16:19 Bone - Right Foot Gram Stain - Final 06/05/23 16:19 Bone - Right Foot Wound Culture - Preliminary Staphylococcus aureus Streptococcus group C 06/05/23 16:19 Bone - Right Foot Anaerobic Culture - Preliminary Checking for anaerobes, further studies to follow. 06/05/23 16:19 Tissue - Left Foot Gram Stain - Final 06/05/23 16:19 Tissue - Left Foot Wound Culture - Final Meth. resistant Staph. aureus 06/05/23 16:19 Tissue - Left Foot Anaerobic Culture - Preliminary Checking for anaerobes, further studies to follow. 06/05/23 16:19 Tissue - Right Foot Gram Stain - Final 06/05/23 16:19 Tissue - Right Foot Wound Culture - Final Meth. resistant Staph. aureus 06/05/23 16:19 Tissue - Right Foot Anaerobic Culture - Preliminary Checking for anaerobes, further studies to follow. 06/05/23 16:19 Amputation - Other Gram Stain - Final 06/05/23 16:19 Amputation - Other Wound Culture - Final Meth. resistant Staph. aureus 06/05/23 16:19 Amputation - Other Anaerobic Culture - Preliminary Checking for anaerobes, further studies to follow. 06/04/23 10:40 Blood Culture (Wb) - Venous Blood Culture - Final Meth. resistant Staph. aureus 06/04/23 10:40 Blood Culture (Wb) - Venous Bacteria Detection (PCR) - Final Meth. resistant Staph. aureus 06/04/23 10:40 Blood Culture (Wb) - Venous Blood Culture - Final Meth. resistant Staph. aureus 06/04/23 10:53 Wound - Right Foot Gram Stain - Final 06/04/23 10:53 Wound - Right Foot Wound Culture - Final Meth. resistant Staph. aureus Streptococcus group C 06/05/23 16:31 Blood Culture (Wb) - Anticubital Left Blood Culture - Preliminary Radiography Diagnostic Testing: Radiology Impression Echocardiogram 06/05/23 13:31 Interpretation Summary The estimated ejection fraction is 55-60 %. Normal LV systolic function Mild TR Contrast echo used Definity No prior study to compare. Ordering Physician: Nasim Albert Performed By: Darren Barbosa RCS Physical Exam Const alert and oriented x3 Constitutional Narrative: Pleasant male, morbidly obese, laying comfortably in bed, conversing normally, no acute distress. Appears more awake and alert today. General Appearance: cooperative and comfortable HEENT normocephalic, head/scalp atraumatic, hearing grossly normal bilaterally, nasal mucous membranes and turbinates normal and moist oral mucous membranes Eyes PERRL, EOMs intact bilaterally and conjunctivae normal Neck full ROM, no lymphadenopathy and supple Lymph Lymphatic: no lymphadenopathy noted Chest inspection of chest normal Resp normal respiratory effort, normal air movement, no use of accessory muscles and clear to auscultation bilaterally Cardio regular rate, regular rhythm, no murmurs and peripheral pulses 2+ throughout GI normal to inspection, nondistended, normoactive bowel sounds, soft to palpation, non-tender and non-distended Back/Spine normal ROM Extremity no pedal edema Extremity Narrative: Right lower leg with wrap in place. 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 1. Diabetic foot wound with osteomyelitis; sepsis without shock, improving X-ray right foot on admit showed osteomyelitis of the fifth metatarsal remnant with possible involvement of other metatarsals as noted in HPI above. CRP 338. Tachycardic, mildly tachypneic, low-grade fever, WBC count of 16 on admission. Previously had partial amputation of toe and distal ray of fifth metatarsal on right foot with Dr. Hogue in 01/2023. 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 Notably with MRSA bactere meme as below; wound cultures pending. Notably had wound cultures at start of April also with Enterobacter. ? Podiatry and ID following. Vancomycin, cefepime and Flagyl for antibiotic coverage. Follow-up wound cultures. Will likely need PICC line placement for prolonged IV antibiotic management prior to discharge. Suspect patient also needs SNF placement on discharge for prolonged nonweightbearing status. Tylenol as needed for pain control. 2. MRSA bacteremia ? Secondary to right foot osteomyelitis. ID following as above. Treating with vancomycin, cefepime and Flagyl as noted above. TTE 06/06 with no valve abnormalities or intracardiac vegetations noted. Will defer to ID on need for possible JEREMIAH. Repeat blood cultures ordered. 3. Acute on chronic normocytic anemia Secondary to anemia of chronic disease. Hemoglobin 8.7 on admit, MCV 83. Appears at baseline hemoglobin was around 10-12 back in January of this year. No acute signs of blood loss. Repeat hemoglobin 7.4 on 06/05 after IV fluid resuscitation. Iron studies show ferritin 2254, normal iron saturation consistent with anemia of chronic disease. Postoperative hemoglobin of 6.8 on 06/06. ? Repeat CBC this morning pending. If hemoglobin still less than 7, will plan for transfusion. Will need to obtain consent. 4. SLIME on suspected CKD Creatinine 2.88 on admit, BUN 55. Patient's baseline creatinine appears to be a round 1.3-1.4 on labs from January of this year. Suspect he has some degree of CKD in setting of poorly controlled insulin-dependent diabetes as noted below. Suspect SLIME is prerenal in setting of sepsis as above and fluid losses from hyperglycemia as noted below, along with some degree of ATN now as well. Creatinine only mildly improved to 2.5 on 06/05. ? Monitor BMP daily. Monitor urine output. Low concern for postobstructive etiology but can consider imaging if patient does not show improvement. Avoid nephrotoxins. 4. Elevated blood pressure readings ? BPs have been in the 150s to 170s systolic since arrival. Has no previous history of hypertension per patient. On my exam, did not appear to be in acute pain or distress. Suspect patient may have underlying essential hypertension. We will treat with IV labetalol for systolic BP greater than 180 for now, can consider adding oral antihypertensive agent on discharge as needed. 5. Insulin-dependent type 2 diabetes with hyperglycemia Reported home regimen of Lantus 15 units twice daily and Humalog 15 units twice daily. Unclear if patient has been taking this as prescribed. Previous A1c of 11.2% in January 2023. Hyperglycemia with glucose of 451 in the ED, suspect this is due to acute infection plus or minus poor adherence to home insulin regimen. Given 10 units of Humalog in the ED with recheck still in the 300s. A1c on adm ission 9.2%. ?Continue home Lantus 15 units twice daily, along with Humalog 10 units 3 times daily AC with high dosing sliding scale for now. Monitor sugars closely, adjust regimen as needed. Can consider endocrinology consult if blood sugars remain significantly uncontrolled. 6. Morbid obesity ? BMI 43. Encourage lifestyle modifications. DVT prophylaxis: Heparin subcu CODE STATUS: Full code, verified Expected disposition: SNF, D Total clinical time spent by myself addressing the patient's medical issues, reviewing all the data, and collaborating with patient's care team: 35 minutes. Charges/Coding Visit Charges Inpatient E&M: 10302 Subs Hosp L2
--- NOTE | 2023-06-07 11:33 | CASEMGMT ---
Discharge Planning A list of home health providers including quality and resource use data and consistent with the patient?s preferred geographic region, medical needs, and insurance network was created in [employer] Guide. This list was provided to the RN SAFIA. Jessi Orta, Discharge Planning Asst.
--- NOTE | 2023-06-07 11:46 | PN_ITS ---
Subjective Subjective Patient resting comfortably denies pain/constitutionals no acute changes overnight day 2 post op Objective Data Objective Data Vital Signs: Vital Signs Temp Pulse Resp BP Pulse Ox O2 Del Method O2 Flow Rate 98.2 F 87 18 143/80 H 97 Room Air 2 06/07/23 09:00 06/07/23 09:00 06/07/23 09:00 06/07/23 09:00 06/07/23 09:00 06/07/23 09:00 06/05/23 16:56 Oxygen Flow Rate (L/min) 2 Oxygen Delivery Method Room Air Weight: 126.7 kg Body Mass Index (BMI) 43.7 Intake & Output: Intake and Output for Last 24 Hours 06/05/23 06/06/23 06/07/23 23:59 23:59 23:59 Intake Total 2681.25 / 2681.25 1878.25 / 1878.25 341 / 341 Output Total 1100 / 1100 1050 / 1050 Balance 1581.25 / 1581.25 828.25 / 828.25 341 / 341 Lab / Micro Data 06/06/23 12:40 06/05/23 05:45 Labs: Laboratory Results - last 24 hr 06/06/23 02:40: POC Glucose 258 H 06/06/23 11:36: POC Glucose 261 H 06/06/23 12:40: WBC 14.8 H, RBC 2.54 L, Hgb 6.8 L, Hct 21.7 L, MCV 85.4, MCH 26.8 L, MCHC 31.3 L, RDW Std Deviation 47.8 H, RDW Coeff of Erica 15.5 H, Plt Count 659 H, MPV 9.3, Neut % (Auto) Not Reportable, Absolute Neuts (auto) 10.2 H , Absolute Lymphs (auto) 3.70, Total Counted 100, Neutrophils % (Manual) 68, Band Neutrophils % 1, Lymphocytes % (Manual) 25, Monocytes % (Manual) 1, Metamyelocytes % 2 H, Myelocytes % 3 H, Diff Path Review May , Platelet Estimate ADEQUATE, RBC Morphology NORM C+C, C-React Prot Ext Range 163.00 H 06/06/23 16:53: POC Glucose 154 H 06/06/23 21:41: POC Glucose 158 H 06/07/23 03:11: POC Glucose 146 H Micro: Microbiology 06/05/23 16:19 Bone - Right Foot Gram Stain - Final 06/05/23 16:19 Bone - Right Foot Wound Culture - Preliminary Staphylococcus aureus Streptococcus group C 06/05/23 16:19 Bone - Right Foot Anaerobic Culture - Preliminary Checking for anaerobes, further studies to follow. 06/05/23 16:19 Tissue - Left Foot Gram Stain - Final 06/05/23 16:19 Tissue - Left Foot Wound Culture - Final Meth. resistant Staph. aureus 06/05/23 16:19 Tissue - Left Foot Anaerobic Culture - Preliminary Checking for anaerobes, further studies to follow. 06/05/23 16:19 Tissue - Right Foot Gram Stain - Final 06/05/23 16:19 Tissue - Right Foot Wound Culture - Final Meth. resistant Staph. aureus 06/05/23 16:19 Tissue - Right Foot Anaerobic Culture - Preliminary Checking for anaerobes, further studies to follow. 06/05/23 16:19 Amputation - Other Gram Stain - Final 06/05/23 16:19 Amputation - Other Wound Culture - Final Meth. resistant Staph. aureus 06/05/23 16:19 Amputation - Other Anaerobic Culture - Preliminary Checking for anaerobes, further studies to follow. 06/04/23 10:40 Blood Culture (Wb) - Venous Blood Culture - Final Meth. resistant Staph. aureus 06/04/23 10:40 Blood Culture (Wb) - Venous Bacteria Detection (PCR) - Final Meth. resistant Staph. aureus 06/04/23 10:40 Blood Culture (Wb) - Venous Blood Culture - Final Meth. resistant Staph. aureus 06/04/23 10:53 Wound - Right Foot Gram Stain - Final 06/04/23 10:53 Wound - Right Foot Wound Culture - Final Meth. resistant Staph. aureus Streptococcus group C 06/05/23 16:31 Blood Culture (Wb) - Anticubital Left Blood Culture - Preliminary Radiography Diagnostic Testing: Radiology Impression Echocardiogram 06/05/23 13:31 Interpretation Summary The estimated ejection fraction is 55-60 %. Normal LV systolic function Mild TR Contrast echo used Definity No prior study to compare. Ordering Physician: Nasim Albert Performed By: Darren Barbosa RCS Physical Exam Narrative Neurovascular status unchanged. Edema improved today. Partially closed right (medial side open, exposed talus) Chopart amputation site noted with vessel loop closure and intermittent simple interrupted sutures. At current infection appears significantly improved. No residual purulence draining from wound site. Minimal periwound erythema. Improved edema and warmth. No sign of DVT. Const alert and oriented x3 Assessment & Plan Assessment/Plan (1) Non-pressure chronic ulcer of other part of right foot with necrosis of bone: (2) Other acute osteomyelitis, right ankle and foot: PLAN: Exam performed Vital signs stable leukocytosis 13.8 (9/6) 14.8 (9/7) (down from 16 on admission) CRP (338->163) Infection was more severe than anticipated intraoperatively. Additional bone resection down to level of Chopart joint was performed. Moderate serosainguionous drainage noted today - resolved edema/er ythema/purulence Site was cleansed and redressed with iodoform packing, Adaptic, DSD, Fox compression dressing - will continue this daily Tissue cultures (+) MRSA Bone Culture (+) Staph aureus/Group C Strep ID on board Recommend PICC line. Recommend SNF placement. Recommend diabetes education. Patient nonweightbearing on right. We will plan to re-evaluate wound site on saturday for any additional debridement *If there is any additional wound degeneration, recurrence of purulent drainage we will consider repeat debridement of wound site. (3) Type 2 diabetes mellitus with diabetic polyneuropathy: (4) Foot osteomyelitis, right:
[2023-06-07] MEDS: Insulin Lispro 100 UNIT/ML INSULN.PEN SC ×2 (12:01→21:20)
[2023-06-07 12:39] LABS: Bedside Glucose 190 mg/dL (74-106)
--- NOTE | 2023-06-07 12:52 | PCM.PN.ID ---
Physical Exam Narrative Feeling better, no fever, no n/v/d. Const alert and no apparent distress General Appearance: cooperative Resp normal air movement and clear to auscultation bilaterally Cardio regular rate and regular rhythm GI soft to palpation, non-tender and non-distended Skin Skin Narrative: foot wrapped ID ID: Route of nutrition/ use of supplements: [] Nutritional Intake: [] IV Site: [] Ibarra Catheter: [] Assessment & Plan Assessment/Plan (1) MRSA bacteremia: PLAN: MRSA bacteremia due to R foot osteo - now s/p OR 06/05/[address] Hogue. Wound cx at start of April also with enterobacter, so on vanc/cefepime/flagyl. No veg seen on echo and pending repeat bcx. No sign metastatic infection on exam. Will repeat bcx today and tomorrow. No picc until bcx neg at 72 h. Will follow (2) Foot osteomyelitis, right: (3) Type 2 diabetes mellitus with diabetic polyneuropathy:
[2023-06-07 13:27] LABS: Pathologist Review Reviewed
--- NOTE | 2023-06-07 13:34 | CASEMGMT ---
Social Work SW met with pt to discuss discharge plan. Pt states he did talk to his insurance company who confirmed they will not cover the cost of a SNF or the needed medications. Pt did not inquire about coverage for home health. Pt states he spoke with his family and they will be in tonight to make decision on discharge. Pt states he is leaning toward SNF. Per the physicians, pt will be her through the weekend. SW to followup on Saturday for d/c planning. ARMIN Shirley
[2023-06-07 14:56] VITALS: BP 137/71; PULSE 88; RESP 19; TEMP 36.6; O2SAT 98
[2023-06-07 17:09] LABS: Bedside Glucose 152 mg/dL (74-106)
[2023-06-07 20:30] VITALS: BP 127/74; PULSE 92; RESP 16; TEMP 36.7; O2SAT 97
[2023-06-07 23:06] LABS: Bedside Glucose 167 mg/dL (74-106)
[2023-06-08 02:35] VITALS: BP 136/73; PULSE 87; RESP 16; TEMP 36.6; O2SAT 96
[2023-06-08 05:04] LABS: Bedside Glucose 144 mg/dL (74-106)
[2023-06-08] MEDS: metroNIDAZOLE 500 MG Tablet PO ×3 (06:09→21:28)
[2023-06-08 08:00] VITALS: BP 137/72; PULSE 84; RESP 18; TEMP 37.6; O2SAT 97
[2023-06-08 08:07] LABS: Bedside Glucose 117 mg/dL (74-106)
[2023-06-08 08:17] VITALS: PULSE 84
[2023-06-08] MEDS: Insulin Lispro 100 UNIT/ML INSULN.PEN 10 UNIT SC ×3 (09:00→17:23)
[2023-06-08] MEDS: Heparin Injection (Vial) 5,000 UNIT/ML VIAL 5000 UNIT SC ×2 (10:27→21:28)
[2023-06-08] MEDS: Juven (unflavored) Packet 1 PACKET PO ×2 (10:27→17:24)
[2023-06-08] MEDS: Insulin Glargine-YFGN 100 UNIT/ML Pen 15 UNIT SC ×2 (10:27→21:27)
[2023-06-08 11:39] LABS: Differential Indicated MANUAL DIFF; Hematocrit 22.7 % (40-54); Hemoglobin 7.1 g/dL (13.0-16.5); Mean Corp Hgb Conc 31.3 g/dL (32-36); Mean Corpuscular Hgb 27.2 pg (27.0-32.0); POSITIVE COUNT YES; POSITIVE MORPHOLOGY YES; Platelet Count 726 K/mm3 (150-450); RBC Distribution Width CV 16.1 % (11.6-14.6); RBC Distribution Width SD 51.1 fl (35.1-43.9); Red Blood Count 2.61 M/mm3 (4.6-6.2); White Blood Count 13.1 K/mm3 (4.4-11.0)
[2023-06-08 11:47] LABS: Bedside Glucose 172 mg/dL (74-106)
[2023-06-08 12:00] VITALS: PULSE 70
[2023-06-08 12:01] LABS: Anion Gap 5 (5-15); BUN 41 mg/dL (7-18); BUN/Creat Ratio 22.4 RATIO (10-20); Calcium,Total 7.9 mg/dL (8.5-10.1); Chloride 111 mmol/L (98-107); Creatinine, Serum 1.83 mg/dL (0.70-1.30); EST Glomerular Filtration Rate 43 mL/min (>60); Eosinophil 3 % (0-5); Est Glom Filt Rate - Afr Amer 52 mL/min (>60); Estimated Creatinine Clearance 48.16 ml/min; Glucose 175 mg/dL (74-106); Lymphocyte 19 % (19-41); Metamyelocyte 8 % (0-1); Monocyte 2 % (0-10); Myelocyte 1 % (0-0); Neutrophil-Band 4 % (0-5); Neutrophil-Segmented 63 % (47-70); Nucleated Red Bld Cells,Manual 1 % (0-5); Platelet Estimate MOD INC (ADEQ); Potassium 3.9 mmol/L (3.5-5.1); Sodium Level 137 mmol/L (136-145); Total Cells Counted 100 (MANUAL DIFF)
[2023-06-08 12:02] LABS: Absolute Neutrophil Count 8.8 X10^3/uL (2.0-7.7); Hypochromasia 1+; Red Cell Morphology N CYTIC NORMAL (NORM C&C)
[2023-06-08 12:03] LABS: Absolute Lymphocyte Count 2.49 X10^3/uL (0.83-4.51); Lymphocyte # 2.49 X10^3/ul (0.83-4.51)
--- NOTE | 2023-06-08 12:50 | PN.HOSP_ITS ---
Reason for Visit Reason for Visit: Diagnoses Methicillin resistant Staphylococcus aureus infection as the cause of diseases classified elsewhere (06/04/23) Type 2 diabetes mellitus with diabetic polyneuropathy (06/04/23) Non-pressure chronic ulcer of other part of right foot with necrosis of bone (06/04/23) Other acute osteomyelitis, right ankle and foot (06/04/23) Osteomyelitis, unspecified (06/04/23) Bacteremia (06/04/23) Subjective Subjective No acute events overnight. Patient seen at bedside this morning. Sitting comfortably in bed, conversing normally, no acute distress. Denies any right leg pain this morning. Denies any shortness of breath. Denies any fevers or chills. Has been eating and drinking well. No other acute concerns. Objective Data Objective Data Vital Signs: Vital Signs Temp Pulse Resp BP Pulse Ox O2 Del Method O2 Flow Rate 99.6 F H 84 18 137/72 H 97 Room Air 2 06/08/23 08:00 06/08/23 08:17 06/08/23 08:00 06/08/23 08:00 06/08/23 08:00 06/08/23 08:00 06/05/23 16:56 Oxygen Flow Rate (L/min) 2 Oxygen Delivery Method Room Air Weight: 126.7 kg Body Mass Index (BMI) 43.7 Intake & Output: Intake and Output for Last 24 Hours 06/06/23 06/07/23 06/08/23 23:59 23:59 23:59 Intake Total 1878.25 / 1878.25 1271 / 1271 250 / 250 Output Total 1050 / 1050 1080 / 1080 850 / 850 Balance 828.25 / 828.25 191 / 191 -600 / -600 Lab / Micro Data 06/08/23 11:15 06/08/23 11:15 Labs: Laboratory Results - last 24 hr 06/06/23 12:40: Diff Path Review Reviewed 06/07/23 16:41: POC Glucose 152 H 06/07/23 21:19: POC Glucose 167 H 06/08/23 02:37: POC Glucose 144 H 06/08/23 07:40: POC Glucose 117 H 06/08/23 11:15: WBC 13.1 H, RBC 2.61 L, Hgb 7.1 L, Hct 22.7 L, MCV 87.0, MCH 27.2, MCHC 31.3 L, RDW Std Deviation 51.1 H, RDW Coeff of Erica 16.1 H, Plt Count 726 H, MPV 9.0, Neut % (Auto) Not Reportable, Absolute Neuts (auto) 8.8 H, Absolute Lymphs (auto) 2.49, Total Counted 100, Neutrophils % (Manual) 63, Band Neutrophils % 4, Lymphocytes % (Manual) 19, Monocytes % (Manual) 2, Eosinophils % (Manual) 3, Metamyelocytes % 8 H, Myelocytes % 1 H, Nucleated RBCs/100 WBC 1, Diff Path Review January foll, Platelet Estimate MOD INC, RBC Morphology N CYTIC, Hypochromasia 1+, Sodium 137, Potassium 3.9, Chloride 111 H, Carbon Dioxide 21.0, Anion Gap 5, BUN 41 H, Creatinine 1.83 H, Estim Creat Clear Calc 48.16, Est GFR (MDRD) Af Amer 52 L, Est GFR (MDRD) Non-Af 43 L, BUN/Creatinine Ratio 22.4 H, Glucose 175 H, Calcium 7.9 L, C-React Prot Ext Range 104.00 H 06/08/23 11:30: POC Glucose 172 H Micro: Microbiology 06/05/23 16:19 Bone - Right Foot Gram Stain - Final 06/05/23 16:19 Bone - Right Foot Wound Culture - Final Meth. resistant Staph. aureus Streptococcus group C 06/05/23 16:19 Bone - Right Foot Anaerobic Culture - Preliminary Checking for anaerobes, further studies to follow. 06/06/23 10:00 Blood Culture (Wb) - Venous Blood Culture - Preliminary No growth in 48 hours. 06/05/23 16:31 Blood Culture (Wb) - Anticubital Left Blood Culture - Preliminary Staphylococcus aureus 06/05/23 16:19 Tissue - Right Foot Gram Stain - Final 06/05/23 16:19 Tissue - Right Foot Wound Culture - Final Meth. resistant Staph. aureus 06/05/23 16:19 Tissue - Right Foot Anaerobic Culture - Final No anaerobic bacteria isolated. 06/05/23 16:19 Amputation - Other Gram Stain - Final 06/05/23 16:19 Amputation - Other Wound Culture - Final Meth. resistant Staph. aureus 06/05/23 16:19 Amputation - Other Anaerobic Culture - Final No anaerobic bacteria isolated. 06/05/23 16:19 Tissue - Left Foot Gram Stain - Final 06/05/23 16:19 Tissue - Left Foot Wound Culture - Final Meth. resistant Staph. aureus 06/05/23 16:19 Tissue - Left Foot Anaerobic Culture - Final No anaerobic bacteria isolated. 06/04/23 10:40 Blood Culture (Wb) - Venous Blood Culture - Final Meth. resistant Staph. aureus 06/04/23 10:40 Blood Culture (Wb) - Venous Bacteria Detection (PCR) - Final Meth. resistant Staph. aureus 06/04/23 10:40 Blood Culture (Wb) - Venous Blood Culture - Final Meth. resistant Staph. aureus 06/04/23 10:53 Wound - Right Foot Gram Stain - Final 06/04/23 10:53 Wound - Right Foot Wound Culture - Final Meth. resistant Staph. aureus Streptococcus group C Physical Exam Const alert and oriented x3 Constitutional Narrative: Pleasant male, morbidly obese, laying comfortably in bed, conversing normally, no acute distress. General Appearance: cooperative and comfortable HEENT normocephalic, head/scalp atraumatic, hearing grossly normal bilaterally, nasal mucous membranes and turbinates normal and moist oral mucous membranes Eyes PERRL, EOMs intact bilaterally and conjunctivae normal Neck full ROM, no lymphadenopathy and supple Lymph Lymphatic: no lymphadenopathy noted Chest inspection of chest normal Resp normal respiratory effort, normal air movement, no use of accessory muscles and clear to auscultation bilaterally Cardio regular rate, regular rhythm, no murmurs and peripheral pulses 2+ throughout GI normal to inspection, nondistended, normoactive bowel sounds, soft to palpation, non-tender and non-distended Back/Spine normal ROM Extremity no pedal edema Extremity Narrative: Right lower leg with wrap in place. 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 1. Diabetic foot wound with osteomyelitis; sepsis without shock, improving X-ray right foot on admit showed osteomyelitis of the fifth metatarsal remnant with possible involvement of other metatarsals as noted in HPI above. CRP 338. Tachycardic, mildly tachypneic, low-grade fever, WBC count of 16 on admission. Previously had partial amputation of toe and distal ray of fifth metatarsal on right foot with Dr. Hogue in 01/2023. 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 Notably with MRSA bacteremia as below; wound cultures pending. Notably had wound cultures at start of April also with Enterobacter. ? Podiatry and ID following. Vancomycin, cefepime and Flagyl for antibiotic coverage. Follow-up wound cultures. Will eventually require PICC line placem ent for prolonged IV antibiotic management prior to discharge. Suspect patient also needs SNF placement on discharge for prolonged nonweightbearing status. Tylenol as needed for pain control. 2. MRSA bacteremia ? Secondary to right foot osteomyelitis. ID following as above. Treating with vancomycin, cefepime and Flagyl as noted above. TTE 06/06 with no valve abnormalities or intracardiac vegetations noted. Will defer to ID on need for possible JEREMIAH. Repeat blood cultures ordered. 3. Acute on chronic normocytic anemia Secondary to anemia of chronic disease. Hemoglobin 8.7 on admit, MCV 83. Appears at baseline hemoglobin was around 10-12 back in January of this year. No acute signs of blood loss. Repeat hemoglobin 7.4 on 06/05 after IV fluid resuscitation. Iron studies show ferritin 2254, normal iron saturation consistent with anemia of chronic disease. Postoperative hemoglobin of 6.8 on 06/06. Repeat hemoglobin 7.1 on 06/08. ? Monitor CBC daily. Transfuse for hemoglobin less than 7. 4. SLIME on suspected CKD, improving Creatinine 2.88 on admit, BUN 55. Patient's baseline creatinine appears to be around 1.3-1.4 on labs from January of this year. Suspect he has some degree of CKD in setting of poorly controlled insulin-dependent diabetes as noted below. Suspect SLIME is prerenal in setting of sepsis as above and fluid losses from hyperglycemia as noted below, along with some degree of ATN now as well. ? Improving, creatinine 1.8 on 06/08. Good urine output. Monitor BMP daily. Avoid nephrotoxins. 4. Elevated blood pressure readings ? BPs have been in the 150s to 170s systolic since arrival. Has no previous history of hypertension per patient. On my exam, did not appear to be in acute pain or distress. Suspect patient may have underlying essential hypertension. We will treat with IV labetalol for systolic BP greater than 180 for now, can consider adding oral antihypertensive agent on discharge as needed. 5. Insulin-dependent type 2 diabetes with hyperglycemia Reported home regimen of Lantus 15 units twice daily and Humalog 15 units twice daily. Unclear if patient has been taking this as prescribed. Previous A1c of 11.2% in January 2023. Hyperglycemia with glucose of 451 in the ED, suspect this is due to acute infection plus or minus poor adherence to home insulin regimen. Given 10 units of Humalog in the ED with recheck still in the 300s. A1c on admi ssion 9.2%. ?Continue home Lantus 15 units twice daily, along with Humalog 10 units 3 times daily AC with high dosing sliding scale for now. Monitor sugars closely, adjust regimen as needed. Can consider endocrinology consult if blood sugars remain significantly uncontrolled. 6. Morbid obesity ? BMI 43. Encourage lifestyle modifications. DVT prophylaxis: Heparin subcu CODE STATUS: Full code, verified Expected disposition: SNF, TBD Total clinical time spent by myself addressing the patient's medical issues, reviewing all the data, and collaborating with patient's care team: 35 minutes. Charges/Coding Visit Charges Inpatient E&M: 91303 Subs Hosp L2
[2023-06-08] MEDS: Insulin Lispro 100 UNIT/ML INSULN.PEN SC (12:53)
[2023-06-08 14:25] VITALS: BP 143/80; PULSE 89; RESP 18; TEMP 37.1; O2SAT 98
[2023-06-08 16:53] LABS: Vancomycin, Trough Level 22.5 ug/mL (5.0-15.0)
--- NOTE | 2023-06-08 17:07 | PCM.RX.CS ---
Consult Antibiotic Management Pharmacy has been consulted to manage selected antiobiotic: Vancomycin Type of Intervention Type of Consult: Follow-up Suspected Infection Suspected Infection: Osteomyelitis Prior Doses of Antibiotics Prior Doses of Antibiotics Received/Current Regimen: 06/04/23 @ 2232 06/05/23 @ 1037 06/06/23 @ 1655 06/07/23 @ 1706 Labs Labs: Sodium 137 mmol/L (136-145) 06/08/23 11:15 Potassium 3.9 mmol/L (3.5-5.1) 06/08/23 11:15 Chloride 111 mmol/L (98-107) H 06/08/23 11:15 Carbon Dioxide 21.0 mmol/L (21.0-32.0) 06/08/23 11:15 Anion Gap 5 (5-15) 06/08/23 11:15 BUN 41 mg/dL (7-18) H 06/08/23 11:15 Creatinine 1.83 mg/dL (0.70-1.30) H 06/08/23 11:15 Est GFR (MDRD) Af Amer 52 mL/min (>60) L 06/08/23 11:15 Est GFR (MDRD) Non-Af 43 mL/min (>60) L 06/08/23 11:15 BUN/Creatinine Ratio 22.4 RATIO (10-20) H 06/08/23 11:15 Glucose 175 mg/dL (74-106) H 06/08/23 11:15 Vancomycin Trough 22.5 ug/mL (5.0-15.0) H 06/08/23 16:22 Random Vancomycin 21.6 ug/mL (0.0-15.0) H 06/06/23 10:00 Microbiology Microbiology: Microbiology 06/05/23 16:19 Bone - Right Foot Gram Stain - Final 06/05/23 16:19 Bone - Right Foot Wound Culture - Final Meth. resistant Staph. aureus Streptococcus group C 06/05/23 16:19 Bone - Right Foot Anaerobic Culture - Preliminary Checking for anaerobes, further studies to follow. 06/06/23 10:00 Blood Culture (Wb) - Venous Blood Culture - Preliminary No growth in 48 hours. 06/05/23 16:31 Blood Culture (Wb) - Anticubital Left Blood Culture - Preliminary Staphylococcus aureus 06/05/23 16:19 Tissue - Right Foot Gram Stain - Final 06/05/23 16:19 Tissue - Right Foot Wound Culture - Final Meth. resistant Staph. aureus 06/05/23 16:19 Tissue - Right Foot Anaerobic Culture - Final No anaerobic bacteria isolated. 06/05/23 16:19 Amputation - Other Gram Stain - Final 06/05/23 16:19 Amputation - Other Wound Culture - Final Meth. resistant Staph. aureus 06/05/23 16:19 Amputation - Other Anaerobic Culture - Final No anaerobic bacteria isolated. 06/05/23 16:19 Tissue - Left Foot Gram Stain - Final 06/05/23 16:19 Tissue - Left Foot Wound Culture - Final Meth. resistant Staph. aureus 06/05/23 16:19 Tissue - Left Foot Anaerobic Culture - Final No anaerobic bacteria isolated. 06/04/23 10:40 Blood Culture (Wb) - Venous Blood Culture - Final Meth. resistant Staph. aureus 06/04/23 10:40 Blood Culture (Wb) - Venous Bacteria Detection (PCR) - Final Meth. resistant Staph. aureus 06/04/23 10:40 Blood Culture (Wb) - Venous Blood Culture - Final Meth. resistant Staph. aureus 06/04/23 10:53 Wound - Right Foot Gram Stain - Final 06/04/23 10:53 Wound - Right Foot Wound Culture - Final Meth. resistant Staph. aureus Streptococcus group C Dosing Weight Weight used for dosin.7 kg Goal Trough Goal Trough: 15-20 mcg/mL Pharmacy Plan for Drug Dosing Pharmacy Plan for Drug Dosing: Pharmacy Service will continue to monitor and adjust dosing as required. Due to high trough vancomycin is being held and a random level will be drawn 06/09/23 @0600 Date/Time Labs Ordered Labs to be done on [date and time ordered]: random level 06/09/23
[2023-06-08 17:46] LABS: Bedside Glucose 128 mg/dL (74-106)
[2023-06-08 20:30] VITALS: BP 157/79; PULSE 92; RESP 16; TEMP 36.6; O2SAT 98
[2023-06-08 21:50] LABS: Bedside Glucose 146 mg/dL (74-106)
[2023-06-09] VITALS (9 sets, daily range): BP systolic 139–162; BP diastolic 70–89; PULSE 80–92; RESP 16–18; TEMP 36.6–36.9; O2SAT 95–98
[2023-06-09 03:07] LABS: Bedside Glucose 100 mg/dL (74-106)
[2023-06-09] MEDS: metroNIDAZOLE 500 MG Tablet PO ×3 (05:17→21:25)
[2023-06-09 06:46] LABS: Differential Indicated MANUAL DIFF; Hematocrit 21.9 % (40-54); Hemoglobin 6.8 g/dL (13.0-16.5); Mean Corp Hgb Conc 31.1 g/dL (32-36); Mean Corpuscular Hgb 27.3 pg (27.0-32.0); POSITIVE COUNT YES; POSITIVE MORPHOLOGY YES; Platelet Count 731 K/mm3 (150-450); RBC Distribution Width CV 16.1 % (11.6-14.6); RBC Distribution Width SD 52.1 fl (35.1-43.9); Red Blood Count 2.49 M/mm3 (4.6-6.2); White Blood Count 12.9 K/mm3 (4.4-11.0)
[2023-06-09 07:07] LABS: Vancomycin, Random Level 16.2 ug/mL (0.0-15.0)
[2023-06-09 07:24] LABS: Lymphocyte 16 % (19-41); Metamyelocyte 11 % (0-1); Monocyte 8 % (0-10); Myelocyte 2 % (0-0); Neutrophil-Band 3 % (0-5); Neutrophil-Segmented 60 % (47-70); Total Cells Counted 100 (MANUAL DIFF)
[2023-06-09 07:26] LABS: Absolute Lymphocyte Count 2.06 X10^3/uL (0.83-4.51); Absolute Neutrophil Count 9.8 X10^3/uL (2.0-7.7); Lymphocyte # 2.06 X10^3/ul (0.83-4.51); Neutrophil # 9.77 X10^3/uL (2.7-7.7); Platelet Estimate MKD INC (ADEQ)
--- NOTE | 2023-06-09 07:26 | PCM.RX.CS ---
Consult Antibiotic Management Pharmacy has been consulted to manage selected antiobiotic: Vancomycin Type of Intervention Type of Consult: Follow-up Suspected Infection Suspected Infection: Osteomyelitis Prior Doses of Antibiotics Prior Doses of Antibiotics Received/Current Regimen: Vancomycin 1500 mg IV given 06/06 @ 1655, 06/07 @ 1706 Patient is also on zosyn 3.375g q8h Labs Labs: Vancomycin Trough 22.5 ug/mL (5.0-15.0) H 06/08/23 16:22 Random Vancomycin 16.2 ug/mL (0.0-15.0) H 06/09/23 06:14 Microbiology Microbiology: Microbiology 06/05/23 16:19 Bone - Right Foot Gram Stain - Final 06/05/23 16:19 Bone - Right Foot Wound Culture - Final Meth. resistant Staph. aureus Streptococcus group C 06/05/23 16:19 Bone - Right Foot Anaerobic Culture - Preliminary Checking for anaerobes, further studies to follow. 06/06/23 10:00 Blood Culture (Wb) - Venous Blood Culture - Preliminary No growth in 48 hours. 06/05/23 16:31 Blood Culture (Wb) - Anticubital Left Blood Culture - Preliminary Staphylococcus aureus 06/05/23 16:19 Tissue - Right Foot Gram Stain - Final 06/05/23 16:19 Tissue - Right Foot Wound Culture - Final Meth. resistant Staph. aureus 06/05/23 16:19 Tissue - Right Foot Anaerobic Culture - Final No anaerobic bacteria isolated. 06/05/23 16:19 Amputation - Other Gram Stain - Final 06/05/23 16:19 Amputation - Other Wound Culture - Final Meth. resistant Staph. aureus 06/05/23 16:19 Amputation - Other Anaerobic Culture - Final No anaerobic bacteria isolated. 06/05/23 16:19 Tissue - Left Foot Gram Stain - Final 06/05/23 16:19 Tissue - Left Foot Wound Culture - Final Meth. resistant Staph. aureus 06/05/23 16:19 Tissue - Left Foot Anaerobic Culture - Final No anaerobic bacteria isolated. 06/04/23 10:40 Blood Culture (Wb) - Venous Blood Culture - Final Meth. resistant Staph. aureus 06/04/23 10:40 Blood Culture (Wb) - Venous Bacteria Detection (PCR) - Final Meth. resistant Staph. aureus 06/04/23 10:40 Blood Culture (Wb) - Venous Blood Culture - Final Meth. resistant Staph. aureus 06/04/23 10:53 Wound - Right Foot Gram Stain - Final 06/04/23 10:53 Wound - Right Foot Wound Culture - Final Meth. resistant Staph. aureus Streptococcus group C Dosing Weight Weight used for dosin.7 kg Estimated Creatinine Clearance Estimated Creatinine Clearance: 48 Goal Trough Goal Trough: 15-20 mcg/mL Pharmacy Plan for Drug Dosing Pharmacy Plan for Drug Dosing: Vancomycin trough on 06/08 = 22.5, random level this AM = 16.2. Will resume with vancomycin at 1250 mg Q24H this AM, trough prior to 3rd dose. Pharmacy Service will continue to monitor and adjust dosing as required. Follow-Up Labs Follow-Up Labs: Trough: Vancomycin Date/Time Labs Ordered Labs to be done on [date and time ordered]: 06/11/23 @ 3598
[2023-06-09 07:27] LABS: Polychromasia RARE; Red Cell Morphology N CYTIC NORMAL (NORM C&C)
[2023-06-09 07:35] LABS: Anion Gap 6 (5-15); BUN 39 mg/dL (7-18); BUN/Creat Ratio 23.9 RATIO (10-20); Calcium,Total 8.1 mg/dL (8.5-10.1); Chloride 113 mmol/L (98-107); Creatinine, Serum 1.63 mg/dL (0.70-1.30); EST Glomerular Filtration Rate 49 mL/min (>60); Est Glom Filt Rate - Afr Amer 59 mL/min (>60); Estimated Creatinine Clearance 54.07 ml/min; Glucose 98 mg/dL (74-106); Potassium 3.8 mmol/L (3.5-5.1); Sodium Level 139 mmol/L (136-145)
[2023-06-09] MEDS: Insulin Lispro 100 UNIT/ML INSULN.PEN 10 UNIT SC ×3 (09:23→20:06)
[2023-06-09] MEDS: Juven (unflavored) Packet 1 PACKET PO ×2 (09:24→20:10)
[2023-06-09] MEDS: Vancomycin HCl 1,250 MG in 0.9% Normal Saline (250mL Bag) 250 ML 167 MG IV (09:26)
[2023-06-09] MEDS: Insulin Glargine-YFGN 100 UNIT/ML Pen 15 UNIT SC ×2 (09:30→21:22)
[2023-06-09] MEDS: Heparin Injection (Vial) 5,000 UNIT/ML VIAL 5000 UNIT SC ×2 (09:31→21:23)
[2023-06-09] MEDS: Cefepime HCl 2 GM in 0.9% Normal Saline (100mL MB+) 100 ML IV ×2 (10:55→21:16)
[2023-06-09 11:51] LABS: Bedside Glucose 122 mg/dL (74-106)
--- NOTE | 2023-06-09 12:03 | PN.HOSP_ITS ---
Reason for Visit Reason for Visit: Diagnoses Methicillin resistant Staphylococcus aureus infection as the cause of diseases classified elsewhere (06/04/23) Type 2 diabetes mellitus with diabetic polyneuropathy (06/04/23) Non-pressure chronic ulcer of other part of right foot with necrosis of bone (06/04/23) Other acute osteomyelitis, right ankle and foot (06/04/23) Osteomyelitis, unspecified (06/04/23) Bacteremia (06/04/23) Subjective Subjective No acute events overnight. Patient seen at bedside this morning. Sitting comfortably in bed, conversing normally, no acute distress. Had just eaten breakfast and tolerated well. Has been eating and drinking well overall. Denies any pain in the right leg at this time. Denies any chest pain or shortness of breath. Denies any fevers or chills. No other acute concerns. Objective Data Objective Data Vital Signs: Vital Signs Temp Pulse Resp BP Pulse Ox O2 Del Method O2 Flow Rate 98.0 F 80 18 145/81 H 95 Room Air 2 06/09/23 08:52 06/09/23 11:10 06/09/23 08:52 06/09/23 08:52 06/09/23 08:52 06/09/23 08:52 06/05/23 16:56 Oxygen Flow Rate (L/min) 2 Oxygen Delivery Method Room Air Weight: 126.7 kg Body Mass Index (BMI) 43.7 Intake & Output: Intake and Output for Last 24 Hours 06/07/23 06/08/23 06/09/23 23:59 23:59 23:59 Intake Total 1271 / 1271 1746.25 / 1746.25 Output Total 1080 / 1079 2049 / 205 500 / 500 Balance 191 / 191 -303.75 / -303.75 -500 / -500 Lab / Micro Data 06/09/23 06:14 06/09/23 06:14 Labs: Laboratory Results - last 24 hr 06/08/23 11:15: Absolute Neuts (auto) 8.8 H, Absolute Lymphs (auto) 2.49, Diff Path Review January06/08/23 16:22: Vancomycin Trough 22.5 H 06/08/23 17:22: POC Glucose 128 H 06/08/23 21:23: POC Glucose 146 H 06/09/23 02:48: POC Glucose 100 06/09/23 06:14: WBC 12.9 H, RBC 2.49 L, Hgb 6.8 L, Hct 21.9 L, MCV 88.0, MCH 27.3, MCHC 31.1 L, RDW Std Deviation 52.1 H, RDW Coeff of Erica 16.1 H, Plt Count 731 H, MPV 9.0, Neut % (Auto) Not Reportable, Absolute Neuts (auto) 9.8 H, Absolute Lymphs (auto) 2.06, Total Counted 100, Neutrophils % (Manual) 60, Band Neutrophils % 3, Lymphocytes % (Manual) 16 L, Monocytes % (Manual) 8, Metamyelocytes % 11 H, Myelocytes % 2 H, Diff Path Review January, Platelet Estimate MKD INC, RBC Morphology N CYTIC, Polychromasia RARE, Sodium 139, Potassium 3.8, Chloride 113 H, Carbon Dioxide 20.0 L, Anion Gap 6, BUN 39 H, Creatinine 1.63 H, Estim Creat Clear Calc 54.07, Est GFR (MDRD) Af Amer 59 L, Est GFR (MDRD) Non-Af 49 L, BUN/Creatinine Ratio 23.9 H, Glucose 98, Calcium 8.1 L, C-React Prot Ext Range 81.70 H, Random Vancomycin 16.2 H 06/09/23 07:18: Crossmatch See Detail 06/09/23 08:05: Blood Type A POSITIVE, Antibody Screen NEGATIVE 06/09/23 11:28: POC Glucose 122 H Micro: Microbiology 06/05/23 16:19 Bone - Right Foot Gram Stain - Final 06/05/23 16:19 Bone - Right Foot Wound Culture - Final Meth. resistant Staph. aureus Streptococcus group C 06/05/23 16:19 Bone - Right Foot Anaerobic Culture - Final No anaerobic bacteria isolated. 06/06/23 10:00 Blood Culture (Wb) - Venous Blood Culture - Preliminary No growth in 48 hours. 06/05/23 16:31 Blood Culture (Wb) - Anticubital Left Blood Culture - Preliminary Staphylococcus aureus 06/05/23 16:19 Tissue - Right Foot Gram Stain - Final 06/05/23 16:19 Tissue - Right Foot Wound Culture - Final Meth. resistant Staph. aureus 06/05/23 16:19 Tissue - Right Foot Anaerobic Culture - Final No anaerobic bacteria isolated. 06/05/23 16:19 Amputation - Other Gram Stain - Final 06/05/23 16:19 Amputation - Other Wound Culture - Final Meth. resistant Staph. aureus 06/05/23 16:19 Amputation - Other Anaerobic Culture - Final No anaerobic bacteria isolated. 06/05/23 16:19 Tissue - Left Foot Gram Stain - Final 06/05/23 16:19 Tissue - Left Foot Wound Culture - Final Meth. resistant Staph. aureus 06/05/23 16:19 Tissue - Left Foot Anaerobic Culture - Final No anaerobic bacteria isolated. 06/04/23 10:40 Blood Culture (Wb) - Venous Blood Culture - Final Meth. resistant Staph. aureus 06/04/23 10:40 Blood Culture (Wb) - Venous Bacteria Detection (PCR) - Final Meth. resistant Staph. aureus 06/04/23 10:40 Blood Culture (Wb) - Venous Blood Culture - Final Meth. resistant Staph. aureus 06/04/23 10:53 Wound - Right Foot Gram Stain - Final 06/04/23 10:53 Wound - Right Foot Wound Culture - Final Meth. resistant Staph. aureus Streptococcus group C Physical Exam Const alert and oriented x3 Constitutional Narrative: Pleasant male, morbidly obese, laying comfortably in bed, conversing normally, no acute distress. General Appearance: cooperative and comfortable HEENT normocephalic, head/scalp atraumatic, hearing grossly normal bilaterally, nasal mucous membranes and turbinates normal and moist oral mucous membranes Eyes PERRL, EOMs intact bilaterally and conjunctivae normal Neck full ROM, no lymphadenopathy and supple Lymph Lymphatic: no lymphadenopathy noted Chest inspection of chest normal Resp normal respiratory effort, normal air movement, no use of accessory muscles and clear to auscultation bilaterally Cardio regular rate, regular rhythm, no murmurs and peripheral pulses 2+ throughout GI normal to inspection, nondistended, normoactive bowel sounds, soft to palpation, non-tender and non-distended Back/Spine normal ROM Extremity no pedal edema Extremity Narrative: Right lower leg with wrap in place. 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 1. Diabetic foot wound with osteomyelitis; sepsis without shock, improving X-ray right foot on admit showed osteomyelitis of the fifth metatarsal remnant with possible involvement of other metatarsals as noted in HPI above. CRP 338. Tachycardic, mildly tachypneic, low-grade fever, WBC count of 16 on admission. Previously had partial amputation of toe and distal ray of fifth metatarsal on right foot with Dr. Hogue in 01/2023. 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 Notably with MRSA bacteremia as below; wound cultures pending. Notably had wound cultures at start of April also with Enterobacter. ? Podiatry and ID following. Vancomycin, cefepime and Flagyl for antibiotic co verage. Follow-up wound cultures. Will eventually require PICC line placement for prolonged IV antibiotic management prior to discharge. Suspect patient also needs SNF placement on discharge for prolonged nonweightbearing status. Tylenol as needed for pain control. 2. MRSA bacteremia ? Secondary to right foot osteomyelitis. ID following as above. Treating with vancomycin, cefepime and Flagyl as noted above. TTE 06/06 with no valve abnormalities or intracardiac vegetations noted. Will defer to ID on need for possible JEREMIAH. Repeat blood cultures 06/06 with no growth to date. Will need neg ative blood cultures for 72 hours prior to PICC placement. 3. Acute on chronic normocytic anemia Secondary to anemia of chronic disease. Hemoglobin 8.7 on admit, MCV 83. Appears at baseline hemoglobin was around 10-12 back in January of this year. No acute signs of blood loss. Repeat hemoglobin 7.4 on 06/05 after IV fluid resuscitation. Iron studies show ferritin 2254, normal iron saturation cons istent with anemia of chronic disease. Postoperative hemoglobin of 6.8 on 06/06. Repeat hemoglobin 7.1 on 06/08. ?Hemoglobin 6.8 on 06/09. Consented for blood, transfusing 1 unit PRBCs today. Monitor CBC daily. Transfuse for hemoglobin less than 7. 4. SLIME on suspected CKD, improving Creatinine 2.88 on admit, BUN 55. Patient's baseline creatinine appears to be around 1.3-1.4 on labs from January of this year. Suspect he has some degree of CKD in setting of poorly controlled insulin-dependent diabetes as noted below. Suspect SLIME is prerenal in setting of sepsis as above and fluid losses from hyperglycemia as noted below, along with some degree of ATN now as well. ? Improving, creatinine 1.6 on 06/09. Good urine output. Monitor BMP daily. Avoid nephrotoxins. 4. Elevated blood pressure readings ? BPs have been in the 150s to 170s systolic since arrival. Has no previous history of hypertension per patient. On my exam, did not appear to be in acute pain or distress. Suspect patient may have underlying essential hypertension. We will treat with IV labetalol for systolic BP greater than 180 for now, can consider adding oral antihypertensive agent on discharge as needed. 5. Insulin-dependent type 2 diabetes with hyperglycemia Reported home regimen of Lantus 15 units twice daily and Humalog 15 units twice daily. Unclear if patient has been taking this as prescribed. Previous A1c of 11.2% in January 2023. Hyperglycemia with glucose of 451 in the ED, suspect this is due to acute infection plus or minus poor adherence to home insulin regimen. Given 10 units of Humalog in the ED with recheck still in the 300s. A1c on admission 9.2%. ?Continue home Lantus 15 units twice daily, along with Humalog 10 units 3 times daily AC with high dosing sliding scale for now. Monitor sugars closely, adjust regimen as needed. Can consider endocrinology consult if blood sugars remain significantly uncontrolled. 6. Morbid obesity ? BMI 43. Encourage lifestyle modifications. DVT prophylaxis: Heparin subcu CODE STATUS: Full code, verified Expected disposition: SNF, D Total clinical time spent by myself addressing the patient's medical issues, reviewing all the data, and collaborating with patient's care team: 35 minutes. Charges/Coding Visit Charges Inpatient E&M: 04212 Subs Hosp L2
[2023-06-09 19:53] LABS: Bedside Glucose 174 mg/dL (74-106)
[2023-06-09] MEDS: Insulin Lispro 100 UNIT/ML INSULN.PEN SC ×2 (20:05→21:22)
--- NOTE | 2023-06-09 20:13 | NURSING ---
noted pts evening humalog was not given. checked pts BG and called previous RN Cookie to clarify if pts evening humalog was given. Cookie states she was not able to administer his evening humalog.
[2023-06-09 20:16] LABS: Bedside Glucose 217 mg/dL (74-106)
[2023-06-09] MEDS: 0.9% Saline Lock 10 ML Syringe IV (21:16)
[2023-06-09 21:49] LABS: Bedside Glucose 158 mg/dL (74-106)
[2023-06-10 03:41] VITALS: BP 153/84; PULSE 86; RESP 16; TEMP 37; O2SAT 98
[2023-06-10 03:52] LABS: Bedside Glucose 98 mg/dL (74-106)
[2023-06-10] MEDS: metroNIDAZOLE 500 MG Tablet PO ×2 (05:03→14:25)
[2023-06-10 06:39] LABS: Hematocrit 24.4 % (40-54); Hemoglobin 7.6 g/dL (13.0-16.5); Mean Corp Hgb Conc 31.1 g/dL (32-36); Mean Corpuscular Hgb 27.6 pg (27.0-32.0); Mean Corpuscular Volume 88.7 fL (80-94); Mean Platelet Vol. 9.2 fl (6.2-12.0); POSITIVE COUNT YES; POSITIVE MORPHOLOGY YES; Platelet Count 726 K/mm3 (150-450); RBC Distribution Width CV 16.1 % (11.6-14.6); RBC Distribution Width SD 51.4 fl (35.1-43.9); Red Blood Count 2.75 M/mm3 (4.6-6.2)
[2023-06-10 06:47] LABS: Differential Indicated MANUAL DIFF
[2023-06-10 07:06] LABS: Anion Gap 4 (5-15); BUN 35 mg/dL (7-18); BUN/Creat Ratio 22.2 RATIO (10-20); Calcium,Total 7.7 mg/dL (8.5-10.1); Chloride 112 mmol/L (98-107); Creatinine, Serum 1.58 mg/dL (0.70-1.30); EST Glomerular Filtration Rate 51 mL/min (>60); Est Glom Filt Rate - Afr Amer 62 mL/min (>60); Estimated Creatinine Clearance 55.78 ml/min; Glucose 97 mg/dL (74-106); Potassium 3.8 mmol/L (3.5-5.1); Sodium Level 138 mmol/L (136-145)
[2023-06-10] MEDS: Vancomycin HCl 1,250 MG in 0.9% Normal Saline (250mL Bag) 250 ML 167 MG IV (08:44)
[2023-06-10] MEDS: Juven (unflavored) Packet 1 PACKET PO (08:45)
[2023-06-10] MEDS: Insulin Lispro 100 UNIT/ML INSULN.PEN 10 UNIT SC ×2 (08:45→11:41)
--- NOTE | 2023-06-10 10:25 | CASEMGMT ---
Social Work SW met with pt and discussed discharge plan. Pt states he has spoke with his family and the decision has been made to go to [facility] discharge. Pt is aware that he will be self pay. DC visitor use assistant updated and to send referral. Plan: [facility], pending acceptance ARMIN Shirley
[2023-06-10] MEDS: Cefepime HCl 2 GM in 0.9% Normal Saline (100mL MB+) 100 ML IV (10:36)
[2023-06-10] MEDS: Insulin Glargine-YFGN 100 UNIT/ML Pen 15 UNIT SC (10:37)
[2023-06-10] MEDS: Heparin Injection (Vial) 5,000 UNIT/ML VIAL 5000 UNIT SC (10:37)
[2023-06-10 10:50] VITALS: BP 138/81; PULSE 68; RESP 16; TEMP 36.7; O2SAT 98
--- NOTE | 2023-06-10 10:52 | CASEMGMT ---
Discharge Planning Referral sent to [facility] via [facility]. Jessi Orta, Discharge Planning Asst.
[2023-06-10] MEDS: Insulin Lispro 100 UNIT/ML INSULN.PEN SC (11:41)
[2023-06-10 11:46] LABS: Bedside Glucose 181 mg/dL (74-106)
[2023-06-10 12:12] LABS: Lymphocyte 19 % (19-41); Metamyelocyte 4 % (0-1); Monocyte 5 % (0-10); Myelocyte 1 % (0-0); Neutrophil-Band 3 % (0-5); Neutrophil-Segmented 68 % (47-70); Total Cells Counted 100 (MANUAL DIFF)
[2023-06-10 12:13] LABS: Absolute Lymphocyte Count 2.47 X10^3/uL (0.83-4.51); Absolute Neutrophil Count 9.2 X10^3/uL (2.0-7.7); Platelet Estimate ADEQUATE (ADEQ); Red Cell Morphology NORM C+C NORMAL (NORM C&C)
[2023-06-10 13:04] LABS: Pathologist Review Reviewed
--- NOTE | 2023-06-10 13:08 | PCM.PN.ID ---
Physical Exam Narrative Feeling well, no fever, no n/v/d Const alert and no apparent distress General Appearance: cooperative Resp normal air movement and clear to auscultation bilaterally Cardio regular rate and regular rhythm GI soft to palpation, non-tender and non-distended Skin Skin Narrative: R foot wound, no redness ID ID: Route of nutrition/ use of supplements: [] Nutritional Intake: [] IV Site: [] Ibarra Catheter: [] Assessment & Plan Assessment/Plan (1) MRSA bacteremia: PLAN: MRSA bacteremia due to R foot osteo - now s/p OR 06/05/[address] Hogue. Wound cx at start of April also with enterobacter, so on vanc/cefepime/flagyl. No veg seen on echo and 06/06 repeat bcx remains neg. No sign metastatic infection on exam. Ok for picc, will write for 6 weeks iv vanc, stop date 07/18/23 with weekly labs. Will follow, ID followup in 2 weeks. (2) Foot osteomyelitis, right: (3) Type 2 diabetes mellitus with diabetic polyneuropathy:
[2023-06-10 13:12] LABS: Pathologist Review Reviewed
--- NOTE | 2023-06-10 13:25 | PCM.PROGNOTE ---
Subjective Subjective Denies constitutional, no pain. No issues postop. Objective Data Objective Data Vital Signs: Vital Signs Temp Pulse Resp BP Pulse Ox O2 Del Method O2 Flow Rate 98.1 F 68 16 138/81 H 98 Room Air 2 06/10/23 10:50 06/10/23 10:50 06/10/23 10:50 06/10/23 10:50 06/10/23 10:50 06/10/23 10:50 06/05/23 16:56 Oxygen Flow Rate (L/min) 2 Oxygen Delivery Method Room Air Weight: 126.7 kg Body Mass Index (BMI) 43.7 Intake & Output: Intake and Output for Last 24 Hours 06/08/23 06/09/23 06/10/23 23:59 23:59 23:59 Intake Total 1746.25 / 1746.25 1570 / 1570 190 / 190 Output Total 2049 / 2049 1650 / 1650 750 / 750 Balance -303.75 / -303.75 -80 / -80 -560 / -560 Lab / Micro Data 06/10/23 05:53 06/10/23 05:53 Labs: Laboratory Results - last 24 hr 06/08/23 11:15: Diff Path Review Reviewed 06/09/23 06:14: Diff Path Review Reviewed 06/09/23 07:18: Crossmatch See Detail 06/09/23 16:56: POC Glucose 174 H 06/09/23 19:54: POC Glucose 217 H 06/09/23 21:21: POC Glucose 158 H 06/10/23 03:34: POC Glucose 98 06/10/23 05:53: WBC 13.0 H, RBC 2.75 L, Hgb 7.6 L, Hct 24.4 L, MCV 88.7, MCH 27.6, MCHC 31.1 L, RDW Std Deviation 51.4 H, RDW Coeff of Erica 16.1 H, Plt Count 726 H, MPV 9.2, Neut % (Auto) Not Reportable, Absolute Neuts (auto) 9.2 H, Absolute Lymphs (auto) 2.47, Total Counted 100, Neutrophils % (Manual) 68, Band Neutrophils % 3, Lymphocytes % (Manual) 19, Monocytes % (Manual) 5, Metamyelocytes % 4 H, Myelocytes % 1 H, Diff Path Review May foll, Platelet Estimate ADEQUATE, RBC Morphology NORM C+C, Sodium 138, Potassium 3.8, Chloride 112 H, Carbon Dioxide 22.0, Anion Gap 4 L, BUN 35 H, Creatinine 1.58 H, Estim Creat Clear Calc 55.78, Est GFR (MDRD) Af Amer 62, Est GFR (MDRD) Non-Af 51 L, BUN/Creatinine Ratio 22.2 H, Glucose 97, Calcium 7.7 L, C-React Prot Ext Range 56.80 H 06/10/23 11:28: POC Glucose 181 H Micro: Microbiology 06/08/23 09:52 Blood Culture (Wb) - Venous Blood Culture - Preliminary No growth in 48 hours. 06/07/23 13:08 Blood Culture (Wb) - Anticubital Left Blood Culture - Preliminary No growth in 48 hours. 06/05/23 16:19 Bone - Right Foot Gram Stain - Final 06/05/23 16:19 Bone - Right Foot Wound Culture - Final Meth. resistant Staph. aureus Streptococcus group C 06/05/23 16:19 Bone - Right Foot Anaerobic Culture - Final No anaerobic bacteria isolated. 06/06/23 10:00 Blood Culture (Wb) - Venous Blood Culture - Preliminary No growth in 48 hours. 06/05/23 16:31 Blood Culture (Wb) - Anticubital Left Blood Culture - Preliminary Staphylococcus aureus 06/05/23 16:19 Tissue - Right Foot Gram Stain - Final 06/05/23 16:19 Tissue - Right Foot Wound Culture - Final Meth. resistant Staph. aureus 06/05/23 16:19 Tissue - Right Foot Anaerobic Culture - Final No anaerobic bacteria isolated. 06/05/23 16:19 Amputation - Other Gram Stain - Final 06/05/23 16:19 Amputation - Other Wound Culture - Final Meth. resistant Staph. aureus 06/05/23 16:19 Amputation - Other Anaerobic Culture - Final No anaerobic bacteria isolated. 06/05/23 16:19 Tissue - Left Foot Gram Stain - Final 06/05/23 16:19 Tissue - Left Foot Wound Culture - Final Meth. resistant Staph. aureus 06/05/23 16:19 Tissue - Left Foot Anaerobic Culture - Final No anaerobic bacteria isolated. 06/04/23 10:40 Blood Culture (Wb) - Venous Blood Culture - Final Meth. resistant Staph. aureus 06/04/23 10:40 Blood Culture (Wb) - Venous Bacteria Detection (PCR) - Final Meth. resistant Staph. aureus 06/04/23 10:40 Blood Culture (Wb) - Venous Blood Culture - Final Meth. resistant Staph. aureus 06/04/23 10:53 Wound - Right Foot Gram Stain - Final 06/04/23 10:53 Wound - Right Foot Wound Culture - Final Meth. resistant Staph. aureus Streptococcus group C Physical Exam Narrative Neurovascular status unchanged. Edema improved today. Partially closed right (medial side open, exposed talus) Chopart amputation site noted with vessel loop closure and intermittent simple interrupted sutures. At current infection appears significantly improved. No residual purulence draining from wound site. Minimal periwound erythema. Improved edema and warmth. No sign of DVT. Const alert and oriented x3 Assessment & Plan Assessment/Plan (1) Non-pressure chronic ulcer of other part of right foot with necrosis of bone: (2) Other acute osteomyelitis, right ankle and foot: PLAN: Exam performed No residual purulence today Vital signs stable leukocytosis 13.8 (9/6) 14.8 (9/7) 12.8 (9/11) (down from 16 on admission) CRP (338-->58) Infection was more severe than anticipated intraoperatively. Additional bone resection down to level of Chopart joint was performed. Moderate serosainguionous drainage noted today - resolved edema/erythema/purulence Site was cleansed and redressed with iodoform packing, Adaptic, DSD, Fox compression dressing - will continue this daily Tissue cultures (+) MRSA Bone Culture (+) Staph aureus/Group C Strep ID on board; picc in place - 6 weeeks IV vanc awaiting SNF placement Patient nonweightbearing on right. no plan for additional OR debridement at this time; patient stable for d/c to SNF. (3) Type 2 diabetes mellitus with diabetic polyneuropathy: (4) Foot osteomyelitis, right:
--- NOTE | 2023-06-10 13:32 | WOUNDNOTE ---
wound photo: right foot
--- NOTE | 2023-06-10 13:33 | WOUNDNOTE ---
wound photo: right foot
--- NOTE | 2023-06-10 14:56 | PCM.TXEXTCAR ---
Diet Diet Order/Speech Therapy: 06/05/23 16:22 Diet: Carbohydrate Controlled Is pt able to select menu?: No Diet Comments: Okay for p.o. meds Routine Orders/Code Status Suppository Frequency: Daily PRN O2 Frequency: PRN Keep PO Greater than or Equal to (%): 92 Routine Lab Work: CBC (1 week) and BMP (1 week) Code Status: Full Code Wound(s) RIGHT FOOT: Wound Type: open surgical wound s/p right partial foot amputation Dressing Change: Packed with NuGauze left lateral lower leg: Wound Type: Abrasion Suggestions for Active Care Change Position every (hours): 2 Therapies Weight Bearing: Non weight bearing Extremity Affected:: Right Lower Physical Therapy: Eval and Treat Occupational Therapy: Eval and Treat Problem/Diagnosis (1) Non-pressure chronic ulcer of other part of right foot with necrosis of bone: Status: Chronic Code(s): L97.514 - Non-pressure chronic ulcer of other part of right foot with necrosis of bone (2) Other acute osteomyelitis, right ankle and foot: Status: Acute Code(s): M86.171 - Other acute osteomyelitis, right ankle and foot (3) Type 2 diabetes mellitus with diabetic polyneuropathy: Status: Acute Code(s): E11.42 - Type 2 diabetes mellitus with diabetic polyneuropathy (4) Foot osteomyelitis, right: Status: Acute Code(s): M86.9 - Osteomyelitis, unspecified Allergies/Procedures Done in Hospital Allergies No Known Allergies Allergy (Verified 06/04/23 09:36) Procedures: - (Amputation with bony resection) Type of Care/Length of Stay Estimated LOS: Convalescent Care Less Than 30 days Type of Care Needed: Skilled Rehab Potential: Good Prognosis: Good Additional Orders/Day of Discharge Additional Orders: Wound care to follow Day of Discharge: 06/10/23 Dietary and Speech Recommendations Dietitian Recommendations/Changes: RD will adjust diet to 1800kcal CCD diet to manage blood sugars. RD will order Alvaro BID to promote wound healing. Follow Up Care Please follow up with your Primary Care Physician in: after d/c from SNF Please Follow Up With: Channing Hogue DPM When: 1 week Discharge Plan Admission Admit Date/Time: 06/04/23 12:17 Attending Provider: Estefani Alicea Primary Care Provider: Semaj Johnson Consulting Providers: Nasim Albert; Channing Hogue; Gee Raymond Discharge Orders/Prescriptions Prescriptions: New vancomycin 1.25 gram recon soln 1.25 g IV Q24H 37 Days Rx Instructions: stop date 07/18/23 dx: foot osteo. weekly bmp, cbc, vanc trough, and esr. Fax to [phone] No Action insulin lispro [Humalog KwikPen Insulin] 100 unit/mL Insulin Pen 15 unit subcut BIDCM Qty: 1 0RF insulin glargine-yfgn 100 unit/mL (3 mL) Insulin Pen 15 unit subcut BID Qty: 1 0RF (DME) insulin syringe-needle U-100 [Insulin Syringe] 1 mL 29 gauge x 1/2 syringe See Rx Instructions .Route Qty: 100 0RF Rx Instructions: As directed Referrals / Follow Up: Semaj Johnson, DO [Primary Care Provider] - Channing Hogue DPM [Med Staff - Active Staff] -
--- NOTE | 2023-06-10 14:59 | DS.PCM_ITS ---
Providers Date of Admission: 06/04/23 Date of Discharge: 06/10/23 Primary Care Physician: Dr. Semaj Johnson, Consultations 06/04/23 12:49 Consult: Podiatry Routine Consulting Provider: Channing Hogue Reason for Consult: Diabetic foot wound EMERGENT Consult: No Notified: Yes Date Notified: 06/04/23 Time Notified: 13:09 Method of Notification: Text 06/04/23 14:29 Consult: Onc/Wound/director security risk management Routine Comment: Reason for Consult:: diabetic foot wound 06/05/23 07:37 Consult: Infectious Disease Routine Consulting Provider: Nasim Albert Reason for Consult: diabetic foot wound w/ OM EMERGENT Consult: No MD Notified: Yes Date Notified: 06/05/23 Time Notified: 07:59 Method of Notification: Text Reason For Visit: DIABETIC FOOT WOUND W SUSPECTED OSTEOMYELITIS Diagnosis Discharge Diagnosis (1) Non-pressure chronic ulcer of other part of right foot with necrosis of bone: Status: Chronic Code(s): L97.514 - Non-pressure chronic ulcer of other part of right foot with necrosis of bone (2) Other acute osteomyelitis, right ankle and foot: Status: Acute Code(s): M86.171 - Other acute osteomyelitis, right ankle and foot (3) Type 2 diabetes mellitus with diabetic polyneuropathy: Status: Acute Code(s): E11.42 - Type 2 diabetes mellitus with diabetic polyneuropathy (4) Foot osteomyelitis, right: Status: Acute Code(s): M86.9 - Osteomyelitis, unspecified Medications at Discharge Home Medications insulin glargine-yfgn 100 unit/mL (3 mL) subcutaneous pen 15 unit (0.15 mL) subcut BID DIABETES #1 mL 02/18/23 insulin lispro 100 unit/mL subcutaneous pen (Humalog KwikPen (U-100) Insulin) 15 unit (0.15 mL) subcut BIDCM DIABETES #1 mL 02/18/23 insulin syringe-needle U-100 1 mL 29 gauge x 1/2 (Insulin Syringe) #100 ea 02/18/23 arginine 7 gram-glutam 7 gram-CaHMB 1.5 [id number]-bi-min oral pwd pkt (Alvaro (with collagen)) 1 packet PO BIDCM #0 ea 06/10/23 melatonin 3 mg tablet 3 mg PO QHS PRN PRN Insomnia #0 tabs 06/10/23 vancomycin 1.25 gram intravenous solution 1.25 g IV Q24H 37 days 06/10/23 Hospital Course Operations - (Partial foot disarticulation at Darco joint right with adjacent tissue flap closure at amputation site) Procedures 2-D Echocardiogram Summary of Care Provided Minutes Spent on Discharge: 41 Hospital Course: Mr. 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 Patient denied any significant issues. He reported that he was having very little pain in his foot but he does have neuropathy. He denied fever or chills but did report that he generally felt poorly overall. He not been eating or drinking much over the last few days prior to presentation and was not able to do much for himself around the house. He follows with Dr. Hogue from podiatry and has a history of a partial ray amputation of his fifth toe on the right foot in January of this past year. They evaluated him in the office on the day of admission and there was concern for recurrent osteomyelitis so he was sent to the emergency department. On presentation he was tachycardic with heart rate at 110, mild tachypnea with respiration rates in the low 20s and his temp was 99.8. Blood pressures were elevated. Labs showed a white count of 16,000 and a hemoglobin of 8.7 with a serum creatinine of 2.88 and a BUN of 55 both of which are significantly higher than his baseline. X-ray of the foot showed process consistent with osteomyelitis of the fifth metatarsal remnant and the fourth metatarsal as well as the proximal phalanx of the fourth toe with early sclerosis of the second and third metatarsal noted as well. Cultures were obtained the patient was placed on broad-spectrum antibiotics and he was given IV fluids. Podiatry was consulted. Cultures done at the time of admission sh owed MRSA and wound cultures are showing MRSA with group C strep. Given the bacteremia with MRSA and echocardiogram was performed and infectious disease was consulted. Echo showed an EF of 55 to 60% with normal LV function, and mild TR. Antibiotics were transitioned to vancomycin, cefepime, and Flagyl initially and repeat blood cultures were obtained. Antibiotics were then able to be narrowed to vancomycin only. Repeat blood culture was from 06/05/2023 were positive however on 06/06/2023 they have been negative since that time they were drawn. Patient will need to be on outpatient IV antibiotics per infectious disease and a PICC line was placed on 06/10/2023. We did obtain a hemoglobin A1c and was found to be dramatically elevated at 9.4. His blood sugars while hospitalized were fairly well controlled on his current regimen so he changed what he is on at home however this will need to be continued to be evaluated. I suspect his diet at home may be less than compliant when it comes to diabetic diet. He was cleared for discharge by infectious disease and podiatry on 06/10/2023 and had elected to [facility] for ongoing antibiotics and wound care at the time of discharge. He is able to be discharged in stable condition on 06/10/2023. He did have acute on chronic anemia. It was hard to discern whether or not his anemia was related to his procedure or another etiology. He was given some blood with improvement in his hemoglobin on the day of discharge. We will have a follow-up CBC be drawn in a week and I recommend a guaiac of his hemoglobin does not improve with referral to gastroenterology. He does not have any clinical signs of acute upper or lower GI bleeding at the time of discharge however we were unable to obtain a Hemoccult prior to discharge. His platelet count slowly did improve and I am hopeful that he continues to improve as his infection resolves however if it stays elevated iron studies may be indicated as this could be from a chronic iron deficiency as well. He is to be nonweightbearing on his lower extremity until otherwise notified by podiatry. He is to follow-up with podiatry in 1 week and have asked that he follow-up with his primary care physician shortly after discharge from his [facility] stay. Discharge diagnoses: MRSA bacteremia Polymicrobial diabetic wound infection status post amputation DM-2 uncontrolled Diabetic neuropathy Leukocytosis Thrombocytosis-suspect related to acute infection Acute on chronic anemia SLIME on CKD stage IIIa--> GFR at discharge was 51 Physical Exam Narrative Patient states he is feeling okay. He has decided to go to [facility] facility and medically should be able to go today. He has been cleared by infectious disease and podiatry. Const alert, oriented x3, no apparent distress, no limitations and well nourished; Negative for average body habitus Constitutional Narrative: Morbidly obese, middle-aged, white male, sitting up in a chair at the bedside, appears comfortable nontoxic, very pleasant General Appearance: cooperative, comfortable, well kempt and well developed Orientation / Consciousness: awake, oriented to person and oriented to place Exam Limitations: no limitations Nutritional Appearance: morbidly obese HEENT normocephalic, head/scalp atraumatic, hearing grossly normal bilaterally and moist oral mucous membranes HEENT Narrative: Mallampati 3, no thrush Eyes PERRL; Negative for conjunctivae normal Eyes Narrative: Conjunctiva are pale mildly bilaterally, no scleral icterus Neck no lymphadenopathy and supple Neck Narrative: Trachea midline, no thyroid enlargement Resp normal respiratory effort, no retractions, no use of accessory muscles and clear to auscultation bilaterally Auscultation: Negative for rales, rhonchi or wheezes Cardio regular rate, regular rhythm, S1 normal heart sound, S2 normal heart sound, no murmurs, no rub and no gallops GI normal to inspection, nondistended, normoactive bowel sounds, soft to palpation and non-tender Extremity no clubbing, cyanosis or edema Extremity Narrative: Right lower extremity with postoperative bandage in place-wound care images reviewed and surgical site appears to be healing well with no drainage or signs of infection, erythema Skin no rashes or lesions noted, No no wounds, skin turgor normal and no jaundice Skin Narrative: See above for wound Neuro oriented x3, CN's II-XII intact bilaterally, moves all extremities and no focal motor deficits Neuro Narrative: Bilateral lower extremity neuropathy noted Speech: speech normal Psych affect normal Psych Narrative: Pleasant, eye contact is good, patient interacts appropriately Weight / BMI Weight Weight: 126.7 kg Body Mass Index (BMI) 43.7 ABG / Lab / Microbiology Data 06/10/23 05:53 06/10/23 05:53 Laboratory: Laboratory Results - last 24 hr 06/08/23 11:15: Diff Path Review Reviewed 06/09/23 06:14: Diff Path Review Reviewed 06/09/23 16:56: POC Glucose 174 H 06/09/23 19:54: POC Glucose 217 H 06/09/23 21:21: POC Glucose 158 H 06/10/23 03:34: POC Glucose 98 06/10/23 05:53: WBC 13.0 H, RBC 2.75 L, Hgb 7.6 L, Hct 24.4 L, MCV 88.7, MCH 27.6, MCHC 31.1 L, RDW Std Deviation 51.4 H, RDW Coeff of Erica 16.1 H, Plt Count 726 H, MPV 9.2, Neut % (Auto) Not Reportable, Absolute Neuts (auto) 9.2 H, Absolute Lymphs (auto) 2.47, Total Counted 100, Neutrophils % (Manual) 68, Band Neutrophils % 3, Lymphocytes % (Manual) 19, Monocytes % (Manual) 5, Metamyelocytes % 4 H, Myelocytes % 1 H, Diff Path Review January, Platelet Estimate ADEQUATE, RBC Morphology NORM C+C, Sodium 138, Potassium 3.8, Chloride 112 H, Carbon Dioxide 22.0, Anion Gap 4 L, BUN 35 H, Creatinine 1.58 H, Estim Creat Clear Calc 55.78, Est GFR (MDRD) Af Amer 62, Est GFR (MDRD) Non-Af 51 L, BUN/Creatinine Ratio 22.2 H, Glucose 97, Calcium 7.7 L, C-React Prot Ext Range 56.80 H 06/10/23 11:28: POC Glucose 181 H Microbiology: Microbiology 06/08/23 09:52 Blood Culture (Wb) - Venous Blood Culture - Preliminary No growth in 48 hours. 06/07/23 13:08 Blood Culture (Wb) - Anticubital Left Blood Culture - Preliminary No growth in 48 hours. 06/05/23 16:19 Bone - Right Foot Gram Stain - Final 06/05/23 16:19 Bone - Right Foot Wound Culture - Final Meth. resistant Staph. aureus Streptococcus group C 06/05/23 16:19 Bone - Right Foot Anaerobic Culture - Final No anaerobic bacteria isolated. 06/06/23 10:00 Blood Culture (Wb) - Venous Blood Culture - Preliminary No growth in 48 hours. 06/05/23 16:31 Blood Culture (Wb) - Anticubital Left Blood Culture - Preliminary Staphylococcus aureus 06/05/23 16:19 Tissue - Right Foot Gram Stain - Final 06/05/23 16:19 Tissue - Right Foot Wound Culture - Final Meth. resistant Staph. aureus 06/05/23 16:19 Tissue - Right Foot Anaerobic Culture - Final No anaerobic bacteria isolated. 06/05/23 16:19 Amputation - Other Gram Stain - Final 06/05/23 16:19 Amputation - Other Wound Culture - Final Meth. resistant Staph. aureus 06/05/23 16:19 Amputation - Other Anaerobic Culture - Final No anaerobic bacteria isolated. 06/05/23 16:19 Tissue - Left Foot Gram Stain - Final 06/05/23 16:19 Tissue - Left Foot Wound Culture - Final Meth. resistant Staph. aureus 06/05/23 16:19 Tissue - Left Foot Anaerobic Culture - Final No anaerobic bacteria isolated. 06/04/23 10:40 Blood Culture (Wb) - Venous Blood Culture - Final Meth. resistant Staph. aureus 06/04/23 10:40 Blood Culture (Wb) - Venous Bacteria Detection (PCR) - Final Meth. resistant Staph. aureus 06/04/23 10:40 Blood Culture (Wb) - Venous Blood Culture - Final Meth. resistant Staph. aureus 06/04/23 10:53 Wound - Right Foot Gram Stain - Final 06/04/23 10:53 Wound - Right Foot Wound Culture - Final Meth. resistant Staph. aureus Streptococcus group C D/C Instructions Discharge Diet: 1800 Calorie Control Diet Please Follow Up With: Channing Hogue DPM Meaningful Use Info Meaningful Use Diagnoses (Choose all that apply): None applicable Discharge Plan Admission Admit Date/Time: 06/04/23 12:17 Attending Provider: Estefani Alicea Primary Care Provider: Semaj Johnson Consulting Providers: Nasim Albert; Channing Hogue; Gee Raymond Discharge Orders/Prescriptions Prescriptions: New vancomycin 1.25 gram recon soln 1.25 g IV Q24H 37 Days Rx Instructions: stop date 07/18/23 dx: foot osteo. weekly bmp, cbc, vanc trough, and esr. Fax to [phone] melatonin 3 mg Tablet 3 mg PO QHS PRN PRN (Reason: Insomnia) Qty: 0 0RF Alvaro (with collagen) 7-7-1.5 gram Powder In Packet 1 packet PO BIDCM Qty: 0 0RF Continued insulin lispro [Humalog KwikPen Insulin] 100 unit/mL Insulin Pen 15 unit subcut BIDCM Qty: 1 0RF insulin glargine-yfgn 100 unit/mL (3 mL) Insulin Pen 15 unit subcut BID Qty: 1 0RF No Action (DME) insulin syringe-needle U-100 [Insulin Syringe] 1 mL 29 gauge x 1/2 syringe See Rx Instructions .Route Qty: 100 0RF Rx Instructions: As directed Referrals / Follow Up: Semaj Johnson DO [Primary Care Provider] - See Referral Note (After dis charged from [facility] facility) Channing Hogue DPM [Med Staff - Active Staff] - In 1 Week Friend,DO Nadeem [Med Staff - Active Staff] - Within 3 Months Disposition Disposition (needs filled in before D/C Order can be placed): [facility] Facility Charges/Coding Visit Charges Inpatient E&M: 41538 SNF Disch >30 Min
--- NOTE | 2023-06-10 15:50 | PHA.DC_ITS ---
Pharmacy [facility] Pharmacy Service has performed discharge medication reconciliation and counseling for this patient. The patient's discharge medication list was reviewed for discrepancies and discrepancies were resolved. The patient was counseled on the following discharge medications and changes in medications for homegoing were reviewed. The Reason for Use, instructions for use, and potential side effects were reviewed for all new medications. The patient's questions regarding all of their medications were answered. 1. Vancomycin 1250 mg IV Q24H 2. Melatonin 3 mg QHS PRN insomnia 3. Alvaro BID The patient was able to verbally demonstrate an understanding of their discharge medications. Medications at Discharge Home Medications insulin glargine-yfgn 100 unit/mL (3 mL) subcutaneous pen 15 unit (0.15 mL) subcut BID DIABETES #1 mL 02/18/23 insulin lispro 100 unit/mL subcutaneous pen (Humalog KwikPen (U-100) Insulin) 15 unit (0.15 mL) subcut BIDCM DIABETES #1 mL 02/18/23 insulin syringe-needle U-100 1 mL 29 gauge x 1/2 (Insulin Syringe) #100 ea 02/18/23 arginine 7 gram-glutam 7 gram-CaHMB 1.5 [id number]-rt-min oral pwd pkt (Alvaro (with collagen)) 1 packet PO BIDCM #0 ea 06/10/23 melatonin 3 mg tablet 3 mg PO QHS PRN PRN Insomnia #0 tabs 06/10/23 vancomycin 1.25 gram intravenous solution 1.25 g IV Q24H 37 days 06/10/23
--- NOTE | 2023-06-10 15:52 | CASEMGMT ---
[facility] able to accept with 30 days payment upfront. SW met with pt and updated on acceptance and cost. Pt confirms he would like to go to [facility]. Physician updated and pt is ready for d/c today. 7000 completed in [facility]. Discharge orders sent to [facility]. Pt states his brother will provide transportation with filler picker at 6pm . Bedside nurse and [facility] notified. Disposition: [facility], skilled level of care under convalescent stay. ARMIN Shirley
[2023-06-10 16:14] VITALS: BP 155/91; PULSE 90; RESP 18; TEMP 36.8; O2SAT 98
[2023-06-12 09:52] LABS: Pathologist Review Reviewed
== END 2023-06-10 17:00 | disposition skilled nursing facility (03) | DRG 617 ==
LOC: ED 11:52 → MS3 12:33
PROVIDERS: Internal Medicine Infectious Disease; Podiatrist; Admitting Provider Hospitalist; Emergency Provider Emergency Medicine; PCP Family Medicine; Visit Provider Internal Medicine
PROC: 0Y6M0Z0 Detachment at Right Foot, Complete, Open Approach (ICD-10-PCS; principal; 2023-06-05 14:15)
DX: E11.69 Type 2 diabetes mellitus with other specified complication (principal); E11.52 Type 2 diabetes mellitus with diabetic peripheral angiopathy with gangrene; M86.171 Other acute osteomyelitis, right ankle and foot; R78.81 Bacteremia; Z68.41 Body mass index [BMI] 40.0-44.9, adult; L02.611 Cutaneous abscess of right foot; N17.9 Acute kidney failure, unspecified; E11.22 Type 2 diabetes mellitus with diabetic chronic kidney disease; N18.31 Chronic kidney disease, stage 3a; E11.42 Type 2 diabetes mellitus with diabetic polyneuropathy; L97.514 Non-pressure chronic ulcer of other part of right foot with necrosis of bone; E11.621 Type 2 diabetes mellitus with foot ulcer; E66.01 Morbid (severe) obesity due to excess calories; Z79.4 Long term (current) use of insulin; E11.65 Type 2 diabetes mellitus with hyperglycemia; Z89.421 Acquired absence of other right toe(s); D63.8 Anemia in other chronic diseases classified elsewhere; I12.9 Hypertensive chronic kidney disease with stage 1 through stage 4 chronic kidney disease, or unspecified chronic kidney disease; I07.1 Rheumatic tricuspid insufficiency; D50.9 Iron deficiency anemia, unspecified; B95.62 Methicillin resistant Staphylococcus aureus infection as the cause of diseases classified elsewhere
CPT/HCPCS: 36415; 36569; 73630; 73718; 80048; 80053; 80202; 82728; 82962; 83036; 83540; 83550; 83605; 85014; 85018; 85025; 85027; 85610; 85652; 85730; 86140; 86850; 86900; 86901; 86920; 86922; 87015; 87040; 87070; 87075; 87077; 87102; 87107; 87116; 87149; 87186; 87205; 87206; 88305; 88311; 93005; 93306; 94668; 97110; 97162; 97166; 97530; 97803; 99284; J7030; J7040; J7050; P9016; Q9957; A4216; C8929; J2405

== ENCOUNTER → 2023-06-04 | Outpatient (CLI) | payer SELFPAY | END | disposition home or self-care (01) | PROVIDERS: PCP Family Medicine; Referring Provider Podiatrist; Visit Provider Podiatrist | DX: L97.512 Non-pressure chronic ulcer of other part of right foot with fat layer exposed (principal); M86.171 Other acute osteomyelitis, right ankle and foot | CPT/HCPCS: 87070; 87075; 87077; 87186; 87205 ==

== ENCOUNTER → 2023-08-06 | Outpatient (CLI) | payer SELFPAY ==
[2023-08-06 15:16] LABS: Absolute Lymphocyte Count 1.75 X10^3/uL (0.83-4.51); Absolute Neutrophil Count 4.9 X10^3/uL (2.0-7.7); Basophil# 0.05 X10^3/uL; Basophil% 0.7 % (0-1); Eosinophil# 0.36 X10^3/uL; Eosinophils% 4.7 % (0-5); Hematocrit 28.9 % (40-54); Hemoglobin 9.3 g/dL (13.0-16.5); Lymphocyte # 1.75 X10^3/ul (0.83-4.51); Mean Corp Hgb Conc 32.2 g/dL (32-36); Mean Corpuscular Hgb 27.6 pg (27.0-32.0); Mean Corpuscular Volume 85.8 fL (80-94); Mean Platelet Vol. 10.4 fl (6.2-12.0); Monocyte% 6.6 % (0-10); NRBC Flagged by Analyzer 0 % (0-5); Neutrophil # 4.93 X10^3/uL (2.7-7.7); Neutrophil % 64.6 % (47-70); Platelet Count 311 K/mm3 (150-450); RBC Distribution Width CV 14.8 % (11.6-14.6); RBC Distribution Width SD 46.8 fl (35.1-43.9); Red Blood Count 3.37 M/mm3 (4.6-6.2); White Blood Count 7.6 K/mm3 (4.4-11.0)
[2023-08-06 15:47] LABS: Anion Gap 4 (5-15); BUN 62 mg/dL (7-18); BUN/Creat Ratio 25.3 RATIO (10-20); Chloride 110 mmol/L (98-107); Creatinine, Serum 2.45 mg/dL (0.70-1.30); EST Glomerular Filtration Rate 31 mL/min (>60); Est Glom Filt Rate - Afr Amer 37 mL/min (>60); Glucose 195 mg/dL (74-106); Potassium 3.6 mmol/L (3.5-5.1); Sodium Level 140 mmol/L (136-145)
== END | disposition home or self-care (01) ==
LOC: BIMLAB 14:25
PROVIDERS: PCP Family Medicine; Referring Provider Family Medicine; Visit Provider Family Medicine
DX: E11.8 Type 2 diabetes mellitus with unspecified complications (principal)
CPT/HCPCS: 36415; 80048; 85025

== ENCOUNTER 2023-12-01 22:43 | Inpatient (IN) | payer OTHER, SELFPAY ==
[2023-12-01 22:44] VITALS: BP 211/109; PULSE 122; RESP 44; TEMP 36.2; O2SAT 94
--- NOTE | 2023-12-01 22:51 | ED.VIS.DYS ---
HPI History of Present Illness Chief Complaint: Shortness of Breath Informant: patient Onset/Context/Timing Onset: Yesterday Context: sudden Timing: Waxes and wanes Quality: Positive for Dyspnea on exertion and Orthopnea Worsened by: Exertion Relieved by: Nothing Associated Symptoms chills; Negative for cough, rhinorrhea, post nasal drip, ear pain, fever, sore throat, sweats, clear sputum, white sputum, yellow sputum or green sputum Chest Pain: Positive for None Narrative Narrative: Patient presents with shortness of breath that began yesterday. Patient states it began rather suddenly. Patient states it was better this morning. Patient states he has gotten progressively worse throughout the day again today. Patient states his breathing is worse with any exertion. Patient denies any cough. Patient denies any rhinorrhea or or sore throat. Patient denies any fevers but admits to some subjective chills. Patient denies any chest pain. Patient also admits to recent travel to [place] 2 weeks ago. PE Risk Factors: Positive for Recent travel; Negative for Cancer, OCP + Smoking + > 35, Prior DVT or PE, Recent immobilization or Recent surgery PFSH [facility] Medical History Diabetes Diabetic foot ulcer Gas gangrene Hyperglycemia Non-pressure chronic ulcer of other part of right foot with necrosis of bone Osteomyelitis of foot, right, acute Type 2 diabetes mellitus with diabetic polyneuropathy Home Medications insulin glargine-yfgn 100 unit/mL (3 mL) subcutaneous pen 15 unit (0.15 mL) subcut BID DIABETES #1 mL 02/18/23 [Rx Last Taken 06/03/23] insulin lispro 100 unit/mL subcutaneous pen (Humalog KwikPen (U-100) Insulin) 15 unit (0.15 mL) subcut BIDCM DIABETES #1 mL 02/18/23 [Rx Last Taken 06/03/23] insulin syringe-needle U-100 1 mL 29 gauge x 1/2 (Insulin Syringe) #100 ea 02/18/23 [Rx Last Taken Unknown] flash glucose scanning reader (FreeStyle Belkis 2 [place]) #1 ea 08/06/23 [Rx Last Taken Unknown] flash glucose sensor (FreeStyle Belkis 2 Sensor kit) #1 ea 08/06/23 [Rx Last Taken Unknown] Allergy/AdvReac Type Severity Reaction Status Date / Time No Known Allergies Allergy Verified 12/01/23 22:44 Family History Mother Diabetes Father CVA (cerebral vascular accident) Surgical History Amputation toe History of amputation of right foot History of partial ray amputation of fifth toe of right foot Social History Smoking Status: Never smoker alcohol intake: never substance use type: does not use what type of physical activity do you participate in: none EXAM Physical Exam Const Vital Signs: 12/01/23 22:44 12/01/23 22:52 12/01/23 23:18 Temperature 97.1 F L 100.0 F H Temperature Source Temporal Oral Pulse Rate 122 H 123 H Pulse Rate [4] Respiratory Rate 44 H 36 H Respiratory Rate [4] Respiratory Effort Respiratory Depth Respiratory Pattern Blood Pressure 211/109 H 180/110 H Blood Pressure [4] Blood Pressure Mean 143 133 Pulse Ox 94 95 Oxygen Delivery Method Room Air Room Air Oxygen Flow Rate (L/min) Fraction of Inspired Oxygen (FIO2) 12/01/23 23:23 12/01/23 23:24 12/02/23 00:06 Temperature 100 F H Temperature Source Oral Pulse Rate 120 H 117 H Pulse Rate [4] Respiratory Rate 29 H Respiratory Rate [4] Respiratory Effort Short of Breath Accessory Muscle Use Respiratory Depth Shallow Respiratory Pattern Tachypnea Blood Pressure 212/110 H 219/113 H Blood Pressure [4] Blood Pressure Mean 144 Pulse Ox 95 Oxygen Delivery Method Room Air Room Air Oxygen Flow Rate (L/min) Fraction of Inspired Oxygen (FIO2) 12/02/23 00:47 12/02/23 00:59 12/02/23 01:18 Temperature 100 F H 100.9 F H 100.4 F H Temperature Source Oral Oral Oral Pulse Rate 112 H 88 Pulse Rate [4] Respiratory Rate 43 H 31 H Respiratory Rate [4] Respiratory Effort Respiratory Depth Respiratory Pattern Blood Pressure 202/103 H 168/87 H Blood Pressure [4] Blood Pressure Mean 136 114 Pulse Ox 98 100 Oxygen Delivery Method Room Air Nasal Cannula Oxygen Flow Rate (L/min) 2 Fraction of Inspired Oxygen (FIO2) 12/02/23 02:54 12/02/23 02:25 12/02/23 03:15 Temperature 101.4 F H Temperature Source Rectal Pulse Rate 98 92 Pulse Rate [4] 127 H Respiratory Rate 14 28 H Respiratory Rate [4] 20 H Respiratory Effort Respiratory Depth Respiratory Pattern Normal Blood Pressure 147/88 H Blood Pressure [4] 253/127 H Blood Pressure Mean 107 Pulse Ox 100 100 Oxygen Delivery Method Room Air Mechanical Ventilator Oxygen Flow Rate (L/min) Fraction of Inspired Oxygen (FIO2) 100 80 Positive well nourished, well developed and obese General Appearance ED: well developed Nutritional Appearance: obese HEENT Reports moist mucous membranes Neck supple, no meningeal signs and no JVD Resp clear to auscultation bilaterally Cardio regular rhythm Rate: tachycardic GI non-distended Palpation: soft and tender RLQ; Negative for guarding or rebound tenderness present Extremity General Extremety ED: Yes edema; Negative for tenderness General Extremity: edema Neuro oriented x3, CN's II-XII intact bilaterally and no sensory deficits noted [place] Coma Scale: document GCS findings Spontaneous Obeys Commands Oriented 15 Sensorium / Orientation: alert Speech: speech normal Motor Exam: strength 5/5 throughout Psych mental status grossly normal MDM MDM MDM Narrative Medical decision making narrative: Differential diagnosis includes pulmonary embolism, congestive heart failure, pneumonia, hypertensive urgency, hypertensive emergency, cardiac dysrhythmia, cardiac ischemia, electrolyte abnormality, sepsis, and anxiety. EKG will be obtained to assess for cardiac dysrhythmia and cardiac ischemia. CTA of the chest will be obtained to assess for pulmonary embolism, pneumonia, and congestive heart failure. CBC will be obtained to assess for leukocytosis and anemia. Comprehensive metabolic profile will be obtained to assess for hepatic function, renal function, and electrolyte abnormality. High-sensitivity troponin will be obtained to assess for cardiac ischemia. BNP will be obtained to assess for congestive heart failure. Serum lactate will be obtained to assess for sepsis. Urinalysis will be obtained to assess for urinary tract infection. Blood cultures will be obtained to assess for sepsis. PT with INR and PTT will be obtained to assess for coagulopathy. Urine culture will be obtained to assess for urinary tract infection. Lab Data Attestation: I reviewed the patient's lab results. Lab results narrative: CBC was reviewed. There is a mild leukocytosis of 12.7. Hemoglobin was 8.5 and hematocrit was 27.0. These are consistent with prior results. Platelets are normal. Pro time with INR and PTT were reviewed. Pro time was 15.9 and INR is 1.3. PTT was 42.4. Comprehensive metabolic profile was reviewed. BUN was 73 and creatinine was 5.54. These are increased from previous results. High-sensitivity troponin was reviewed and was elevated at 92. BNP was reviewed and was elevated at one 546.1. Serum lactate was reviewed and was slightly elevated at 2.2. Arterial blood gas was obtained. pH was 6.99, pCO2 was 41.8, pO2 73.7, bicarb of 10.1, and oxygen saturation of 84.3%. Labs: Laboratory Results - last 24 hr 12/01/23 12/02/23 12/02/23 23:00 02:58 03:16 WBC 12.7 H RBC 2.87 L Hgb 8.5 L Hct 27.0 L MCV 94.1 H MCH 29.6 MCHC 31.5 L RDW Std Deviation 56.7 H RDW Coeff of Erica 16.7 H Plt Count 190 MPV 11.2 Immature Gran % (Auto) 0.400 Neut % (Auto) 95.9 H Lymph % (Auto) 1.4 L [place] % (Auto) 2.1 Eos % (Auto) 0.0 Baso % (Auto) 0.2 Absolute Neuts (auto) 12.1 H Absolute Lymphs (auto) 0.18 L Nucleated RBC % 0 PT 15.9 H INR 1.3 APTT 42.4 H Sodium 134 L Potassium 4.7 Chloride 110 H Carbon Dioxide 15.0 L Anion Gap 9 BUN 73 H Creatinine 5.54 H Estim Creat Clear Calc 24.41 Est GFR (MDRD) Af Amer 14 L Est GFR (MDRD) Non-Af 12 L BUN/Creatinine Ratio 13.2 Glucose 256 H Lactic Acid 2.2 H* Calcium 8.3 L Total Bilirubin 0.80 AST 44 H ALT 46 Alkaline Phosphatase 205 H Troponin I High Sens 92 H B-Natriuretic Peptide 1546.1 H Total Protein 7.0 Albumin 2.7 L Globulin 4.3 H Albumin/Globulin Ratio 0.6 L Urine Color Yellow Urine Clarity Clear Urine pH 6.0 Ur Specific [place] 1.020 Urine Protein 500 H Urine Glucose (UA) 250 H Urine Ketones Negative Urine Occult Blood 150 H Urine Nitrite Negative Urine Bilirubin Negative Urine Urobilinogen Normal Ur Leukocyte Esterase Negative Urine RBC 0-5 SEEN Urine WBC 0-5 SEEN Ur Squamous Epith Cells 0 SEEN Urine Bacteria 1+ Urine Mucus 0 SEEN POC Glucose 171 H ABG Data ABG results: ABG 12/02/23 02:43 Specimen Type ART Sample Site L Radial pH 6.99 L* Bicarbonate Actual 10.1 L Total CO2 11 Base Excess -21 L O2 Saturation 84 L O2 % 60.0 ABG pCO2 41.8 ABG pO2 74 L Krunal Test Positive Respiration Rate 14 O2 Delivery Device Adult Vent Vent Mode AC Tidal Volume 500.0 POC PEEP 5 Crit Call To/Read Back Yes Blood Gas Notified Whom Ez Blood Gas Notified Time 02:45:23 Radiography Diagnostic Testing: Clinical Impression(s) from Imaging Studies Chest X-Ray 12/01/23 23:53 IMPRESSION: 1. Possible low-grade left ventricular dysfunction. 2. No consolidating pneumonia. 3. No other acute disease. Electronically Signed: Darin Wilson MD at 1:40 EST , Chest X-Ray 12/02/23 02:20 IMPRESSION: Findings of congestive heart failure exacerbation. Correlate clinically to exclude aspiration or pneumonia at the left base versus collapse of the left lower lobe. Electronically Signed: Darin Wilson MD at 3:59 EST , Portable chest x-ray was obtained. There is 1 view. On my independent interpretation, there is some congestive heart failure noted. There is no pneumonia or acute infiltrate noted. Bony thorax is normal. Radiologist also interpreted the x-ray and agrees. EKG Initial EKG: Attestation: I personally reviewed and interpreted this EKG as follows: Interpretation: No Acute Injury Pattern and Sinus Tachycardia (120) Comments: EKG was obtained. On my independent interpretation, it shows sinus tachycardia with a rate of 120. CO interval was normal at 178 ms. QRS and was normal at 62 ms. QTc interval was normal at 435 ms. [place] was normal. There are no acute ST or T wave changes noted. Prior EKG tracings: available for review Prior: Unchanged (06/05/2023) Management Discussion w/another healthcare provider: Hospitalist Treatment and Re-Evaluation :: Due to the patient's acute kidney injury, CT of the chest was canceled. Patient was given a dose of Lovenox for possible pulmonary embolism. Patient was given a dose of Lasix. Patient was started on nitroglycerin paste for the congestive heart failure. Patient was still having hypertension and tachycardia. Patient was given a dose of labetalol. Patient's vital signs improved. Patient was feeling better. Patient was sitting at the side of the bed attempting to provide a urine specimen when he became unresponsive. Staff reported the patient was shaking and then fell back into the bed. Patient lost his pulse. CPR was started. CODE BLUE was called. Patient was given epinephrine. Patient's blood pressure returned. Patient was given rocuronium and etomidate. Patient was intubated with a 7.5 ET tube to 22 cm at the lip. There was good color change on capnography. There were equal breath sounds. There is condensation of the tube. Patient was given a dose of Zosyn and vancomycin. Case was discussed with the hospitalist. He will admit the patient to ICU. Procedures Intubations Intubation Method: orotracheal Intubation Verification: Positive color change and Bilateral breath sounds confirmed Intubation Complications: no complications Critical Care Time Critical Care Time: Yes Critical care time (excluding procedures): 30-74 minutes (41), Including time spent:, Discussing w/Patient &/or Family/Preform Plate Maker, Discussing w/Consultants, Arranging Admission or Transfer and Performing Direct Patient Care at Bedside Discharge Plan Dx/Rx/DC Orders Clinical Impression: Acute kidney injury, Diabetes mellitus type 2 with complications, Congestive heart failure, Respiratory failure, Sepsis Disposition Disposition: [facility]
[2023-12-01 22:52] VITALS: BP 180/110; PULSE 123; RESP 36; TEMP 37.8; O2SAT 95
--- OUTSIDE RECORDS SUMMARY | 2023-12-01 23:02 | XMS RPT_ITS | CCD ---
Author Name Unknown Address [address] [place] [address] Organization [facility] Care Team Providers Care Marketing Systems Manager Name Role Phone JASON COLUNGA MD Admitting Unavailable JASON COLUNGA MD Attending Unavailable JASON COLUNGA MD Primary Care Unavailable JASON COLUNGA MD Consulting Unavailable PROVIDER, UNKNOWN Consulting Unavailable PROVIDER, UNKNOWN Consulting Unavailable PROVIDER, UNKNOWN Consulting Unavailable Problems Problem Classification Problem Date Documented Da te Episodic/Chronic Chronic kidney disease (1 source) Chronic kidney disease, unspecified; Translations: [Chronic kidney disease, unspecified] Onset: 06-10-2023 Chronic Chronic ulcer of skin (1 source) Non-pressure chronic ulcer of other part of right foot with necrosis of bone; Translations: [Non-pressure chronic ulcer of other part of right foot with necrosis of bone] Onset: 06-10-2023 Chronic Deficiency and other anemia (1 source) Anemia, unspecified; Translations: [Anemia, unspecified] Onset: 06-10-2023 Episodic Infective arthritis and osteomyelitis (except that caused by tuberculosis or sexually transmitted disease) (1 source) Osteomyelitis, unspecified; Translations: [Osteomyelitis, unspecified] Onset: 06-10-2023 Chronic Other aftercare (1 source) 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; Translations: [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] Onset: 06-10-2023 Episodic Other aftercare (1 source) Other retirement (current) drug therapy; Translations: [Other retirement (current) drug therapy] Onset: 06-10-2023 Episodic Other bone disease and musculoskeletal deformities (3 sources) Acquired absence of limb, unspecified; Translations: [Acquired absence of limb, unspecified] Onset: 06-10-2023 Chronic Septicemia (except in labor) (1 source) Severe sepsis without septic shock; Translations: [Severe sepsis without septic shock] Onset: 06-10-2023 Episodic Results Test Name Value Interpretation Reference Range Facil ity Encounters Encounter Date Encounter Type Care Provider Facility Start: 06-10-2023 End: 07-19-2023 ambulatory JASON [facility] Summary Purpose Family History No Family History Records Found Advance Directives No Advanced Directives Records Found Additional Source Comments (unrecognized sect ion and content) No Status Records Found INFORMATION SOURCE (unrecogn ized section and content) FOR RECORDS PERTAINING TO PATIENTS WHO ARE OR HAVE BEEN ENROLLED IN A CHEMICAL DEPENDENCY/SUBSTANCEABUSE PROGRAM, SOME INFORMATION MAY BE OMITTED. This clinical summary was aggregated from multiple sources. Caution should be exercised in using it in the provision of clinical care. This summary normalizes information from multiple sources, and as a consequence, information in this document may materially change the coding, format and clinical context of patient data. In addition, data may be omitted in some cases. CLINICAL DECISIONS SHOULD BE BASED ON THE PRIMARY CLINICAL RECORDS. [facility] [employer] provides no warranty or guarantee of the accuracy or completeness of information in this document.
--- NOTE | 2023-12-01 23:04 | EKG12_ITS ---
Test Reason : DYSRHYTHMIA Blood Pressure : / mmHG Vent. Rate : 120 BPM Atrial Rate : 120 BPM P-R Int : 178 ms QRS Dur : 062 ms QT Int : 308 ms P-R-T Axes : 053 057 050 degrees QTc Int : 435 ms Sinus tachycardia Possible Left atrial enlargement Septal infarct , age undetermined Abnormal ECG Confirmed by Omega Heck [id number]), editor & co founder PATRIZIA RG [id number]) on 12/02/2023 10:38:11 AM Referred By: Confirmed By:Omega Heck
[2023-12-01 23:18] VITALS: BMI 53.3
[2023-12-01 23:19] VITALS: BMI 53.3
[2023-12-01 23:23] VITALS: BP 212/110; PULSE 120; RESP 29; TEMP 37.7; O2SAT 95
[2023-12-01 23:24] VITALS: O2SAT 94
[2023-12-01 23:24] LABS: Absolute Lymphocyte Count 0.18 X10^3/uL (0.83-4.51); Absolute Neutrophil Count 12.1 X10^3/uL (2.0-7.7); Basophil# 0.02 X10^3/uL; Basophil% 0.2 % (0-1); Hemoglobin 8.5 g/dL (13.0-16.5); Lymphocyte # 0.18 X10^3/ul (0.83-4.51); Lymphocyte % 1.4 % (19-41); Mean Corp Hgb Conc 31.5 g/dL (32-36); Mean Corpuscular Hgb 29.6 pg (27.0-32.0); Mean Corpuscular Volume 94.1 fL (80-94); Mean Platelet Vol. 11.2 fl (6.2-12.0); Monocyte# 0.27 X10^3/uL; Monocyte% 2.1 % (0-10); NRBC Flagged by Analyzer 0 % (0-5); Neutrophil # 12.14 X10^3/uL (2.7-7.7); Neutrophil % 95.9 % (47-70); POSITIVE DIFFERENTIAL YES; Platelet Count 190 K/mm3 (150-450); RBC Distribution Width CV 16.7 % (11.6-14.6); RBC Distribution Width SD 56.7 fl (35.1-43.9); Red Blood Count 2.87 M/mm3 (4.6-6.2); White Blood Count 12.7 K/mm3 (4.4-11.0)
[2023-12-01 23:32] LABS: International Normalized Ratio 1.3; Prothrombin Time (Protime)PT. 15.9 SECONDS (11.7-14.9)
[2023-12-01 23:33] LABS: Partial Thromboplast Time 42.4 Seconds (24.1-36.2)
[2023-12-01 23:42] LABS: ALB/GLOB Ratio 0.6 RATIO (0.9-2.4); AST(SGOT) 44 U/L (15-37); Alanine Aminotransfer ALT/SGPT 46 U/L (16-61); Albumin, Serum 2.7 g/dL (3.2-5.0); Alkaline Phosphatase 205 U/L (45-117); Anion Gap 9 (5-15); BUN 73 mg/dL (7-18); BUN/Creat Ratio 13.2 RATIO (10-20); Calcium,Total 8.3 mg/dL (8.5-10.1); Chloride 110 mmol/L (98-107); Creatinine, Serum 5.54 mg/dL (0.70-1.30); EST Glomerular Filtration Rate 12 mL/min (>60); Est Glom Filt Rate - Afr Amer 14 mL/min (>60); Estimated Creatinine Clearance 24.41 ml/min; Globulin 4.3 g/dL (2.2-4.2); Glucose 256 mg/dL (74-106); Potassium 4.7 mmol/L (3.5-5.1); Sodium Level 134 mmol/L (136-145); Troponin-I HS 92 pg/mL (3.0-78.0)
[2023-12-01 23:49] LABS: BNP,B-Type NATRIURETIC PEPTIDE 1546.1 pg/mL (0-100)
--- NOTE | 2023-12-01 23:53 | RAD_ITS ---
EXAM: XR CHEST, 1 VIEW CLINICAL INDICATION: Dyspnea TECHNIQUE: Frontal view of the chest. COMPARISON: No relevant prior studies available. FINDINGS: LUNGS AND PLEURAL SPACES: Mild low lung volumes limits assessment. Vasculature congestion. No consolidation. No pleural effusion or pneumothorax. HEART: Enlarged cardiac silhouette is concerning for cardiomegaly and/or pericardial effusion. MEDIASTINUM: No mediastinal or hilar enlargement. BONES/JOINTS: Degenerative changes of spine. No acute fracture. SOFT TISSUES: Unremarkable. RAD/Chest 1 View (Portable) IMPRESSION: 1. Possible low-grade left ventricular dysfunction. 2. No consolidating pneumonia. 3. No other acute disease. Electronically Signed: Darin Wilson MD at 1:40 EST ,
[2023-12-01 23:55] LABS: Lactic Acid 2.2 mmol/L (0.4-1.9)
[2023-12-02] VITALS (25 sets, daily range): BP systolic 30–253; BP diastolic 15–145; PULSE 40–127; RESP 14–87; TEMP 37.7–38.6; O2SAT 84–100; BMI 47.0; BMI 53.3
[2023-12-02] MEDS: Furosemide 40 MG/4 ML Vial IV
[2023-12-02] MEDS: Nitroglycerin Oint 1 INCH PACKET TD (00:06)
[2023-12-02] MEDS: Morphine 4 MG/ML Syringe IV (00:11)
[2023-12-02] MEDS: Labetalol (Prefilled) 20 MG/4 ML IV (00:58)
[2023-12-02] MEDS: Enoxaparin 150 MG/ML Syringe SC (01:08)
[2023-12-02] MEDS: Acetaminophen 500 MG Tablet 1000 MG PO (01:26)
--- NOTE | 2023-12-02 02:20 | RAD_ITS ---
EXAM: XR CHEST, 1 VIEW CLINICAL INDICATION: Dyspnea TECHNIQUE: Frontal view of the chest. COMPARISON: December 01, 2023 exam. FINDINGS: Overall low lung volumes limits assessment. LUNGS AND PLEURAL SPACES: Vascular congestion at the upper lungs and pulmonary edema centrally. Iyyli-[id number]-[id number] left pleural effusion with adjacent atelectasis. Additional airspace disease involving the retrocardiac region may represent cm aspiration/pneumonia or could also represent lobar collapse. No pneumothorax. HEART: Enlarged but unchanged from before. MEDIASTINUM: No frida enlargement or other frida pathology. BONES/JOINTS: No suspicious lytic or sclerotic lesions. No acute fracture. SOFT TISSUES: Unremarkable. TUBES, LINES AND DEVICES: ET tube identified with tip located 4.2 cm above the irma. Transesophageal catheter has its tip off the examination. RAD/Chest 1 View (Portable) IMPRESSION: Findings of congestive heart failure exacerbation. Correlate clinically to exclude aspiration or pneumonia at the left base versus collapse of the left lower lobe. Electronically Signed: Darin Wilson MD at 3:59 EST ,
--- NOTE | 2023-12-02 02:37 | PCM.HP.STD ---
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 Mr. Carlisle has been intubated after CODE BLUE in the ER so information was gathered from chart, medical staff and computer. According to the records the patient stated his shortness of breath began yesterday and came on abruptly. Then earlier in the morning today his symptoms had transiently improved but then began to deteriorate throughout the day with dyspnea on exertion that progressed to shortness of breath at rest. He denied associated cough, rhinorrhea, sore throat or chest pain but he did admit to fevers up to approximately 101 ?F with subjective chills. He also admitted to recent travel to [place] approximately 2 weeks ago but he did not report any sick contacts or toxic environmental exposures. Unfortunately, when the patient was sitting at the bedside in the ER attempting to give a urine sample he suddenly went into cardiac arrest and ANN KWONG was called with his pulse returning after 1 dose of epinephrine and then the hospitalist was called to admit this patient with his workup still in the very early stages of its evolution. In the ER patient's chest x-ray revealed no consolidating pneumonia or other acute disease but did show possible low-grade left ventricular dysfunction with a fever in the ER confirmed to be 100.9 ?F with leukocytosis of 12.7 present on admission and lactic acidosis of 2.2 mmol/L present on admission concerning for sepsis but with no obvious source of infection identified in the ER and no D-dimer ordered because patient was going to have a CT scan of his chest until he was noted to have a severely elevated serum creatinine of 5.54 mg/dL present on admission (up from his baseline serum creatinine of 2.45 mg/dL last admission) along with an elevated troponin of 92 pg/mL and an elevated BNP of 1,546.1 pg/mL. To make matters worse patient's initial pH was 6.99 with a pCO2 of 41.8 and a pO2 of 74 with a bicarbonate level of 10.1 on ventilator AC with rate of 14 and a tidal volume of 500 cc on 60% FiO2. This patient is suspected to have a possible saddle pulmonary embolism with suspected RV strain in addition to possible sepsis of unknown origin with multiorgan failure causing leukocytosis and lactic acidosis with a V/Q scan pending at this time. MEAT PACKER reported suspected witnessed seizure activity so he was treated with Keppra IV and STAT CT scans of the head/chest/abdomen and pelvis are pending at this time. Therefore, this patient was then reluctantly accepted to the ICU for ongoing care for stay that is expected to be greater than 48 hours. [facility] Medical History Diabetes Diabetic foot ulcer Gas gangrene Hyperglycemia Non-pressure chronic ulcer of other part of right foot with necrosis of bone Osteomyelitis of foot, right, acute Type 2 diabetes mellitus with diabetic polyneuropathy Home Medications insulin glargine-yfgn 100 unit/mL (3 mL) subcutaneous pen 15 unit (0.15 mL) subcut BID DIABETES #1 mL 02/18/23 [Rx Last Taken 06/03/23] insulin lispro 100 unit/mL subcutaneous pen (Humalog KwikPen (U-100) Insulin) 15 unit (0.15 mL) subcut BIDCM DIABETES #1 mL 02/18/23 [Rx Last Taken 06/03/23] insulin syringe-needle U-100 1 mL 29 gauge x 1/2 (Insulin Syringe) #100 ea 02/18/23 [Rx Last Taken Unknown] flash glucose scanning reader (FreeStyle Belkis 2 Shiloh) #1 ea 08/06/23 [Rx Last Taken Unknown] flash glucose sensor (FreeStyle Belkis 2 Sensor kit) #1 ea 08/06/23 [Rx Last Taken Unknown] Allergy/AdvReac Type Severity Reaction Status Date / Time No Known Allergies Allergy Verified 12/01/23 22:44 Family History Mother Diabetes Father CVA (cerebral vascular accident) Surgical History Amputation toe History of amputation of right foot History of partial ray amputation of fifth toe of right foot Social History Smoking Status: Never smoker alcohol intake: never substance use type: does not use what type of physical activity do you participate in: none ROS ROS Narrative Patient is intubated and sedated on mechanical ventilation so therefore review of systems cannot be completed. Review of Systems ROS Unobtainable: due to endotracheal tube Vital Signs Vital Signs Vital Signs: 12/01/23 22:44 12/01/23 22:52 12/01/23 23:18 Temperature 97.1 F L 100.0 F H Temperature Source Temporal Oral Pulse Rate 122 H 123 H Respiratory Rate 44 H 36 H Respiratory Effort Respiratory Depth Respiratory Pattern Blood Pressure 211/109 H 180/110 H Blood Pressure Mean 143 133 Pulse Ox 94 95 Oxygen Delivery Method Room Air Room Air Oxygen Flow Rate (L/min) 12/01/23 23:23 12/01/23 23:24 12/02/23 00:06 Temperature 100 F H Temperature Source Oral Pulse Rate 120 H 117 H Respiratory Rate 29 H Respiratory Effort Short of Breath Accessory Muscle Use Respiratory Depth Shallow Respiratory Pattern Tachypnea Blood Pressure 212/110 H 219/113 H Blood Pressure Mean 144 Pulse Ox 95 Oxygen Delivery Method Room Air Room Air Oxygen Flow Rate (L/min) 12/02/23 00:47 12/02/23 00:59 12/02/23 01:18 Temperature 100 F H 100.9 F H 100.4 F H Temperature Source Oral Oral Oral Pulse Rate 112 H 88 Respiratory Rate 43 H 31 H Respiratory Effort Respiratory Depth Respiratory Pattern Blood Pressure 202/103 H 168/87 H Blood Pressure Mean 136 114 Pulse Ox 98 100 Oxygen Delivery Method Room Air Nasal Cannula Oxygen Flow Rate (L/min) 2 Weight Weight: 340 lb 6.299 oz Body Mass Index (BMI) 53.3 Physical Exam Const Constitutional Narrative: Patient is intubated and sedated on mechanical ventilation. HEENT normocephalic and head/scalp atraumatic HEENT Narrative: ETT in place. Eyes PERRL and conjunctivae normal Neck no lymphadenopathy and supple Resp Resp Narrative: Diminished breath sounds throughout. Cardio regular rate and regular rhythm GI normal to inspection, nondistended, normoactive bowel sounds, soft to palpation and non-distended GI Narrative: Morbidly obese. Extremity Extremity Narrative: Patient has evidence of previous right foot amputation. His wound stump is well-healed with no obvious signs of acute infection. Skin Skin Narrative: Patient has no evidence of rash at this time. Neuro Neuro Narrative: Patient is intubated and sedated on mechanical ventilation. Psych Psych Narrative: Patient is intubated and sedated on mechanical ventilation. Results Medical Records Data Attestation: I reviewed the patient's medical records Lab / Micro Data Attestation: I reviewed the patient's lab results. 12/01/23 23:00 12/01/23 23:00 Labs: Laboratory Results - last 24 hr 12/01/23 23:00: WBC 12.7 H, RBC 2.87 L, Hgb 8.5 L, Hct 27.0 L, MCV 94.1 H, MCH 29.6, MCHC 31.5 L, RDW Std Deviation 56.7 H, RDW Coeff of Erica 16.7 H, Plt Count 190, MPV 11.2, Immature Gran % (Auto) 0.400, Neut % (Auto) 95.9 H, Lymph % (Auto) 1.4 L, [place] % (Auto) 2.1, Eos % (Auto) 0.0, Baso % (Auto) 0.2, Absolute Neuts (auto) 12.1 H, Absolute Lymphs (auto) 0.18 L, Nucleated RBC % 0, PT 15.9 H, INR 1.3, APTT 42.4 H, Sodium 134 L, Potassium 4.7, Chloride 110 H, Carbon Dioxide 15.0 L, Anion Gap 9, BUN 73 H, Creatinine 5.54 H, Estim Creat Clear Calc 24.41, Est GFR (MDRD) Af Amer 14 L, Est GFR (MDRD) Non-Af 12 L, BUN/Creatinine Ratio 13.2, Glucose 256 H, Lactic Acid 2.2 H*, Calcium 8.3 L, Total Bilirubin 0.80, AST 44 H, ALT 46, Alkaline Phosphatase 205 H, Troponin I High Sens 92 H, B-Natriuretic Peptide 1546.1 H, Total Protein 7.0, Albumin 2.7 L, Globulin 4.3 H, Albumin/Globulin Ratio 0.6 L Micro: Microbiology 12/01/23 23:00 Mucosa - Nose SARS-CoV-2, Influenza & RSV (PCR) - Final ABG Data ABG results: RUN DATE: 12/02/23 [facility], DEPARTMENT OF LABORATORIES PAGE 1 RUN TIME: 06 Specimen Inquiry [address], [place], [address] PATIENT: DARRYL CARLISLE LOC: ICU U #: [id number] : 1980 AGE/SX: 43/M FACILITY: [facility] ROOM: [place] [address] RE12/02/[address]: Dr. Prem Gutierrez, D STATUS:ADM IN ED: 1 DIS: ~ SPEC #: [id number] [place]: 12/02/23 STATUS: COMP REQ #: [id number] RECD: 12/02/[address]: Dr. Prem Gutierrez, DO ENTERED: 12/02/[address]: Dr. Semaj Johnson, DO ~ Test Result Flag Adult Reference Range VIBG Blood Gas Type ZULMA SITE Not entered O2 Delivery Dev Adult Vent Vt 500.0 mL RR 14 FI02 50.0 PEEP 5 Time Given 04:52:01 Results To Gutierrez Read Back By Yes VBG pH 7.13 *L 7.32-7.42 VBG pCO2 33.3 L 41-51 mmHg VBG PO2 38 25-40 mmHg VBG HCO3 11 L 22-26 mmol/L VBG BE -18 L -1.0-3.5 mmol/L VBG SO2 56 50-70 % VBG TCO2 12 L 23-33 mmol/L END OF REPORT Imaging Radiology Impression Chest X-Ray 12/01/23 23:53 IMPRESSION: 1. Possible low-grade left ventricular dysfunction. 2. No consolidating pneumonia. 3. No other acute disease. Electronically Signed: Darin Wilson MD at 1:40 EST , Assessment & Plan Assessment/Plan (1) Sepsis: QUALIFIERS: Acute respiratory failure type: with hypoxia Sepsis acute organ dysfunction status: with acute organ dysfunction Sepsis type: sepsis due to unspecified organism Severe sepsis acute organ dysfunction type: acute respiratory failure Severe sepsis shock status: without septic shock Qualified Code(s): A41.9 - Sepsis, unspecified organism; R65.20 - Severe sepsis without septic shock; J96.01 - Acute respiratory failure with hypoxia (2) Respiratory failure: QUALIFIERS: Chronicity: acute Respiratory failure complication: hypoxia Qualified Code(s): J96.01 - Acute respiratory failure with hypoxia (3) Acute kidney injury: (4) Seizure: PLAN: Plan 1. Sepsis of unknown origin; evidenced by fever, leukocytosis and lactic acidosis of 2.2 mmol/L present on admission culminating in CODE BLUE in the ER - Admit to ICU for treatment of the sepsis protocol. Start broad-spectrum antibiotics with IV Vancomycin and IV Zosyn and await culture and sensitivity data to narrow antibiotic spectrum. Placed Ibarra and checked urinalysis with no signs of infection. Chest x-ray is unimpressive for acute pathologic changes that would explain his clinical condition. Finally, we will consult the controlled atmospheric furnace brazer on-call see this patient on rounds in the a.m. for further recommendations with help appreciated in advance. 2. Severe metabolic acidosis with initial pH of 6.99 with a pCO2 of 41.8 and a pO2 of 74 with a bicarbonate level of 10.1 on ventilator AC with rate of 14 and a tidal volume of 500 cc on 60% FiO2 due to #1 - Continue ventilator support and start bicarbonate drip. Recheck ABG in 1 hour to monitor response to treatment. Place PICC. 3. Severe acute renal failure in the setting of chronic kidney disease stage III with elevated serum creatinine of 5.54 mg/dL present on admission (up from his baseline serum creatinine of 2.45 mg/dL last admission) - Aggressively volume resuscitate and recheck CMP in the a.m. to ensure improvement. Check CT of the abdomen and pelvis to evaluate for possible obstruction. Finally, we will consult nephrology to see this patient on rounds in the a.m. for further recommendations regarding possible need for dialysis given the severity of his renal dysfunction with help appreciated in advance. 4. Elevated BNP of 1,546.1 pg/mL and elevated troponin of 92 pg/mL present on admission without obvious signs of severe volume overload and an increased index of suspicion for possible PE with right ventricular strain after recent trip to [place] and already limited mobility given his previous Right foot amputation and body habitus compounding #1 - #3 - Check V/Q scan urgently to confirm suspicion. Placed on full renally dosed Lovenox and also check bilateral lower extremity Dopplers to evaluate for possible DVT in this morbidly obese patient with recent long distance travel. 5. MEAT PACKER reported observing possible seizure activity that coincided with his CODE BLUE - Start Keppra IV twice daily. Give IV Ativan as needed for breakthrough seizure activity. Check head CT to evaluate for possible mass lesion or other acute pathologic changes that would explain his acute clinical decline. Check serum prolactin as this can be elevated in patients with seizures. Finally, we will consult [facility] teleneurology to see this patient for further recommendations with help appreciated in advance. 6. Diabetes mellitus type 2; uncontrolled with hyperglycemia plus diabetic neuropathy with a history of severe osteomyelitis of the Right foot with necrosis of bone and gas gangrene; status post amputation - Stable with no signs of residual infection. Keep patient strict n.p.o. and check fingerstick blood sugars every 6 hours plus cover with sliding scale insulin. Check hemoglobin A1c to objectively assess quality of diabetic control. 7. Morbid obesity; with BMI of 53.3 this admission - Weight loss will be recommended. Check TSH. 8. DVT prophylaxis - Patient already on full-dose Lovenox for #4. Total time: Approximately 75 minutes. Sepsis Attestation Sepsis Alert: Yes Sepsis Attestation: Agree w/Sepsis Date exam was performed: 12/02/23 Time exam was performed: 03:00 Possible Source of Sepsis: Unknown Sepsis Organ Dysfunction Criteria Present: Acute Respiratory Failure (New need for BiPAP/CPAP or MV), Creatinine > 2.0 mg/dL, Lactic Acid > 2 mmol/L and New/Unexplained change in mental status Fluid Resuscitation Fluid resuscitation indicated?: Yes Fluid Resuscitation ordered: 30 ml/kg fluid bolus ordered Amount of fluid ordered: 3 Reason for lesser fluid bolus:: Concern for fluid overload, Heart failure and Renal Failure Sepsis Note Date exam was performed: 12/02/23 Time exam was performed: 07:00 Sepsis Attestation: Sepsis re-evaluation was performed Response to fluids: Vasopressors started Charges/Coding Visit Charges Inpatient E&M: 37968 Init Hosp L3
[2023-12-02 02:47] LABS: Allen Test Positive; Base Excess -21 mmol/L (-2 to +2); Bicarbonate 10.1 mmol/L (22-26); Blood Gas Specimen Type ART; Mode AC; O2 Delivery Device Adult Vent; PEEP 5; PO2 74 mmHG (75-100); RR 14; SITE L Radial; SO2 84 % (95-99); Total Carbon Dioxide 11 mmol/L; pCO2 41.8 mmHg (35-45); pH 6.99 (7.35-7.45)
--- OUTSIDE RECORDS SUMMARY | 2023-12-02 02:59 | XMS RPT_ITS | CCD ---
Author Name Unknown Address [address] [place] [address] Organization [facility] Care Team Providers Care [employer] Mixer Name Role Phone JASON COLUNGA MD Admitting [...] Onset: 06-10-2023 Chronic Other aftercare (1 source) director long term care (current) use of antibiotics; Translations: [director long term care (current) use of antibiotics] Onset: 06-10-2023 Episodic Other aftercare (1 source) Other fpc (current) drug therapy; Translations: [Other fpc (current) drug therapy] Onset: 06-10-2023 Episodic Other [...] Start: 06-10-2023 End: 07-19-2023 ambulatory JASON [facility] Summary Purpose Family History No Family [...] BE BASED ON THE PRIMARY CLINICAL RECORDS. [facility] [employer] provides no warranty or guarantee of the accuracy or completeness of information in this document.
[2023-12-02 03:16] LABS: Bedside Glucose 171 mg/dL (74-106)
[2023-12-02] MEDS: Propofol 10MG/Ml 1,000 MG/100 ML Bottle 9.30000000000000071 MG CONT INF (03:18)
[2023-12-02 03:19] LABS: Reflex Lactate? Y
[2023-12-02] MEDS: fentaNYL drip 100 ML 2.5 MCG CONT INF (03:20)
[2023-12-02 03:29] LABS: Mucous, Urine 0 SEEN /hpf (<or=2+); Squamous Epithelial Cells - UA 0 SEEN /hpf (0-5)
[2023-12-02 03:37] LABS: Color, Urine Yellow (Yellow); Glucose, Dipstick 250 mg/dl (Normal); Ketone-Dipstick Negative (Negative); Leukocyte Esterase-Dipstick Negative /ul (Negative); Nitrite-Dipstick Negative (Negative); Occult Blood-Urine 150 /ul (Negative); Protein-Dipstick 500 mg/dl (Negative); Urine Bilirubin Dipstick Negative (Negative); Urine Clarity Clear (Clear); Urine Urobilinogen Normal (Normal)
--- NOTE | 2023-12-02 03:39 | CT_ITS ---
EXAM: CT HEAD WITHOUT INTRAVENOUS CONTRAST CLINICAL INDICATION: CODE BLUE and ER with suspected seizure activity CODE BLUE and ER with suspected seizure activity TECHNIQUE: Multiple axial images were obtained of the head without intravenous contrast. This CT exam was performed using one or more of the following dose reduction techniques: automated exposure control, adjustment of the mA and/or kV according to patient size, and/or use of iterative reconstruction technique. RADIATION DOSE: CTDIvol = 44.99 mGy, DLP = 829.85 mGy-cm COMPARISON: No relevant prior studies available. FINDINGS: BRAIN AND EXTRA-AXIAL SPACES: Unremarkable. No intra- or extra-axial hemorrhage. No evidence of acute infarct. No intracranial mass or mass effect. There is preservation of the tellez/white matter interface. Posterior fossa structures are unremarkable. Ventricles are appropriate for age. No hydrocephalus. Basal cisterns are patent. BONES/JOINTS: Unremarkable. No discrete lytic or blastic abnormalities. VASCULATURE: There is atherosclerotic calcification of the cavernous carotid arteries. SINUSES: Unremarkable as visualized. Clear. MASTOID AIR CELLS: Unremarkable. Clear. ORBITS: Visualized globes, extraocular muscles, optic nerves and retrobulbar fat appear unremarkable. CT/Brain/Head without Contrast IMPRESSION: No demonstrated acute intracranial process. Electronically Signed: Saleem Patrick MD at 7:56 EST Reading Location ID and State: [facility] / [place] , Service support ,
--- NOTE | 2023-12-02 03:40 | CT_ITS ---
EXAM: CT CHEST, ABDOMEN AND PELVIS WITHOUT INTRAVENOUS CONTRAST CLINICAL INDICATION: Sepsis of unknown origin with severe acute kidney Sepsis of unknown origin with severe acute kidney TECHNIQUE: Helically acquired images were obtained of the chest, abdomen and pelvis without intravenous contrast. This CT exam was performed using one or more of the following dose reduction techniques: automated exposure control, adjustment of the mA and/or kV according to patient size, and/or use of iterative reconstruction technique. RADIATION DOSE: CTDIvol = 27.56 mGy, DLP = 2338.27 mGy-cm COMPARISON: Chest x-ray 12/02/2023. FINDINGS: CHEST: LUNGS AND PLEURAL SPACES: There is a moderate right pleural effusion and there is a small left pleural effusion. There is dense atelectasis and/or infiltration in the lower lobes bilaterally as well as in the posterior right upper lobe. HEART: The heart is enlarged. There is a small pericardial effusion. There is a small coronary artery calcification. MEDIASTINUM: Unremarkable. No mediastinal or hilar adenopathy. Esophagus is unremarkable. No hiatal hernia. THYROID: Unremarkable. No thyroid lesions. ABDOMEN: LIVER: Unremarkable. Homogeneous. GALLBLADDER AND BILE DUCTS: The gallbladder is heterogeneous and may contain sludge or noncalcified gallstones. No gallbladder distention or wall edema. No intra- or extrahepatic biliary ductal dilation. PANCREAS: Unremarkable. No focal cystic mass. SPLEEN: There are calcified granulomas in the spleen. ADRENALS: Unremarkable. No nodules. KIDNEYS AND URETERS: Unremarkable. Normal renal size and position. No hydronephrosis. STOMACH AND BOWEL: Unremarkable. No stomach or bowel distention. No focal inflammatory change. PELVIS: APPENDIX: No evidence of acute appendicitis. BLADDER: There is a Ibarra catheter in urinary bladder. The bladder is decompressed, which limits its evaluation. REPRODUCTIVE: Unremarkable as visualized. No mass. CHEST, ABDOMEN and PELVIS: INTRAPERITONEAL SPACE: Unremarkable. No ascites or other fluid collection. No free air. BONES/JOINTS: There are multilevel degenerative changes in the visualized spine. No suspicious lytic or blastic abnormality. SOFT TISSUES: There is infiltration of subcutaneous fat as well as intra-abdominal fat which may be due to CHF or anasarca. No discrete abdominal or pelvic wall hernia. VASCULATURE: There is minimal atherosclerotic calcification of the abdominal aorta. LYMPH NODES: Unremarkable. No enlarged lymph nodes. TUBES, LINES AND DEVICES: The endotracheal tube (ETT) is in satisfactory position with tip 2.4 cm above the irma. There is a nasogastric tube with its tip in the region of the gastric antrum. CT/CT Chest, Abd, Pelvis WO Cont IMPRESSION: 1. Moderately large right pleural effusion and small left pleural effusion. 2. Dense atelectasis and/or infiltrates in the right upper lobe and bilateral lower lobes. 3. Small pericardial effusion. 4. Cardiomegaly. 5. Small amount of free fluid in the pelvis. Infiltration of intra-abdominal fat and infiltration of subcutaneous fat. These findings may be due to CHF or anasarca. 6. Heterogeneous gallbladder, possibly containing sludge or noncalcified stones. The symptoms warrant, consider follow-up ultrasound. 7. Tubes are in adequate position. Electronically Signed: Saleem Patrick MD at 7:53 EST ,
[2023-12-02] MEDS: Midazolam 5 MG/ML Syringe IV (03:41)
[2023-12-02 03:46] LABS: White Blood Cells 0-5 SEEN /hpf (0-5)
[2023-12-02 03:47] LABS: Bacteria 1+ /hpf (None Seen); Red Blood Cells-Urine 0-5 SEEN /hpf (0-5)
[2023-12-02] MEDS: Sodium Bicarbonate 150 MEQ in Dextrose 5%-Water (1000mL Bag) 1,000 ML IV (03:56)
[2023-12-02] MEDS: Piperacil/Tazobactam 4.5 GM in 0.9% Normal Saline (100mL MB+) 100 ML IV (04:07)
[2023-12-02] MEDS: Etomidate 20 MG/10 ML Vial IV (04:19)
[2023-12-02] MEDS: 0.9% Normal Saline (500mL Bag) 500 ML 999 ML IV (04:29)
[2023-12-02 04:34] LABS: Lactic Acid 1.7 mmol/L (0.4-1.9)
[2023-12-02] MEDS: Rocuronium Bromide 50 MG/5 ML Vial 60 MG IV (04:49)
[2023-12-02 04:54] LABS: Blood Gas Specimen Type VEN; O2 Delivery Device Adult Vent; PEEP 5; RR 14; SITE Not entered; VBG BASE EXCESS -18 mmol/L (-1.0-3.5); VBG Bicarbonate 11 mmol/L (22-26); VBG PO2 38 mmHg (25-40); VBG SO2 56 % (50-70); VBG TCO2 12 mmol/L (23-33); VBG pCO2 33.3 mmHg (41-51); VBG pH 7.13 (7.32-7.42)
[2023-12-02] MEDS: Norepinephrine 8 MG in 0.9% Normal Saline (250mL Bag) 242 ML 9.40000000000000036 MG CONT INF (05:18)
[2023-12-02] MEDS: levETIRAcetam IV 1,000 MG/100 ML BAG 400 MG IV (05:36)
[2023-12-02] MEDS: 0.9% Normal Saline (1000mL) 1,000 ML 999 ML IV (05:46)
--- NOTE | 2023-12-02 07:01 | EX.PCM.CONCC ---
Assessment & Plan Assessment/Plan (1) Septic shock: (2) Acute kidney injury: (3) Encephalopathy: (4) Cardiac arrest: (5) Respiratory failure: QUALIFIERS: Chronicity: acute Respiratory failure complication: hypoxia Qualified Code(s): J96.01 - Acute respiratory failure with hypoxia PLAN: Plan The patient initially presented to the hospital with shortness of breath. There was concern for underlying sepsis, with the possibility of underlying pneumonia. Alternatively, the patient's clinical presentation may have been the consequence of acute decompensated heart failure in the setting of possible pulmonary embolism. CTA chest was not able to be obtained due to the patient's presenting acute kidney injury. Ultimately, during his workup, the patient decompensated and experienced multiple episodes of cardiac arrest. Although ROSC was ultimately achieved with full life support employed, the patient's family eventually decided to transition him to DNR CCA, without plans for further CPR if further cardiac arrest was experienced. Unfortunately, after the conversation with the patient's family, the patient again became bradycardic and eventually went into asystole. Time of was declared at 0754 hrs. Critical care time, independent of procedures, including coordination of CODE BLUE resuscitative efforts: 42 minutes HPI Consult Data Date of Consult: 12/02/23 HPI Narrative Reason for Consultation: Sepsis, respiratory failure HPI Narrative: The patient is a 43-year-old male, with a history as outlined below, who presented to the emergency department on the morning of November for with shortness of breath. History pertinent to the patient's hospitalization was obtained primarily via chart review, as the patient is currently intubated. According to documentation, the patient recently traveled to [place] 2 weeks ago. The patient has a past medical history that includes morbid obesity, diabetes mellitus, diabetic neuropathy, chronic kidney disease and prior severe osteomyelitis of the right foot resulting in amputation last year. On presentation, the patient was documented to have a temperature of 97.1 ?F. He was notably tachycardic and tachypneic. Blood pressure was significantly elevated at 211/109 mmHg. Laboratory evaluation revealed a white blood cell count of 13,000. Hemoglobin was stable at 8.5 g/dL. Platelet count was normal at 190,000. Following intubation, the patient had an ABG obtained which demonstrated a pH of 6.9 with a pCO2 of 42 and pO2 of 74. Chemistry profile was notable for a sodium of 134, chloride of 110, bicarbonate of 15 and creatinine of 5.54. BUN was elevated at 73. Lactate was increased to 2.2. AST was increased to 44 with a normal ALT and alkaline phosphatase of 205. BNP was elevated at 1546. Troponin was elevated at 92. Urine analysis was noncontributory. Blood and urine cultures were obtained. COVID, influenza and RSV PCR's were negative. In the emergency department, the patient apparently became acutely unresponsive while attempting to provide a urine specimen. The patient apparently lost a pulse and CPR was initiated. ACLS was initiated and the patient was intubated. The patient received 1 round of epinephrine with successful return of spontaneous circulation. There is also report that the patient may have demonstrated seizure activity in the emergency department. Accordingly, the patient was started on Keppra and stat CT scans of the head, chest and abdomen were obtained. While attempting to obtain the aforementioned imaging, the patient apparently lost his pulse oximetry reading, which again led to concerns for repeat cardiac arrest. However, prior to initiating ACLS once again, the patient was confirmed to have a pulse. Therefore, CPR was never repeated. Shortly after his arrival to the medical intensive care unit, the patient went back into PEA cardiac arrest. ACLS was once again initiated. ROSC was ultimately achieved after several rounds of epinephrine. Conversation was undertaken with the patient's family, who indicated there wishes to decline further rounds of ACLS, if the patient experience further cardiac arrest. Ultimately, with time, the patient once again lost a pulse and was declared at 0754 hrs. [facility] Medical History Diabetes Diabetic foot ulcer Gas gangrene Hyperglycemia Non-pressure chronic ulcer of other part of right foot with necrosis of bone Osteomyelitis of foot, right, acute Type 2 diabetes mellitus with diabetic polyneuropathy Home Medications insulin glargine-yfgn 100 unit/mL (3 mL) subcutaneous pen 15 unit (0.15 mL) subcut BID DIABETES #1 mL 02/18/23 [Rx Last Taken 06/03/23] insulin lispro 100 unit/mL subcutaneous pen (Humalog KwikPen (U-100) Insulin) 15 unit (0.15 mL) subcut BIDCM DIABETES #1 mL 02/18/23 [Rx Last Taken 06/03/23] insulin syringe-needle U-100 1 mL 29 gauge x 1/2 (Insulin Syringe) #100 ea 02/18/23 [Rx Last Taken Unknown] flash glucose scanning reader (FreeStyle [place] 2 [place]) #1 ea 08/06/23 [Rx Last Taken Unknown] flash glucose sensor (FreeStyle Bel[place]is 2 Sensor kit) #1 ea 08/06/23 [Rx Last Taken Unknown] Allergy/AdvReac Type Severity Reaction Status Date / Time No Known Allergies Allergy Verified 12/01/23 22:44 Family History Mother Diabetes Father CVA (cerebral vascular accident) Surgical History Amputation toe History of amputation of right foot History of partial ray amputation of fifth toe of right foot Social History Smoking Status: Never smoker alcohol intake: never substance use type: does not use what type of physical activity do you participate in: none ROS Review of Systems ROS Unobtainable: due to endotracheal tube and due to mental status Physical Exam Const Constitutional Narrative: Quite ill in appearance. Intubated and mechanically ventilated. HEENT normocephalic and head/scalp atraumatic Mouth: endotracheal tube in place and OG tube in place Eyes Eyes Narrative: Pupils are minimally responsive. Neck supple General: trachea midline Chest inspection of chest normal Resp Effort and Inspection: tachypneic Auscultation: diminished lung sounds Cardio S1 normal heart sound and S2 normal heart sound Rate: bradycardia GI normal to inspection, nondistended, normoactive bowel sounds Extremity Extremity Narrative: Prior right foot amputation General Extremity: Negative for clubbing Neuro Neuro Narrative: The patient is currently unresponsive to noxious and tactile stimulation. Lab / Micro Data 12/01/23 23:00 12/01/23 23:00 Labs: Laboratory Results - last 24 hr 12/01/23 23:00: WBC 12.7 H, RBC 2.87 L, Hgb 8.5 L, Hct 27.0 L, MCV 94.1 H, MCH 29.6, MCHC 31.5 L, RDW Std Deviation 56.7 H, RDW Coeff of Erica 16.7 H, Plt Count 190, MPV 11.2, Immature Gran % (Auto) 0.400, Neut % (Auto) 95.9 H, Lymph % (Auto) 1.4 L, [place] % (Auto) 2.1, Eos % (Auto) 0.0, Baso % (Auto) 0.2, Absolute Neuts (auto) 12.1 H, Absolute Lymphs (auto) 0.18 L, Nucleated RBC % 0, PT 15.9 H, INR 1.3, APTT 42.4 H, Sodium 134 L, Potassium 4.7, Chloride 110 H, Carbon Dioxide 15.0 L, Anion Gap 9, BUN 73 H, Creatinine 5.54 H, Estim Creat Clear Calc 24.41, Est GFR (MDRD) Af Amer 14 L, Est GFR (MDRD) Non-Af 12 L, BUN/Creatinine Ratio 13.2, Glucose 256 H, Lactic Acid 2.2 H*, Calcium 8.3 L, Total Bilirubin 0.80, AST 44 H, ALT 46, Alkaline Phosphatase 205 H, Troponin I High Sens 92 H, B-Natriuretic Peptide 1546.1 H, Total Protein 7.0, Albumin 2.7 L, Globulin 4.3 H, Albumin/Globulin Ratio 0.6 L 12/02/23 02:58: POC Glucose 171 H 12/02/23 03:16: Urine Color Yellow, Urine Clarity Clear, Urine pH 6.0, Ur Specific [place] 1.020, Urine Protein 500 H, Urine Glucose (UA) 250 H, Urine Ketones Negative, Urine Occult Blood 150 H, Urine Nitrite Negative, Urine Bilirubin Negative, Urine Urobilinogen Normal, Ur Leukocyte Esterase Negative, Urine RBC 0-5 SEEN, Urine WBC 0-5 SEEN, Ur Squamous Epith Cells 0 SEEN, Urine Bacteria 1+, Urine Mucus 0 SEEN 12/02/23 03:35: Lactic Acid 1.7 Micro: Microbiology 12/01/23 23:00 Mucosa - Nose SARS-CoV-2, Influenza & RSV (PCR) - Final ABG Data ABG results: ABG 12/02/23 12/02/23 02:43 04:50 Specimen Type ART ZULMA Sample Site L Radial Not entered pH 6.99 L* Bicarbonate Actual 10.1 L Total CO2 11 Base Excess -21 L O2 Saturation 84 L O2 % 60.0 50.0 ABG pCO2 41.8 ABG pO2 74 L Krunal Test Positive VBG pH 7.13 L* VBG pO2 38 VBG HCO3 11 L VBG Total CO2 12 L VBG O2 Sat (Calc) 56 VBG Base Excess -18 L POC Mix VBG pCO2 Pt Tmp 33.3 L Respiration Rate 14 14 O2 Delivery Device Adult Vent Adult Vent Vent Mode AC Tidal Volume 500.0 500.0 POC PEEP 5 5 Crit Call To/Read Back Yes Yes Blood Gas Notified Whom Ez Gutierrez Blood Gas Notified Time 02:45:23 04:52:01 Imaging Radiology Impression Chest X-Ray 12/01/23 23:53 IMPRESSION: 1. Possible low-grade left ventricular dysfunction. 2. No consolidating pneumonia. 3. No other acute disease. Electronically Signed: Darin Wilson MD at 1:40 EST , Chest X-Ray 12/02/23 02:20 IMPRESSION: Findings of congestive heart failure exacerbation. Correlate clinically to exclude aspiration or pneumonia at the left base versus collapse of the left lower lobe. Electronically Signed: Darin Wilson MD at 3:59 EST , Charges/Coding Procedures Hospitalists Procedures: [id number] Critical Care 1st Hr
--- NOTE | 2023-12-02 07:13 | ED.RN ---
Per Dr Gutierrez, only administer 3 bags of NS due to CHF.
--- NOTE | 2023-12-02 07:22 | ED.RN ---
This RN responded to a staff assist call last night in the ER room. HARIKA Gonzalez and Pop RN were at bedside getting the patient back into the bed. When this RN entered, the patient lost a pulse and was not breathing. A code was called. Reba Flores RN began chest compressions while Lisa, Business Editor was bagging the patient to maintain airway. See Code Blue charting for further CODE documentation. Upon ROSC, an OG was placed and chest x ray was obtained.
[2023-12-02 07:38] LABS: Base Excess -21 mmol/L (-2 to +2); Bicarbonate 7.4 mmol/L (22-26); Blood Gas Specimen Type ART; Mode AC; O2 Delivery Device Adult Vent; PEEP 5; PO2 85 mmHG (75-100); RR 14; SITE Not entered; SO2 94 % (95-99); Total Carbon Dioxide 8 mmol/L; pCO2 19.9 mmHg (35-45); pH 7.18 (7.35-7.45)
[2023-12-02] MEDS: Epinephrine (1 mg/ml) 1 MG in 0.9% Normal Saline (250mL Bag) 250 ML 15.0999999999999996 MG CONT INF (07:49)
--- NOTE | 2023-12-02 08:00 | CPS ---
Critical result for ABG given to Dr Johnson at bedside. There was not enough sample to re-run the ABG.
[2023-12-02 08:08] LABS: Bedside Glucose 147 mg/dL (74-106)
--- NOTE | 2023-12-02 08:55 | PCM.OP.PRO ---
Procedure Report Date of Procedure: 12/02/23 Arterial Line Indication: Cardiogenic shock Consent was obtained from: Procedure was done emergently The patient's left wrist wrist was prepped and draped in the sterile fashion. An 18-gauge arrow arterial line was introduced into the radial artery. The catheter was threaded over the guidewire and the needle was removed with the appropriate pulsatile blood return. The catheter was then sutured in place to the skin and a sterile dressing applied. Perfusion to the extremity distal to the point of catheter insertion was checked and found to be adequate. ULTRASOUND GUIDANCE STATEMENT (Vascular Access): I perform ultrasound image acquisition and interpretation for needle placement during this procedure. The vessel was identified and found to be free of thrombosis by compression technique. A safe point of entry was marked at the skin and then angle for access was determined. The needle was guided by obtaining free-flowing fluid and by real-time visualization. Procedures Hospitalists Procedures: [id number] Insertion Catheter Artery
--- NOTE | 2023-12-03 15:38 | EXP.PCM_ITS ---
Preliminary Cause of Preliminary Cause of Preliminary Cause of : Cardiopulmonary arrest possibly secondary to acute decompensated heart failure in setting of pulmonary embolism versus septic shock Date of Admission: 12/02/23 Date of : 12/02/23 Principle Diagnosis Problem List: Active and Suspected Problems (Updated 12/02/23 @ 09:[address] William Johnson, DO) Cardiac arrest (Acute) Encephalopathy (Acute) Septic shock (Acute) Seizure (Acute) Sepsis (Acute) Respiratory failure (Acute) Congestive heart failure (Acute) Acute kidney injury (Acute) Diabetes mellitus type 2 with complications (Acute) Hospital Course Patient presented to [facility] ED on the late evening of 11/30 with worsening shortness of breath. Patient's medical history was significant for poorly controlled type 2 diabetes mellitus with right foot amputation for severe osteomyelitis in 05/2023, morbid obesity with BMI around 50 and CKD stage III. Patient had recently traveled to [place] about 2 weeks prior to this admission. He denied any reported sick contacts or toxic apartment exposures. He reported fairly sudden onset shortness of breath during the day on 11/30, initially on exertion but progressed to shortness of breath at rest. Initial workup in the ED was notable for significant SLIME on CKD with creatinine 5.54, BNP elevated to around 1500, elevated troponin, mild leukocytosis, mild lactic acidosis. Chest x-ray was concerning for low-grade left ventricular dysfunction with findings consistent with heart failure. Patient was sitting at the edge of the bed in the ED providing a urine sample when unfortunately he went to cardiac arrest. CODE BLUE was called at that time. Pulse returned after 1 dose of epinephrine. Patient was intubated at that time. Notably, ABG shortly after intubation showed pH 6.99, pCO2 41, pO2 74, bicarb level of 10. There was concern for possible saddle pulmonary embolism with suspected RV strain versus sepsis of unknown origin with multiorgan failure at that time. Unfortunately a CTA chest could not be done due to the patient's severe SLIME. Shortly after intubation, ER nursing staff reported suspected seizure activity so patient was treated with IV Keppra. Stat CT head/chest/abdomen/pelvis without contrast were completed at that time. CT head was nonacute, CT chest abdomen pelvis showed a moderately large right pleural effusion, small left oral effusion, cardiomegaly, otherwise no significant findings. Hospitalist was then contacted for ICU admission. Plan was for VQ lung scan to further evaluate for PE. Unfortunately, shortly after arrival to the ICU, patient again lost a pulse and a CODE BLUE was called. Grain Merchandising Manager and I were present at the bedside during this CODE BLUE. We were able to regain a pulse again after round of epinephrine. Grain Merchandising Manager placed left radial arterial line at the bedside, patient was found to have a very low blood pressure at that time. After discussion with family, decision was made to transition the patient to DNR CCA, DNI status. Shortly after this, patient again became bradycardic a nd eventually went into asystole. Time of was declared at 0754. Total clinical time spent by myself addressing the patient's medical issues, reviewing all the data, and collaborating with patient's care team: 35 minutes. Assessment & Plan Assessment/Plan (1) Cardiac arrest: (2) Septic shock: (3) Respiratory failure: QUALIFIERS: Chronicity: acute Respiratory failure complication: hypoxia Qualified Code(s): J96.01 - Acute respiratory failure with hypoxia (4) Congestive heart failure: (5) Acute kidney injury: Visit Charges Inpatient E&M: 54177 Disch Hosp >30min
== END 2023-12-02 10:20 | DRG 871 ==
LOC: ED 12-02 02:28 → ICU 12-02 04:38
PROVIDERS: Admitting Provider Internal Medicine; Emergency Provider Emergency Medicine; PCP Family Medicine; Visit Provider Hospitalist
DX: A41.9 Sepsis, unspecified organism (principal); J96.01 Acute respiratory failure with hypoxia; I26.92 Saddle embolus of pulmonary artery without acute cor pulmonale; R65.21 Severe sepsis with septic shock; Z68.43 Body mass index [BMI] 50.0-59.9, adult; N17.9 Acute kidney failure, unspecified; G93.40 Encephalopathy, unspecified; I46.9 Cardiac arrest, cause unspecified; N18.30 Chronic kidney disease, stage 3 unspecified; E11.42 Type 2 diabetes mellitus with diabetic polyneuropathy; I50.9 Heart failure, unspecified; R56.9 Unspecified convulsions; E66.01 Morbid (severe) obesity due to excess calories; R65.20 Severe sepsis without septic shock; Z79.4 Long term (current) use of insulin; E11.22 Type 2 diabetes mellitus with diabetic chronic kidney disease; Z89.431 Acquired absence of right foot; E11.65 Type 2 diabetes mellitus with hyperglycemia; Z66 Do not resuscitate
CPT/HCPCS: 31500; 31720; 36600; 70450; 71045; 71250; 74176; 80053; 81001; 82803; 82962; 83605; 83880; 84484; 85025; 85610; 85730; 87040; 87070; 87077; 87086; 87186; 87205; 87631; 92950; 93005; 94002; 99285; J7030; J7040; J7050; Q9957; A4216; J1940